=== PATIENT | female | born 2000 | race Caucasian/White ===

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

== ENCOUNTER 2022-09-05 20:04 | Emergency (ER) | payer OTHER, SELFPAY ==
[2022-09-05 20:04] VITALS: BP 143/97; PULSE 95; RESP 16; TEMP 36.1; O2SAT 100; BMI 20.1
--- NOTE | 2022-09-05 20:18 | EKG12_ITS ---
Test Reason : DYSRHYTHMIA Blood Pressure : / mmHG Vent. Rate : 081 BPM Atrial Rate : 081 BPM P-R Int : 146 ms QRS Dur : 094 ms QT Int : 374 ms P-R-T Axes : 000 106 -42 degrees QTc Int : 434 ms Normal sinus rhythm Dsxxm-Hnxzlbncj-Pyvyt -left lateral Abnormal ECG Confirmed by ROSCOE DE DIOS, BRADEN ([id number]), sports editor ELISABETH MANDUJANO ([id number]) on 09/12/2022 12:45:16 PM Referred By: MICHAEL Confirmed By:BRADEN MALHOTRA MD
--- NOTE | 2022-09-05 22:04 | EX.ED.DYSGE1 ---
HPI History of Present Illness Chief Complaint: Palpitations Informant: patient Onset/Context/Timing Onset: Weeks (1) Timing: Intermittent Quality: racing, beating hard Current Severity: Mild Maximum Severity: Moderate Worsened by: standing up Relieved by: sitting down Narrative Narrative: Patient states she has been having palpitations off and on for the past week. Mostly when she stands up, she feels her heart racing and beating hard, and her Apple Watch tells her that her heart is fast. It has been worse and more frequent today. When she sits down it seems to feel better. She has had no lightheadedness, near-syncope or syncope. No chest discomfort, no pleuritic discomfort, no dyspnea. No leg pain or swelling. She is healthy. She does not use drugs. She does not take any prescriptions. She has not taken any hiba-ovx-keiepvs medications but she did have a cold last week that is resolved, and prior to that she had strep throat that was treated with antibiotics. PFSH PFS Medical History no medical history no medical history Home Medications No Known/Unobtainable [No Known Home Medications] 08/17/16 [History Last Taken Unknown] Allergy/AdvReac Type Severity Reaction Status Date / Time No Known Allergies Allergy Verified 08/17/16 23:22 Social History Smoking Status: Never smoker ROS ROS ED Constitutional Constitutional ED: Denies chills or fever(s) Eyes Eyes: Denies change in vision or diplopia ENT ENT ED: Denies rhinorrhea or sore throat Cardiovascular Cardiovascular: Reports palpitations and racing heartbeat; Denies chest pain Respiratory/Chest Respiratory/Chest: Denies cough or dyspnea Gastrointestinal Gastrointestinal: Denies abdominal pain, diarrhea, nausea or vomiting Genitourinary Genitourinary ED: Denies dysuria or hematuria Musculoskeletal Musculoskeletal: Denies back pain or neck pain Integumentary Denies abscess or rash Neurologic Neurologic: Denies headache(s), paresthesias or weakness Psychiatric Psychiatric: Denies anxiety or suicidal thoughts EXAM Physical Exam Const Vital Signs: 09/05/22 20:04 09/05/22 22:32 09/05/22 22:32 Temperature 96.9 F L Temperature Source Temporal Pulse Rate 95 95 Pulse Rate [Lying] Pulse Rate [Sitting (for 1 minute prior to obtaining)] Pulse Rate [Standing (for 1 minute prior to obtaining)] Respiratory Rate 16 20 H Respiratory Effort Normal Non-Labored Blood Pressure 143/97 H 121/80 H Blood Pressure [Lying] Blood Pressure [Sitting (for 1 minute prior to obtaining)] Blood Pressure [Standing (for 1 minute prior to obtaining)] Blood Pressure Mean 112 93 Blood Pressure Mean [Lying] Blood Pressure Mean [Sitting (for 1 minute prior to obtaining)] Blood Pressure Mean [Standing (for 1 minute prior to obtaining)] Pulse Ox 100 100 Oxygen Delivery Method Room Air Room Air 09/05/22 22:40 Temperature Temperature Source Pulse Rate Pulse Rate [Lying] 88 Pulse Rate [Sitting (for 1 minute prior to obtaining)] 95 Pulse Rate [Standing (for 1 minute prior to obtaining)] 112 H Respiratory Rate Respiratory Effort Blood Pressure Blood Pressure [Lying] 121/73 H Blood Pressure [Sitting (for 1 minute prior to obtaining)] 115/80 Blood Pressure [Standing (for 1 minute prior to obtaining)] 136/74 H Blood Pressure Mean Blood Pressure Mean [Lying] 89 Blood Pressure Mean [Sitting (for 1 minute prior to obtaining)] 91 Blood Pressure Mean [Standing (for 1 minute prior to obtaining)] 94 Pulse Ox Oxygen Delivery Method Positive well nourished and well developed Constitutional Narrative: Well-appearing, conversive in full sentences, no distress General Appearance ED: well developed and NAD HEENT Reports moist mucous membranes normocephalic and atraumatic Throat: posterior oropharynx normal, tonsils normal and uvula midline Eyes PERRL and EOMs intact bilaterally Neck full ROM, no lymphadenopathy, supple and no JVD Chest Wall inspection of chest normal and palpation of chest normal Resp normal respiratory effort and clear to auscultation bilaterally Cardio regular rate, regular rhythm and no murmurs Rate: Negative for tachycardic GI non-tender and non-distended Auscultation: normoactive bowel sounds Palpation: soft Back/Spine no CVA tenderness General Back: other FROM Extremity normal to inspection General Extremety ED: Negative for edema, pulses abnormal or tenderness General Extremity: Negative for edema or pulses abnormal Neuro oriented x3, CN's II-XII intact bilaterally and no sensory deficits noted Sensorium / Orientation: awake and alert Motor Exam: strength 5/5 throughout Psych mental status grossly normal Skin no rashes or lesions noted and no wounds MDM MDM MDM Narrative Medical decision making narrative: Patient's EKG has repolarization abnormalities, and appears to have a delta wave. Her rhythm is normal and has been throughout her ED observation. Her labs including troponin are normal, I did a troponin to rule out myocarditis in context of her abnormal EKG and the fact that she had a cold last week and did not test for COVID. She said she had rhinorrhea and congestion but no sore throat, headache, fevers or chills, so she probably did not have COVID. 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 She said that at one point her Apple Watch told her that her heart rate was 200. It is possible that she was in transient ventricular tachycardia with that. I discussed all this with cardiology Dr. Macias, and sent him the EKG. He agrees with this assessment, and advises a 48-hour Holter monitor which we are placing here in the ED prior to her discharge, and close outpatient follow-up which she will do. Discussed with her and family they are comfortable with this overall plan. Lab Data Attestation: I reviewed the patient's lab results. Labs: Laboratory Results - last 24 hr 09/05/22 09/05/22 22:21 22:21 WBC 11.2 H RBC 4.25 Hgb 12.0 Hct 36.0 L MCV 84.7 MCH 28.2 MCHC 33.3 RDW Std Deviation 38.3 RDW Coeff of Nathalia 12.5 Plt Count 302 MPV 8.7 Immature Gran % (Auto) 0.400 Neut % (Auto) 79.2 H Lymph % (Auto) 15.3 L [place] % (Auto) 4.2 Eos % (Auto) 0.5 Baso % (Auto) 0.4 Absolute Neuts (auto) 8.9 H Absolute Lymphs (auto) 1.71 Nucleated RBC % 0 Sodium 139 Potassium 3.7 Chloride 106 Carbon Dioxide 25.0 Anion Gap 8 BUN 13 Creatinine 0.89 Estim Creat Clear Calc 78.10 Est GFR (MDRD) Af Amer 102 Est GFR (MDRD) Non-Af 84 BUN/Creatinine Ratio 14.6 Glucose 143 H Calcium 9.4 Troponin I High Sens 4 Rhythm Strip Rhythm Strip: Sinus Rhythm Rate: 95 Ectopy: None EKG Initial EKG: Attestation: I personally reviewed and interpreted this EKG as follows: Interpretation: Sinus Rhythm, No Acute Injury Pattern, Non-Specific ST Changes (Anteroseptal T wave inversions with some mild ST depressions, as well as nonspecific ST-T wave abnormalities inferiorly) and - (Delta wave with short [place] interval) Prior: No Prior Discharge Plan Triage Chief Complaint: Palpitations ED Provider: Cosem Mason Dx/Rx/DC Orders Clinical Impression: Palpitations, WPW (Yxyvm-Cvqmdylbm-Tucbr syndrome) Instructions: ED Palpitations Prescriptions: No Action No Known Home Medications Primary Care Provider: Caleb Carver Referrals: Clarice Macias MD [Med Staff - Active Staff] - As soon as possible (call for appt to be seen after 48 hrs so that your monitor is finished.) Caleb Carver MD [Primary Care Provider] - Activity Restrictions/Additional Instructions: Return to the ER if you have palpitations that will not resolve, especially if it is very fast like 180-200, or if you pass out or feel like you are going to. Avoid exerting yourself until you follow-up with cardiology. Disposition Disposition: Home, Self Care
[2022-09-05 22:32] VITALS: BP 121/80; PULSE 95; RESP 20; O2SAT 100
[2022-09-05 22:33] LABS: Absolute Lymphocyte Count 1.71 X10^3/uL (0.83-4.51); Absolute Neutrophil Count 8.9 X10^3/uL (2.0-7.7); Basophil# 0.04 X10^3/uL; Basophil% 0.4 % (0-1); Eosinophil# 0.06 X10^3/uL; Eosinophils% 0.5 % (0-5); Lymphocyte # 1.71 X10^3/ul (0.83-4.51); Lymphocyte % 15.3 % (19-41); Mean Corp Hgb Conc 33.3 g/dL (32-36); Mean Corpuscular Hgb 28.2 pg (27.0-32.0); Mean Corpuscular Volume 84.7 fL (81-99); Mean Platelet Vol. 8.7 fl (6.2-12.0); Monocyte# 0.47 X10^3/uL; Monocyte% 4.2 % (0-10); NRBC Flagged by Analyzer 0 % (0-5); Neutrophil # 8.88 X10^3/uL (2.7-7.7); Neutrophil % 79.2 % (47-70); Platelet Count 302 K/mm3 (150-450); RBC Distribution Width CV 12.5 % (11.6-14.6); RBC Distribution Width SD 38.3 fl (35.1-43.9); Red Blood Count 4.25 M/mm3 (4.2-5.4); White Blood Count 11.2 K/mm3 (4.4-11.0)
[2022-09-05 22:40] VITALS: BP 115/80; BP 121/73; BP 136/74; PULSE 112; PULSE 88; PULSE 95
[2022-09-05 22:52] LABS: Anion Gap 8 (5-15); BUN 13 mg/dL (7-18); BUN/Creat Ratio 14.6 RATIO (10-20); Calcium,Total 9.4 mg/dL (8.5-10.1); Chloride 106 mmol/L (98-107); Creatinine, Serum 0.89 mg/dL (0.55-1.02); EST Glomerular Filtration Rate 84 mL/min (>60); Est Glom Filt Rate - Afr Amer 102 mL/min (>60); Glucose 143 mg/dL (74-106); Potassium 3.7 mmol/L (3.5-5.1); Sodium Level 139 mmol/L (136-145); Troponin-I HS 4 pg/mL (3.0-54.0)
[2022-09-05 23:54] VITALS: BP 127/90; PULSE 87; RESP 16; O2SAT 100
== END 2022-09-06 00:10 | disposition home or self-care (01) ==
PROVIDERS: Emergency Provider Emergency Medicine; PCP Pediatrics; Visit Provider Emergency Medicine
DX: R00.2 Palpitations (principal); J34.89 Other specified disorders of nose and nasal sinuses; I45.6 Pre-excitation syndrome
CPT/HCPCS: 36415; 80048; 84484; 85025; 93005; 99284

== ENCOUNTER → 2022-09-05 | Outpatient (CLI) | payer OTHER, SELFPAY | END | disposition home or self-care (01) | PROVIDERS: PCP Pediatrics; Visit Provider Emergency Medicine | DX: R00.2 Palpitations (principal) | CPT/HCPCS: 93225; 93226 ==

== ENCOUNTER → 2022-09-20 | Outpatient (CLI) | payer OTHER, SELFPAY ==
--- NOTE | 2022-09-20 14:04 | ECHOD_ITS ---
Reason For Study: Palpitations Procedure This was a 2D Doppler, Color Flow transthoracic echocardiogram. Exam performed in department. Left Ventricle Normal LV size. Left ventricular systolic function is normal. The estimated ejection fraction is 60 %. No regional wall motion abnormalities noted. Right Ventricle Normal RV size. Normal systolic function. Atria Normal left atrium. Normal right atrium. Mitral Valve Normal mitral valve. Tricuspid Valve Normal tricuspid valve. Mild tricuspid valve insufficiency. Pulmonary artery systolic pressure is 20 mmHg. Aortic Valve Normal aortic valve. Trisinus/trileaflet aortic valve. Pulmonic Valve Normal pulmonic valve. Great Vessels Normal aortic root. The pulmonary artery is normal size. Normal inferior vena cava. Pericardium/Pleural No pericardial effusion. MMode/2D Measurements & Calculations LVIDd: 3.9 cm IVSd: 0.69 cm Ao root diam: 2.4 cm LVIDs: 2.9 cm LVPWd: 0.69 cm RVDd: 2.4 cm FS: 27.4 % LAV(MOD-bp): 11.4 ml LA A4 area: 5.3 cm2 LA dimension(2D): 2.8 cm LAV(MOD-bp) Indexed: 7.6 ml/m2 LAV(MOD-sp2): 14.9 ml LAV(MOD-sp4): 7.4 ml RA A4 area: 6.7 cm2 Time Measurements MV dec time: 0.27 sec Doppler Measurements & Calculations MV E max dash: 66.0 cm/sec Lat Peak E' Dash: 13.9 cm/sec Med Peak E' Dash: 10.2 cm/sec MV A max dash: 47.1 cm/sec E/E' lat: 4.8 E/E' med: 6.5 MV E/A: 1.4 MV dec slope: 245.1 cm/sec2 Ao V2 max: 96.6 cm/sec LV V1 max: 89.4 cm/sec Ao max P.7 mmHg LV V1 max P.2 mmHg Ao V2 mean: 71.4 cm/sec Ao mean P.2 mmHg Ao V2 VTI: 19.8 cm PA V2 max: 96.4 cm/sec TR max dash: 200.4 cm/sec TR max P.1 mmHg ECHO/Echo Complete Interpretation Summary Normal LV size. Left ventricular systolic function is normal. The estimated ejection fraction is 60 %. Pulmonary artery systolic pressure is 20 mmHg. Structurally normal valves. Ordering Physician: Gaston Liu Referring Physician: Caleb Carver Performed By: Tiffanie Rios, PETER, RVT
== END | disposition home or self-care (01) ==
LOC: CVS 14:03
PROVIDERS: PCP Pediatrics; Referring Provider Internal Medicine Cardiovascular Disease; Visit Provider Internal Medicine Cardiovascular Disease
DX: R00.2 Palpitations (principal); I45.6 Pre-excitation syndrome
CPT/HCPCS: 93306

== ENCOUNTER → 2024-06-22 | Outpatient (CLI) | payer OTHER, SELFPAY ==
[2024-07-05 10:49] LABS: HPV Reflexed? NOT INDICATED
== END | disposition home or self-care (01) ==
LOC: LABSPEC 15:19
PROVIDERS: Referring Provider Nurse Practitioner Family; Visit Provider Nurse Practitioner Family
DX: Z12.4 Encounter for screening for malignant neoplasm of cervix (principal)
CPT/HCPCS: 88175; G0145

== ENCOUNTER → 2024-07-02 | Outpatient (CLI) | payer SELFPAY ==
--- NOTE | 2024-07-02 15:34 | US_ITS ---
STUDY: ULTRASOUND BREAST - RIGHT REASON FOR EXAM: Female, 24 years old. Palpable lump in the upper outer quadrant of the right breast. TECHNIQUE: Axial and longitudinal images of the RIGHT breast were performed with a high resolution ultrasound transducer. # OF IMAGES: 12 COMPARISON: None. FINDINGS: RIGHT Breast: The palpable lump corresponds to a 1.5 cm x 1.2 cm x 0.8 cm solid hypoechoic slightly irregular nodule at the 10:00 position of the breast at 7 cm from the nipple. This may represent a fibroadenoma although tissue diagnosis recommended. US/Breast Limited Unilateral IMPRESSION: The palpable lump corresponds to 1.5 cm x 1.2 cm x 0.8 cm slightly irregular hypoechoic solid nodule at the 10:00 position of the breast at 7 cm from the nipple. Biopsy recommended. ASSESSMENT CATEGORY: BIRADS Category 4: Suspicious - Biopsy Should Be Considered. A letter regarding these results will be sent to the patient by the facility within 30 days. Electronically Signed: Raffi Carranza MD at 8:34 EST ,
== END | disposition home or self-care (01) ==
LOC: OPBI 15:34
PROVIDERS: PCP Family Medicine; Referring Provider Nurse Practitioner Family; Visit Provider Nurse Practitioner Family
DX: N63.11 Unspecified lump in the right breast, upper outer quadrant (principal)
CPT/HCPCS: 76642

== ENCOUNTER → 2024-07-07 | Outpatient (CLI) | payer OTHER, SELFPAY ==
--- NOTE | 2024-07-07 13:15 | BRBX_PTH ---
PATIENT: ARACELIS SABA LOC: [facility] U#:[id number] AGE/SX: 24/F ROOM: RE07/07/[address]: Dr. Zuly Hopper MD : 2000 BED: DIS: 07/07/2024 SPEC #: [id number] RECD: 07/07/24 14:59 STATUS: AMADOU REQ #: [id number] SUNNY: 07/07/24 13:[address]: Zuly Hopper DEPT: SURGICAL PATHOLOGY RECD BY: Marifer Bright ENTERED: 07/08/24 11:59 SP TYPE: BREAST BX OTHR DR: Dr. Neymar Peña MD Tissues: Right breast, NOS Procedures: Surgery Specimen Level IV HEADER OPERATION: Right breast biopsy nodule PRE-OP DIAGNOSIS: Right breast biopsy nodule, ?fibroadenoma TISSUE SUBMITTED: Right breast biopsy, 10o'clock, 7cm from nipple Ischemic Time: 1 minute Fixation Time: 31.5 hours MICROSCOPIC DIAGNOSIS Right breast, 10o'clock, 7cm from nipple, core biopsy: Fragments of benign breast tissue with focal dense fibrosis. Negative for atypia or malignancy. See comment. 07/09/2024 COMMENT Correlation with clinical, radiologic findings and appropriate follow up are necessary. MICROSCOPIC DESCRIPTION Slides are reviewed. GROSS DESCRIPTION Received in fixative is one container labeled with the patient's name and designated Right breast nodule. The specimen consists of multiple irregular fragments of ko soft tissue and ko-yellow fibroadipose tissue that in aggregate measure 1.0 x 0.5 x 0.1 cm. The specimen is totally submitted in one cassette. 07/08/2024 TC:5 CPT:74348
== END | disposition home or self-care (01) ==
LOC: LABSPEC 15:07
PROVIDERS: PCP Family Medicine; Referring Provider Surgery; Visit Provider Surgery
DX: N63.10 Unspecified lump in the right breast, unspecified quadrant (principal)
CPT/HCPCS: 88305

== ENCOUNTER 2024-07-23 07:30 | Day surgery (SDC) | payer OTHER, SELFPAY ==
--- NOTE | 2024-07-16 09:13 | PAT.ANESEVAL ---
Pre-Assessment Diagnosis/Proposed Procedure Planned Operative Procedure(s): RIGHT U/S GUIDED LOCALIZATION EXCISIONAL BREAST BIOPSY Anesthesia History Anesthesia History - senior talent management consultant: Anesthesia History - senior talent management consultant Hx Hospitalization No 07/16/24 08:15 Any Problems With Anesthesia No 07/16/24 08:15 Cholinesterase deficiency No 07/16/24 08:15 You/Your Family Experience No 07/16/24 08:15 fever (hyperthermia) with Relationship Recent Exposure to Contagious Disease Does patient have nerve No 07/16/24 08:15 stimulator Patient instructed to have device shut off --Does patient have Pacemaker or ICD? When Was Last Pacemaker Check QUESTION #4 FULL TEXT: You/Your Family Experience fever (hyperthermia) with Anesthesia Last Oral Intake Last Oral intake: Last Oral Intake NPO since Meds taken in AM with sips of water? Meds patient instructed to take am of surgery PONV PONV - senior talent management consultant: PONV - senior talent management consultant Female Yes 07/16/24 08:15 HX of Motion Sickness Yes 07/16/24 08:15 HX of N/V After Surgery No 07/16/24 08:15 Non-Smoker Yes 07/16/24 08:15 Duration of Surgery greater Yes 07/16/24 08:15 than 60 minutes Number of Risk Factors 4 07/16/24 08:15 PONV Score Severe Risk 07/16/24 08:15 Height & Weight Height & Weight: Anesthesia: Height & Weight Height 5 ft 2 in 07/07/24 13:09 Respiratory Assessment Respiratory Assessment - senior talent management consultant: Respiratory Tract Infection Hx - senior talent management consultant Hx Respiratory Tract Infection No 07/16/24 08:15 STOP Sleep Apnea STOP Sleep Apnea - senior talent management consultant: STOP Sleep Apnea - senior talent management consultant Hx Hypertension No 07/16/24 08:15 Hx Sleep Apnea No 07/16/24 08:15 CPAP BIPAP Do you snore loudly (louder No 07/16/24 08:15 than talking or can be heard Do you often feel tired/ No 07/16/24 08:15 fatigued/ sleepy during daytime? Has anyone observed you stop No 07/16/24 08:15 breathing during sleep? STOP Results Negative 07/16/24 08:15 QUESTION #5 FULL TEXT : Do you snore loudly (louder than talking or can be heard through closed doors)? Tobacco Use History Tobacco Use History - senior talent management consultant: Tobacco Use History - senior talent management consultant Tobacco Use Smoking Status Never smoker 07/16/24 08:15 Hx Tobacco Use No 07/16/24 08:15 Years Smoking Packs Smoked per Day Smoking Cessation Date was within the last 15 years Hx Smoking Cessation Date Hx Smoking Cessation Counseling Hematologic Medial History Hematologic Hx - senior talent management consultant: Hematologic Medical Hx - power operator Hx of Blood Transfusion No 07/16/24 08:15 Hx of Transfusion in last 3 No 07/16/24 08:15 Months Date of Last Transfusion (if within last 3 months) Ever experience any problems No 07/16/24 08:15 with transfusion(s)? Specify any problems Hx of Preganancy in last 3 No 07/16/24 08:15 Months Nurse Filling Out Transfusion DSCHRIBER 07/16/24 08:15 & Questions: Date: 07/16/24 07/16/24 08:15 Time: 08:16 07/16/24 08:15 Patient unable to answer at this time (ie. confused, unrespo /Reproduction History /Reproductive History - senior talent management consultant: /Reproductive Hx- senior talent management consultant Hx Now No 07/16/24 08:15 Gestational Age (in weeks): EDC: Hx Hx Para Hx Section SAB No 07/16/24 08:15 PFSH Medical History (Updated 07/16/24 @ 08:20 by Elsa Contreras) Wears glasses Wears contact lenses TMJ arthritis Non-smoker History of Holter monitoring History of echocardiogram Cardiology follow-up encounter Abnormal ultrasound Breast pain, right WPW (Axfuu-Nltfwnmkr-Xjsoy syndrome) Palpitations Spondylolisthesis at L4-L5 level Segmental and somatic dysfunction of pelvic region Segmental and somatic dysfunction of lumbar region Segmental and somatic dysfunction of thoracic region Segmental and somatic dysfunction of cervical region Home Medications ?Medication ?Instructions ?Recorded ?Last Taken ?Type No Known/Unobtainable [No Known 08/17/16 Unknown History Home Medications] Allergy/AdvReac Type Severity Reaction Status Date / Time No Known Allergies Allergy Verified 07/16/24 08:14 Family History Grandfather Myocardial infarction, Onset Age: 38 Grandmother CVA (cerebral vascular accident) Diabetes Surgical History (Updated 07/16/24 @ 08:20 by Elsa Contreras) Hx of wisdom tooth extraction History of cardiac radiofrequency ablation (RFA) (12/09/22) Social History (Updated 06/22/24 @ 11:41 by Estephanie Nur) adopted: No number of children: 0 sexually active: Yes Smoking Status: Never smoker alcohol intake: never substance use type: does not use caffeine: No christin/taoism: Roman Catholic seatbelt use: always do you feel safe at home: Yes Audit: Pertinent Findings Pertinent Findings EKG Perinent findings: 02/11/2023 sinus rhythm RSR V1 probably normal for age Echo (EF%) pertinent findings: 09/20/2022 normal systolic function EF 60% pulmonary artery pressure 20 normal valves Consult pertinent findings: Cardiology 02/12/2024 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
[2024-07-23] VITALS (9 sets, daily range): BP systolic 101–121; BP diastolic 62–72; PULSE 74–95; RESP 16–18; TEMP 36.6–37.2; O2SAT 99–100; BMI 20.9
--- NOTE | 2024-07-23 | BRBX_PTH ---
PATIENT: ARACELIS SABA LOC: [facility] [place] U#:[id number] AGE/SX: 24/ ROOM: RE07/23/[address]: Dr. Zuly Hopper MD : 2000 BED: DIS: 07/23/2024 SPEC #: [id number] RECD: 07/23/24 11:02 STATUS: AMADOU SANDRINE #: [id number] SUNNY: 07/23/24 00:[address]: Zuly Hopper DEPT: SURGICAL PATHOLOGY RECD BY: Moi Mar ENTERED: 07/23/24 11:03 SP TYPE: BREAST BX OTHR DR: Dr. Neymar Peña MD Tissues: Right breast, NOS Procedures: Surgery Specimen Level IV HEADER OPERATION: Right ultrasound guided wire location excision, breast biopsy PRE-OP DIAGNOSIS: Breast lump, right TISSUE SUBMITTED: Right breast biopsy ISCHEMIC TIME: 7 minutes FIXATION TIME: 59 hours MICROSCOPIC DIAGNOSIS Right breast, excisional biopsy: Fibroadenoma with focal fibrocystic changes. Changes consistent with previous biopsy site. Negative for atypia or malignancy. See comment. 07/27/2024 COMMENT Please make reference to previous specimen [id number] right breast, 10o'clock, 7cm from nipple, core biopsy with diagnosis of fragments of benign breast tissue with focal dense fibrosis. MICROSCOPIC DESCRIPTION Slides are reviewed. GROSS DESCRIPTION Received fresh and post fixed in formalin is one container labeled with the patient's name and designated Right breast biopsy. The specimen consists of a piece of fibroadipose tissue with needle localization measuring 4.0 x 3.5 x 2.0cm. Specimen is oriented as follows: short stitch-anterior, long stitch- lateral. The specimen appears to be disrupted. The specimen is inked as follows: anterior - yellow, posterior - black, superior - blue, inferior - green, medial - red and lateral - orange. The specimen is serially sectioned and reveal ko nodule measuring 1.0 x 1.0 x 0.5cm. Section of the rest of the specimen reveal fibrous cut surfaces mixed with scant yellow adipose tissue. The entire specimen is submitted in 11 cassettes from medial to lateral margins. The entire specimen is submitted in eleven cassettes. Cassette 1 contains mostly medial margin, cassette 11 contains most lateral margin. Sections are submitted after additional fixation. 07/26/2024 TC:1 CPT:24926
[2024-07-23 07:52] LABS: Internal QC Validated? YES +Cl - CLEAR BKGD; Pregnancy, Urine Negative Negative
--- NOTE | 2024-07-23 08:07 | PCM.HP.BLA ---
History and Physical Date of Admission: 07/23/24 Date of Service: 07/07/24 MR#: [id number] Acct: [id number] Name: ARACELIS LOVE Rep #: [id number] : 2000 Provider: Dr. Zuly Hopper MD Age/Sex: 24/F Location: [facility] Status: Signed Intake Vital Signs 06/22/2411:45 07/07/2413:09 Height 5 ft 2 in 5 ft 2 in Weight: 116 lb 5 oz BMI 21.2 BP 125/82 H Blood Pressure Location Rt brachial Position Sitting Respiration 18 Pulse 81 Pulse Source Monitor Temp 97.6 F L Temp Source Temporal Pulse Oximetry (%) 100 Oxygen Delivery Method room air Intake Visit Reasons: BIRADS 4 Chief Complaint: BIRADS 4 Is patient in pain?: Yes (right breast pain ) Allergies No Known Allergies Allergy (Verified 06/22/24 11:39) Medications ?Medication ?Instructions ?Recorded ?Confirmed ?Type No Known/Unobtainable [No Known 08/17/16 07/07/24 History Home Medications] [facility] Medical History (Updated 07/07/24 @ 14:[address] Zuly Hopper MD) Abnormal ultrasound Breast pain, right WPW (Efiaz-Vymdyqkou-Qwyai syndrome) Palpitations Spondylolisthesis at L4-L5 level Segmental and somatic dysfunction of pelvic region Segmental and somatic dysfunction of lumbar region Segmental and somatic dysfunction of thoracic region Segmental and somatic dysfunction of cervical region Surgical History History of cardiac radiofrequency ablation (RFA) (12/09/22) Family History Grandfather Myocardial infarction, Onset Age: 38Grandmother CVA (cerebral vascular accident) Diabetes Social History (Updated 06/22/24 @ 11:41 by Estephanie Nur) adopted: No number of children: 0 sexually active: Yes Smoking Status: Never smoker alcohol intake: never substance use type: does not use caffeine: No christin/baptism: Anabaptism seatbelt use: always do you feel safe at home: Yes HPI HPI HPI: 24-year-old female presents due to right breast mass. Patient states she noticed this about a month and a half ago maybe dime size states she does have a little bit of discomfort right before her period starts. Patient states sometimes she seems that could be a little bit bigger and other times a little bit smaller. Patient had an ultrasound which showed a 1.5 x 1.2 x 0.8 cm solid hypoechoic slightly irregular nodule at 10:00 7 cm from the nipple may represent fibroadenoma-given a BI-RADS 4. Age of menses 12, age at time of first child N/A, no family history of breast cancer, no previous breast biopsies. ROS General General: No weight change, appetite, fatigue, colon cancer, breast cancer or weakness HEENT HEENT: No difficulty swallowing, eye injury, eye surgery, swollen glands or hoarseness Endo Endocrine: No thyroid disease, diabetes mellitus, thyroid cancer, Hair loss, heat intolerance or cold intolerance Skin Skin: No rash or changing moles Breast Breast: Yes right breast lump, breast pain and abnormal US; No left breast lump, nipple discharge, abnormal mammogram or breast enlargement Musc Musculoskeletal: Yes back problems; No arthritis, rheumatoid arthritis, gout or joint pain Cardio Cardiovascular: No murmur, pacemaker, heart disease, atrial fibrillation, high blood pressure, heart attack, heart stent, palpitations, shortness of breat with exertion or chest pain Psych Psychiatric: No depression, anxiety or hearing voices Resp Respiratory: No shortness of breath, No sleep apnea, No cough, No COPD, No asthma, No emphysema and No wheezing Gastro Gastrointestinal: No abdominal pain, No nausea or vomiting, No diarrhea, No constipation, No blood in stool, No acid reflux, No hemorrhoids, No ulcers, No gallbladder problem and No black,tarry stools Pola Hematologic: No blood thinners, No blood disorders, No bleeding, No anemia and No blood clots Neuro Neurologic: No numbness, No tingling and No weakness Exam Const General: cooperative, healthy appearing and no acute distress HENWA Head: normal to inspection Chest Other: Breast inspection: Symmetric bilaterally Right breast: Fibroglandular tissue, mass about a centimeter at 10:00 7 cm from the nipple, no nipple discharge or pain, no change in overlying skin Left breast: Fibroglandular tissue, no masses on exam, no nipple discharge or pain, no change in overlying skin No axillary or supraclavicular adenopathy bilaterally Resp Effort & Inspection: normal respiratory effort Cardio Rate: regular rate GI Inspection: non-distended Palpation: soft Skin General: no rashes or lesions noted Neuro General: patient oriented x3 Extrem General: no clubbing, cyanosis or edema Psych Affect: normal affect Office Procedures Biopsy Provider Documentation Reviewed the ultrasound and mammography with patient and discussed the need for biopsy. Reviewed the procedure of biopsy with a core biopsy device. A marker clip will be placed to identify the location. Patient has been counseled to the risks/benefits of the procedure. I have explained the risks of the surgery, including but not limited to: infection, bleeding, injury to any blood vessels/nerves, scar tissue, missing the lesion, further surgery, etc. - the patient understands and agrees to proceed. I have answered all of the patient's questions to her satisfaction and she has no further questions. Signed consent is completed. Procedure: ultrasound-guided core biopsy Description of procedure: Patient was brought into the ultrasound room in the right breast was marked. A timeout was completed verifying correct patient, procedure, site, specially, prior to beginning procedure. The right breast was prepped and draped in usual sterile fashion and using local anesthesia was obtained with 1% lidocaine with epi. The lesion was located with the ultrasound at 10:00 7cm from nipple. Small incision was made with 11 blade to introduced the BARD MaxCore through the skin. Under ultrasound guidance multiple core samples were obtained using then 14-gauge BARD MaxCore and sent in formalin for pathology. The Bard dual ultra-clip was then deployed into the biopsy cavity under ultrasound guidance and a picture was taken. Upon completion procedure hemostasis was obtained and a Steri-Strip and OpSite were placed. The patient tolerated the procedure well and left the office in good condition. Alert Vel Yes Biopsy Breast Biopsy: 77605 US Guidance Procedure Time Out Time Out Informed consent given: Yes Consent signed: Yes Time out checklist: patient, procedure, site marked/identified, positioning of patient, supplies available, allergies confirmed and team agrees on procedure Time out staff in room: Yes Time out verified: Yes Time out date: 07/07/24 Time out time: 14:12 Assessment and Plan Assessment and Plan (1) Breast lump: Status: Acute Comment: right Plan Patient tolerated breast biopsy well in office. Will call patient with pathology results. Follow-up will be made at that time if needed. Patient is agreeable plan. Addendum: Patient's pathology showed fat necrosis due to the discordant pathology and imaging recommend excisional biopsy. Discussed procedure ultrasound-guided right breast excisional biopsy including risk not limited to bleeding, infection, need for further surgery. Patient no further question this time. Zuly Hopper M.D. Pager: [phone] [facility] [address] [place] [address], [address] [place] [address] Office: [phone] Plan Details Goals & Barriers: Goals Decrease spasm Decrease pain Improve ROM Barriers Healed lumbar fx Coding Level of Care Code Attention Foundation Relations Director Diagnoses Breast lump N63.0 CPT Codes Biopsy - Breast Biopsy: 67563 US Guidance (06140) 07/07/24 1419 <Electronically signed by Zuly Hopper MD> Date Zuly Hopper MD
[2024-07-23] MEDS: 0.9% Normal Saline (1000mL) 1,000 ML 15 ML IV (08:19)
--- NOTE | 2024-07-23 08:27 | PRE.ANES_ITS ---
ASA Classification* ASA Classification ASA Classification: 2 Assessment & Plan Anesthesia* Anesthesia Assessment Anesthesia Assessment: Discussed sedation and/or anesthesia options, risks, benefits, and alternatives with patient/parents/legal guardian/POA. Questions invited. The patient/parents/legal guardian/POA seems to understand and agrees to proceed with anesthesia plan. Reviewed the physical assessment, medical history, allergy history and patient home medications list prior to surgery/procedure/anesthetic and documented any changes. Performed airway and anesthesia risk assessments. Anesthesia Type Anesthesia Type: General Anesthesia Focused Assessment* Temperature: 98.8 F Pulse Rate: 87 Blood Pressure: 121/70 Respiratory Rate: 18 Pulse Ox: 100 Airway Assessment Mouth opens: >3 cm Mallampati Score: II Focused Labs Anesthesia Preop lab: CBC WBC 11.2 K/mm3 (4.4-11.0) H 09/05/22 22:21 RBC 4.25 M/mm3 (4.2-5.4) 09/05/22 22:21 Hgb 12.0 g/dL (12.0-15.0) 09/05/22 22:21 Hct 36.0 % (37-47) L 09/05/22 22:21 Plt Count 302 K/mm3 (150-450) 09/05/22 22:21 CHEMISTRY Potassium 3.7 mmol/L (3.5-5.1) 09/05/22 22:21 Sodium 139 mmol/L (136-145) 09/05/22 22:21 BUN 13 mg/dL (7-18) 09/05/22 22:21 Creatinine 0.89 mg/dL (0.55-1.02) 09/05/22 22:21 Glucose 143 mg/dL (74-106) H 09/05/22 22:21 COAG Urine Test Negative Negative 07/23/24 07:40 Pre-Assessment Diagnosis/Proposed Procedure Planned Operative Procedure(s): RIGHT U/S GUIDED LOCALIZATION EXCISIONAL BREAST BIOPSY Anesthesia History Anesthesia History - ignition mechanic: Anesthesia History - ignition mechanic Hx Hospitalization No 07/16/24 08:15 Any Problems With Anesthesia No 07/16/24 08:15 Cholinesterase deficiency No 07/16/24 08:15 You/Your Family Experience No 07/16/24 08:15 fever (hyperthermia) with Relationship Recent Exposure to Contagious No 07/23/24 07:57 Disease Does patient have nerve No 07/16/24 08:15 stimulator Patient instructed to have device shut off --Does patient have Pacemaker No 07/23/24 07:57 or ICD? When Was Last Pacemaker Check QUESTION #4 FULL TEXT: You/Your Family Experience fever (hyperthermia) with Anesthesia Last Oral Intake Last Oral intake: Last Oral Intake NPO since 00:00 07/23/24 07:57 Meds taken in AM with sips of No 07/23/24 07:57 water? Meds patient instructed to take am of surgery PONV PONV - ignition mechanic: PONV - ignition mechanic Female Yes 07/16/24 08:15 HX of Motion Sickness Yes 07/16/24 08:15 HX of N/V After Surgery No 07/16/24 08:15 Non-Smoker Yes 07/16/24 08:15 Duration of Surgery greater Yes 07/16/24 08:15 than 60 minutes Number of Risk Factors 4 07/16/24 08:15 PONV Score Severe Risk 07/16/24 08:15 Height & Weight Height & Weight: Anesthesia: Height & Weight Height 5 ft 2 in 07/23/24 07:57 Weight: 52 kg 07/23/24 07:57 Body Mass Index (BMI) 20.9 07/23/24 07:57 Respiratory Assessment Respiratory Assessment - ignition mechanic: Respiratory Tract Infection Hx - ignition mechanic Hx Respiratory Tract Infection No 07/16/24 08:15 STOP Sleep Apnea STOP Sleep Apnea - ignition mechanic: STOP Sleep Apnea - ignition mechanic Hx Hypertension No 07/16/24 08:15 Hx Sleep Apnea No 07/16/24 08:15 CPAP BIPAP Do you snore loudly (louder No 07/16/24 08:15 than talking or can be heard Do you often feel tired/ No 07/16/24 08:15 fatigued/ sleepy during daytime? Has anyone observed you stop No 07/16/24 08:15 breathing during sleep? STOP Results Negative 07/16/24 08:15 QUESTION #5 FULL TEXT : Do you snore loudly (louder than talking or can be heard through closed doors)? Tobacco Use History Tobacco Use History - ignition mechanic: Tobacco Use History - ignition mechanic Tobacco Use Smoking Status Never smoker 07/16/24 08:15 Hx Tobacco Use No 07/16/24 08:15 Years Smoking Packs Smoked per Day Smoking Cessation Date was within the last 15 years Hx Smoking Cessation Date Hx Smoking Cessation Counseling Hematologic Medial History Hematologic Hx - ignition mechanic: Hematologic Medical Hx - wood molder Hx of Blood Transfusion No 07/16/24 08:15 Hx of Transfusion in last 3 No 07/16/24 08:15 Months Date of Last Transfusion (if within last 3 months) Ever experience any problems No 07/16/24 08:15 with transfusion(s)? Specify any problems Hx of Preganancy in last 3 No 07/16/24 08:15 Months Nurse Filling Out Transfusion DSCHRIBER 07/16/24 08:15 & Questions: Date: 07/16/24 07/16/24 08:15 Time: 08:16 07/16/24 08:15 Patient unable to answer at this time (ie. confused, unrespo /Reproduction History /Reproductive History - ignition mechanic: /Reproductive Hx- ignition mechanic Hx Now No 07/16/24 08:15 Gestational Age (in weeks): EDC: Hx Hx Para Hx Section SAB No 07/16/24 08:15 Active Medications Active Medications: Current Medications Generic Name Dose Route Start Last Admin Trade Name Freq PRN Reason Stop Dose Admin Cefazolin Sodium 2 gm/ N/A 20 mls @ 400 mls/hr 07/23/24 09:00 IV 07/23/24 09:02 PREOP ONE Sodium Chloride 1,000 mls @ 15 mls/hr 07/23/24 08:15 07/23/24 08:19 IV 07/28/24 21:34 15 mls/hr .Q48H BE Administration Protocol [facility] Medical History Wears glasses Wears contact lenses TMJ arthritis Non-smoker History of Holter monitoring History of echocardiogram Cardiology follow-up encounter Abnormal ultrasound Breast pain, right WPW (Frcbh-Ubmopvrtf-Lnkvv syndrome) Palpitations Spondylolisthesis at L4-L5 level Segmental and somatic dysfunction of pelvic region Segmental and somatic dysfunction of lumbar region Segmental and somatic dysfunction of thoracic region Segmental and somatic dysfunction of cervical region Home Medications ?Medication ?Instructions ?Recorded ?Last Taken ?Type No Known/Unobtainable [No Known 08/17/16 Unknown History Home Medications] Allergy/AdvReac Type Severity Reaction Status Date / Time No Known Allergies Allergy Verified 07/23/24 07:56 Family History Grandfather Myocardial infarction, Onset Age: 38 Grandmother CVA (cerebral vascular accident) Diabetes Surgical History Hx of wisdom tooth extraction History of cardiac radiofrequency ablation (RFA) (12/09/22) Social History adopted: No number of children: 0 sexually active: Yes Smoking Status: Never smoker alcohol intake: never substance use type: does not use caffeine: No christin/voodoo: Pentecostalism seatbelt use: always do you feel safe at home: Yes Review of Systems (Anesthesia) ROS Narrative System reviewed and no additional complaints, except as documented.
[2024-07-23] MEDS: Cefazolin 2 GM in Syringe IV (08:46)
[2024-07-23] MEDS: Bupiv/Epi 0.25% 30 ML Vial (09:06)
--- NOTE | 2024-07-23 09:19 | BI_ITS ---
SURGICAL BREAST SPECIMEN RADIOGRAPH CLINICAL: Document presence of tissue clip marker in biopsy specimen. FINDINGS: Specimen shows presence of tissue clip marker. Pathology is pending and an addendum to the biopsy report will be performed after the final pathologic diagnosis is rendered. Electronically Signed: Elieser Perez MD at 14:51 EST , BI/Breast Biopsy Specimen IMPRESSION: undefined
--- NOTE | 2024-07-23 09:19 | PCM.OPRPT ---
Operative Report (Standard) Operative Information Date of Procedure: 07/23/24 Pre-Operative Diagnosis: Right breast mass Post-Operative Diagnosis: Same Surgery/Procedure Performed: Ultrasound-guided needle localization right breast mass contracting manager: Yes Extract Wringer: Noni Turk Tasks completed by district administrative assistant: Opening & closing Type of Anesthesia: General/Supplemental RN Documented Start/Stop Times: Operation Date: 07/23/24 09:00 Case Time Into Pre-Op 07/23/24 07:40 Out of Pre-Op 07/23/24 08:36 Anesthesia Start 07/23/24 08:42 Into Room 07/23/24 08:42 Procedure Start 07/23/24 08:59 Procedure End 07/23/24 09:36 Anesthesia End 07/23/24 09:38 Out of Room 07/23/24 09:38 Into Recovery 07/23/24 09:40 Out of Recovery 07/23/24 10:12 Into Phase II Recovery 07/23/24 10:13 Out of Phase II 07/23/24 11:20 Procedure Start Time: 08:59 Procedure Stop Time: 09:36 Select all DRAINS/GRAFTS/IMPLANTS that apply: None Special Medications: Ancef 2 g IV x 1 Estimated Blood Loss: < 10 cc Specimen collected: Yes Description of specimen(s) removed: Right breast mass 10:00 7 cm from the nipple Description of surgery: Patient was brought to operating placed spinal operating table. Timeout was completed verifying correct patient, procedure, site, positioning, special, prior began procedure. General anesthesia was induced. Patient's right breast was prepped draped in a sterile fashion. Ultrasound guided needle localization with Kopan needle was completed with the wire just lateral to the right breast mass. A curvilinear incision was planned in such a way as to minimize the amount of dissection to reach the mass. Flaps were raised in the location of the wire confirmed. The wire was delivered into the wound. 2 silk dpqowc-[id number]-[id number] stay suture was placed around the wire and used for traction. Dissection was then taken down circumferentially with electrocautery, taking care to include the entire localization needle and wide margin of grossly normal tissue. The specimen and entire localizing wire were removed. The specimen was oriented and sent to radiology. Confirmation was received that the entire target lesion had been resected with x-ray. The cavity was irrigated. Hemostasis was obtained with electrocautery. The breast incision was closed with interrupted sutures of 3-0 Vicryl and subcuticular sutures of 4-0 Monocryl. No attempt was made to close the space. A dressing of fluff gauze and supportive bra placed. The patient tolerated procedure well was taken to the postanesthesia care in stable condition. Surgical Findings: Lesion and clip removed Complications Complications: No
--- NOTE | 2024-07-23 09:23 | EX.PCM.DISCH ---
Discharge Instructions Diet Discharge Diet: No restrictions Activity Discharge Activity: May Not Drive (for 2-3 days or while taking narcotic pain meds.) May shower in (days): 1 Lifting Restrictions: 10 pounds for 1 week. Dressing / Incision Call your doctor if your incision/area has: Continuous Slow Oozing, Sudden Increased Bleeding, Increased Pain/ Swelling and Increased Redness Call your doctor if you observe: Fever of 101 or Higher Suture Line Care: Avoid Pulling/Pushing and Avoid Pinching/Bending Remove Dressing in: 1 day Additional Dressing/Incision Instructions:: Remove bulky dressing tomorrow. May leave op-site dressing for 3-4 days. Okay to remove Steri-Strips from the breast incision in 7 to 10 days. Follow Up Care Please Follow Up With: Zuly Hopper MD When: Please call [phone] for an appointment to be seen in 2 week. Test Results: Test results from this visit will be discussed in further detail at your follow-up appointment, if applicable. Discharge Plan Admission Attending Provider: Zuly Hopper Primary Care Provider: Neymar Peña Instructions Print Language: Sammarinese Discharge Orders/Prescriptions Prescriptions: New oxycodone 5 mg capsule 5 mg PO Q6H PRN (Reason: pain) 3 Days Qty: 5 0RF Referrals / Follow Up: Neymar Peña MD [Primary Care Provider] - Disposition Disposition (needs filled in before D/C Order can be placed): Home, Self Care
--- NOTE | 2024-07-23 09:43 | PCM.POST.ANE ---
Anesthesia: Postop Eval I Current Vital Signs Temperature: 97.8 F Pulse Rate: 80 Blood Pressure: 112/66 Respiratory Rate: 16 Pulse Ox: 100 Oxygen Delivery Method: Room Air Assessment Airway patent: Yes Spontaneous unlabored respirations: Yes Mental status: Awake and Calm nausea: No Vomiting: No Anesthesia Complication: No Fluid Hydration Crystalloid volume administer (ml): 500 Total IV fluid infused: 500 Progress Note Anesthesia document: Postop Eval 1 completed: Yes
--- NOTE | 2024-07-23 10:32 | POSTOPAN2_ITS ---
Anesthesia Postop Eval I Sum Postop Eval Completion status Anesthesia document: Postop Eval 1 completed: Yes Anesthesia Postop Eval I Summary Anesthesia Postop Eval I Summary: Anesthesia Postop Eval I: Assessment Summary Airway patent Yes 07/23/24 09:43 CATALYTIC CASE OPERATOR.[email or web address] Spontaneous unlabored Yes 07/23/24 09:43 CATALYTIC CASE OPERATOR.GDOTT respirations Mental status Awake,Calm 07/23/24 09:43 CATALYTIC CASE OPERATOR.GDOTT nausea No 07/23/24 09:43 CATALYTIC CASE OPERATOR.GDOTT Vomiting No 07/23/24 09:43 CATALYTIC CASE OPERATOR.GDOTT Anesthesia Postop Eval I: Fluid Summary Crystalloid volume administer 500 07/23/24 09:43 CATALYTIC CASE OPERATOR.GDOTT (ml) Colloids volume administered ( ml) Blood Product volume administered (ml) Total IV fluid infused 500 07/23/24 09:43 CATALYTIC CASE OPERATOR.GDOTT Anesthesia Postop Eval I: Summary Notes Anesthesia Complication No 07/23/24 09:43 CATALYTIC CASE OPERATOR.GDOTT Anesthesia Complication Comment: Post-operative progress note Anesthesia: Postop Eval II Evaluation Mental status: Awake Pain Level: 0 nausea: No Vomiting: No
--- NOTE | 2024-07-23 10:32 | PCM.POSTANE2 ---
Anesthesia Postop Eval I Sum Postop Eval Completion status Anesthesia document: Postop Eval 1 completed: Yes Anesthesia Postop Eval I Summary Anesthesia Postop Eval I Summary: Anesthesia Postop Eval I: Assessment Summary Airway patent Yes 07/23/24 09:43 SHALE PROCESSING TECHNICIAN.GDOTT Spontaneous unlabored Yes 07/23/24 09:43 SHALE PROCESSING TECHNICIAN.GDOTT respirations Mental status Awake,Calm 07/23/24 09:43 SHALE PROCESSING TECHNICIAN.GDOTT nausea No 07/23/24 09:43 SHALE PROCESSING TECHNICIAN.GDOTT Vomiting No 07/23/24 09:43 SHALE PROCESSING TECHNICIAN.GDOTT Anesthesia Postop Eval I: Fluid Summary Crystalloid volume administer 500 07/23/24 09:43 SHALE PROCESSING TECHNICIAN.GDOTT (ml) Colloids volume administered ( ml) Blood Product volume administered (ml) Total IV fluid infused 500 07/23/24 09:43 SHALE PROCESSING TECHNICIAN.GDOTT Anesthesia Postop Eval I: Summary Notes Anesthesia Complication No 07/23/24 09:43 SHALE PROCESSING TECHNICIAN.GDOTT Anesthesia Complication Comment: Post-operative progress note Anesthesia: Postop Eval II Evaluation Mental status: Awake Pain Level: 0 nausea: No Vomiting: No
== END 2024-07-23 11:20 | disposition home or self-care (01) ==
LOC: SDC 07:31 → AC 07:32
PROVIDERS: Anesthesiology; PCP Family Medicine; Referring Provider Surgery; Visit Provider Surgery
PROC: (CPT 19083; principal; 2024-07-23 08:45)
DX: D24.1 Benign neoplasm of right breast (principal)
CPT/HCPCS: 19083; 00400; 76098; 81025; 88305; A4216; J2405

== ENCOUNTER → 2024-07-27 | Outpatient (CLI) | payer OTHER, SELFPAY ==
[2024-07-27 14:17] LABS: hCG Titer Quant., Serum 298 mIU/mL (1-3)
== END | disposition home or self-care (01) ==
LOC: BWCLAB 12:58
PROVIDERS: PCP Family Medicine; Referring Provider Obstetrics & Gynecology; Visit Provider Obstetrics & Gynecology
DX: N91.2 Amenorrhea, unspecified (principal)
CPT/HCPCS: 36415; 84702

== ENCOUNTER → 2024-07-29 | Outpatient (CLI) | payer OTHER, SELFPAY ==
[2024-07-29 12:39] LABS: hCG Titer Quant., Serum 793 mIU/mL (1-3)
== END | disposition home or self-care (01) ==
LOC: BWCLAB 11:10
PROVIDERS: PCP Family Medicine; Referring Provider Obstetrics & Gynecology; Visit Provider Obstetrics & Gynecology
DX: Z34.90 Encounter for supervision of normal pregnancy, unspecified, unspecified trimester (principal)
CPT/HCPCS: 36415; 84702

== ENCOUNTER → 2024-08-18 | Outpatient (CLI) | payer OTHER, SELFPAY ==
[2024-08-18 14:48] LABS: hCG Titer Quant., Serum 100316 mIU/mL (1-3)
== END | disposition home or self-care (01) ==
LOC: BWCLAB 13:40
PROVIDERS: Obstetrics & Gynecology; PCP Family Medicine; Referring Provider Obstetrics & Gynecology; Visit Provider Obstetrics & Gynecology
DX: Z34.90 Encounter for supervision of normal pregnancy, unspecified, unspecified trimester (principal); Z78.9 Other specified health status
CPT/HCPCS: 36415; 84702

== ENCOUNTER → 2024-09-03 | Outpatient (CLI) | payer OTHER, SELFPAY ==
[2024-09-07 21:06] LABS: Chlamydia By Nucleic Acid AMP Negative (Negative); Gonococcus By Nucleic Acid AMP Negative (Negative)
== END | disposition home or self-care (01) ==
LOC: BWCLAB 16:00 → LABSPEC 09-08 10:40
PROVIDERS: PCP Family Medicine; Referring Provider Registered Nurse; Visit Provider Registered Nurse
DX: O09.90 Supervision of high risk pregnancy, unspecified, unspecified trimester (principal); Z3A.00 Weeks of gestation of pregnancy not specified
CPT/HCPCS: 87077; 87086; 87088; 87186; 87491; 87591

== ENCOUNTER → 2024-09-13 | Outpatient (CLI) | payer OTHER, SELFPAY ==
[2024-09-13 12:41] LABS: Absolute Lymphocyte Count 1.45 X10^3/uL (0.83-4.51); Basophil# 0.03 X10^3/uL; Basophil% 0.3 % (0-1); Eosinophil# 0.12 X10^3/uL; Eosinophils% 1.2 % (0-5); Hematocrit 37.4 % (37-47); Hemoglobin 12.5 g/dL (12.0-15.0); Lymphocyte # 1.45 X10^3/ul (0.83-4.51); Lymphocyte % 14.4 % (19-41); Mean Corp Hgb Conc 33.4 g/dL (32-36); Mean Corpuscular Hgb 29.3 pg (27.0-32.0); Mean Corpuscular Volume 87.8 fL (81-99); Monocyte# 0.41 X10^3/uL; Monocyte% 4.1 % (0-10); NRBC Flagged by Analyzer 0 % (0-5); Neutrophil # 8.02 X10^3/uL (2.7-7.7); Neutrophil % 79.6 % (47-70); Platelet Count 290 K/mm3 (150-450); RBC Distribution Width CV 13.6 % (11.6-14.6); RBC Distribution Width SD 43.5 fl (35.1-43.9); Red Blood Count 4.26 M/mm3 (4.2-5.4); White Blood Count 10.1 K/mm3 (4.4-11.0)
[2024-09-13 13:12] LABS: Hepatitis B Surface Antigen Non-Reactive (Nonreactive)
[2024-09-13 13:19] LABS: Syphilis Antibodies Non-reactive
[2024-09-13 13:32] LABS: Hepatitis C Antibody Non-Reactive (Nonreactive)
[2024-09-14 14:50] LABS: Rubella IgG Equiv (Nonreactive)
[2024-09-14 16:12] LABS: HIV - WCH Non-Reactive (Nonreactive)
== END | disposition home or self-care (01) ==
LOC: BWCLAB 10:11
PROVIDERS: Registered Nurse; PCP Family Medicine; Referring Provider Obstetrics & Gynecology; Visit Provider Obstetrics & Gynecology
DX: O09.90 Supervision of high risk pregnancy, unspecified, unspecified trimester (principal); Z3A.00 Weeks of gestation of pregnancy not specified
CPT/HCPCS: 36415; 85025; 86703; 86762; 86780; 86803; 86850; 86900; 86901; 87340

== ENCOUNTER → 2024-12-27 | Outpatient (CLI) | payer OTHER, SELFPAY ==
[2024-12-27 11:24] LABS: Absolute Lymphocyte Count 1.31 X10^3/uL (0.83-4.51); Absolute Neutrophil Count 9.3 X10^3/uL (2.0-7.7); Basophil# 0.03 X10^3/uL; Basophil% 0.3 % (0-1); Eosinophil# 0.07 X10^3/uL; Eosinophils% 0.6 % (0-5); Hematocrit 36.5 % (37-47); Hemoglobin 12.7 g/dL (12.0-15.0); Lymphocyte # 1.31 X10^3/ul (0.83-4.51); Lymphocyte % 11.5 % (19-41); Mean Corp Hgb Conc 34.8 g/dL (32-36); Mean Corpuscular Hgb 31.8 pg (27.0-32.0); Mean Corpuscular Volume 91.3 fL (81-99); Mean Platelet Vol. 9.4 fl (6.2-12.0); Monocyte% 5.3 % (0-10); NRBC Flagged by Analyzer 0 % (0-5); Neutrophil # 9.27 X10^3/uL (2.7-7.7); Neutrophil % 81.4 % (47-70); Platelet Count 261 K/mm3 (150-450); RBC Distribution Width CV 13.3 % (11.6-14.6); RBC Distribution Width SD 44.4 fl (35.1-43.9); White Blood Count 11.4 K/mm3 (4.4-11.0)
[2024-12-27 13:10] LABS: Glucose Challenge Gest 1H 50g 70 mg/dL (70-140); HIV Nonreactive (Nonreactive); Syphilis Antibodies Nonreactive (Nonreactive)
== END | disposition home or self-care (01) ==
LOC: LAB 10:52
PROVIDERS: PCP Family Medicine; Referring Provider Obstetrics & Gynecology; Visit Provider Obstetrics & Gynecology
DX: Z13.1 Encounter for screening for diabetes mellitus (principal); O09.90 Supervision of high risk pregnancy, unspecified, unspecified trimester; Z3A.00 Weeks of gestation of pregnancy not specified
CPT/HCPCS: 36415; 82950; 85025; 86703; 86780

== ENCOUNTER → 2025-02-03 | Outpatient (CLI) | payer OTHER, SELFPAY ==
--- NOTE | 2025-02-03 15:55 | US_ITS ---
PROCEDURE: OB LIMITED WITH BIOMETRICS 02/03/2025 REASON FOR EXAM: GROWTH- SMALL FOR DATES FETUS TECHNIQUE: OB LIMITED WITH BIOMETRICS COMPARISON: None FINDINGS There is a single intrauterine fetus. The fetus is in a cephalic presentation. There is demonstrated cardiac activity with a heart rate of 162 bpm. There is a normal amniotic fluid volume, LINDA 11.7 cm. The placenta is anterior . There are Grade 3 placental changes. Cervix 3.1 cm. BIOMETRY: BPD: 7.44 Cm: 29 weeks, 6 days HC: 9.9 Cm : 31 weeks, 4 days AC: 28.7 Cm : 31 weeks,3 days FL: 27.4 Cm : 31 weeks, 0 day Age by LMP: 31 weeks, 5 days. JAIR by LMP:04/02/2025 . age by current US: 30 weeks,6 days. JAIR by current US: 04/08/2025 . Estimated weight: 1714 grams, +/- 257 grams. 24 %. US/OB Limited With Biometrics IMPRESSION: Single intrauterine fetus. Age by LMP: 31 weeks, 5 days. JAIR by LMP:04/02/2025 . age by current US: 30 weeks,6 days. JAIR by current US: 04/08/2025 . Estimated weight: 1714 grams, +/- 257 grams. 24 %. [facility] [address]
== END | disposition home or self-care (01) ==
LOC: US 15:54
PROVIDERS: PCP Family Medicine; Referring Provider Nurse Practitioner Women's Health; Visit Provider Nurse Practitioner Women's Health
DX: O26.849 Uterine size-date discrepancy, unspecified trimester (principal); Z3A.00 Weeks of gestation of pregnancy not specified
CPT/HCPCS: 76816

== ENCOUNTER → 2025-03-10 | Outpatient (CLI) | payer OTHER, SELFPAY ==
--- NOTE | 2025-03-10 13:25 | US_ITS ---
PROCEDURE: OB LIMITED WITH BIOMETRICS 03/10/2025 REASON FOR EXAM: 36WK GESTATION GROWTH TECHNIQUE: OB LIMITED WITH BIOMETRICS COMPARISON: Prior study dated February 03, 2025. FINDINGS LMP: June 26, 2024. Number: 1 Position: Vertex Placental Position: Anterior and not low-lying Placental Abnormalities: No evidence of previa. DIMENSIONS: Biparietal Diameter: 8.5 cm: 34 weeks and 1 day: 6 percentile/ Head Circumference: 31.3 cm: 35 weeks and 1 day: 3rd percentile/ Abdominal Circumference: 32.8 cm: 36 weeks and 5 days: 64 percentile/ Femur Length: 7.1 cm: 36 weeks and 1 day: 34 percentile/ ESTIMATED WEIGHT: 2895 g plus/-434 g ESTIMATED WEIGHT PERCENTILE (24+ weeks): 43 ESTIMATED GESTATIONAL AGE: Baseline: 36 weeks and 5 days By Ultrasound: 35 weeks and 2 days ESTIMATED DATE OF DELIVERY: Baseline: April 02, 2025 By Ultrasound: April 12, 2025 BIOPHYSICAL ASSESSMENT: Amniotic Fluid Volume: 6.3 cm Amniotic Fluid Index: 9.3 cm (8-24 cm normal range) Cardiac Motion: 141 beats per minute (average) Trunk and Limb Motion: Present. MATERNAL ANATOMY: Adnexa: Neither maternal ovary is successfully identified. US/OB Limited With Biometrics IMPRESSION: Single live intrauterine gestation with a mean gestational age of 35 weeks and 2 days. Reading Location: [place] [address]
== END | disposition home or self-care (01) ==
LOC: US 13:23
PROVIDERS: PCP Family Medicine; Referring Provider Advanced Practice Midwife; Visit Provider Advanced Practice Midwife
DX: O36.5930 Maternal care for other known or suspected poor fetal growth, third trimester, not applicable or unspecified (principal); Z3A.36 36 weeks gestation of pregnancy
CPT/HCPCS: 76816

== ENCOUNTER 2025-03-27 20:50 | Outpatient (CLI) | payer OTHER, SELFPAY ==
[2025-03-27] VITALS (7 sets, daily range): BP systolic 120–133; BP diastolic 72–89; PULSE 64–84; RESP 16; TEMP 36.8; O2SAT 97; BMI 28.9
--- OUTSIDE RECORDS SUMMARY | 2025-03-27 21:01 | XMS RPT_ITS | CCD ---
Author Organization [facility]iniSyn[facility] Care Team Providers Care 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 Name Role Phone Caleb Carver MD Primary Care Provider Mehul, Dr. Caleb Pulliam Primary Care Provider [phone] Mehul, Dr. Caleb Pulliam Referring Provider Dr. Amaris Mai Attending Provider Caleb Carver MD Primary Care Provider Mehul, Dr. Caleb Pulliam Primary Care Provider [phone] Mehul, Dr. Caleb Pulliam Referring Provider Dr. Gaston Liu Attending Provider Roof COLD MOLDING PRESS OPERATOR, COLD MOLDING PRESS OPERATOR-C Carmine Boucher Attending Provider TATE JETT Attending Unavailable TATE JETT Admitting Unavailable Self, Self Primary Care Provider Unavailterry e Neymar Ronquillo MD Primary Care Provider Neymar Ronquillo MD Primary Care Provider Haagen LITERARY AGENT.TRAVELING PLANT OPERATOR, Katerina Unavailable Suppan LITERARY AGENT.TRAVELING PLANT OPERATOR, Giovanna A Unavailable Suppan LITERARY AGENT.TRAVELING PLANT OPERATOR, Giovanna A Unavailable CECILE LITTLE Referring Unavailab MARÍA Brown Attending Unavailable NEYMAR RONQUILLO Primary Care Unavailable NEYMAR RONQUILLO Primary Care Unavailable SEUN FRANKS Attending Unavailable SELF Referring Unavailable NEYMAR RONQUILLO Primary Care Unavailable NEYMAR RONQUILLO Attending Unavailable NEYMAR RONQUILLO Primary Care Unavailable Dr. Neymar Ronquillo MD Primary Care Provider [phone] Dr. Neymar Ronquillo MD Referring Provider Armando CNM, Katherine Attending Provider Armando CNM, Katherine Referring Provider Hernandez DE DIOS, Dr. Yanes Attending Provider Hernandez DE DIOS, Dr. Yanes Referring Provider Caleb NEWTON, Gay Attending Provider [phone] Mariana DE DIOS, Dr. Blackmon Primary Care Provider Mariana DE DIOS, Dr. Blackmon Referring Provider Hernandez DE DIOS, Dr. Yanes Attending Provider Hernandez DE DIOS, Dr. Yanes Referring Provider Blair COLD MOLDING PRESS OPERATOR-C, Ava Attending Provider [phone] Mariana DE DIOS, Dr. Blackmon Primary Care Provider Mariana DE DIOS, Dr. Blackmon Referring Provider Caleb NEWTON, Gay Attending Provider [phone] COLD MOLDING PRESS OPERATOR-C, Ava Referring Provider [phone] Cecile Mckeon DO Attending Provider Mariana DE DIOS, Dr. Blackmon Primary Care Provider Mariana DE DIOS, Dr. Blackmon Referring Provider Caleb NEWTON, Gay Attending Provider [phone] Caleb CNM, Gay Referring Provider [phone] Linganore, Neymar Primary Care Unavailable Ava Pinto NP Attending Unavailable Linganore, Neymar Referring Unavailable Linganore, Neymar Primary Care Unavailable Linganore, Neymar Referring Unavailable Farzana Ng Attending Unavailable Linganore, Neymar Primary Care Unavailable Gay Ellis Attending Unavailable Mariana, Neymar Referring Unavailable Linganore, Neymar Primary Care Unavailable Gay Ellis Attending Unavailable Gay Ellis Referring Unavailable Mariana, Neymar Primary Care Unavailable Blair COLD MOLDING PRESS OPERATORAva Attending Unavailable Linganore, Neymar Referring Unavailable Linganore, Neymar Primary Care Unavailable Farzana Ng Attending Unavailable Farzana Ng Referring Unavailable Cecile Mckeon Attending Unavailabl e Cecile Mckeon Referring Unavailabl e Mariana, Neymar Primary Care Unavailable Farzana Ng Attending Unavailable Linganore, Neymar Primary Care Unavailable Farzana Ng Referring Unavailable Halley Oakley Attending Unavailable Linganore, Neymar Primary Care Unavailable Robotham, Zuly Attending Unavailable Robotham, Zuly Referring Unavailable Robotham, Zuly Consulting Unavailable Linganore, Neymar Primary Care Unavailable Katherine Roberts Attending Unavailable Linganore, Neymar Referring Unavailable Linganore, Neymar Primary Care Unavailable Mariana, Neymar Referring Unavailable Mariana, Neymar Primary Care Unavailable Gay Ellis Attending Unavailable Linganore, Neymar Referring Unavailable Linganore, Neymar Primary Care Unavailable Gay Ellis Attending Unavailable Katherine Roberts Attending Unavailable Roberts, Katherine Referring Unavailable Mariana, Neymar Primary Care Unavailable Linganore, Neymar Primary Care Unavailable Farzana Ng Referring Unavailable Farzana Ng Attending Unavailable Tanya Alston Attending Unavailable Tanya Alston Referring Unavailable Linganore OLS, Neymar Primary Care Unavailable Mariana, Neymar Primary Care Unavailable Gay Ellis Attending Unavailable Linganore, Neymar Referring Unavailable Mariana, Neymar Primary Care Unavailable Cecile Mckeon Attending Unavailabl e Mariana, Neymar Referring Unavailable Linganore, Neymar Primary Care Unavailable Farzana Ng Attending Unavailable Mariana, Neymar Referring Unavailable Linganore, Neymar Referring Unavailable Gay Ellis Attending Unavailable Mariana, Neymar Primary Care Unavailable Tanya Alston Attending Unavailable Linganore OLS, Neymar Primary Care Unavailable Linganore OLS, Neymar Referring Unavailable Linganore, Neymar Primary Care Unavailable Blair COLD MOLDING PRESS OPERATOR, Ava Attending Unavailable Blair COLD MOLDING PRESS OPERATOR, Ava Referring Unavailable Cecile Mckeon Attending Unavailabl e Enricoe Velde, Cecile Referring Unavailabl e Linganore, Neymar Primary Care Unavailable Robotham, Zuly Attending Unavailable Robotham, Zuly Referring Unavailable Linganore, Neymar Primary Care Unavailable Robotham, Zuly Attending Unavailable Mariana, Neymar Primary Care Unavailable Linganore, Neymar Referring Unavailable Linganore, Neymar Primary Care Unavailable Cecile Mckeon Attending Unavailabl e Mariana, Neymar Referring Unavailable Tanya Alston Attending Unavailable Tanya Alston Referring Unavailable Linganore, Neymar Primary Care Unavailable Robotham, Zuly Attending Unavailable Robotham, Zuly Referring Unavailable Linganore, Neymar Primary Care Unavailable Medications Current Medications Medication Drug Class(es) Dates Sig (Normalized) Sig (Original) amoxicillin 500 mg oral capsule (3 sources) Penicillin-class Antibacterial Start: 10-22-2024 End: 11-01-2024 take 1 capsule by mouth twice daily amoxicillin (AMOXIL) 500 mg capsule Take 1 capsule by mouth two times a day for 10 days. 20 capsule 10/22/2024 11/01/2024 Active Start: 07-18-2022 End: 07-18-2022 take 1 capsule by mouth twice daily amoxicillin (POLYMOX, AMOXIL) 500 mg capsule Indications: Strep throat Take 1 capsule by mouth twice daily for 10 days. 20 capsule 0 07/18/2022 07/18/2022 Discontinued Start: 07-04-2022 End: 07-14-2022 take 1 capsule by mouth twice daily amoxicillin (POLYMOX, AMOXIL) 500 mg capsule Take 1 capsule by mouth twice daily for 10 days. 20 capsule 0 07/04/2022 07/14/2022 Active Comment on above: Take 1 capsule by [facility] twice daily for 10 days. amoxicillin 875 mg / clavulanate 125 mg oral tablet (1 source) Penicillin-class Antibacterial Start: 2 End: 3 take 1 tablet by mouth twice daily amoxicillin-clavu lanic acid (AUGMENTIN) 875-125 mg per tablet Indications: Strep throat Take 1 tablet by mouth twice daily for 10 days. 20 tablet 0 07/18/2022 07/28/2022 Active Comment on above: Take 1 tablet by [facility] twice daily for 10 days. aspirin 81 mg chewable tablet (1 source) Platelet Aggregation Inhibitor, Nonsteroidal Anti-inflammatory Drug Start: 3 End: 3 aspirin chewable tablet 81 mg Start: 12-10-2022 End: 12-10-2022 aspirin chewable tablet 81 m g docosahexaenoic acid 200 mg oral capsule (10 sources) Start: 08-20-2024 Docosahexaenoic Acid ( Dha) 200 mg capsule Active mg PO August 20, 2024 1:00am doxycycline hyclate 100 mg oral tablet (1 source) Tetracycline-class Drug Start: 05-05-2023 End: 05-12-2023 take 1 tablet by mouth twice daily doxycycline (VIBRA-TABS) 100 mg tablet Take 1 tablet by mouth two times a day for 7 days. 14 tablet 0 05/05/2023 05/12/2023 Active Comment on above: Take 1 tablet by isabel th two times a day for 7 days. famotidine 20 mg oral tablet (7 sources) Histamine-2 Receptor Antagonist Start: 02-08-2025 take 1 tablet by mouth twice daily Famotidine (Pepcid) 20 mg tablet Active 20 mg PO TWICE A DAY 60 5 February 08, 2025 12:00am fluticasone propionate 0.05 mg/actuat metered dose nasal spray (2 sources) Corticosteroid Start: 01-20-2022 End: 02-19-2022 take 1 spray(s) by mouth once daily fluticasone (FLONASE) 50 mcg/actuation nasal spray Use 1 [place] in each nostril once daily. Rinse mouth after use. 11.1 mL 0 01/20/2022 02/19/2022 Active Comment on above: Use 1 [place] in each nostril once daily. Rinse mouth after use. loratadine 10 mg oral tablet (2 sources) Start: 01-20-2022 End: 02-19-2022 take 1 tablet by mouth once daily loratadine (CLARITIN) 10 mg tablet Take 1 tablet by mouth once daily. 30 tablet 0 01/20/2022 02/19/2022 Active Comment on above: Take 1 tablet by isabel th once daily. no115/iron/folic acid ( 19 ORAL) (2 sources) take 1 tablet by mouth once daily no115/iron/folic acid ( 19 ORAL) Take 1 tablet by mouth once daily. Active Completed/Discontinued Medications Medication Drug Class(es) Dates Sig (Normalized) Sig (Original) acetaminophen 325 mg oral tablet (3 sources) Start: 12-09-2022 End: 12-10-2022 take 1 tablet by mouth every six hours as needed Acetaminophen (TYLENOL) tablet 325 mg acetaminophen (T YLENOL) 325 mg cap Take by mouth. 0 Active Comment on above: Take by mouth. oxyCODONE hydrochloride 5 mg oral capsule (10 sources) Opioid Agonist Start: 4 End: 5 take 1 capsule by mouth every six hours as needed for pain Oxycodone 5 mg capsule Discontinued 5 mg PO EVERY 6 HOURS as needed for pain 5 3 0 July 23, 2024 August 20, 2024 10:02am Postoperative pain Other acute postprocedural pain predniSONE 10 mg oral tablet (4 sources) Start: 3 End: 4 predniSONE (DELTASONE) 10 mg tablet Take 4 tabs daily for 3 days, then 2 tabs daily for 3 days, then 1 tab daily for 3 days with food. 21 tablet 05/05/2023 07/09/2024 Discontinued Comment on above: Take 4 tabs daily fo r 3 days, then 2 tabs daily for 3 days, then 1 tab daily for 3 days with food. Sodium Chloride (2 sources) Start: 3 End: 3 Sodium chloride 0.9% IV solution Start: 12-09-2022 End: 12-10-2022 Sodium chloride 0.9% IV solu tion 500 mL Problems Active Problems Problem Classification Problem Date Documented Date Episodic/Chronic Abdominal pain (14 sources) Right lower quadrant pain; Translations: [Right lower quadrant pain] 08-15-2015 Episodic Bacterial infection; unspecified site (1 source) Streptococcus, group B, as the cause of diseases classified elsewhere; Translations: [Streptococcus, group B, as the cause of diseases classified elsewhere] Onset: 5 Episodic Cardiac dysrhythmias (3 sources) Supraventricular tachycardia; Translations: [Supraventricular tachycardia] Onset: 3 Chronic Cardiac dysrhythmias (16 sources) Palpitations; Translations: [Palpitations] Onset: 3 09-05-2022 Episodic Conduction disorders (20 sources) Donhx-Aaqtdvoxy-Pbxib pattern; 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-2022 Chronic Comment on above: Corrected with Cardi ac Abaltion Immunizations and screening for infectious disease (3 sources) Patient encounter status; Translations: [Encounter for immunization] Onset: 4 07-09-2024 Episodic Lymphadenitis (1 source) Finding of lymph node; Translations: [Enlarged lymph nodes, unspecified] Episodic Menstrual disorders (1 source) Amenorrhea, unspecified; Translations: [Amenorrhea, unspecified] Onset: 5 Chronic Nonmalignant breast conditions (20 sources) Mastodynia; Translations: [Pain of right breast] Onset: 5 08-20-2024 Episodic Comment on above: right, fibroidadenom a Other acquired deformities (14 sources) Lumbar spondylolisthesis; Translations: [Spondylolisthesis, lumbar region] 12-13-2019 Episodic Comment on above: OCC LOWER BACK PAIN Other acquired deformities (1 source) Spondylolisthesis, lumbar region; Translations: [Spondylolisthesis] Episodic Other bone disease and musculoskeletal deformities (20 sources) Segmental and somatic dysfunction; Translations: [Segmental and somatic dysfunction of cervical region] 12-13-2019 Episodic Other bone disease and musculoskeletal deformities (1 source) Segmental and somatic dysfunction of cervical region; Translations: [Nonallopathic lesions, cervical region] Episodic Other bone disease and musculoskeletal deformities (1 source) Segmental and somatic dysfunction of lumbar region; Translations: [Nonallopathic lesions, lumbar region] Episodic Other bone disease and musculoskeletal deformities (1 source) Segmental and somatic dysfunction of pelvic region; Translations: [Nonallopathic lesions, pelvic region] Episodic Other bone disease and musculoskeletal deformities (1 source) Segmental and somatic dysfunction of thoracic region; Translations: [Nonallopathic lesions, thoracic region] Episodic Other complications of (20 sources) Rubella non-immune; Translations: [Supervision of other high risk pregnancies, unspecified trimester] 09-14-2024 Episodic Comment on above: offer MMR vaccine pp . Other complications of (20 sources) High risk ; Translations: [Supervision of high risk , unspecified, unspecified trimester] 12-03-2024 Episodic Comment on above: PRR, , JAIR 04/02, girl : Vinicio Other complications of (20 sources) Urinary tract infection in ; Translations: [Unspecified infection of urinary tract in , unspecified trimester] 09-09-2024 Episodic Comment on above: not high enough to t reat in pregnancytreat with PCN in labor. Other complications of (1 source) Supervision of high risk , unspecified, third trimester; Translations: [Supervision of high risk , unspecified, third trimester] Onset: 5 Episodic Other complications of (1 source) Unspecified infection of urinary tract in , third trimester; Translations: [Unspecified infection of urinary tract in , third trimester] Onset: 5 Episodic Other complications of (1 source) Supervision of other high risk pregnancies, unspecified trimester; Translations: [Supervision of other high risk pregnancies, unspecified trimester] Onset: 5 Episodic Other complications of (1 source) Uterine size-date discrepancy, unspecified trimester; Translations: [Uterine size-date discrepancy, unspecified trimester] Onset: 5 Episodic Other screening for suspected conditions (not mental disorders or infectious disease) (10 sources) Ultrasound scan abnormal; Translations: [Abnormal findings on diagnostic imaging of other specified body structures] 08-20-2024 Chronic Other screening for suspected conditions (not mental disorders or infectious disease) (2 sources) Encounter for screening for diabetes mellitus; Translations: [Encounter for screening for malignant neoplasm of cervix] Onset: 4 Episodic Other skin disorders (1 source) Eruption; Translations: [Rash and other nonspecific skin eruption] 12-19-2024 Episodic Other skin disorders (1 source) Rash and other nonspecific skin eruption; Translations: [Rash] Onset: 5 Episodic Other upper respiratory disease (1 source) Pain in throat; Translations: [Pain in throat] Episodic Other upper respiratory infections (1 source) Chronic sinusitis, unspecified; Translations: [Unspecified sinusitis (chronic)] 05-05-2023 Chronic Other upper respiratory infections (8 sources) Sore throat symptom; Translations: [Acute pharyngitis, unspecified] Episodic Otitis media and related conditions (3 sources) Dysfunction of bilateral eustachian tubes; Translations: [Other specified disorders of Eustachian tube, bilateral] Episodic Residual codes; unclassified (1 source) History of clinical finding in subject; Translations: [Personal history of other specified conditions] Episodic Residual codes; unclassified (1 source) 38 weeks gestation of ; Translations: [38 weeks gestation of ] Onset: 5 Episodic Residual codes; unclassified (1 source) 37 weeks gestation of ; Translations: [37 weeks gestation of ] Onset: 5 Episodic Residual codes; unclassified (1 source) 36 weeks gestation of ; Translations: [36 weeks gestation of ] Onset: 5 Episodic Residual codes; unclassified (1 source) 32 weeks gestation of ; Translations: [32 weeks gestation of ] Onset: 5 Episodic Residual codes; unclassified (1 source) 30 weeks gestation of ; Translations: [30 weeks gestation of ] Onset: 5 Episodic Short gestation; low weight; and growth retardation (20 sources) Small for gestational age fetus 01-25-2025 Episodic Comment on above: growth US growth US EFW 24%, A C 40% Spondylosis; intervertebral disc disorders; other back problems (20 sources) Backache; Translations: [Dorsalgia, unspecified] Episodic Unclassified (1 source) Other underimmunization status; Translations: [Other underimmunization status] Onset: 5 Past or Other Problems Problem Classification Problem Date Documented Date Episodic/Chronic Intracranial injury (14 sources) Concussion injury of body structure; Translations: [Concussion with loss of consciousness of unspecified duration, initial encounter] Onset: 01-05-2014 07-23-2021 Episodic Other acquired deformities (3 sources) Acquired deformity of ankle AND/OR foot; Translations: [Unspecified acquired deformity of unspecified lower leg] Onset: 08-15-2005 Resolved: 06-30-2012 06-30-2012 Episodic Other circulatory disease (9 sources) H/O: heart disorder; Translations: [Personal history of other diseases of the circulatory system] Onset: 04-14-2023 04-14-2023 Episodic Other circulatory disease (1 source) Personal history of other diseases of the circulatory system; Translations: [History of Slefy-Argbajosz-Hmnqp (WPW) syndrome] Onset: 04-14-2023 Episodic Other complications of (1 source) Supervision of high risk , unspecified, unspecified trimester; Translations: [Supervision of high risk , unspecified, unspecified trimester] Onset: 12-03-2024 Episodic Other and delivery including normal (20 sources) Early stage of ; Translations: [Encounter for supervision of normal , unspecified, unspecified trimester] Onset: 09-09-2024 08-20-2024 Episodic Comment on above: NIPT low risk. Horiz on neg. nl anatomy Residual codes; unclassified (14 sources) Influenza vaccination declined; Translations: [Immunization not carried out because of patient refusal] Onset: 08-15-2017 08-15-2017 Episodic Residual codes; unclassified (20 sources) History of radiofrequency ablation operation for arrhythmia; Translations: [Other specified postprocedural states] Onset: 12-09-2022 12-03-2024 Episodic Comment on above: will make appt with sales team manager for f/u Residual codes; unclassified (1 source) 9 weeks gestation of ; Translations: [9 weeks gestation of ] Onset: 09-03-2024 Episodic Residual codes; unclassified (1 source) Other specified postprocedural states; Translations: [Other specified postprocedural states] Onset: 09-03-2024 Episodic Unclassified (14 sources) No history of clinical finding in subject; Translations: [No significant past medical history] 08-14-2015 Results Test Name Value Interpretation Reference Range Facility Chemical Checker Office Visit Reporton 03-22-2025 Chemical Checker Office Visit Report [facility]'s [address], [address] [place] [address] OFFICE VISIT Date of Service: 03/22/25 MR#: [id number] Acct: [id number] Name: ARACELIS WHITTINGTON Rep #: [id number] : 2000 Provider: Dr. Farzana olsen MD Age/Sex: 24/F Location: [facility] Status: Signed Intake Vital Signs 01/25/25 10:20 03/15/25 10:33 03/22/25 15:35 03/22/25 15:39 Height 5 ft 2 in 5 ft 2 in 5 ft 2 in 5 ft 2 in Weight: 155 lb 1 oz BMI 28.3 BP 136/87 H Intake Visit Reasons: 38 wk ob Patient Intake Coordinator Required: No Is patient in pain?: No Allergies No Known Allergies Allergy (Verified 03/22/25 15:35) Medications ???Medication ???Instructions ???Recorded ???Confirmed ???Type docosahexaenoic acid 200 mg mg PO 08/20/24 03/22/25 History capsule ( DHA) famotidine 20 mg tablet (Pepcid) 20 mg PO BID #60 tabs 02/08/25 Rx Last Menstrual Period: 06/07/24 Zika: Zika virus screening: Negative : No PFSH PFSH Medical History Early stage of Wears contact lenses TMJ arthritis History of Holter monitoring History of echocardiogram Cardiology follow-up encounter Abnormal ultrasound Breast pain, right WPW (Czufh-Ydullbczl-Tat te syndrome) Palpitations Spondylolisthesis at L4-L5 level Segmental and somatic dysfunction of pelvic region Segmental and somatic dysfunction of lumbar region Segmental and somatic dysfunction of thoracic region Segmental and somatic dysfunction of cervical region Surgical History H/O breast biopsy Hx of wisdom tooth extraction History of cardiac radiofrequency ablation (RFA) (12/09/22) Family History Grandfather Myocardial infarction, Onset Age: 38 Grandmother CVA (cerebral vascular accident) Diabetes Mother Heart disease Social History adopted: No household members: spouse number of children: 0 current occupational status: employed current occupation: [employer] current occupational exposures/hazards: No pets and animals: No history of recent travel: Yes ([place] - June 2025) out of state: Yes out of country: No sexually active: Yes Smoking Status: Never smoker alcohol intake: never substance use type: does not use well-balanced diet: daily or most days caffeine: No eating out: 1-3 times/week during the past year weight has: remained stable what type of physical activity do you participate in: walking, running and weight training frequency: 3-4 times per week duration: 15-30 minutes/day christin/buddhism: Hoahaoism seatbelt use: always do you feel safe at home: Yes additional social history: : 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 OB Visit JAIR Calculator Estimated Delivery Date Method Current WG Current Estimate 04/02/25 Ultrasound #1 38w 3d Other Estimates 03/14/25 LMP (Certain) 41w 1d Expected Delivery Route/Plan Labor Preferences- CB/BF classes: encouraged labor support person: Vinicio labor intervention preferences: [] pain management options preferred: epidural cut cord/dad catch: maybe cord : yes PP control planned: discussed discussed possible routes of delivery and associated risks: [] special requests: [] Specific Issue/Plans Covid status: [] Flu vaccine: [] Tdap vaccine: given Rhogam: NA LARC form signed: yes Problem list reviewed and updated with the most current plan of care details and appropriate orders placed. Relevant counseling for the gestational age provided. Continue routine care and follow up unless otherwise noted in visit notes/problem list details Initial Weight: Not Recorded Date -???-???-???-???-??? -???-???-???-???-??? -???-???- EGA Weight BP Urine Prot -???-???-???-???-??? -???-???-???-???-??? -???-???- Glucose FHR FuHt Pres Dilation -???-???-???-???-??? -???-???-???-???-??? -???-???- Effaced St Visit Note 09/03/24 -???-???-???-???-??? -???-???-???-???-??? -???-???- 9w 6d 119 lb 127/81 -???-???-???-???-??? -???-???-???-???-??? -???-???- 181 -???-???-???-???-??? -???-???-???-???-??? -???-???- 1.71 CRL not con with LMP. con with early first us with care center. LC- 1.71 CRL not con with LMP. con with early first us with care center. 10/07/24 -???-? (more content not included)... Normal [facility] - Chemistry and C hemistry - challengeOrdered By: Cecile Damon on 03-15-2025 Glucose Ql (U) Negative [facility] - UrinalysisOrder ed By: Cecile Bowlignodette on 03-15-2025 Protein Ql (U) Negative [facility] Chemical Checker Office Visit Reporton 03-15-2025 Chemical Checker Office Visit Report [facility]'s [address], [address] [place] [address] OFFICE VISIT Date of Service: 03/15/25 MR#: [id number] Acct: [id number] Name: ARACELIS WHITTINGTON Rep #: [id number] : 2000 Provider: Dr. Cecile Sinclair DO Age/Sex: 24/F Location: [facility] [place] Status: Signed Intake Vital Signs 01/25/25 10:20 03/08/25 09:24 03/15/25 10:33 03/15/25 10:33 Height 5 ft 2 in 5 ft 2 in 5 ft 2 in 5 ft 2 in Weight: 148 lb 6 oz BMI 27.1 BP 131/82 H Intake Visit Reasons: 37 wk ob Patient Intake Coordinator Required: No Is patient in pain?: No Allergies No Known Allergies Allergy (Verified 03/15/25 10:33) Medications ???Medication ???Instructions ???Recorded ???Confirmed ???Type docosahexaenoic acid 200 mg mg PO 08/20/24 03/15/25 History capsule ( DHA) famotidine 20 mg tablet (Pepcid) 20 mg PO BID #60 tabs 02/08/25 Rx Last Menstrual Period: 06/07/24 Zika: Zika virus screening: Negative : No PFSH PFSH Medical History Early stage of Wears contact lenses TMJ arthritis History of Holter monitoring History of echocardiogram Cardiology follow-up encounter Abnormal ultrasound Breast pain, right WPW (Nvrwf-Vbsfpvjtt-Hag te syndrome) Palpitations Spondylolisthesis at L4-L5 level Segmental and somatic dysfunction of pelvic region Segmental and somatic dysfunction of lumbar region Segmental and somatic dysfunction of thoracic region Segmental and somatic dysfunction of cervical region Surgical History H/O breast biopsy Hx of wisdom tooth extraction History of cardiac radiofrequency ablation (RFA) (12/09/22) Family History Grandfather Myocardial infarction, Onset Age: 38 Grandmother CVA (cerebral vascular accident) Diabetes Mother Heart disease Social History adopted: No household members: spouse number of children: 0 current occupational status: employed 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[employer] current occupational exposures/hazards: No pets and animals: No history of recent travel: Yes ([place] - June 2025) out of state: Yes out of country: No sexually active: Yes Smoking Status: Never smoker alcohol intake: never substance use type: does not use well-balanced diet: daily or most days caffeine: No eating out: 1-3 times/week during the past year weight has: remained stable what type of physical activity do you participate in: walking, running and weight training frequency: 3-4 times per week duration: 15-30 minutes/day christin/buddhism: Hoahaoism seatbelt use: always do you feel safe at home: Yes additional social history: : 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 OB Visit JAIR Calculator Estimated Delivery Date Method Current WG Current Estimate 04/02/25 Ultrasound #1 37w 3d Other Estimates 03/14/25 LMP (Certain) 40w 1d Expected Delivery Route/Plan Labor Preferences- CB/BF classes: encouraged labor support person: Vinicio labor intervention preferences: [] pain management options preferred: epidural cut cord/dad catch: maybe cord : yes PP control planned: discussed discussed possible routes of delivery and associated risks: [] special requests: [] Specific Issue/Plans Covid status: [] Flu vaccine: [] Tdap vaccine: given Rhogam: NA LARC form signed: yes Problem list reviewed and updated with the most current plan of care details and appropriate orders placed. Relevant counseling for the gestational age provided. Continue routine care and follow up unless otherwise noted in visit notes/problem list details Initial Weight: Not Recorded Date -???-???-???-???-??? -???-???-???-???-??? -???-???- EGA Weight BP Urine Prot -???-???-???-???-??? -???-???-???-???-??? -???-???- Glucose FHR FuHt Pres Dilation -???-???-???-???-??? -???-???-???-???-??? -???-???- Effaced St Visit Note 09/03/24 -???-???-???-???-??? -???-???-???-???-??? -???-???- 9w 6d 119 lb 127/81 -???-???-???-???-??? -???-???-???-???-??? -???-???- 181 -???-???-???-???-??? -???-???-???-???-??? -???-???- 1.71 CRL not con with LMP. con with early first us with [facility]. LC- 1.71 CRL not con with LMP. con with early first us with [facility]. (more content not included)... Normal [facility] OB Limited With Biometricson 03-10-2025 OB Limited With Biometrics [facility] [address] [place] [address] OB Limited With Biometrics MR#: [id number] Acct: [id number] Name: ARACELIS WHITTINGTON Rep #: [id number] : 2000 F 24 From: Raffi mcknight MD PCP: Dr. Neymar Ronquillo MD Status: REG CLI Study: OB Limited With Biometrics Date of Exam: 03/10 Exam# [id number] Ordering Dr: Gay Ellis CNM PROCEDURE: OB LIMITED WITH BIOMETRICS 03/10/2025 REASON FOR EXAM: 36WK GESTATION GROWTH TECHNIQUE: OB LIMITED WITH BIOMETRICS COMPARISON: Prior study dated February 03, 2025. FINDINGS LMP: June 26, 2024. Number: 1 Position: Vertex Placental Position: Anterior and not low-lying Placental Abnormalities: No evidence of previa. DIMENSIONS: Biparietal Diameter: 8.5 cm: 34 weeks and 1 day: 6 percentile/ Head Circumference: 31.3 cm: 35 weeks and 1 day: 3rd percentile/ Abdominal Circumference: 32.8 cm: 36 weeks and 5 days: 64 percentile/ Femur Length: 7.1 cm: 36 weeks and 1 day: 34 percentile/ ESTIMATED WEIGHT: 2895 g plus/-434 g ESTIMATED WEIGHT PERCENTILE (24+ weeks): 43 ESTIMATED GESTATIONAL AGE: Baseline: 36 weeks and 5 days By Ultrasound: 35 weeks and 2 days ESTIMATED DATE OF DELIVERY: Baseline: April 02, 2025 By Ultrasound: April 12, 2025 BIOPHYSICAL ASSESSMENT: Amniotic Fluid Volume: 6.3 cm Amniotic Fluid Index: 9.3 cm (8-24 cm normal range) Cardiac Motion: 141 beats per minute (average) Trunk and Limb Motion: Present. MATERNAL ANATOMY: Adnexa: Neither maternal ovary is successfully identified. US/OB Limited With Biometrics IMPRESSION: Single live intrauterine gestation with a mean gestational age of 35 weeks and 2 days. Reading Location: [facility] CC: AMAN Ellis; Dr. Neymar Ronquillo MD Jewel Sorter: Signed Normal [facility] Laboratory - Chemistry and C hemistry - challengeOrdered By: Gay Ellis on 03-08-2025 Glucose Ql (U) Negative [facility] Laboratory - UrinalysisOrder ed By: Gay Ellis on 03-08-2025 Protein Ql (U) Negative [facility] Chemical Checker Office Visit Reporton 03-08-2025 Chemical Checker Office Visit Report [facility]'[address], [address] [place] [address] OFFICE VISIT Date of Service: 03/08/25 MR#: [id number] Acct: [id number] Name: ARACELIS WHITTINGTON Rep #: [id number] : 2000 Provider: AMAN Calderon ams Age/Sex: 24/F Location: [facility] Status: Signed Intake Vital Signs 01/25/25 10:20 02/28/25 08:31 03/08/25 09:24 Height 5 ft 2 in 5 ft 2 in 5 ft 2 in Weight: 144 lb 8 oz BMI 26.4 BP 135/79 H Intake Visit Reasons: 36 wk ob Chief Complaint: 36wk OB Patient Intake Coordinator Required: No Is patient in pain?: No Allergies No Known Allergies Allergy (Verified 03/08/25 09:22) Medications ???Medication ???Instructions ???Recorded ???Confirmed ???Type docosahexaenoic acid 200 mg mg PO 08/20/24 03/08/25 History capsule ( DHA) famotidine 20 mg tablet (Pepcid) 20 mg PO BID #60 tabs 02/08/2507/21 Rx Last Menstrual Period: 06/07/24 : No Have you fallen in the past year?: No PFSH PFSH Medical History Early stage of Wears contact lenses TMJ arthritis History of Holter monitoring History of echocardiogram Cardiology follow-up encounter Abnormal ultrasound Breast pain, right WPW (Xiuhj-Qwmdquglz-Jhu te syndrome) Palpitations Spondylolisthesis at L4-L5 level Segmental and somatic dysfunction of pelvic region Segmental and somatic dysfunction of lumbar region Segmental and somatic dysfunction of thoracic region Segmental and somatic dysfunction of cervical region Surgical History H/O breast biopsy Hx of wisdom tooth extraction History of cardiac radiofrequency ablation (RFA) (12/09/22) Family History Grandfather Myocardial infarction, Onset Age: 38 Grandmother CVA (cerebral vascular accident) Diabetes Mother Heart disease Social History adopted: No household members: spouse number of children: 0 current occupational status: employed current occupation: [employer] current occupational exposures/hazards: No pets and animals: No history of recent travel: Yes ([place] - June 2025) out of state: Yes out of country: No sexually active: Yes Smoking Status: Never smoker alcohol intake: never substance use type: does not use well-balanced diet: daily or most days caffeine: No eating out: 1-3 times/week during the past year weight has: remained stable what type of physical activity do you participate in: walking, running and weight training frequency: 3-4 times per week duration: 15-30 minutes/day christin/buddhism: Hoahaoism seatbelt use: always do you feel safe at home: Yes 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 OB Visit JAIR Calculator Estimated Delivery Date Method Current WG Current Estimate 04/02/25 Ultrasound #1 36w 3d Other Estimates 03/14/25 LMP (Certain) 39w 1d Expected Delivery Route/Plan Labor Preferences- CB/BF classes: encouraged labor support person: Vinicio labor intervention preferences: [] pain management options preferred: epidural cut cord/dad catch: maybe cord : yes PP control planned: discussed discussed possible routes of delivery and associated risks: [] special requests: [] Specific Issue/Plans Covid status: [] Flu vaccine: [] Tdap vaccine: given Rhogam: NA LARC form signed: yes Problem list reviewed and updated with the most current plan of care details and appropriate orders placed. Relevant counseling for the gestational age provided. Continue routine care and follow up unless otherwise noted in visit notes/problem list details Initial Weight: Not Recorded Date -???-???-???-???-??? -???-???-???-???-??? -???-???- EGA Weight BP Urine Prot -???-???-???-???-??? -???-???-???-???-??? -???-???- Glucose FHR FuHt Pres Dilation -???-???-???-???-??? -???-???-???-???-??? -???-???- Effaced St Visit Note 09/03/24 -???-???-???-???-??? -???-???-???-???-??? -???-???- 9w 6d 119 lb 127/81 -???-???-???-???-??? -???-???-???-???-??? -???-???- 181 -???-???-???-???-??? -???-???-???-???-??? -???-???- 1.71 CRL not con with LMP. con with early first us with care center. LC- 1.71 CRL not con with LMP. con with early first us with [facility]. 10/07/24 -???-???-???-???-??? -???- (more content not included)... Normal [facility] Laboratory - Chemistry and C hemistry - challengeOrdered By: Ava Pinto on 02-28-2025 Glucose Ql (U) Negative [facility] Laboratory - UrinalysisOrder ed By: Ava Pinto on 02-28-2025 Protein Ql (U) Negative [facility] Chemical Checker Office Visit Reporton 02-28-2025 Chemical Checker Office Visit Report [facility] [address], [address] [place] [address] OFFICE VISIT Date of Service: 02/28/25 MR#: [id number] Acct: [id number] Name: ARACELIS WHITTINGTON Rep #: [id number] : 2000 Provider: KIKE mallory Age/Sex: 24/F Location: [facility] [place] Status: Signed Intake Vital Signs 01/25/25 10:20 02/08/25 10:17 02/28/25 08:31 Height 5 ft 2 in 5 ft 2 in 5 ft 2 in Weight: 143 lb 9 oz BMI 26.2 BP 118/82 H Intake Visit Reasons: 35 wk ob Chief Complaint: 35 Week OB Patient Intake Coordinator Required: No Is patient in pain?: No Allergies No Known Allergies Allergy (Verified 02/28/25 08:32) Medications ???Medication ???Instructions ???Recorded ???Confirmed ???Type docosahexaenoic acid 200 mg mg PO 08/20/24 02/28/25 History capsule ( DHA) famotidine 20 mg tablet (Pepcid) 20 mg PO BID #60 tabs 02/08/2511/19 Rx Last Menstrual Period: 06/07/24 Zika: Zika virus screening: Negative : No PFSH PFSH Medical History Early stage of Wears contact lenses TMJ arthritis History of Holter monitoring History of echocardiogram Cardiology follow-up encounter Abnormal ultrasound Breast pain, right WPW (Ghzcu-Trvfiuvnn-Xxy te syndrome) Palpitations Spondylolisthesis at L4-L5 level Segmental and somatic dysfunction of pelvic region Segmental and somatic dysfunction of lumbar region Segmental and somatic dysfunction of thoracic region Segmental and somatic dysfunction of cervical region Surgical History H/O breast biopsy Hx of wisdom tooth extraction History of cardiac radiofrequency ablation (RFA) (12/09/22) Family History Grandfather Myocardial infarction, Onset Age: 38 Grandmother CVA (cerebral vascular accident) Diabetes Mother Heart disease Social History adopted: No household members: spouse number of children: 0 current occupational status: employed current occupation: [employer] current occupational exposures/hazards: No pets and animals: No history of recent travel: Yes ([place] - June 2025) out of state: Yes out of country: No sexually active: Yes Smoking Status: Never smoker alcohol intake: never substance use type: does not use well-balanced diet: daily or most days caffeine: No eating out: 1-3 times/week during the past year weight has: remained stable what type of physical activity do you participate in: walking, running and weight training frequency: 3-4 times per week duration: 15-30 minutes/day christin/buddhism: Hoahaoism seatbelt use: always do you feel safe at home: Yes 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 OB Visit JAIR Calculator Estimated Delivery Date Method Current WG Current Estimate 04/02/25 Ultrasound #1 35w 2d Other Estimates 03/14/25 LMP (Certain) 38w 0d Expected Delivery Route/Plan Labor Preferences- CB/BF classes: encouraged labor support person: Vinicio labor intervention preferences: [] pain management options preferred: epidural cut cord/dad catch: maybe cord : yes PP control planned: discussed discussed possible routes of delivery and associated risks: [] special requests: [] Specific Issue/Plans Covid status: [] Flu vaccine: [] Tdap vaccine: given Rhogam: NA LARC form signed: yes Problem list reviewed and updated with the most current plan of care details and appropriate orders placed. Relevant counseling for the gestational age provided. Continue routine care and follow up unless otherwise noted in visit notes/problem list details Initial Weight: Not Recorded Date -???-???-???-???-??? -???-???-???-???-??? -???-???- EGA Weight BP Urine Prot -???-???-???-???-??? -???-???-???-???-??? -???-???- Glucose FHR FuHt Pres Dilation -???-???-???-???-??? -???-???-???-???-??? -???-???- Effaced St Visit Note 09/03/24 -???-???-???-???-??? -???-???-???-???-??? -???-???- 9w 6d 119 lb 127/81 -???-???-???-???-??? -???-???-???-???-??? -???-???- 181 -???-???-???-???-??? -???-???-???-???-??? -???-???- 1.71 CRL not con with LMP. con with early first us with care center. LC- 1.71 CRL not con with LMP. con with early first us with care center. 10/07/24 (more content not included)... Normal [facility] Laboratory - Chemistry and C hemistry - challengeOrdered By: Cecile Damon on 02-08-2025 Glucose Ql (U) Negative [facility] Laboratory - UrinalysisOrder ed By: Cecile Damon on 02-08-2025 Protein Ql (U) Negative [facility] Chemical Checker Office Visit Reporton 02-08-2025 Chemical Checker Office Visit Report [facility] [address] [place] [address], [address] [place] [address] OFFICE VISIT Date of Service: 02/08/25 MR#: [id number] Acct: [id number] Name: ARACELIS WHITTINGTON Rep #: [id number] : 2000 Provider: Dr. Cecile Sinclair DO Age/Sex: 24/F Location: [facility] Status: Signed Intake Vital Signs 12/27/24 10:42 01/25/25 10:20 02/08/25 10:17 Height 5 ft 2 in 5 ft 2 in 5 ft 2 in Weight: 137 lb BMI 25.0 BP 118/73 Intake Visit Reasons: 32wk ob Chief Complaint: 32wk OB Patient Intake Coordinator Required: No Is patient in pain?: No Allergies No Known Allergies Allergy (Verified 02/08/25 10:15) Medications ???Medication ???Instructions ???Recorded ???Confirmed ???Type docosahexaenoic acid 200 mg mg PO 08/20/24 02/08/25 History capsule ( DHA) famotidine 20 mg tablet (Pepcid) 20 mg PO BID #60 tabs 02/08/25 Rx Last Menstrual Period: 06/07/24 : No Have you fallen in the past year?: No PFSH PFSH Medical History Early stage of Wears contact lenses TMJ arthritis History of Holter monitoring History of echocardiogram Cardiology follow-up encounter Abnormal ultrasound Breast pain, right WPW (Icxjx-Vxbcjknfx-Rei te syndrome) Palpitations Spondylolisthesis at L4-L5 level Segmental and somatic dysfunction of pelvic region Segmental and somatic dysfunction of lumbar region Segmental and somatic dysfunction of thoracic region Segmental and somatic dysfunction of cervical region Surgical History H/O breast biopsy Hx of wisdom tooth extraction History of cardiac radiofrequency ablation (RFA) (12/09/22) Family History Grandfather Myocardial infarction, Onset Age: 38 Grandmother CVA (cerebral vascular accident) Diabetes Mother Heart disease Social History adopted: No household members: spouse number of children: 0 current occupational status: employed current occupation: [employer] current occupational exposures/hazards: No pets and animals: No history of recent travel: Yes ([place] - June 2025) out of state: Yes out of country: No sexually active: Yes Smoking Status: Never smoker alcohol intake: never substance use type: does not use well-balanced diet: daily or most days caffeine: No eating out: 1-3 times/week during the past year weight has: remained stable what type of physical activity do you participate in: walking, running and weight training frequency: 3-4 times per week duration: 15-30 minutes/day christin/buddhism: Hoahaoism seatbelt use: always do you feel safe at home: Yes additional social history: : 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 OB Visit JAIR Calculator Estimated Delivery Date Method Current WG Current Estimate 04/02/25 Ultrasound #1 32w 3d Other Estimates 03/14/25 LMP (Certain) 35w 1d Expected Delivery Route/Plan Labor Preferences- CB/BF classes: encouraged labor support person: Vinicio labor intervention preferences: [] pain management options preferred: epidural cut cord/dad catch: maybe cord : yes PP control planned: discussed discussed possible routes of delivery and associated risks: [] special requests: [] Specific Issue/Plans Covid status: [] Flu vaccine: [] Tdap vaccine: given Rhogam: NA LARC form signed: yes Problem list reviewed and updated with the most current plan of care details and appropriate orders placed. Relevant counseling for the gestational age provided. Continue routine care and follow up unless otherwise noted in visit notes/problem list details Initial Weight: Not Recorded Date -???-???-???-???-??? -???-???-???-???-??? -???-???- EGA Weight BP Urine Prot -???-???-???-???-??? -???-???-???-???-??? -???-???- Glucose FHR FuHt Pres Dilation -???-???-???-???-??? -???-???-???-???-??? -???-???- Effaced St Visit Note 09/03/24 -???-???-???-???-??? -???-???-???-???-??? -???-???- 9w 6d 119 lb 127/81 -???-???-???-???-??? -???-???-???-???-??? -???-???- 181 -???-???-???-???-??? -???-???-???-???-??? -???-???- 1.71 CRL not con with LMP. con with early first us with care center. LC- 1.71 CRL not con with LMP. con with early first us with [facility]. 10/07/24 -???-???-???-???-??? -??? (more content not included)... Normal [facility] OB Limited With Biometricson 02-03-2025 OB Limited With Biometrics [facility] [address], [place] [id number] OB Limited With Biometrics MR#: [id number] Acct: [id number] Name: ARACELIS WHITTINGTON Rep #: [id number] : 2000 F 24 From: Alessio smith MD PCP: Dr. 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 The fetus is in a cephalic presentation. There is demonstrated cardiac activity with a heart rate of 162 bpm. There is a normal amniotic fluid volume, LAUREL 11.7 cm. The placenta is anterior . There are Grade 3 placental changes. Cervix 3.1 cm. BIOMETRY: BPD: 7.44 Cm: 29 weeks, 6 days HC: 9.9 Cm : 31 weeks, 4 days AC: 28.7 Cm : 31 weeks,3 days FL: 27.4 Cm : 31 weeks, 0 day Age by LMP: 31 weeks, 5 days. JAIR by LMP:04/02/2025 . age by current US: 30 weeks,6 days. JAIR by current US: 04/08/2025 . Estimated weight: 1714 grams, +/- 257 grams. 24 %. US/OB Limited With Biometrics IMPRESSION: Single intrauterine fetus. Age by LMP: 31 weeks, 5 days. JAIR by LMP:04/02/2025 . age by current US: 30 weeks,6 days. JAIR by current US: 04/08/2025 . Estimated weight: 1714 grams, +/- 257 grams. 24 %. Reading Location: [place] [address] CC: KIKE Pinto; Dr. Neymar Ronquillo MD Jewel Sorter: Signed Normal [facility] Laboratory - Chemistry and C hemistry - challengeOrdered By: Ava Pinto on 01-25-2025 Glucose Ql (U) Negative [facility] Laboratory - UrinalysisOrder ed By: Ava Pinto on 01-25-2025 Protein Ql (U) Negative [facility] Chemical Checker Office Visit Reporton 01-25-2025 Chemical Checker Office Visit Report [address], [address] [place] [address] OFFICE VISIT Date of Service: 01/25/25 MR#: [id number] Acct: [id number] Name: ARACELIS WHITTINGTON Rep #: [id number] : 2000 Provider: KIKE mallory Age/Sex: 24/F Location: [facility] [place] [facility] Status: Signed with Addenda ADDENDUM by Jen Fontana on 01/25/25 at 1046 Office Procedure Documentation entered by Jen Fontana 01/25/25 10:46: Immunizations Adacel(Tdap Adolesn/Adult)(PF) 2 Lf-(2.5-5-3-5)-5 Lf/0.5 mL IM syringe Performing Provider: Ava Pinto NP, KIKE Performing Location: [facility] Administered by: Jen Fontana on 01/25/25 10:45 Dose Route Admin Location Dispensed Lot Number Expiration Date NDC Man ufacturer 0.5 mL IM Left Deltoid 0.5 mL [id number] 01/24/27 89991-961-45 [employer] VIS Given Date VIS Provided VIS Publication Date 01/25/25 Single Vaccine 24 Eligibility Eligibility Date Funding Source Not Applicable Date cc: * Signed Intake Vital Signs 12/03/24 14:51 12/27/24 10:42 01/25/25 10:20 Height 5 ft 2 in 5 ft 2 in 5 ft 2 in Weight: 136 lb BMI 24.8 BP 116/72 Intake Visit Reasons: 30 wk ob Chief Complaint: 30 Week OB Patient Intake Coordinator Required: No Is patient in pain?: No Allergies No Known Allergies Allergy (Verified 01/25/25 10:22) Medications ???Medication ???Instructions ???Recorded ???Confirmed ???Type docosahexaenoic acid 200 mg mg PO 08/20/24 01/25/25 History capsule ( DHA) Last Menstrual Period: 06/07/24 Zika: Zika virus screening: Negative : Yes PFSH PFSH Medical History Early stage of Wears contact lenses TMJ arthritis History of Holter monitoring History of echocardiogram Cardiology follow-up encounter Abnormal ultrasound Breast pain, right WPW (Bbihg-Uqvlpzkck-Wtd te syndrome) Palpitations Spondylolisthesis at L4-L5 level Segmental and somatic dysfunction of pelvic region Segmental and somatic dysfunction of lumbar region Segmental and somatic dysfunction of thoracic region Segmental and somatic dysfunction of cervical region Surgical History H/O breast biopsy Hx of wisdom tooth extraction History of cardiac radiofrequency ablation (RFA) (12/09/22) Family History Grandfather Myocardial infarction, Onset Age: 38 Grandmother CVA (cerebral vascular accident) Diabetes Mother Heart disease Social History adopted: No household members: spouse number of children: 0 current occupational status: employed current occupation: [employer] current occupational exposures/hazards: No pets and animals: No history of recent travel: Yes ([place] - June 2025) out of state: Yes out of country: No sexually active: Yes Smoking Status: Never smoker alcohol intake: never substance use type: does not use well-balanced diet: daily or most days caffeine: No eating out: 1-3 times/week during the past year weight has: remained stable what type of physical activity do you participate in: walking, running and weight training frequency: 3-4 times per week duration: 15-30 minutes/day christin/buddhism: Hoahaoism seatbelt use: always do you feel safe at home: Yes additional social history: : 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 OB Visit JAIR Calculator Estimated Delivery Date Method Current WG Current Estimate 04/02/25 Ultrasound #1 30w 3d Other Estimates 03/14/25 LMP (Certain) 33w 1d Expected Delivery Route/Plan Labor Preferences- CB/BF classes: encouraged labor support person: Vinicio labor intervention preferences: [] pain management options preferred: epidural cut cord/dad catch: maybe cord : yes PP control planned: discussed discussed possible routes of delivery and associated risks: [] special requests: [] Specific Issue/Plans Covid status: [] Flu vaccine: [] Tdap vaccine: given Rhogam: NA LARC form signed: yes Problem list reviewed and updated with the most current plan of care details and appropriate orders placed. Relevant counseling for the gestational age provided. Continue routine care and follow up unless otherwi (more content not included)... Normal [facility] Absolute lymphocyte countOrd ered By: Farzana Ng on 12-27-2024 Lymphocytes Auto (Unsp spec) [#/Vol] 1.31 10*3/uL 0.83-4.51 [facility] Absolute neutrophil countOrd ered By: Farzana Ng on 12-27-2024 Neutrophils (Bld) [#/Vol] 9.3 10*3/uL High 2.0-7.7 [facility] Automated lymphocyte count a s percentage of total leukocytesOrdered By: Farzana Ng on 12-27-2024 Lymphocytes/100 WBC Auto (Unsp spec) 11.5 % Low 19-41 [facility] Basophil percentageOrdered B y: Farzana Ng on 12-27-2024 Basophils/100 WBC (Bld) 0.3 % 0-1 [facility] CBC W/Diff, Automatedon Absolute Lymph 1.31 X10 3/uL Normal 0.83-4.51 [facility] Comment on above: Performed By: #### L 509.8002, L501.0250, L3890.6006, L100.0100 #### [facility] [address] [place], [address] Absolute Neut 9.3 X10 3/uL High 2.0-7.7 [facility] Comment on above: Performed By: #### L 509.8002, L501.0250, L3890.6006, L100.0100 #### [facility] [address] [place], [address] Basophils/100 WBC (Bld) 0.3 % Normal 0-1 [facility] Comment on above: Performed By: #### L 509.8002, L501.0250, L3890.6006, L100.0100 #### [facility] [address] [place], [address] Eosinophils/100 WBC (Bld) 0.6 % Normal 0-5 [facility] Comment on above: Performed By: #### L 509.8002, L501.0250, L3890.6006, L100.0100 #### [facility] [address] [place], [address] Erythrocyte distribution width (RBC) [Ratio] 13.3 % Normal 11.6-14.6 [facility] Comment on above: Performed By: #### L 509.8002, L501.0250, L3890.6006, L100.0100 #### [facility] [address] [place], [address] Hematocrit (Bld) [Volume fraction] 36.5 % Low 37-47 [facility] Comment on above: Performed By: #### L 509.8002, L501.0250, L3890.6006, L100.0100 #### [facility] [address] [place], [address] Hemoglobin (Bld) [Mass/Vol] 12.7 g/dL Normal 12.0-15.0 [facility] Comment on above: Performed By: #### L 509.8002, L501.0250, L3890.6006, L100.0100 #### [facility] [address] [place], [address] IG% 0.900 Normal 0.0-0.9 [facility] Comment on above: Result Comment: IG% - Immature Granulocytes (promyelocytes, myelocytes and metamyelocytes) > 1% indicates that a LEFT SHIFT is Present. Performed By: #### L 509.8002, L501.0250, L3890.6006, L100.0100 #### [facility] [address] [place], [address] Lymphocytes/100 WBC (Bld) 11.5 % Low 19-41 [facility] Comment on above: Performed By: #### L 509.8002, L501.0250, L3890.6006, L100.0100 #### [facility] [address] [place], [address] MCH (RBC) [Entitic mass] 31.8 pg Normal 27.0-32.0 [facility] Comment on above: Performed By: #### L 509.8002, L501.0250, L3890.6006, L100.0100 #### [facility] [address] [place], [address] MCHC (RBC) [Mass/Vol] 34.8 g/dL Normal 32-36 [facility] Comment on above: Performed By: #### L 509.8002, L501.0250, L3890.6006, L100.0100 #### [facility] [address] [place], [address] MCV (RBC) [Entitic vol] 91.3 fL Normal 81-99 [facility] Comment on above: Performed By: #### L 509.8002, L501.0250, L3890.6006, L100.0100 #### [facility] [address] [place], [address] Monocytes/100 WBC (Bld) 5.3 % Normal 0-10 [facility] Comment on above: Performed By: #### L 509.8002, L501.0250, L3890.6006, L100.0100 #### [facility] [address] [place], [address] Neutrophils/100 WBC (Bld) 81.4 % High 47-70 [facility] Comment on above: Performed By: #### L 509.8002, L501.0250, L3890.6006, L100.0100 #### [facility] [address] [place], [address] Nucleated RBC (Bld) [#/Vol] 0 10*3/uL Normal 0-5 [facility] Comment on above: Performed By: #### L 509.8002, L501.0250, L3890.6006, L100.0100 #### [facility] [address] [place], [address] Platelet mean volume (Bld) [Entitic vol] 9.4 fL Normal 6.2-12.0 [facility] Comment on above: Performed By: #### L 509.8002, L501.0250, L3890.6006, L100.0100 #### [facility] [address] [place], [address] Platelets (Bld) [#/Vol] 261 10*3/uL Normal 150-450 [facility] Comment on above: Performed By: #### L 509.8002, L501.0250, L3890.6006, L100.0100 #### [facility] [address] [place], [address] RBC (Bld) [#/Vol] 4.00 10*6/uL Low 4.2-5.4 [facility] Comment on above: Performed By: #### L 509.8002, L501.0250, L3890.6006, L100.0100 #### [facility] [address] [place], [address] RDW SD 44.4 fl High 35.1-43.9 [facility] Comment on above: Performed By: #### L 509.8002, L501.0250, L3890.6006, L100.0100 #### [facility] [address] [place], [address] WBC (Bld) [#/Vol] 11.4 10*3/uL High 4.4-11.0 [facility] Comment on above: Performed By: #### L 509.8002, L501.0250, L3890.6006, L100.0100 #### [facility] [address] [place], [address] Eosinophil percentageOrdered By: Farzana Ng on 12-27-2024 Eosinophils/100 WBC (Bld) 0.6 % 0-5 [facility] Erythrocyte distribution wid th ratioOrdered By: Farzana Ng on 12-27-2024 Erythrocyte distribution width (RBC) [Ratio] 13.3 % 11.6-14.6 [facility] Erythrocyte distribution wid th standard deviationOrdered By: Farzana Ng on 12-27-2024 Erythrocyte distribution width (RBC) [Ratio] 44.4 fl High 35.1-43.9 [facility] Glucose Challenge Gest 1H 50 pippa 12-27-2024 GLU GEST 50g 1H 70 mg/dL Normal 70-140 [facility] Comment on above: Performed By: #### L 509.8002, L501.0250, L3890.6006, L100.0100 #### [facility] [address] [facility] [place], [place], [id number] Glucose measurement at 2 pasquale rs post-dose gestational glucose tolerance testOrdered By: Farzana Ng on 12-27-2024 Glucose [Mass/Vol] 70 mg/dL 70-140 [facility] HIVon 12-27-2024 HIV Non-Reactive Normal Nonreactive [facility] Comment on above: Result Comment: Non- Reactive Reactive Repeatedly reactive samples must be confirmed according to CDC recommended confirmatory algorithms. The subresults for either HIVAG or AHIV can be used as an aid in the selection of the confirmation algorithm for reactive samples. Send out specimens with Reactive results to [facility] for confirmation. Order the HIV antibody detection and differentiation: lc#[id number] Performed By: #### L 509.8002, L501.0250, L3890.6006, L100.0100 #### [facility] [address] [place], [place], [address] Hematocrit Auto (Bld) [Volum e fraction]Ordered By: Farzana Ng on 12-27-2024 Hematocrit (Bld) [Volume fraction] 36.5 % Low 37-47 [facility] Hemoglobin measurementOrdere d By: Farzana Ng on 12-27-2024 Hemoglobin (Bld) [Mass/Vol] 12.7 g/dL 12.0-15.0 [facility] Immature granulocytes/100 WB C Auto (Bld)Ordered By: Farzana Ng on 12-27-2024 Immature granulocytes/100 WBC (Bld) 0.900 % 0.0-0.9 [facility] Comment on above: IG% - Immature Granu locytes (promyelocytes, myelocytes and metamyelocytes) > 1% indicates that a LEFT SHIFT is Present. Laboratory - Chemistry and C hemistry - challengeOrdered By: Gay Ellis on 12-27-2024 Glucose Ql (U) Negative [facility] Laboratory - UrinalysisOrder ed By: Gya Ellis on 12-27-2024 Protein Ql (U) Negative [facility] MCV (mean corpuscular volume ) determinationOrdered By: Farzana Ng on 12-27-2024 MCV (RBC) [Entitic vol] 91.3 fL 81-99 [facility] Mean corpuscular hemoglobin (MCH) determinationOrdered By: Farzana Ng on 12-27-2024 MCH (RBC) [Entitic mass] 31.8 pg 27.0-32.0 [facility] Mean corpuscular hemoglobin concentration (MCHC) determinationOrdered By: Farzana Ng on 12-27-2024 MCHC (RBC) [Mass/Vol] 34.8 g/dL 32-36 [facility] Mean platelet volume determi nationOrdered By: Farzana Ng on 12-27-2024 Platelet mean volume (Bld) [Entitic vol] 9.4 fL 6.2-12.0 [facility] Monocyte percentageOrdered B y: Farzana Ng on 12-27-2024 Monocytes/100 WBC (Bld) 5.3 % 0-10 [facility] Neutrophil percentageOrdered By: Farzana Ng on 12-27-2024 Neutrophils/100 WBC (Bld) 81.4 % High 47-70 [facility] No Panel InformationOrdered By: Farzana Ng on 12-27-2024 HIV (1&2) Antibody Non-Reactive Nonreactive [facility] Comment on above: Non-ReactiveReactive Repeatedly reactive samples must be confirmed according to CDC recommended confirmatory algorithms. The subresults for either HIVAG or AHIV can be used as an aid in the selection of the confirmation algorithm for reactive samples.Send out specimens with Reactive results to [facility] for confirmation.Order the HIV antibody detection and differentiation: #[id number] Nucleated red blood cell per centageOrdered By: Farzana Ng on 12-27-2024 Nucleated RBC/100 WBC (Bld) [Ratio] 0 % 0-5 [facility] Chemical Checker Office Visit Reporton 12-27-2024 Chemical Checker Office Visit Report [facility]'s [address], [address] [place] [address] OFFICE VISIT Date of Service: 12/27/24 MR#: [id number] Acct: [id number] Name: ARACELIS WHITTINGTON Rep #: [id number] : 2000 Provider: AAMN Calderon ams Age/Sex: 24/F Location: [facility] Status: Signed Intake Vital Signs 11/05/24 14:16 12/03/24 14:51 12/27/24 10:42 Height 5 ft 2 in 5 ft 2 in 5 ft 2 in Weight: 130 lb 2 oz BMI 23.8 BP 119/79 Intake Visit Reasons: 25 wk ob Chief Complaint: 25wk OB Patient Intake Coordinator Required: No Is patient in pain?: No Allergies No Known Allergies Allergy (Verified 12/27/24 10:40) Medications ???Medication ???Instructions ???Recorded ???Confirmed ???Type docosahexaenoic acid 200 mg mg PO 08/20/24 12/27/24 History capsule ( DHA) Last Menstrual Period: 06/07/24 : No Have you fallen in the past year?: No PFSH PFSH Medical History Early stage of Wears contact lenses TMJ arthritis History of Holter monitoring History of echocardiogram Cardiology follow-up encounter Abnormal ultrasound Breast pain, right WPW (Ugrxt-Zavmnulul-Xhw te syndrome) Palpitations Spondylolisthesis at L4-L5 level Segmental and somatic dysfunction of pelvic region Segmental and somatic dysfunction of lumbar region Segmental and somatic dysfunction of thoracic region Segmental and somatic dysfunction of cervical region Surgical History H/O breast biopsy Hx of wisdom tooth extraction History of cardiac radiofrequency ablation (RFA) (12/09/22) Family History Grandfather Myocardial infarction, Onset Age: 38 Grandmother CVA (cerebral vascular accident) Diabetes Mother Heart disease Social History adopted: No household members: spouse number of children: 0 current occupational status: employed current occupation: [employer] current occupational exposures/hazards: No pets and animals: No history of recent travel: Yes ([place] - June 2025) out of state: Yes out of country: No sexually active: Yes Smoking Status: Never smoker alcohol intake: never substance use type: does not use well-balanced diet: daily or most days caffeine: No eating out: 1-3 times/week during the past year weight has: remained stable what type of physical activity do you participate in: walking, running and weight training frequency: 3-4 times per week duration: 15-30 minutes/day christni/buddhism: Hoahaoism seatbelt use: always do you feel safe at home: Yes additional social history: : 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 OB Visit JAIR Calculator Estimated Delivery Date Method Current WG Current Estimate 04/02/25 Ultrasound #1 26w 2d Other Estimates 03/14/25 LMP (Certain) 29w 0d Expected Delivery Route/Plan Labor Preferences- CB/BF classes: [] labor support person: [] labor intervention preferences: [] pain management options preferred: [] cut cord/dad catch: [] : [] PP control planned: [] discussed possible routes of delivery and associated risks: [] special requests: [] Specific Issue/Plans Covid status: [] Flu vaccine: [] Tdap vaccine: [] Rhogam: [] LARC form signed: [] Problem list reviewed and updated with the most current plan of care details and appropriate orders placed. Relevant counseling for the gestational age provided. Continue routine care and follow up unless otherwise noted in visit notes/problem list details Initial Weight: Not Recorded Date -???-???-???-???-??? -???-???-???-???-??? -???-???- EGA Weight BP Urine Prot -???-???-???-???-??? -???-???-???-???-??? -???-???- Glucose FHR FuHt Pres Dilation -???-???-???-???-??? -???-???-???-???-??? -???-???- Effaced St Visit Note 09/03/24 -???-???-???-???-??? -???-???-???-???-??? -???-???- 9w 6d 119 lb 127/81 -???-???-???-???-??? -???-???-???-???-??? -???-???- 181 -???-???-???-???-??? -???-???-???-???-??? -???-???- 1.71 CRL not con with LMP. con with early first us with [facility]. LC- 1.71 CRL not con with LMP. con with early first us with [facility]. 10/07/24 -???-???-???-???-??? -???-???-???-???-??? -???-???- 14w 5d 118 lb 133/83 -???-???-???-???-??? -???-???-???-???-??? -???-???- 161 -???-???-??? (more content not included)... Normal [facility] Platelet countOrdered By: Adriane Ng on 12-27-2024 Platelets (d) [#/Vol] 261 10*3/uL 150-450 [facility] RBC Auto (Bld) [#/Vol]Ordere d By: Farzana Ng on 12-27-2024 RBC (Bld) [#/Vol] 4.00 10*6/uL Low 4.2-5.4 [facility] Syphilis Antibodieson 2024 Syphilis Abs Non-Reactive Normal Nonreactive [facility] Comment on above: Performed By: #### L 509.8002, L501.0250, L3890.6006, L100.0100 #### [facility] [place], [address] White blood cell (WBC) count Ordered By: Farzana Ng on 12-27-2024 WBC (Bld) [#/Vol] 11.4 10*3/uL High 4.4-11.0 [facility] CNOVon 12-19-2024 [facility] ARACELIS WHITTINGTON ([id number]) 1 F Date Time Provider Department 12/19/24 1:45 PM SEUN FRANKS [facility] During your visit today, we recorded the following information about you: Temperature Pulse Respiration Blood pressure 98.8 degrees 90/minute 16/minute 114/60 Weight 58.8 kg Seun Franks APRN.[employer] 12/19/2024 2:00 PM Signed Subjective HPI Nontoxic-appearing 24-year-old female who is currently 25 weeks presents to urgent care chief complaint red spot on her left forearm. Presents today for evaluation. Concerned about possible tick bite due to being recently bit by a tick. States she was unaware if she was bit by a tick. Overall feels well. No fever or flulike symptoms. No pain or itching. Past medical history prescription medications allergies reviewed. .Patient presents with: Insect Bite: ? tick bite on left forearm, no tick found -25 weeks PAST MEDICAL HISTORY Diagnosis Date ACQ ANKLE-FOOT DEF NOS 08/15/2005 resolved. Concussion 01/05/2014, 09/13/14 NEGATIVE HISTORY OF 08/12/07 normal color vision PAST SURGICAL HISTORY Procedure Laterality Date EXTRACTION, ERUPTED TOOTH OR EXPOSED ROOT (ELEVATION AND/OR FORCEPS REMOVAL) 07/2014 ALLERGIES Patient has no known allergies. MEDICATIONS no115/iron/folic acid ( 19 ORAL) Take 1 tablet by mouth once daily. FAMILY HISTORY Problem Relation Age of Onset None Mother None Father Heart Maternal Grandfather [place] at age 38 years Diabetes Maternal Grandmother Stroke Maternal Grandmother Social History Tobacco Use Smoking status: Never Smokeless tobacco: Never Substance Use Topics Alcohol use: No Drug use: No BP 114/60 Pulse 90 Temp 37.1 ?C (98.8 ?F) Resp 16 Wt 58.8 kg (129 lb 10.1 oz) LMP 06/07/2024 (Exact Date) SpO2 98% BMI 23.26 kg/m? Review of Systems Constitutional: Negative for chills, fever and malaise/fatigue. HENT: Negative for congestion, ear discharge, ear pain, sinus pain and sore throat. Eyes: Negative for blurred vision, pain, discharge and redness. Respiratory: Negative for cough, hemoptysis, sputum production, shortness of breath, wheezing and stridor. Cardiovascular: Negative for chest pain. Gastrointestinal: Negative for abdominal pain, diarrhea, nausea and vomiting. Musculoskeletal: Negative for myalgias. Skin: Negative for itching and rash. Neurological: Negative for dizziness and headaches. Objective Physical Exam Constitutional: General: She is not in acute distress. Appearance: She is not toxic-appearing. HENT: Head: Normocephalic. Nose: Nose normal. Eyes: Pupils: Pupils are equal, round, and reactive to light. Cardiovascular: Rate and Rhythm: Normal rate. Pulmonary: Effort: Pulmonary effort is normal. No respiratory distress. Musculoskeletal: Cervical back: Normal range of motion. Skin: General: Skin is warm and dry. Comments: A approximately 4 mm x 4 mm area of redness noted. No remote redness. No foreign bodies. Neurological: General: No focal deficit present. Mental Status: She is alert. ASSESSMENT/PLAN: 1. Rash - ICD9: 782.1, ICD10: R21 Area of redness noted on exam. Possible insect bite versus dermatitis. Low suspicion for tick bite at this time treat supportively. Patient was educated on supportive therapies. Patient will follow up with primary care provider as needed. Patient was instructed to immediately proceed to emergency room for any new, worsening, or symptoms lasting longer than anticipated. The patient's clinical presentation is otherwise unremarkable at this time. Based on exam and clinical finding, the patient is stable for discharge. Plan of care was discussed with patient. Patient verbalizes understanding and agrees to plan of care. This note was generated using [employer] software. It may contain errors in wording, punctuation, or spelling. Seun Franks APRN.PROMISE Referring Provider: SELF [[id number]] Allergies As of Date: 12/19/2024 (No Known Allergies) Date Reviewed: 12/19/2024 Reviewed by: Seun Franks APRN.CNP - Fully Assessed Reason for Visit: Insect Bite [929] Cmt: ? tick bite on left forearm, no tick found -25 weeks Primary Visit Diagnosis:Rash [R21] Prescriptions as of 12/19/2024 - no115/iron/folic acid ( 19 ORAL) Take 1 tablet by mouth once daily. Problem List As Of Date 12/19/2024 Noted Resolved Unspecified deformity of ankle and foot, acquir*08/15/2005 06/30/2012 Concussion [S06.0XAA] 01/05/2014 Influenza vaccine refused [Z28.21] 08/15/2017 History of Rqokp-Gmzqcupcu-Cfou e (WPW) syndrome*04/14/2023 Level of Service: OFFICE/OUTPATIENT ESTABLISHED LOW MDM 20 MIN [97759] Encounter Status:Closed by SEUN FRANKS on 12/19/24 Normal [facility] Laboratory - Chemistry and C hemistry - challengeOrdered By: Farzana Ng on 12-03-2024 Glucose Ql (U) Negative [facility] Laboratory - UrinalysisOrder ed By: Farzana Ng on 12-03-2024 Protein Ql (U) Negative [facility] Chemical Checker Office Visit Reporton 12-03-2024 Chemical Checker Office Visit Report [facility]'s [address], [address] [place] [address] OFFICE VISIT Date of Service: 12/03/24 MR#: [id number] Acct: [id number] Name: ARACELIS WHITTINGTON Rep #: [id number] : 2000 Provider: Dr. Farzana olsen MD Age/Sex: 24/F Location: [facility] Status: Signed Intake Vital Signs 11/05/24 14:16 12/03/24 14:51 Height 5 ft 2 in 5 ft 2 in Weight: 124 lb 127 lb 4 oz BMI 22.6 23.3 BP 117/72 123/81 H Intake Visit Reasons: 21 wk ob Patient Intake Coordinator Required: No Is patient in pain?: No Feel stressed/tense/nervo us/anxious/difficult y sleeping: not at all Allergies No Known Allergies Allergy (Verified 12/03/24 14:52) Medications ???Medication ???Instructions ???Recorded ???Confirmed ???Type docosahexaenoic acid 200 mg mg PO 08/20/24 12/03/24 History capsule ( DHA) Last Menstrual Period: 06/07/24 Zika: Zika virus screening: Negative : No PFSH PFSH Medical History (Updated 12/03/24 @ 15:[address] Farzana Ng MD) Early stage of Wears contact lenses TMJ arthritis History of Holter monitoring History of echocardiogram Cardiology follow-up encounter Abnormal ultrasound Breast pain, right WPW (Vaoav-Bhfsrtixx-Edo te syndrome) Palpitations Spondylolisthesis at L4-L5 level Segmental and somatic dysfunction of pelvic region Segmental and somatic dysfunction of lumbar region Segmental and somatic dysfunction of thoracic region Segmental and somatic dysfunction of cervical region Surgical History (Updated 12/03/24 @ 15:[address] Farzana Ng MD) H/O breast biopsy Hx of wisdom tooth extraction History of cardiac radiofrequency ablation (RFA) (12/09/22) Family History Grandfather Myocardial infarction, Onset Age: 38 Grandmother CVA (cerebral vascular accident) Diabetes Mother Heart disease Social History adopted: No household members: spouse number of children: 0 current occupational status: employed current occupation: [employer] current occupational exposures/hazards: No pets and animals: No history of recent travel: Yes ([place] - June 2025) out of state: Yes out of country: No sexually active: Yes Smoking Status: Never smoker alcohol intake: never substance use type: does not use well-balanced diet: daily or most days caffeine: No eating out: 1-3 times/week during the past year weight has: remained stable what type of physical activity do you participate in: walking, running and weight training frequency: 3-4 times per week duration: 15-30 minutes/day christin/buddhism: Hoahaoism seatbelt use: always do you feel safe at home: Yes additional 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 OB Visit JAIR Calculator Estimated Delivery Date Method Current WG Current Estimate 04/02/25 Ultrasound #1 22w 6d Other Estimates 03/14/25 LMP (Certain) 25w 4d Expected Delivery Route/Plan Labor Preferences- CB/BF classes: [] labor support person: [] labor intervention preferences: [] pain management options preferred: [] cut cord/dad catch: [] : [] PP control planned: [] discussed possible routes of delivery and associated risks: [] special requests: [] Specific Issue/Plans Covid status: [] Flu vaccine: [] Tdap vaccine: [] Rhogam: [] LARC form signed: [] Problem list reviewed and updated with the most current plan of care details and appropriate orders placed. Relevant counseling for the gestational age provided. Continue routine care and follow up unless otherwise noted in visit notes/problem list details Initial Weight: Not Recorded Date -???-???-???-???-??? -???-???-???-???-??? -???-???- EGA Weight BP Urine Prot -???-???-???-???-??? -???-???-???-???-??? -???-???- Glucose FHR FuHt Pres Dilation -???-???-???-???-??? -???-???-???-???-??? -???-???- Effaced St Visit Note 09/03/24 -???-???-???-???-??? -???-???-???-???-??? -???-???- 9w 6d 119 lb 127/81 -???-???-???-???-??? -???-???-???-???-??? -???-???- 181 -???-???-???-???-??? -???-???-???-???-??? -???-???- 1.71 CRL not con with LMP. con with [facility]. LC- 1.71 CRL not con with LMP. con with [facility] with [facility]. 10/07/24 -???-???-???-???-??? -???-???-???-???-??? -???-???- 14w 5d 118 lb 1 (more content not included)... Normal [facility] - Chemistry and C hemistry - challengeOrdered By: Gay Ellis on 11-05-2024 Glucose Ql (U) Negative [facility] - UrinalysisOrder ed By: Gay Ellis on 11-05-2024 Protein Ql (U) Negative [facility] Chemical Checker Office Visit Reporton 11-05-2024 Chemical Checker Office Visit Report [facility] [address], [address] [place] [address] OFFICE VISIT Date of Service: 11/05/24 MR#: [id number] Acct: [id number] Name: ARACELIS WHITTINGTON Rep #: [id number] : 2000 Provider: AMAN Calderon ams Age/Sex: 24/F Location: [facility] [place] [facility] Status: Signed Intake Vital Signs 09/03/24 14:50 10/07/24 15:05 11/05/24 14:16 Height 5 ft 2 in 5 ft 2 in 5 ft 2 in Weight: 124 lb BMI 22.6 BP 117/72 Intake Visit Reasons: 17 wk ob Chief Complaint: 17wk OB Patient Intake Coordinator Required: No Is patient in pain?: No Allergies No Known Allergies Allergy (Verified 11/05/24 14:14) Medications ???Medication ???Instructions ???Recorded ???Confirmed ???Type docosahexaenoic acid 200 mg mg PO 08/20/24 11/05/24 History capsule ( DHA) Last Menstrual Period: 06/07/24 : No PFSH PFSH Medical History Early stage of Wears contact lenses TMJ arthritis History of Holter monitoring History of echocardiogram Cardiology follow-up encounter Abnormal ultrasound Breast pain, right WPW (Ocdlv-Xsbprhkyw-Sko te syndrome) Palpitations Spondylolisthesis at L4-L5 level Segmental and somatic dysfunction of pelvic region Segmental and somatic dysfunction of lumbar region Segmental and somatic dysfunction of thoracic region Segmental and somatic dysfunction of cervical region Surgical History H/O breast biopsy Hx of wisdom tooth extraction History of cardiac radiofrequency ablation (RFA) (12/09/22) Family History Grandfather Myocardial infarction, Onset Age: 38 Grandmother CVA (cerebral vascular accident) Diabetes Mother Heart disease Social History adopted: No household members: spouse number of children: 0 current occupational status: employed current occupation: [employer] current occupational exposures/hazards: No pets and animals: No history of recent travel: Yes ([place] - June 2025) out of state: Yes out of country: No sexually active: Yes Smoking Status: Never smoker alcohol intake: never substance use type: does not use well-balanced diet: daily or most days caffeine: No eating out: 1-3 times/week during the past year weight has: remained stable what type of physical activity do you participate in: walking, running and weight training frequency: 3-4 times per week duration: 15-30 minutes/day christin/buddhism: Hoahaoism seatbelt use: always do you feel safe at home: Yes additional social history: : 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 OB Visit JAIR Calculator Estimated Delivery Date Method Current WG Current Estimate 04/02/25 Ultrasound #1 18w 6d Other Estimates 03/14/25 LMP (Certain) 21w 4d Expected Delivery Route/Plan Labor Preferences- CB/BF classes: [] labor support person: [] labor intervention preferences: [] pain management options preferred: [] cut cord/dad catch: [] : [] PP control planned: [] discussed possible routes of delivery and associated risks: [] special requests: [] Specific Issue/Plans Covid status: [] Flu vaccine: [] Tdap vaccine: [] Rhogam: [] LARC form signed: [] Problem list reviewed and updated with the most current plan of care details and appropriate orders placed. Relevant counseling for the gestational age provided. Continue routine care and follow up unless otherwise noted in visit notes/problem list details Initial Weight: Not Recorded Date -???-???-???-???-??? -???-???-???-???-??? -???-???- EGA Weight BP Urine Prot -???-???-???-???-??? -???-???-???-???-??? -???-???- Glucose FHR FuHt Pres Dilation -???-???-???-???-??? -???-???-???-???-??? -???-???- Effaced St Visit Note 09/03/24 -???-???-???-???-??? -???-???-???-???-??? -???-???- 9w 6d 119 lb 127/81 -???-???-???-???-??? -???-???-???-???-??? -???-???- 181 -???-???-???-???-??? -???-???-???-???-??? -???-???- 1.71 CRL not con with LMP. con with [facility] with care center. LC- 1.71 CRL not con with LMP. con with [facility] with [facility]. 10/07/24 -???-???-???-???-??? -???-???-???-???-??? -???-???- 14w 5d 118 lb 133/83 -???-???-???-???-??? -???-???-???-???-??? -???-???- 161 -???-???-???-???-??? -???-???-???-???-??? -???-???- KW- n (more content not included)... [facility] ARACELIS WHITTINGTON ([id number]) 1 F Date Time Provider Department 10/22/24 5:00 PM SEUN FRANKS [facility] During your visit today, we recorded the following information about you: Temperature Pulse Respiration Blood pressure 99 degrees 89/minute 22/minute 118/81 Weight 54 kg Seun Franks, LITERARY AGENT.TRAVELING PLANT OPERATOR 10/22/2024 5:19 PM Signed Subjective HPI Nontoxic-appearing 16-week. Female presents urgent care chief complaint pharyngitis. Duration of symptoms 4 days. Associated symptoms sore throat fever. Presents today for evaluation. 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 No difficulty swallowing his secretions decreased range of motion neck or trismus. No high fevers. Past medical history prescription medications allergies reviewed .Patient presents with: Sore Throat: Nasal congestion, headache, L ear pain, swollen lymph nodes, fever x 4 days PAST MEDICAL HISTORY Diagnosis Date ACQ ANKLE-FOOT DEF NOS 08/15/2005 resolved. Concussion 01/05/2014, 09/13/14 NEGATIVE HISTORY OF 08/12/07 normal color vision PAST SURGICAL HISTORY Procedure Laterality Date EXTRACTION, ERUPTED TOOTH OR EXPOSED ROOT (ELEVATION AND/OR FORCEPS REMOVAL) 07/2014 ALLERGIES Patient has no known allergies. MEDICATIONS no115/iron/folic acid ( 19 ORAL) Take 1 tablet by mouth once daily. FAMILY HISTORY Problem Relation Age of Onset None Mother None Father Heart Maternal Grandfather [place] at age 38 years Diabetes Maternal Grandmother Stroke Maternal Grandmother Social History Tobacco Use Smoking status: Never Smokeless tobacco: Never Substance Use Topics Alcohol use: No Drug use: No BP 118/81 Pulse 89 Temp 37.2 ?C (99 ?F) Resp 22 Wt 54 kg (119 lb 0.8 oz) LMP 06/07/2024 (Exact Date) SpO2 99% BMI 21.36 kg/m? Review of Systems Constitutional: Positive for fever and malaise/fatigue. Negative for chills. HENT: Positive for congestion, ear pain and sore throat. Negative for ear discharge and sinus pain. Eyes: Negative for blurred vision, pain, discharge and redness. Respiratory: Negative for cough, hemoptysis, sputum production, shortness of breath, wheezing and stridor. Cardiovascular: Negative for chest pain. Gastrointestinal: Negative for abdominal pain, diarrhea, nausea and vomiting. Musculoskeletal: Positive for myalgias. Skin: Negative for itching and rash. Neurological: Negative for dizziness and headaches. Objective Physical Exam HENT: Head: Normocephalic. Jaw: No trismus, tenderness, swelling or pain on movement. Right Ear: Tympanic membrane, ear canal and external ear normal. Left Ear: Tympanic membrane, ear canal and external ear normal. Nose: Congestion present. Mouth/Throat: Mouth: Mucous membranes are moist. Pharynx: Oropharynx is clear. Uvula midline. Posterior oropharyngeal erythema present. No pharyngeal swelling, oropharyngeal exudate or uvula swelling. Tonsils: No tonsillar exudate or tonsillar abscesses. 1+ on the right. 1+ on the left. Eyes: Pupils: Pupils are equal, round, and reactive to light. Cardiovascular: Rate and Rhythm: Normal rate. Pulmonary: Effort: Pulmonary effort is normal. No accessory muscle usage, respiratory distress or retractions. Breath sounds: No stridor. No wheezing, rhonchi or rales. Abdominal: Palpations: Abdomen is soft. Tenderness: There is no abdominal tenderness. There is no guarding or rebound. Musculoskeletal: Cervical back: No erythema or tenderness. No pain with movement. Normal range of motion. Lymphadenopathy: Cervical: No cervical adenopathy. Neurological: General: No focal deficit present. Mental Status: She is alert and oriented to person, place, and time. Mental status is at baseline. ASSESSMENT/PLAN: 1. Sore throat - ICD9: 462, ICD10: J02.9 (primary diagnosis) - STREP A MOLECULAR (POC) 2. Strep pharyngitis - ICD9: 034.0, ICD10: J02.0 Strep test positive. Diagnosis strep pharyngitis. Placed on amoxicillin. Patient was educated on supportive therapies. Patient will follow up with primary care provider as needed. Patient was instructed to immediately proceed to emergency room for any new, worsening, or symptoms lasting longer than anticipated. The patient's clinical presentation is otherwise unremarkable at this time. Based on exam and clinical finding, the patient is stable for discharge. Plan of care was discussed with patient. Patient verbalizes understanding and agrees to plan of care. This note was generated using [employer] software. It may contain errors in wording, punctuation, or spelling. Seun Franks APRN.TRAVELING PLANT OPERATOR Allergies As of Date: 10/22/2024 (No Known Allergies) Date Reviewed: 10/22/2024 Reviewed by: Seun Franks APRN.TRAVELING PLANT OPERATOR - Fully Assessed Reason for Visit: Sore Throat [200] Cmt: Nasa (more content not included)... Normal [facility] STREP A MOLECULAR (POC)on Interpretation and review of laboratory results Abnormal [facility] Procedural Control Valid [facility] Strep A (POCT) Positive Abnormal Negative [facility] Chemical Checker Office Visit Reporton 10-07-2024 Chemical Checker Office Visit Report [facility] [address], [address] [place] [address] OFFICE VISIT Date of Service: 10/07/24 MR#: [id number] Acct: [id number] Name: ARACELIS WHITTINGTON Rep #: [id number] : 2000 Provider: AMAN Calderon ams Age/Sex: 24/F Location: [facility] [place] Status: Signed Intake Vital Signs 07/30/24 07:38 09/03/24 14:50 10/07/24 15:05 Height 5 ft 2 in 5 ft 2 in 5 ft 2 in Weight: 118 lb BMI 21.5 BP 133/83 H Intake Visit Reasons: 13wk OB Patient Intake Coordinator Required: No Is patient in pain?: No Allergies No Known Allergies Allergy (Verified 10/07/24 15:05) Medications ???Medication ???Instructions ???Recorded ???Confirmed ???Type docosahexaenoic acid 200 mg mg PO 08/20/24 10/07/24 History capsule ( DHA) Last Menstrual Period: 06/07/24 Zika: Zika virus screening: Negative : No PFSH PFSH Medical History Early stage of Wears contact lenses TMJ arthritis History of Holter monitoring History of echocardiogram Cardiology follow-up encounter Abnormal ultrasound Breast pain, right WPW (Bohzu-Whuhjwupy-Rpt te syndrome) Palpitations Spondylolisthesis at L4-L5 level Segmental and somatic dysfunction of pelvic region Segmental and somatic dysfunction of lumbar region Segmental and somatic dysfunction of thoracic region Segmental and somatic dysfunction of cervical region Surgical History H/O breast biopsy Hx of wisdom tooth extraction History of cardiac radiofrequency ablation (RFA) (12/09/22) Family History Grandfather Myocardial infarction, Onset Age: 38 Grandmother CVA (cerebral vascular accident) Diabetes Mother Heart disease Social History adopted: No household members: spouse number of children: 0 current occupational status: employed 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[employer] current occupational exposures/hazards: No pets and animals: No history of recent travel: Yes ([place] - June 2025) out of state: Yes out of country: No sexually active: Yes Smoking Status: Never smoker alcohol intake: never substance use type: does not use well-balanced diet: daily or most days caffeine: No eating out: 1-3 times/week during the past year weight has: remained stable what type of physical activity do you participate in: walking, running and weight training frequency: 3-4 times per week duration: 15-30 minutes/day christin/buddhism: Hoahaoism seatbelt use: always do you feel safe at home: Yes additional social history: : 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 OB Visit JAIR Calculator Estimated Delivery Date Method Current WG Current Estimate 04/02/25 Ultrasound #1 14w 5d Other Estimates 03/14/25 LMP (Certain) 17w 3d Expected Delivery Route/Plan Labor Preferences- CB/BF classes: [] labor support person: [] labor intervention preferences: [] pain management options preferred: [] cut cord/dad catch: [] : [] PP control planned: [] discussed possible routes of delivery and associated risks: [] special requests: [] Specific Issue/Plans Covid status: [] Flu vaccine: [] Tdap vaccine: [] Rhogam: [] LARC form signed: [] Problem list reviewed and updated with the most current plan of care details and appropriate orders placed. Relevant counseling for the gestational age provided. Continue routine care and follow up unless otherwise noted in visit notes/problem list details Initial Weight: Not Recorded Date -???-???-???-???-??? -???-???-???-???-??? -???-???- EGA Weight BP Urine Prot -???-???-???-???-??? -???-???-???-???-??? -???-???- Glucose FHR FuHt Pres Dilation -???-???-???-???-??? -???-???-???-???-??? -???-???- Effaced St Visit Note 09/03/24 -???-???-???-???-??? -???-???-???-???-??? -???-???- 9w 6d 119 lb 127/81 -???-???-???-???-??? -???-???-???-???-??? -???-???- 181 -???-???-???-???-??? -???-???-???-???-??? -???-???- 1.71 CRL not con with LMP. con with [facility] with [facility]. LC- 1.71 CRL not con with LMP. con with [facility] with [facility]. 10/07/24 -???-???-???-???-??? -???-???-???-???-??? -???-???- 14w 5d 118 lb 133/83 -???-???-???-???-??? -???-???-???-???-??? -???-???- 161 -???-???-???-???-??? -???- (more content not included)... Normal [facility] HIV - WCHon 09-14-2024 HIV Non-Reactive Normal Nonreactive [facility] Comment on above: Performed By: #### L 400.7600 #### [facility] [address] [place], [place], [id number] Rubella IgGon 09-14-2024 Rubella IgG Equiv Normal Nonreactive [facility] Comment on above: Result Comment: Anti body Results Interpretation of Immune Status Non Reactive Presumed Non-Immune Equivocal Equivocal Reactive Presumed Immune Performed By: #### L 400.7600 #### [facility] [address] [place], [address] Absolute lymphocyte countOrd ered By: Katherine Roberts on 09-13-2024 Lymphocytes Auto (Unsp spec) [#/Vol] 1.45 10*3/uL 0.83-4.51 [facility] Absolute neutrophil countOrd ered By: Katherine Roberts on 09-13-2024 Neutrophils (Bld) [#/Vol] 8.0 10*3/uL High 2.0-7.7 [facility] Automated lymphocyte count a s percentage of total leukocytesOrdered By: Katherine Roberts on 09-13-2024 Lymphocytes/100 WBC Auto (Unsp spec) 14.4 % Low 19-41 [facility] Basophil percentageOrdered B y: Katherine Roberts on 09-13-2024 Basophils/100 WBC (Bld) 0.3 % 0-1 [facility] CBC W/Diff, Automatedon 08-28 Absolute Lymph 1.45 X10 3/uL Normal 0.83-4.51 [facility] Comment on above: Performed By: #### L 900.0098, L509.4005, BTS, L100.0100, L3890.6005 #### [facility] [address] [place], [address] Absolute Neut 8.0 X10 3/uL High 2.0-7.7 [facility] Comment on above: Performed By: #### L 900.0098, L509.4005, BTS, L100.0100, L3890.6005 #### [facility] [address] [place], [address] Basophils/100 WBC (Bld) 0.3 % Normal 0-1 [facility] Comment on above: Performed By: #### L 900.0098, L509.4005, BTS, L100.0100, [id number] #### [facility] [address] [place], [address] Eosinophils/100 WBC (Bld) 1.2 % Normal 0-5 [facility] Comment on above: Performed By: #### L 900.0098, L509.4005, BTS, L100.0100, [id number] #### [facility] [address] [place], [address] Erythrocyte distribution width (RBC) [Ratio] 13.6 % Normal 11.6-14.6 [facility] Comment on above: Performed By: #### L 900.0098, L509.4005, BTS, L100.0100, [id number] #### [facility] [address] [place], [address] Hematocrit (Bld) [Volume fraction] 37.4 % Normal 37-47 [facility] Comment on above: Performed By: #### L 900.0098, L509.4005, BTS, L100.0100, [id number] #### [facility] [address] [place], [address] Hemoglobin (Bld) [Mass/Vol] 12.5 g/dL Normal 12.0-15.0 [facility] Comment on above: Performed By: #### L 900.0098, L509.4005, BTS, L100.0100, [id number] #### [facility] [address] [place], [address] IG% 0.400 Normal 0.0-0.9 [facility] Comment on above: Result Comment: IG% - Immature Granulocytes (promyelocytes, myelocytes and metamyelocytes) > 1% indicates that a LEFT SHIFT is Present. Performed By: #### L 900.0098, L509.4005, BTS, L100.0100, L3890.6005 #### [facility] [address] [place], [address] Lymphocytes/100 WBC (Bld) 14.4 % Low 19-41 [facility] Comment on above: Performed By: #### L 900.0098, L509.4005, BTS, L100.0100, [id number] #### [facility] [address] [place], [address] MCH (RBC) [Entitic mass] 29.3 pg Normal 27.0-32.0 [facility] Comment on above: Performed By: #### L 900.0098, L509.4005, BTS, L100.0100, L3890.6005 #### [facility] [address] [place], [address] MCHC (RBC) [Mass/Vol] 33.4 g/dL Normal 32-36 [facility] Comment on above: Performed By: #### L 900.0098, L509.4005, BTS, L100.0100, L3890.6005 #### [facility] [address] [place], [address] MCV (RBC) [Entitic vol] 87.8 fL Normal 81-99 [facility] Comment on above: Performed By: #### L 900.0098, L509.4005, BTS, L100.0100, L3890.6005 #### [facility] [address] [place], [address] Monocytes/100 WBC (Bld) 4.1 % Normal 0-10 [facility] Comment on above: Performed By: #### L 900.0098, L509.4005, BTS, L100.0100, [id number] #### [facility] [address] [place], [address] Neutrophils/100 WBC (Bld) 79.6 % High 47-70 [facility] Comment on above: Performed By: #### L 900.0098, L509.4005, BTS, L100.0100, [id number] #### [facility] [address] [place], [address] Nucleated RBC (Bld) [#/Vol] 0 10*3/uL Normal 0-5 [facility] Comment on above: Performed By: #### L 900.0098, L509.4005, BTS, L100.0100, L3890.6005 #### [facility] [address] [place], [address] Platelet mean volume (Bld) [Entitic vol] 10.0 fL Normal 6.2-12.0 [facility] Comment on above: Performed By: #### L 900.0098, L509.4005, BTS, L100.0100, [id number] #### [facility] [address] [place], [address] Platelets (Bld) [#/Vol] 290 10*3/uL Normal 150-450 [facility] Comment on above: Performed By: #### L 900.0098, L509.4005, BTS, L100.0100, [id number] #### [facility] [address] [place], [address] RBC (Bld) [#/Vol] 4.26 10*6/uL Normal 4.2-5.4 [facility] Comment on above: Performed By: #### L 900.0098, L509.4005, BTS, L100.0100, [id number] #### [facility] [address] [place], [address] RDW SD 43.5 fl Normal 35.1-43.9 [facility] Comment on above: Performed By: #### L 900.0098, L509.4005, BTS, L100.0100, [id number] #### [facility] [address] [place], [address] WBC (Bld) [#/Vol] 10.1 10*3/uL Normal 4.4-11.0 [facility] Comment on above: Performed By: #### L 900.0098, L509.4005, BTS, L100.0100, [id number] #### [facility] [address] [place], [address] Eosinophil percentageOrdered By: Katherine Roberts on 09-13-2024 Eosinophils/100 WBC (Bld) 1.2 % 0-5 [facility] Erythrocyte distribution wid th ratioOrdered By: Katherine Roberts on 09-13-2024 Erythrocyte distribution width (RBC) [Ratio] 13.6 % 11.6-14.6 [facility] Erythrocyte distribution wid th standard deviationOrdered By: Katherine Roberts on 09-13-2024 Erythrocyte distribution width (RBC) [Ratio] 43.5 fl 35.1-43.9 [facility] HIV 1 and HIV-2 antibody ass ay with HIV-1 p24 antigen detectionOrdered By: Katherine Roberts on 09-13-2024 HIV 1+2 Ab+HIV1 p24 Ag IA Ql Non-Reactive Nonreactive [facility] Hematocrit Auto (Bld) [Volum e fraction]Ordered By: Katherine Roberts on 09-13-2024 Hematocrit (Bld) [Volume fraction] 37.4 % 37-47 [facility] [facility] Hemoglobin measurementOrdere d By: Katherine Roberts on 09-13-2024 Hemoglobin (Bld) [Mass/Vol] 12.5 g/dL 12.0-15.0 [facility] Hepatitis B Surface Antigeno n 09-13-2024 HEP B Surf Ag Non-Reactive Normal Nonreactive [facility] Comment on above: Order Comment: Reaso n for Exam: Performed By: #### L 400.7600 #### [facility] [address] [facility] [place], [address] Hepatitis C Antibodyon 09-13 Hepatitis C AB Non-Reactive Normal Nonreactive [facility] Comment on above: Order Comment: Reaso n for Exam: Result Comment: Non Reactive: < 0.8 Equivocal: >/= 0.8 to < 1.0 Reactive: >/= 1.0 The [facility] requires that a reactive/equivocal HCV antibody result be sent out for confirmation. HCV Quant by PCR testing. Performed By: #### L 3890.6300 #### [facility] [address] [place], [place], [id number] (007 Immature granulocytes/100 WB C Auto (Bld)Ordered By: Katherine Roberts on 09-13-2024 Immature granulocytes/100 WBC (Bld) 0.400 % 0.0-0.9 [facility] Comment on above: IG% - Immature Granu locytes (promyelocytes, myelocytes and metamyelocytes) > 1% indicates that a LEFT SHIFT is Present. L509.8000on 09-13-2024 Syphilis Abs Non-Reactive Normal [facility] Comment on above: Performed By: #### L 509.8000 #### [facility] [address] [place], [place], [address] MCV (mean corpuscular volume ) determinationOrdered By: Katherine Roberts on 09-13-2024 MCV (RBC) [Entitic vol] 87.8 fL 81-99 [facility] Mean corpuscular hemoglobin (MCH) determinationOrdered By: Katherine Roberts on 09-13-2024 MCH (RBC) [Entitic mass] 29.3 pg 27.0-32.0 [facility] Mean corpuscular hemoglobin concentration (MCHC) determinationOrdered By: Katherine Roberts on 09-13-2024 MCHC (RBC) [Mass/Vol] 33.4 g/dL 32-36 [facility] Mean platelet volume determi nationOrdered By: Katherine Roberts on 09-13-2024 Platelet mean volume (Bld) [Entitic vol] 10.0 fL 6.2-12.0 [facility] Monocyte percentageOrdered B y: Katherine Roberts on 09-13-2024 Monocytes/100 WBC (Bld) 4.1 % 0-10 [facility] NATERAon 09-13-2024 NATURA SEE SCANNED REPORT Normal [facility] Comment on above: Performed By: #### L 900.0098, L509.4005, BTS, L100.0100, L3890.6005 #### [facility] [address] [place], [address] Neutrophil percentageOrdered By: Katherine Roberts on 09-13-2024 Neutrophils/100 WBC (Bld) 79.6 % High 47-70 [facility] Nucleated red blood cell per centageOrdered By: Katherine Roberts on 09-13-2024 Nucleated RBC/100 WBC (Bld) [Ratio] 0 % 0-5 [facility] Platelet countOrdered By: Ruma Roberts on 09-13-2024 Platelets (Bld) [#/Vol] 290 10*3/uL 150-450 [facility] RBC Auto (Bld) [#/Vol]Ordere d By: Katherine Roberts on 09-13-2024 RBC (Bld) [#/Vol] 4.26 10*6/uL 4.2-5.4 [facility] Serum Treponema species anti body detectionOrdered By: Katherine Roberts on 09-13-2024 Treponema sp Ab Ql (S) Non-Reactive [facility] Type AND Screenon 09-13-2024 ABO and Rh group Nom (Bld) Blood group O Rh(D) positive Normal [facility] Comment on above: Order Comment: PN Performed By: #### L 400.7600 #### [facility] [address] [place], [place], [address] White blood cell (WBC) count Ordered By: Katherine Roberts on 09-13-2024 WBC (Bld) [#/Vol] 10.1 10*3/uL 4.4-11.0 [facility] Chlamydia/GC ARIANA aptimaon CHLAMY,NUC ACID Negative Normal Negative [facility] Comment on above: Performed By: #### L 509.8002, L501.0250, L3890.6006, L100.0100 #### [facility] [address] [place], [address] GC BY NUC ACID Negative Normal Negative [facility] Comment on above: Result Comment: Perf ormed at: =G - [facility] [address] [id number] Cellophane Press Operator: Velia Lorenzo MD, Phone: [phone] Performed By: #### L 509.8002, L501.0250, L3890.6006, L100.0100 #### [facility] [address] [place], [address] Urine Cultureon 09-06-2024 [facility] Urine Culture Streptococcus agalactiae (B) Elkin Count 11,000-25,000 Mixed Gram Positive Organisms Mixed Gram Positive Organisms MIXC Mixed contaminants. Submit a new specimen if indicated. Streptococcus agalactiae (B): REACTION Ampicillin Islt NAINA <=0.25 cefTRIAXone Islt NAINA <=0.12 S Clindamycin Islt NAINA >=1 Clindamycin.induced Susc Islt NEG Linezolid Islt NAINA <=2 S Vancomycin Islt NAINA 0.5 S Normal [facility] Comment on above: Performed By: #### L 400.7600 #### [facility] [address] [place], [address] Chlamydia trachomatis rRNA d etection by probe and target amplification methodOrdered By: Katherine Roberts on 09-03-2024 C. trachomatis rRNA ARIANA+probe Ql (Unsp spec) Negative Negative [facility] Neisseria gonorrhoeae nuclei c acid detection by amplified probe techniqueOrdered By: Katherine Roberts on 09-03-2024 N. gonorrhoeae DNA ARIANA+probe Ql (Unsp spec) Negative Negative [facility] Comment on above: Performed at: =G - [facility] [address] [place] [id number] Director: Velia Lorenzo MD, Phone: [phone] Chemical Checker Office Visit Reporton 09-03-2024 Chemical Checker Office Visit Report [facility] [address] [place] [address], [address] [place] [address] OFFICE VISIT Date of Service: 09/03/24 MR#: [id number] Acct: [id number] Name: ARACELIS WHITTINGTON Rep #: [id number] : 2000 Provider: AMAN duran Age/Sex: 24/F Location: [facility] Status: Signed Intake Vital Signs 07/23/24 07:57 07/30/24 07:38 09/03/24 14:49 09/03/24 14:50 Height 5 ft 2 in 5 ft 2 in 5 ft 2 in 5 ft 2 in Weight: 119 lb BMI 21.7 BP 127/81 H Intake Visit Reasons: New OB, had quants Patient Intake Coordinator Required: No Is patient in pain?: No Allergies No Known Allergies Allergy (Verified 09/03/24 14:49) Medications ???Medication ???Instructions ???Recorded ???Confirmed ???Type docosahexaenoic acid 200 mg mg PO 08/20/24 09/03/24 History capsule ( DHA) Last Menstrual Period: 06/07/24 Zika: Zika virus screening: Negative : No Have you fallen in the past year?: No PFSH PFSH Medical History Early stage of Wears contact lenses TMJ arthritis History of Holter monitoring History of echocardiogram Cardiology follow-up encounter Abnormal ultrasound Breast pain, right WPW (Ijyjt-Migyrbncr-Nuq te syndrome) Palpitations Spondylolisthesis at L4-L5 level Segmental and somatic dysfunction of pelvic region Segmental and somatic dysfunction of lumbar region Segmental and somatic dysfunction of thoracic region Segmental and somatic dysfunction of cervical region Surgical History H/O breast biopsy Hx of wisdom tooth extraction History of cardiac radiofrequency ablation (RFA) (12/09/22) Family History Grandfather Myocardial infarction, Onset Age: 38 Grandmother CVA (cerebral vascular accident) Diabetes Mother Heart disease Social History adopted: No household members: spouse number of children: 0 current occupational status: employed current occupation: [employer] current occupational exposures/hazards: No pets and animals: No history of recent travel: Yes ([place] - June [place]25) out of state: Yes out of country: No sexually active: Yes Smoking Status: Never smoker alcohol intake: never substance use type: does not use well-balanced diet: daily or most days caffeine: No eating out: 1-3 times/week during the past year weight has: remained stable what type of physical activity do you participate in: walking, running and weight training frequency: 3-4 times per week duration: 15-30 minutes/day christin/buddhism: Hoahaoism seatbelt use: always do you feel safe at home: Yes additional social history: : 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 OB Visit JAIR Calculator Estimated Delivery Date Method Current WG Current Estimate 04/02/25 Ultrasound #1 9w 6d Other Estimates 03/14/25 LMP (Certain) 12w 4d Estimated Due Date: 04/02/25 Expected Delivery Route/Plan Labor Preferences- CB/BF classes: [] labor support person: [] labor intervention preferences: [] pain management options preferred: [] cut cord/dad catch: [] : [] PP control planned: [] discussed possible routes of delivery and associated risks: [] special requests: [] Specific Issue/Plans Covid status: [] Flu vaccine: [] Tdap vaccine: [] Rhogam: [] LARC form signed: [] Problem list reviewed and updated with the most current plan of care details and appropriate orders placed. Relevant counseling for the gestational age provided. Continue routine care and follow up unless otherwise noted in visit notes/problem list details Initial Weight: Not Recorded Date -???-???-???-???-??? -???-???-???-???-??? -???-???- EGA Weight BP Urine Prot -???-???-???-???-??? -???-???-???-???-??? -???-???- Glucose FHR FuHt Pres Dilation -???-???-???-???-??? -???-???-???-???-??? -???-???- Effaced St Visit Note 09/03/24 -???-???-???-???-??? -???-???-???-???-??? -???-???- 9w 6d 119 lb 127/81 -???-???-???-???-??? -???-???-???-???-??? -???-???- 181 -???-???-???-???-??? -???-???-???-???-??? -???-???- 1.71 CRL not con with LMP. con with early first us with [facility]. LC- 1.71 CRL not con with LMP. con with early first us with [facility]. Menstrual History Last Menstrual Period: 06/07/24 Medical Histo (more content not included)... Normal [facility] Urine cultureOrdered By: Leesa Roberts on 09-03-2024 Bacteria identified Cx Nom (U) Streptococcus agalactiae (B) Abnormal [facility] Bacteria identified Cx Nom (U) Positive Abnormal [facility] hCG Titer Quant., Serumon HCG QUANT. 211151 mIU/mL High 1-3 [facility] Comment on above: Result Comment: hCG levels with Gestational Age Gestational Age hCG mIU/mL (IU/L) 0.2 - 1 week 5 - 50 1-2 weeks 50 - 500 2-3 weeks 100 - 5000 3-4 weeks 500 - 93211 4-5 weeks 1000 - 66077 5-6 weeks 88080 - 100,000 6-8 weeks 92721 - 200,000 2-3 months 03267 - 100,000 Performed By: #### L 509.8002, L501.0250, L3890.6006, L100.0100 #### [facility] [address] [place], [place], [address] hCG Titer Quant., Serumon HCG QUANT. 793 mIU/mL [address] Comment on above: Result Comment: hCG levels with Gestational Age Gestational Age hCG mIU/mL (IU/L) 0.2 - 1 week 5 - 50 1-2 weeks 50 - 500 2-3 weeks 100 - 5000 3-4 weeks 500 - 36551 4-5 weeks 1000 - 94776 5-6 weeks 39286 - 100,000 6-8 weeks 23860 - 200,000 2-3 months 86814 - 100,000 Performed By: #### L 622.7607 #### [facility] [address] [place], [address] hCG Titer Quant., Serumon HCG QUANT. 298 mIU/mL [address] Comment on above: Order Comment: + kimberly e preg tests Result Comment: hCG levels with Gestational Age Gestational Age hCG mIU/mL (IU/L) 0.2 - 1 week 5 - 50 1-2 weeks 50 - 500 2-3 weeks 100 - 5000 3-4 weeks 500 - 86434 4-5 weeks 1000 - 34091 5-6 weeks 41901 - 100,000 6-8 weeks 46480 - 200,000 2-3 months 80188 - 100,000 Performed By: #### L 700.8000 #### [facility] [address] [place], [place], [address] Breast Biopsy Specimenon Breast Biopsy Specimen [facility] [address] [place], [place] [address] Breast Biopsy Specimen MR#: [id number] Acct: [id number] Name: ARACELIS WHITTINGTON Rep #: [id number] : 2000 F 24 From: Elieser Perez MD PCP: Dr. Neymar Ronquillo MD Status: [facility] Study: Breast Biopsy Specimen Date of Exam: 07/23/24 Exam# [id number] Ordering Dr: Zuly Hopper MD [id number] SURGICAL BREAST SPECIMEN RADIOGRAPH CLINICAL: Document presence of tissue clip marker in biopsy specimen. FINDINGS: Specimen shows presence of tissue clip marker. Pathology is pending and an addendum to the biopsy report will be performed after the final pathologic diagnosis is rendered. Electronically Signed: Elieser Perez MD at 14:51 EST , BI/Breast Biopsy Specimen IMPRESSION: undefined CC: Dr. Zuly Hopper MD; Dr. Neymar Ronquillo MD Jewel Sorter: Signed Normal [facility] Discharge Instructionon 06-28 Discharge Instruction [facility] Medical Records Department [address] [place] [address] Instructions for Home/Discharge Instructions 07/23/2423 MR#: [id number] Acct: [id number] Name: ARACELIS WHITTINGTON Rep #: [id number] : 2000 24 From: Zuly Hopper MD PCP: Dr. Neymar Ronquillo MD Status:[facility] Discharge Instructions Diet Discharge Diet: No restrictions Activity Discharge Activity: May Not Drive (for 2-3 days or while taking narcotic pain meds.) May shower in (days): 1 Lifting Restrictions: 10 pounds for 1 week. Dressing / Incision Call your doctor if your incision/area has: Continuous Slow Oozing, Sudden Increased Bleeding, Increased Pain/ Swelling and Increased Redness Call your doctor if you observe: Fever of 101 or Higher Suture Line Care: Avoid Pulling/Pushing and Avoid Pinching/Bending Remove Dressing in: 1 day Additional Dressing/Incision Instructions:: Remove bulky dressing tomorrow. May leave op-site dressing for 3-4 days. Okay to remove Steri-Strips from the breast incision in 7 to 10 days. Follow Up Care Please Follow Up With: Zuly Hopper MD When: Please call [phone] for an appointment to be seen in 2 week. Test Results: Test results from this visit will be discussed in further detail at your follow-up appointment, if applicable. Discharge Plan Admission Attending Provider: Zuly Hopper Primary Care Provider: Neymar Ronquillo Instructions Print Language: Bulgarian Discharge Orders/Prescriptions Prescriptions: New oxycodone 5 mg capsule 5 mg PO Q6H PRN (Reason: pain) 3 Days Qty: 5 0RF Referrals / Follow Up: Neymar Ronquillo MD [Primary Care Provider] - Disposition Disposition (needs filled in before D/C Order can be placed): Home, Self Care 07/23/24923 Zuly Hopper MD CC: Dr. Neymar Ronquillo MD Signed [facility] MR/POSTOP.[facility] 07-23-2024 MR/POSTOP.[facility] Medical Records Department [address] [place] [address] Anesthesia Postop Eval I 07/23/24942 MR#: [id number] Acct: [id number] Name: ARACELIS WHITTINGTON Rep #: [id number] : 2000 24 From: Kala Mccann PCP: Dr. Neymar Ronquillo MD Status:REG [facility] Y Race: C Location: [place] [address] Anesthesia: Postop Eval I Current Vital Signs Temperature: 97.8 F Pulse Rate: 80 Blood Pressure: 112/66 Respiratory Rate: 16 Pulse Ox: 100 Oxygen Delivery Method: Room Air Assessment Airway patent: Yes Spontaneous unlabored respirations: Yes Mental status: Awake and Calm nausea: No Vomiting: No Anesthesia Complication: No Fluid Hydration Crystalloid volume administer (ml): 500 Total IV fluid infused: 500 Progress Note Anesthesia document: Postop Eval 1 completed: Yes 07/23/24942 Date Kala Cam Signature: Date CC: Signed Normal [facility] MR/[id number] 07-23-2024 MR/POSTOPAN2 [facility] Medical Records Department [address] [address] Anesthesia Postop Eval II 07/23/24 1032 MR#: [id number] Acct: [id number] Name: ARACELIS WHITTINGTON Rep #: [id number] : 2000 24 From: Christopher Daniel MD PCP: Dr. Neymar Ronquillo MD Status:REG [facility] Y Race: C Location: [place] [address] Anesthesia Postop Eval I Sum Postop Eval Completion status Anesthesia document: Postop Eval 1 completed: Yes Anesthesia Postop Eval I Summary Anesthesia Postop Eval I Summary: Anesthesia Postop Eval I: Assessment Summary Airway patent Yes 07/23/24 09:43 STATE EDITOR.GDOTT Spontaneous unlabored Yes 07/23/24 09:43 STATE EDITOR.GDOTT respirations Mental status Awake,Calm 07/23/24 09:43 STATE EDITOR.GDOTT nausea No 07/23/24 09:43 STATE EDITOR.GDOTT Vomiting No 07/23/24 09:43 STATE EDITOR.GDOTT Anesthesia Postop Eval I: Fluid Summary Crystalloid volume administer 500 07/23/24 09:43 STATE EDITOR.GDOTT (ml) Colloids volume administered ( ml) Blood Product volume administered (ml) Total IV fluid infused 500 07/23/24 09:43 STATE EDITOR.GDOTT Anesthesia Postop Eval I: Summary Notes Anesthesia Complication No 07/23/24 09:43 STATE EDITOR.GDOTT Anesthesia Complication Comment: Post-operative progress note Anesthesia: Postop Eval II Evaluation Mental status: Awake Pain Level: 0 nausea: No Vomiting: No 07/23/24 1032 Date Christopher Cam Signature: Date CC: Signed Normal [facility] Operative Reporton 4 Operative Report [facility] Medical Records Department [address] [place] [address] Operative Report 07/23/24 0919 MR#: [id number] Acct: [id number] Name: ARACELIS WHITTINGTON Rep #: [id number] : 2000 From: Zuly Hopper MD PCP: Dr. Neymar Ronquillo MD Status:[facility] Location: [facility] Operative Report (Standard) Operative Information Date of Procedure: 07/23/24 Pre-Operative Diagnosis: Right breast mass Post-Operative Diagnosis: Same Surgery/Procedure Performed: Ultrasound-guided needle localization right breast mass global product manager: Yes Tax Intern: Noni Turk Tasks completed by tmd teacher assistant: Opening closing Type of Anesthesia: General/Supplemental RN Documented Start/Stop Times: Operation Date: 07/23/24 09:00 Case Time Into Pre-Op 07/23/24 07:40 Out of Pre-Op 07/23/24 08:36 Anesthesia Start 07/23/24 08:42 Into Room 07/23/24 08:42 Procedure Start 07/23/24 08:59 Procedure End 07/23/24 09:36 Anesthesia End 07/23/24 09:38 Out of Room 07/23/24 09:38 Into Recovery 07/23/24 09:40 Out of Recovery 07/23/24 10:12 Into Phase II Recovery 07/23/24 10:13 Out of Phase II 07/23/24 11:20 Procedure Start Time: 08:59 Procedure Stop Time: 09:36 Select all DRAINS/GRAFTS/IMPLAN TS that apply: None Special Medications: Ancef 2 g IV x 1 Estimated Blood Loss: < 10 cc Specimen collected: Yes Description of specimen(s) removed: Right breast mass 10:00 7 cm from the nipple Description of surgery: Patient was brought to operating placed spinal operating table. Timeout was completed verifying correct patient, procedure, site, positioning, special, prior began procedure. General anesthesia was induced. Patient's right breast was prepped draped in a sterile fashion. Ultrasound guided needle localization with Kopan needle was completed with the wire just lateral to the right breast mass. A curvilinear incision was planned in such a way as to minimize the amount of dissection to reach the mass. Flaps were raised in the location of the wire confirmed. The wire was delivered into the wound. 2 silk lmkghi-of-sflqc stay suture was placed around the wire and used for traction. Dissection was then taken down circumferentially with electrocautery, taking care to include the entire localization needle and wide margin of grossly normal tissue. The specimen and entire localizing wire were removed. The specimen was oriented and sent to radiology. Confirmation was received that the entire target lesion had been resected with x-ray. The cavity was irrigated. Hemostasis was obtained with electrocautery. The breast incision was closed with interrupted sutures of 3-0 Vicryl and subcuticular sutures of 4-0 Monocryl. No attempt was made to close the space. A dressing of fluff gauze and supportive bra placed. The patient tolerated procedure well was taken to the postanesthesia care in stable condition. Surgical Findings: Lesion and clip removed Complications Complications: No 07/23/24 1257 Cosigner Signature (if applicable): CC: Dr. Zuly Hopper MD; Dr. Neymar Ronquillo MD Signed Normal [facility] ,Urineon 07-23-2024 Beta HCG ( test) Ql (U) Negative Normal [facility] Comment on above: Result Comment: Very dilute urine specimens, as indicated by a low specific gravity, may not contain b2b outside sales representative levels of hCG. If is still suspected, a first morning urine specimen should be collected 48 hours later and tested. Performed By: #### L 400.7600 #### [facility] [place], [address] Surgery Specimen Level Tessy 07-23-2024 Surgery Specimen Level IV Patient Age/Sex Location Account Attending Physician KATEARACELISSARA DELONG [facility] [id number] Dr. Zuly Hopper MD Specimen: [id number] Received: 07/23/24 Status: AMADOU Case Num: [id number] Spec Type: BREAST BX Subm Dr: Dr. Zuly Hopper MD HEADER OPERATION: Right ultrasound guided wire location excision, breast biopsy PRE-OP DIAGNOSIS: Breast lump, right TISSUE SUBMITTED: Right breast biopsy ISCHEMIC TIME: 7 minutes FIXATION TIME: 59 hours MICROSCOPIC DIAGNOSIS Right breast, excisional biopsy: Fibroadenoma with focal fibrocystic changes. Changes consistent with previous biopsy site. Negative for atypia or malignancy. See comment. 07/27/2024 COMMENT Please make reference to previous specimen [id number] right breast, 10o'clock, 7cm from nipple, core biopsy with diagnosis of fragments of benign breast tissue with focal dense fibrosis. MICROSCOPIC DESCRIPTION Slides are reviewed. GROSS DESCRIPTION Received fresh and post fixed in formalin is one container labeled with the patient's name and designated Right breast biopsy. The specimen consists of a piece of fibroadipose tissue with needle localization measuring 4.0 x 3.5 x 2.0cm. Specimen is oriented as follows: short stitch-anterior, long stitch- lateral. The specimen appears to be disrupted. The specimen is inked as follows: anterior - yellow, posterior - black, superior - blue, inferior - green, medial - red and lateral - orange. The specimen is serially sectioned and reveal ko nodule measuring 1.0 x 1.0 x 0.5cm. Section of the rest of the specimen reveal fibrous cut surfaces mixed with scant yellow adipose tissue. The entire specimen is submitted in 11 cassettes from medial to lateral margins. The entire specimen is submitted in eleven cassettes. Cassette 1 contains mostly medial margin, cassette 11 contains most lateral margin. Sections are submitted after additional fixation. 07/26/2024 TC:1 CPT:56740 Patient Age/Sex Location Account Attending Physician ARACELIS WHITTINGTON [facility] [id number] Dr. Zuly Hopper MD Signed (signature on file) Dr. Syed Horne MD 07/27/24 1202 Normal [facility] Comment on above: Performed By: #### L 509.8002, L501.0250, L3890.6006, L100.0100 #### [facility] [address] [place], [address] /PATKrystian 07-16-2024 /[facility] Medical Records Department [address] [place] [address] PAT - Anesthesia 07/16/24912 MR#: [id number] Acct: [id number] Name: ARACELIS WHITTINGTON Rep #: [id number] : 2000 24 From: Christopher Daniel MD PCP: Dr. 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 When Was Last Pacemaker Check QUESTION #4 FULL TEXT: You/Your Family Experience fever (hyperthermia) with Anesthesia Last Oral Intake Last Oral intake: Last Oral Intake NPO since Meds taken in AM with sips of water? Meds patient instructed to take am of surgery PONV PONV - traveling plant operator: PONV - traveling plant operator Female Yes 07/16/24 08:15 HX of Motion Sickness Yes 07/16/24 08:15 HX of N/V After Surgery No 07/16/24 08:15 Non-Smoker Yes 07/16/24 08:15 Duration of Surgery greater Yes 07/16/24 08:15 than 60 minutes Number of Risk Factors 4 07/16/24 08:15 PONV Score Severe Risk 07/16/24 08:15 Height Weight Height Weight: Anesthesia: Height Weight Height 5 ft 2 in 07/07/24 13:09 Respiratory Assessment Respiratory Assessment - traveling plant operator: Respiratory Tract Infection Hx - traveling plant operator Hx Respiratory Tract Infection No 07/16/24 08:15 STOP Sleep Apnea STOP Sleep Apnea - traveling plant operator: STOP Sleep Apnea - traveling plant operator Hx Hypertension No 07/16/24 08:15 Hx Sleep Apnea No 07/16/24 08:15 CPAP BIPAP Do you snore loudly (louder No 07/16/24 08:15 than talking or can be heard Do you often feel tired/ No 07/16/24 08:15 fatigued/ sleepy during daytime? Has anyone observed you stop No 07/16/24 08:15 breathing during sleep? STOP Results Negative 07/16/24 08:15 QUESTION #5 FULL TEXT : Do you snore loudly (louder than talking or can be heard through closed doors)? Tobacco Use History Tobacco Use History - traveling plant operator: Tobacco Use History - traveling plant operator Tobacco Use Smoking Status Never smoker 07/16/24 08:15 Hx Tobacco Use No 07/16/24 08:15 Years Smoking Packs Smoked per Day Smoking Cessation Date was within the last 15 years Hx Smoking Cessation Date Hx Smoking Cessation Counseling Hematologic Medial History Hematologic Hx - traveling plant operator: Hematologic Medical Hx - rib knitter Hx of Blood Transfusion No 07/16/24 08:15 Hx of Transfusion in last 3 No 07/16/24 08:15 Months Date of Last Transfusion (if within last 3 months) Ever experience any problems No 07/16/24 08:15 with transfusion(s)? Specify any problems Hx of Preganancy in last 3 No 07/16/24 08:15 Months Nurse Filling Out Transfusion DSCHRIBER 07/16/24 08:15 Questions: Date: 07/16/24 07/16/24 08:15 Time: 08:16 07/16/24 08:15 Patient unable to answer at this time (ie. confused, unrespo /Reproducti on History /Reproducti ve History - traveling plant operator: /Reproducti ve Hx- traveling plant operator Hx Now No 07/16/24 08:15 Gestational Age (in weeks): EDC: Hx Hx Para Hx Section SAB No 07/16/24 08:15 [facility] Medical History (Updated 07/16/24 @ 08:20 by Elsa Contreras) Wears glasses Wears contact lenses TMJ arthritis Non-smoker History of Holter monitoring History of echocardiogram Cardiology follow-up encounter Abnormal ultrasound Breast pain, right WPW ([place]oba-Hjsocllnr-Ulg te syndrome) Palpitations Spondylolisthesis at L4-L5 level Segmental and somatic dysfunction of pelvic region Segmental and somatic dysfunction of lumbar region Segmental and somatic dysfunction of thoracic region Segmental and somatic dysfunction of cervical region Home Medications ???Medication ???Instructions ???Recorded ???Last Taken ???Type No Known/Unobtainable [No Known 08/17/16 Unknown History Home Medications] Allergy/AdvReac Type Severity Reaction Status Date / Time No Known Allergies Allergy Verified 07/16/24 08:14 Family History Grandfather Myocardial infarction, (more content not included)... [facility] ARACELIS WHITTINGTON ([id number]) 1 F Date Time Provider Department 07/09/24 1:00 PM NEYMAR RONQUILLO During your visit today, we recorded the following information about you: Pulse Blood pressure Weight Height 87/minute 106/66 52.4 kg 1.59 m Last Period 06/07/24 Neymar Ronquillo MD 07/09/2024 5:24 PM Signed Patient presents with: Yearly Exam HPI: Patient presents today for office visit for yearly follow up. Noticed right breast lump about a month and a half ago. Had breast US and mammogram with [facility] surg - showed solid hypoechoic slightly irregular nodule. Discussed need for biopsy. Biopsy done on 07/07/24. Await path. Possible fibroadenoma. Denies chest pain and shortness of breath. Had hx of ablation of WPW Does not have to go back to see them again. No palpitations. MEDICATIONS: No current outpatient medications on file. No current facility-administere d medications for this visit. ALLERGIES: ALLERGIES No Known Allergies PAST MEDICAL HISTORY Diagnosis Date ACQ ANKLE-FOOT DEF NOS 08/15/2005 resolved. Concussion 01/05/2014, 09/13/14 NEGATIVE HISTORY OF 08/12/07 normal color vision PAST SURGICAL HISTORY Procedure Laterality Date EXTRACTION, ERUPTED TOOTH OR EXPOSED ROOT (ELEVATION AND/OR FORCEPS REMOVAL) 07/2014 FAMILY HISTORY Problem Relation Age of Onset None Mother None Father Heart Maternal Grandfather NV at age 38 years Diabetes Maternal Grandmother Stroke Maternal Grandmother Social History Tobacco Use Smoking status: Never Smokeless tobacco: Never Substance Use Topics Alcohol use: No Drug use: No Reviewed current medications, allergies, past medical history, surgical history, family history and social history today. REVIEW OF SYSTEMS GENERAL: No weight loss, malaise or fevers HEENT: Negative for frequent or significant headaches, No changes in hearing or vision, no nose bleeds or other nasal problems, recent congstion. NECK: Negative for lumps, goiter, pain and significant neck swelling RESPIRATORY: Negative for cough, hemoptysis, wheezing, COPD, dyspnea or shortness of breath CARDIOVASCULAR: Negative for chest pain, leg swelling, hypertension, CHF or palpitations GI: No nausea, vomiting, or diarrhea : No history of dysuria, frequency or incontinence MUSCULOSKELETAL: Negative for joint pain or swelling, back pain or muscle pain SKIN: Negative for lesions, rash, and itching PSYCH: Negative for sleep disturbance, mood disorder and recent psychosocial stressors HEMATOLOGY/LYMPHOLOG Y: Negative for prolonged bleeding, bruising easily or swollen nodes All other reviewed and negative other than HPI. HEALTH MAINTENANCE: Reviewed health maintenance issues today and recommended the following in detail. Meningococcal B Vaccine: Consider Based On Risk(1 of 2 - Patient Seeks Protection) Never done Depression Screening Never done Anxiety Screening Never done Hepatitis C Screening Never done HIV Screening Never done Cervical Cancer Screening -done. Influenza Vaccine(1) due on 03/28/2024 Covid-19 Vaccine( season) Never done VITALS: BP 106/66 Pulse 87 Ht 159 cm (5' 2.6) Wt 52.4 kg (115 lb 9.6 oz) LMP 06/07/2024 (Exact Date) SpO2 98% BMI 20.74 kg/m? Last 4 Encounter Wt Readings: Date: Wt: 07/09/2024 52.4 kg (115 lb 9.6 oz) 10/08/2023 52.4 kg (115 lb 8.3 oz) 06/09/2023 51.9 kg (114 lb 6.4 oz) 05/05/2023 51.5 kg (113 lb 9.6 oz) PHYSICAL EXAMINATION: General appearance: Well appearing, alert, in no acute distress, well-hydrated, well nourished. Skin: Skin color, texture, turgor normal, no suspicious rashes or lesions Head: Normocephalic, no masses, lesions, tenderness or abnormalities Eyes: Anicteric sclera. Pupils are equally round and reactive to light. Extraocular movements are intact. Ears: External ears normal, canals clear Nose/Sinuses: Nares normal, septum midline, mucosa normal, no drainage or sinus tenderness Oropharynx: Lips, mucosa, and tongue normal, teeth and gums normal, oropharynx normal Neck: Supple, no adenopathy; thyroid symmetric, normal size, no bruits Lungs: Lungs clear to auscultation. No wheezing, rhonchi, rales Heart: RRR without murmur, gallop, or rubs. No ectopy Abdomen: Normal abdominal exam, Abdomen soft, non-tender. Bowel sounds normal. No masses, organomegaly Extremities: No deformities, edema, skin discoloration, clubbing or cyanosis. Good capillary refill. Musculoskeletal: No joint swelling, deformity, or tenderness Peripheral pulses: Normal Neuro: Gait normal. Reflexes normal and symmetric. Sensation grossly intact. ASSESSMENT/PLAN: 1. Well adult exam - ICD9: V70.0, ICD10: Z00.00 (primary diagnosis) - Counseled on healthy diet and regular exercise 2. Encounter for immunization - ICD9: V03.89, ICD (more content not included)... Normal [facility] Surgery Specimen Level Tessy 07-07-2024 Surgery Specimen Level IV Patient Age/Sex Location Account Attending Physician ARACELIS WHITTINGTON [facility] [id number] Dr. Zuly Hopper MD Specimen: [id number] Received: 07/07/24 Status: AMADOU Case Num: [id number] Spec Type: BREAST BX Subm Dr: Dr. Zuly Hopper MD HEADER OPERATION: Right breast biopsy nodule PRE-OP DIAGNOSIS: Right breast biopsy nodule, ?fibroadenoma TISSUE SUBMITTED: Right breast biopsy, 10o'clock, 7cm from nipple Ischemic Time: 1 minute Fixation Time: 31.5 hours MICROSCOPIC DIAGNOSIS Right breast, 10o'clock, 7cm from nipple, core biopsy: Fragments of benign breast tissue with focal dense fibrosis. Negative for atypia or malignancy. See comment. 07/09/2024 COMMENT Correlation with clinical, radiologic findings and appropriate follow up are necessary. MICROSCOPIC DESCRIPTION Slides are reviewed. GROSS DESCRIPTION Received in fixative is one container labeled with the patient's name and designated Right breast nodule. The specimen consists of multiple irregular fragments of ko soft tissue and ko-yellow fibroadipose tissue that in aggregate measure 1.0 x 0.5 x 0.1 cm. The specimen is totally submitted in one cassette. 07/08/2024 TC:5 CPT:97747 Patient Age/Sex Location Account Attending Physician ARACELIS WHITTINGTON [facility] [id number] Dr. Zuly Hopper MD Signed (signature on file) Dr. Syed Horne MD 07/09/24 1326 Normal [facility] Comment on above: Performed By: #### L 400.7600 #### [facility] [address] [place], [place], [address] Surgery Visit Reporton 07-07 Surgery Visit Report [facility] [address] [place] [address] OFFICE VISIT Date of Service: 07/07/24 MR#: [id number] Acct: [id number] Name: ARACELIS WHITTINGTON Rep #: [id number] : 2000 Provider: Dr. Zuly curry MD Age/Sex: 24/F Location: [facility] Status: Signed Intake Vital Signs 06/22/24 11:45 07/07/24 13:09 Height 5 ft 2 in 5 ft 2 in Weight: 116 lb 5 oz BMI 21.2 BP 125/82 H Blood Pressure Location Rt brachial Position Sitting Respiration 18 Pulse 81 Pulse Source Monitor Temp 97.6 F L Temp Source Temporal Pulse Oximetry (%) 100 Oxygen Delivery Method room air Intake Visit Reasons: BIRADS 4 Chief Complaint: BIRADS 4 Is patient in pain?: Yes (right breast pain ) Allergies No Known Allergies Allergy (Verified 06/22/24 11:39) Medications ???Medication ???Instructions ???Recorded ???Confirmed ???Type No Known/Unobtainable [No Known 01/21/17 12/11/24 History Home Medications] [facility] Medical History (Updated 07/07/24 @ 14:[address] Zuly Hopper MD) Abnormal ultrasound Breast pain, right WPW (Bslfa-Jywpobscy-Oyi te syndrome) Palpitations Spondylolisthesis at L4-L5 level Segmental and somatic dysfunction of pelvic region Segmental and somatic dysfunction of lumbar region Segmental and somatic dysfunction of thoracic region Segmental and somatic dysfunction of cervical region Surgical History History of cardiac radiofrequency ablation (RFA) (12/09/22) Family History Grandfather Myocardial infarction, Onset Age: 38 Grandmother CVA (cerebral vascular accident) Diabetes Social History (Updated 06/22/24 @ 11:41 by Estephanie Nur) adopted: No number of children: 0 sexually active: Yes Smoking Status: Never smoker alcohol intake: never substance use type: does not use caffeine: No christin/buddhism: Hoahaoism seatbelt use: always do you feel safe at home: Yes HPI HPI HPI: 24-year-old female presents due to right breast mass. Patient states she noticed this about a month and a half ago maybe dime size states she does have a little bit of discomfort right before her period starts. Patient states sometimes she seems that could be a little bit bigger and other times a little bit smaller. Patient had an ultrasound which showed a 1.5 x 1.2 x 0.8 cm solid hypoechoic slightly irregular nodule at 10:00 7 cm from the nipple may represent fibroadenoma-given a BI-RADS 4. Age of menses 12, age at time of first child N/A, no family history of breast cancer, no previous breast biopsies. ROS General General: No weight change, appetite, fatigue, colon cancer, breast cancer or weakness HEENT HEENT: No difficulty swallowing, eye injury, eye surgery, swollen glands or hoarseness Endo Endocrine: No thyroid disease, diabetes mellitus, thyroid cancer, Hair loss, heat intolerance or cold intolerance Skin Skin: No rash or changing moles Breast Breast: Yes right breast lump, breast pain and abnormal US; No left breast lump, nipple discharge, abnormal mammogram or breast enlargement Musc Musculoskeletal: Yes back problems; No arthritis, rheumatoid arthritis, gout or joint pain Cardio Cardiovascular: No murmur, pacemaker, heart disease, atrial fibrillation, high blood pressure, heart attack, heart stent, palpitations, shortness of breat with exertion or chest pain Psych Psychiatric: No depression, anxiety or hearing voices Resp Respiratory: No shortness of breath, No sleep apnea, No cough, No COPD, No asthma, No emphysema and No wheezing Gastro Gastrointestinal: No abdominal pain, No nausea or vomiting, No diarrhea, No constipation, No blood in stool, No acid reflux, No hemorrhoids, No ulcers, No gallbladder problem and No black,tarry stools Pola Hematologic: No blood thinners, No blood disorders, No bleeding, No anemia and No blood clots Neuro Neurologic: No numbness, No tingling and No weakness Exam Const General: cooperative, healthy appearing and no acute distress [facility] Head: normal to inspection Chest Other: Breast inspection: Symmetric bilaterally Right breast: Fibroglandular tissue, mass about a centimeter at 10:00 7 cm from the nipple, no nipple discharge or pain, no change in overlying skin Left breast: Fibroglandular tissue, no masses on exam, no nipple discharge or pain, no change in overlying skin No axillary or supraclavicular adenopathy bilaterally Resp Effort Inspection: normal respiratory effort Cardio Rate: regular rate GI Inspection: non-distended Palpation: soft Skin General: no rashes or lesions noted Neuro General: patient oriented x3 Extrem General: no clubbing, cyanosis or edema (more content not included)... Normal [facility] PAP I-G w/rfx hrHPV-Aptimaon 07-04-2024 ADEQ Comment Normal . [facility] Comment on above: Order Comment: Speci men Comment: [id number] Comment: Source.............Cervix;EndocervixSpecimen Comment: No. of containers..01 ThinPrep Vial Result Comment: Sati sfactory for evaluation. Endocervical and/or squamous metaplastic cells (endocervical component) are present. Performed By: #### L 340.3305 #### [facility] [place], [address] COMM . Normal . [facility] Comment on above: Order Comment: Speci men Comment: [id number] Comment: Source.............Cervix;EndocervixSpecimen Comment: No. of containers..01 ThinPrep Vial Performed By: #### L [id number] #### [facility] [address] [place], [place], [id number] COMMENT Comment Normal . [facility] Comment on above: Order Comment: Speci men Comment: [id number] Comment: Source.............Cervix;EndocervixSpecimen Comment: No. of containers..01 ThinPrep Vial Result Comment: This liquid based ThinPrep(R) pap test was screened with the use of an image guided system. Performed By: #### L 400.7600 #### [facility] [address] [place], [place], [id number] DIAG Comment Normal . [facility] Comment on above: Order Comment: Speci men Comment: [id number] Comment: Source.............Cervix;EndocervixSpecimen Comment: No. of containers..01 ThinPrep Vial Result Comment: NEGA TIVE FOR INTRAEPITHELIAL LESION OR MALIGNANCY. Performed By: #### L [id number] #### [facility] [address] [place], [place], [id number] HPV RFLX Comment Normal . [facility] Comment on above: Order Comment: Speci men Comment: [id number] Comment: Source.............Cervix;EndocervixSpecimen Comment: No. of containers..01 ThinPrep Vial Result Comment: The HPV DNA reflex criteria were not met with this specimen result therefore, no HPV testing was performed. Performed at: [address] [id number] Cellophane Press Operator: Leyda Kemp PhD, Phone: [phone] Performed at: [address] [id number] Cellophane Press Operator: Velia Lorenzo MD, Phone: [phone] Performed By: #### L [id number] #### [facility] [address] [place], [place], [id number] PAPSMR Comment Normal . [facility] Comment on above: Order Comment: Speci men Comment: [id number] Comment: Source.............Cervix;EndocervixSpecimen Comment: No. of containers..01 ThinPrep Vial Result Comment: The Pap smear is a screening test designed to aid in the detection of premalignant and malignant conditions of the uterine cervix. It is not a diagnostic procedure and should not be used as the sole means of detecting cervical cancer. Both false-positive and false-negative reports do occur. Performed By: #### L 400.7600 #### [facility] [address] [place], [place], [id number] PERFORM Comment Normal . [facility] Comment on above: Order Comment: Speci men Comment: [id number] Comment: Source.............Cervix;EndocervixSpecimen Comment: No. of containers..01 ThinPrep Vial Result Comment: Stacie Key Mobile Marketing Specialist (ASCP) Performed By: #### L 400.7600 #### [facility] [address] [place], [place], [id number] Breast Limited Unilateralon 07-02-2024 Breast Limited Unilateral [facility] [address] [place], [place] [id number] Breast Limited Unilateral MR#: [id number] Acct: [id number] Name: GEORGI WHITTINGTONYSSARA DELONG Rep #: [id number] : 2000 F 24 From: Raffi mcknight MD PCP: Dr. Neymar Ronquillo MD Status: REG CLI Study: Breast Limited Unilateral Date of Exam: Exam# [id number] Ordering Dr: Tanya Alston [id number] STUDY: ULTRASOUND BREAST - RIGHT REASON FOR EXAM: Female, 24 years old. Palpable lump in the upper outer quadrant of the right breast. TECHNIQUE: Axial and longitudinal images of the RIGHT breast were performed with a high resolution ultrasound transducer. # OF IMAGES: 12 COMPARISON: None. FINDINGS: RIGHT Breast: The palpable lump corresponds to a 1.5 cm x 1.2 cm x 0.8 cm solid hypoechoic slightly irregular nodule at the 10:00 position of the breast at 7 cm from the nipple. This may represent a fibroadenoma although tissue diagnosis recommended. US/Breast Limited Unilateral IMPRESSION: The palpable lump corresponds to 1.5 cm x 1.2 cm x 0.8 cm slightly irregular hypoechoic solid nodule at the 10:00 position of the breast at 7 cm from the nipple. Biopsy recommended. ASSESSMENT CATEGORY: BIRADS Category 4: Suspicious - Biopsy Should Be Considered. A letter regarding these results will be sent to the patient by the facility within 30 days. Electronically Signed: Raffi Carranza MD at 8:34 EST , CC: KIKE Alston; Dr. Neymar Ronquillo MD Jewel Sorter: Signed Normal [facility] Chemical Checker Office Visit Reporton 06-22-2024 Chemical Checker Office Visit Report [facility] [address] [place] [address], [address] [place] [address] OFFICE VISIT Date of Service: 06/22/24 MR#: [id number] Acct: [id number] Name: ARACELIS WHITTINGTON Rep #: [id number] : 2000 Provider: KIKE Cosme Age/Sex: 24/F Location: [facility] Status: Signed Intake Vital Signs 02/12/24 10:15 06/22/24 11:43 06/22/24 11:45 Height 5 ft 2 in 5 ft 2 in 5 ft 2 in Weight: 115 lb BMI 21.0 BP 119/81 H 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 noticed pain in her rt breast a few days ago and felt a ball. PFSH Medical History WPW (Nztth-Dloyhmkny-Tgi te syndrome) Palpitations Spondylolisthesis at L4-L5 level Segmental and somatic dysfunction of pelvic region Segmental and somatic dysfunction of lumbar region Segmental and somatic dysfunction of thoracic region Segmental and somatic dysfunction of cervical region Surgical History History of cardiac radiofrequency ablation (RFA) (12/09/22) Family History Grandfather Myocardial infarction, Onset Age: 38 Grandmother CVA (cerebral vascular accident) Diabetes Social History (Updated 06/22/24 @ 11:41 by Estephanie Nur) adopted: No number of children: 0 sexually active: Yes Smoking Status: Never smoker alcohol intake: never substance use type: does not use caffeine: No christin/buddhism: Hoahaoism seatbelt use: always do you feel safe at home: Yes History 0 Elective abortions Hx Para 0 Spontaneous abortions Hx # Term Pregnancies Ectopic pregnancies Hx # Pregnancies Multiple births # of living children 0 HPI Encounter for routine gynecological examination Details: ARACELIS WHITTINGTON is a 24 year old who presents for annual exam. She reports she has had right breast pain; noticed a lump on the right side as well. Feels this may be getting smaller overall. She reports no family history of breast cancer. She does not drink caffeine. Does not correlate this showing up with her period. Last PAP: never History of abnormal PAP: n/a Last mammogram: age 40 History of abnormal mammogram: n/a Colon cancer screening: age 45 Other preventative health care screenings: neymar ronquillo-rito Female Reproductive History Last Menstrual Period: 06/07/24 Cycle Length: 21-35 Bleeding Duration: 5 Questions: metorrhagia: No, sexually active: Yes (condoms), dyspareunia: No and PCB: No ROS Const Constitutional: Denies chills, fatigue, fever(s), headache(s) or weight loss Eyes Eyes: Denies change in vision ENT ENT: Denies dizziness Resp Resp: Denies cough GI GI: Denies abdominal pain, constipation or nausea : Denies difficulty voiding, dysuria, hematuria, nipple discharge, pelvic pain, prolapse symptoms, urinary incontinence, vaginal discharge, vaginal dryness, vaginal odor or vaginal pruritus Skin Skin/Breast: Reports breast mass and breast pain; Denies alopecia, rash, breast skin changes or nipple discharge Details: right breast Neuro Neuro: Denies dizziness Psych Psych: Denies anxiety or depression Endo Endo: Denies cold intolerance, excessive sweating or heat intolerance Exam Const General: cooperative, healthy appearing, comfortable, no acute distress, well groomed and well hydrated Nutritional Appearance: well nourished Orientation: alert, awake and oriented x3 HENMT Head: normal to inspection and normocephalic Ears: hearing grossly normal bilaterally and external ears normal Nose: external nose normal Face and sinus: normal facial exam Eyes General: appearance normal, both eyes and all related structures Neck Neck: normal visual inspection, full ROM and no lymphadenopathy Thyroid: thyroid normal Chest Chest palpation inspection: normal inspection of the chest Breast inspection: normal inspection of the breasts and normal inspection of the axillae Breast palpation: normal palpation of the axillae, no axillary lymphadenopathy and abnormal palpation of the breast (outer/lateral at 9'oclock pea sized lump) right Resp Effort Inspection: normal respiratory effort, able to speak in complete sentences and symmetric (more content not included)... Normal [facility] STREP A MOLECULAR (POC)on Procedural Control Valid [facility] Strep A (POCT) Negative Negative [facility] CBC AND ELECTRONIC DIFFon Basophils (Bld) [#/Vol] K/uL 0.00 - 0.15 K/uL [facility] Basophils/100 WBC (Bld) 0.5 % [facility] Differential cell count method Nom (Bld) Electronic Differential [facility] Eosinophils (Bld) [#/Vol] 0.11 10*3/uL 0.00 - 0.42 K/uL [facility] Eosinophils/100 WBC (Bld) 2.5 % [facility] Erythrocyte distribution width (RBC) [Ratio] 13.1 % 10.8 - 14.9 % [facility] Hematocrit (Bld) [Volume fraction] 38.8 % 34.9 - 44.3 % [facility] Hemoglobin (Bld) [Mass/Vol] 12.8 g/dL 11.4 - 15.2 g/dL [facility] Immature granulocytes (Bld) [#/Vol] K/uL NINF - 0.08 K/uL [facility] Immature granulocytes/100 WBC (Bld) 0.2 % [facility] Lymphocytes (Bld) [#/Vol] 1.76 10*3/uL 1.16 - 3.51 K/uL [facility] Lymphocytes/100 WBC (Bld) 39.7 % [facility] MCH (RBC) [Entitic mass] 27.4 pg 25.9 - 33.9 pg [facility] MCHC (RBC) [Mass/Vol] 33.0 g/dL 31.4 - 35.9 g/dL [facility] MCV (RBC) [Entitic vol] 83.1 fL 79.6 - 97.7 fL [facility] Monocytes (Bld) [#/Vol] 0.30 10*3/uL 0.22 - 0.87 K/uL [facility] Monocytes/100 WBC (Bld) 6.8 % [facility] Neutrophils (Bld) [#/Vol] 2.23 10*3/uL 1.64 - 7.28 K/uL [facility] Nucleated RBC/100 WBC (Bld) [Ratio] 0.0 % NINF [facility] Platelet mean volume (Bld) [Entitic vol] 9.1 fL 8.5 - 12.2 fL [facility] Platelets (Bld) [#/Vol] 333 10*3/uL 150 - 393 K /uL [facility] RBC (Bld) [#/Vol] 4.67 10*6/uL [facility] Segmented neutrophils/100 WBC (Bld) 50.3 % [facility] WBC (Bld) [#/Vol] 4.43 10*3/uL 3.99 - 11. 19 K/uL [facility] CHEM 7 (LYTES,BUN,CREA,GLUC) on 12-09-2022 Anion gap [Moles/Vol] 12 mmol/L 7 - 17 mmol/L [facility] Chloride [Moles/Vol] 103 mmol/L 98 - 10 8 mmol/L [facility] CO2 [Moles/Vol] 25 mmol/L 21 - 31 mmol/L [facility] Creatinine [Mass/Vol] 0.95 mg/dL 0.50 - 1.20 mg/dL [facility] GFR/1.73 sq M.predicted CKD-EPI (S/P/Bld) [Vol rate/Area] 87 - PINF [facility] Comment on above: Reported eGFR is bas ed on the CKD-EPI 2020 equation using creatinine, age, and sex. Glucose [Mass/Vol] 83 mg/dL 70 - 99 mg/dL [facility] Osmolality Calc [Osmolality] 283 [facility] Potassium [Moles/Vol] 3.7 mmol/L 3.5 - 5.0 mmol/[facility] Sodium [Moles/Vol] 136 mmol/L 135 - 145 [facility] Urea nitrogen [Mass/Vol] 12 mg/dL 7 - 25 mg/d L [facility] Urea nitrogen/Creatinine [Mass ratio] 13 [facility] PT,INR,PTTon 12-09-2022 aPTT Coag (PPP) [Time] 27.[address] [facility] INR Coag (Bld) [Relative time] 1.1 {INR} 0.9 - 1.1 [facility] Interpretation and review of laboratory results Normal [facility] PT Coag (PPP) [Time] 13.9 [facility] Absolute lymphocyte countOrd ered By: Dr. Mason on 09-05-2022 Lymphocytes Auto (Unsp spec) [#/Vol] 1.71 10*3/uL 0.83-4.51 [facility] Basophil percentageOrdered B y: Dr. Mason on 09-05-2022 Basophils/100 WBC (Bld) 0.4 % 0-1 [facility] Chloride [Moles/Vol] 106 mmol/L 98-107 [facility] Eosinophils/100 WBC (Bld) 0.5 % 0-5 [facility] Glucose [Mass/Vol] 143 mg/dL 74-106 [facility] Comment on above: Fasting Glucose resu lt greater than or equal to 126 mg/dL suggests DIABETES MELLITUS per A.D.A. criteria. Neutrophils (Bld) [#/Vol] 8.9 10*3/uL 2.0-7.7 [facility] Neutrophils/100 WBC (Bld) 79.2 % 47-70 [facility] Potassium [Moles/Vol] 3.7 mmol/L 3.5-5.1 [facility] Sodium [Moles/Vol] 139 mmol/L 136-145 [facility] WBC (Bld) [#/Vol] 11.2 10*3/uL 4.4-11.0 [facility] Blood erythrocytes count (nu mber/volume)Ordered By: Dr. Mason on 09-05-2022 RBC (Bld) [#/Vol] 4.25 10*6/uL 4.2-5.4 [facility] Blood hemoglobin measurement (mass/volume)Ordered By: Dr. Mason on 09-05-2022 Hemoglobin (Bld) [Mass/Vol] 12.0 g/dL 12.0-15.0 [facility] Blood lymphocytes/100 leukoc ytesOrdered By: Dr. Mason on 09-05-2022 Lymphocytes/100 WBC (Bld) 15.3 % 19-41 [facility] Blood monocytes/100 leukocyt esOrdered By: Dr. Mason on 09-05-2022 Monocytes/100 WBC (Bld) 4.2 % 0-10 [facility] Blood platelet mean volumeOr dered By: Dr. Mason on 09-05-2022 Platelet mean volume (Bld) [Entitic vol] 8.7 fL 6.2-12.0 [facility] Determination of erythrocyte mean corpuscular volume (MCV)Ordered By: Dr. Mason on 09-05-2022 MCV (RBC) [Entitic vol] 84.7 fL 81-99 [facility] Hematocrit Auto (Bld) [Volum e fraction]Ordered By: Dr. Mason on 09-05-2022 Hematocrit (Bld) [Volume fraction] 36.0 % 37-47 [facility] Laboratory - Chemistry and C hemistry - challengeOrdered By: Dr. Mason on 09-05-2022 CO2 [Moles/Vol] 25.0 mmol/L 21.0-32.0 [facility] Urea nitrogen/Creatinine [Mass ratio] 14.6 mg/mg 10-20 [facility] Laboratory - Hematology and Cell countsOrdered By: Dr. Mason on 09-05-2022 Erythrocyte distribution width (RBC) [Entitic vol] 38.3 fL 35.1-43.9 [facility] Erythrocyte distribution width (RBC) [Ratio] 12.5 % 11.6-14.6 [facility] Immature granulocytes/100 WBC (Bld) 0.400 % 0.0-0.9 [facility] Comment on above: IG% - Immature Granu locytes (promyelocytes, myelocytes and metamyelocytes) > 1% indicates that a LEFT SHIFT is Present. MCH (RBC) [Entitic mass] 28.2 pg 27.0-32.0 [facility] Nucleated RBC/100 WBC (Bld) [Ratio] 0 % 0-5 [facility] MCHC Auto (RBC) [Mass/Vol]Or dered By: Dr. Mason on 09-05-2022 MCHC (RBC) [Mass/Vol] 33.3 g/dL 32-36 [facility] No Panel InformationOrdered By: Dr. Mason on 09-05-2022 Estimated Creatinine Clearance Calc 78.10 ml/min [facility] Estimated GFR (MDRD) Amer 102 mL/min >60 [facility] Comment on above: GFR Calc Estimated GFR (MDRD) Non-Af Amer 84 mL/min >60 [facility] Comment on above: Non- GFR Calc Troponin I High Sensitivity 4 pg/mL 3.0-54.0 [facility] Comment on above: Please Note: New Shwetha t Units and Gender Specific Reference Ranges. For more information see Policy Stat Procedure Peel High Sensitivity Troponin (TNIH) and attachments. Platelets bldOrdered By: Dr. Mason on 09-05-2022 Platelets (Bld) [#/Vol] 302 10*3/uL 150-450 [facility] Serum or plasma calcium kobi urement (mass/volume)Ordered By: Dr. Mason on 09-05-2022 Calcium [Mass/Vol] 9.4 mg/dL 8.5-10.1 [facility] Serum or plasma creatinine m easurement (mass/volume)Ordered By: Dr. Mason on 09-05-2022 Creatinine [Mass/Vol] 0.89 mg/dL 0.55-1.02 [facility] Comment on above: The validity of the calculated GFR & GFRAA in patients over 70 years has not been determined. Clinical correlation is essential. Serum or plasma urea nitroge n measurement (mass/volume)Ordered By: Dr. Mason on 09-05-2022 Urea nitrogen [Mass/Vol] 13 mg/dL 7-18 [facility] Thin prep Papanicolaou smear with manual screeningOrdered By: Dr. Mason on 09-05-2022 Thin prep Papanicolaou smear with manual screening 8 5-15 [facility] STREP A MOLECULAR (POC)on Procedural Control Valid [facility] Strep A (POCT) Positive Abnormal Negative [facility] STREP A MOLECULAR (POC)on Procedural Control Valid [facility] Strep A (POCT) Positive Abnormal Negative [facility] Vital Signs Date Time Vital Sign Value Performing Clinician Blake ferrari 03-22-2025 15:39-0400 Body height 157.[address] Neymar Ronquillo MD Work Phone: 8(470)106-519470 [place] [address] 03-22-2025 15:35-0400 Body mass index (BMI) [Ratio] 28.3 kg/m2 Dr. Neymar Ronquillo MD Work Phone: 8(427)699-288570 [place] [address] 03-22-2025 15:35-0400 Body weight 70.[address] Neymar Ronquillo MD Work Phone: 3(945)[phone] [place] [address] 03-22-2025 15:35-0400 Diastolic blood pressure 87 mm[Hg] Dr. Neymar Ronquillo MD Work Phone: 6(634)[phone] [place] [address] 03-22-2025 15:35-0400 Systolic blood pressure 136 mm[Hg] Dr. Neymar Ronquillo MD Work Phone: 6(467)[phone] [place] [address] 03-15-2025 10:33-0400 Body height 157.[address] Neymar Ronquillo MD Work Phone: 3(682)364-943070 [place] [address] 03-15-2025 10:33-0400 Body mass index (BMI) [Ratio] 27.1 kg/m2 Dr. Neymar Ronquillo MD Work Phone: 7(760)822-437670 [place] [address] 03-15-2025 10:33-0400 Body weight 67.[address] Neymar Ronquillo MD Work Phone: 5(137)[phone] [place] [address] 03-15-2025 10:33-0400 Diastolic blood pressure 82 mm[Hg] Dr. Neymar Ronquillo MD Work Phone: 1(091)[phone] [place] [address] 03-15-2025 10:33-0400 Systolic blood pressure 131 mm[Hg] Dr. Neymar Ronquillo MD Work Phone: 7(069)372-368870 [place] [address] 03-08-2025 09:24-0400 Body height 157.[address] Neymar Ronquillo MD Work Phone: 6(151)769-196070 [place] [address] 03-08-2025 09:24-0400 Body mass index (BMI) [Ratio] 26.4 kg/m2 Dr. Neymar Ronquillo MD Work Phone: 8(224)[phone] [place] [address] 03-08-2025 09:24-0400 Body weight 65.[address] Neymar Ronquillo MD Work Phone: 1(972)034-613070 [place] [address] 03-08-2025 09:24-0400 Diastolic blood pressure 79 mm[Hg] Dr. Neymar Ronquillo MD Work Phone: 3(969)283-417470 [place] [address] 03-08-2025 09:24-0400 Systolic blood pressure 135 mm[Hg] Dr. Neymar Ronquillo MD Work Phone: 4(016)306-735070 [place] [address] 02-28-2025 08:31-0400 Body height 157.[address] Neymar Ronquillo MD Work Phone: 7(077)605-835270 [place] [address] 02-28-2025 08:31-0400 Body mass index (BMI) [Ratio] 26.2 kg/m2 Dr. Neymar Ronquillo MD Work Phone: 8(809)506-935770 [place] [address] 02-28-2025 08:31-0400 Body weight 65.[address] Neymar Ronquillo MD Work Phone: 9(646)444-582070 [place] [address] 02-28-2025 08:31-0400 Diastolic blood pressure 82 mm[Hg] Dr. Neymar Ronquillo MD Work Phone: 2(830)086-919270 [place] [address] 02-28-2025 08:31-0400 Systolic blood pressure 118 mm[Hg] Dr. Neymar Ronquillo MD Work Phone: 1(106)435-499870 [place] [address] 02-08-2025 10:17-0400 Body height 157.[address] Neymar Ronquillo MD Work Phone: 3(925)094-231770 [place] [address] 02-08-2025 10:17-0400 Body mass index (BMI) [Ratio] 25 kg/m2 Dr. Neymar Ronquillo MD Work Phone: 2(388)342-482870 [place] [address] 02-08-2025 10:17-0400 Body weight 62.[address] Neymar Ronquillo MD Work Phone: 6(508)967-834770 [place] [address] 02-08-2025 10:17-0400 Diastolic blood pressure 73 mm[Hg] Dr. Neymar Ronquillo MD Work Phone: 9(199)562-698570 [place] [address] 02-08-2025 10:17-0400 Systolic blood pressure 118 mm[Hg] Dr. Neymar Ronquillo MD Work Phone: 4(761)648-370070 [place] [address] 01-25-2025 10:20-0400 Body height 157.[address] Neymar Ronquillo MD Work Phone: 1(791)664-882570 [place] [address] 01-25-2025 10:20-0400 Body mass index (BMI) [Ratio] 24.8 kg/m2 Dr. Neymar Ronquillo MD Work Phone: 0(235)013-141970 [place] [address] 01-25-2025 10:20-0400 Body weight 61.[address] Neymar Ronquillo MD Work Phone: 6(595)559-351070 [place] [address] 01-25-2025 10:20-0400 Diastolic blood pressure 72 mm[Hg] Dr. Neymar Ronquillo MD Work Phone: 1(773)419-578170 [place] [address] 01-25-2025 10:20-0400 Systolic blood pressure 116 mm[Hg] Dr. Neymar Ronquillo MD Work Phone: 3(436)974-968970 [place] [address] 12-27-2024 10:42-0400 Body height 157.[address] Neymar Ronquillo MD Work Phone: 3(656)[phone] [place] [address] 12-27-2024 10:42-0400 Body mass index (BMI) [Ratio] 23.8 kg/m2 Dr. Neymar Ronquillo MD Work Phone: 5(174)475-086570 [place] [address] 12-27-2024 10:42-0400 Body weight 59.[address] Neymar Ronquillo MD Work Phone: 9(336)710-454470 [place] [address] 12-27-2024 10:42-0400 Diastolic blood pressure 79 mm[Hg] Dr. Neymar Ronquillo MD Work Phone: [facility] 12-27-2024 10:42-0400 Systolic blood pressure 119 mm[Hg] Dr. Neymar Ronquillo MD Work Phone: [facility] 12-19-2024 13:44-0400 Body mass index (BMI) [Ratio] 23.26 kg/m2 [facility] LITERARY AGENT.[employer] Work Phone: [facility] 12-19-2024 13:44-0400 Body temperature 98.8 [degF] [facility] LITERARY AGENT.[employer] Work Phone: [facility] 12-19-2024 13:44-0400 Body weight 58.8 kg [facility] LITERARY AGENT.[employer] O[employer] Work Phone: [facility] 12-19-2024 13:44-0400 Diastolic blood pressure 60 mm[Hg] [facility] LITERARY AGENT.[employer] Work Phone: [facility] 12-19-2024 13:44-0400 Heart rate 90 /min [facility] LITERARY AGENT.[employer] Work Phone: [facility] 12-19-2024 13:44-0400 Respiratory rate 16 /min [facility] LITERARY AGENT.[employer] O[employer]ATOR Work Phone: [facility] 12-19-2024 13:44-0400 SaO2% (BldA) [Mass fraction] 98 % [facility] LITERARY AGENT.[employer] Work Phone: [facility] 12-19-2024 13:44-0400 Systolic blood pressure 114 mm[Hg] [facility] LITERARY AGENT.[employer] Work Phone: [facility] 12-03-2024 14:51-0400 Body mass index (BMI) [Ratio] 23.3 kg/m2 Dr. Neymar Ronquillo MD Work Phone: [facility] 12-03-2024 14:51-0400 Body weight 57.[address] Neymar Ronquillo MD Work Phone: [facility] 12-03-2024 14:51-0400 Diastolic blood pressure 81 mm[Hg] Dr. Neymar Ronquillo MD Work Phone: [facility] 12-03-2024 14:51-0400 Systolic blood pressure 123 mm[Hg] Dr. Neymar Ronquillo MD Work Phone: [facility] 11-05-2024 14:16-0400 Body mass index (BMI) [Ratio] 22.6 kg/m2 Dr. Neymar Ronquillo MD Work Phone: [facility] 11-05-2024 14:16-0400 Body weight 56.[address] Neymar Ronquillo MD Work Phone: [facility] 11-05-2024 14:16-0400 Diastolic blood pressure 72 mm[Hg] Dr. Neymar Ronquillo MD Work Phone: [facility] 11-05-2024 14:16-0400 Systolic blood pressure 117 mm[Hg] Dr. Neymar Ronquillo MD Work Phone: [facility] 10-22-2024 17:02-0400 Body mass index (BMI) [Ratio] 21.36 kg/m2 Seun Franks LITERARY AGENT.[employer] Work Phone: [facility] 10-22-2024 17:02-0400 Body temperature 99 [degF] Seun Tiny LITERARY AGENT.[employer] OPERATOR Work Phone: [facility] 10-22-2024 17:02-0400 Body weight 54 kg Seun Franks LITERARY AGENT.[employer] OPER[employer] Work Phone: [facility] 10-22-2024 17:02-0400 Diastolic blood pressure 81 mm[Hg] Seun Pendlelorelei LITERARY AGENT.[employer] OPERATOR Work Phone: [facility] 10-22-2024 17:02-0400 Heart rate 89 /min Seun Franks LITERARY AGENT.[employer] OPER[employer] Work Phone: [facility] 10-22-2024 17:02-0400 Respiratory rate 22 /min Seun Franks LITERARY AGENT.[employer] OPERATOR Work Phone: [facility] 10-22-2024 17:02-0400 SaO2% (BldA) [Mass fraction] 99 % Seunvicente Franks LITERARY AGENT.[employer] OPERATOR Work Phone: [facility] 10-22-2024 17:02-0400 Systolic blood pressure 118 mm[Hg] Seun Franks LITERARY AGENT.[employer] OPER[employer] Work Phone: [facility] 10-07-2024 15:05-0400 Body mass index (BMI) [Ratio] 21.5 kg/m2 Dr. Neymar Ronquillo MD Work Phone: [facility] 10-07-2024 15:05-0400 Body weight 53.[address] Neymar Ronquillo MD Work Phone: [facility] 10-07-2024 15:05-0400 Diastolic blood pressure 83 mm[Hg] Dr. Neymar Ronquillo MD Work Phone: [facility] 10-07-2024 15:05-0400 Systolic blood pressure 133 mm[Hg] Dr. Neymar Ronquillo MD Work Phone: [facility] 09-03-2024 14:49-0500 Body mass index (BMI) [Ratio] 21.7 kg/m2 Dr. Neymar Ronquillo MD Work Phone: [facility] 09-03-2024 14:49-0500 Body weight 53.[address] Neymar Ronquillo MD Work Phone: [facility] 09-03-2024 14:49-0500 Diastolic blood pressure 81 mm[Hg] Dr. Neymar Ronquillo MD Work Phone: [facility] 09-03-2024 14:49-0500 Systolic blood pressure 127 mm[Hg] Dr. Neymar Ronquillo MD Work Phone: [facility] 07-09-2024 13:01-0500 Body height 159 cm Neymar Ronquillo MD Work Phone: [facility] 07-09-2024 13:01-0500 Body mass index (BMI) [Ratio] 20.74 kg/m2 Neymar Ronquillo MD Work Phone: [facility] 07-09-2024 13:01-0500 Body weight 52.44 kg Neymar Ronquillo MD Work Phone: [facility] 07-09-2024 13:01-0500 Diastolic blood pressure 66 mm[Hg] Neymar Ronquillo MD Work Phone: [facility] 07-09-2024 13:01-0500 Heart rate 87 /min Neymar Ronquillo MD Work Phone: [facility] 07-09-2024 13:01-0500 SaO2% (BldA) [Mass fraction] 98 % Neymar Ronquillo MD Work Phone: [facility] 07-09-2024 13:01-0500 Systolic blood pressure 106 mm[Hg] Neymar Ronquillo MD Work Phone: [facility] 10-08-2023 17:06-0400 Body temperature 99.7 [degF] Krislyn Aberegg PA Work Phone: [facility] 10-08-2023 17:06-0400 Body weight 52.4 kg Krislyn Aberegg PA Work Phone: [facility] 10-08-2023 17:06-0400 Diastolic blood pressure 72 mm[Hg] Krislyn Aberegg PA Work Phone: [facility] 10-08-2023 17:06-0400 Heart rate 94 /min Krislyn Aberegg PA Work Phone: [facility] 10-08-2023 17:06-0400 Respiratory rate 18 /min Krislyn Aberegg PA Work Phone: [facility] 10-08-2023 17:06-0400 SaO2% (BldA) [Mass fraction] 100 % Krislyn Aberegg PA Work Phone: [facility] 10-08-2023 17:06-0400 Systolic blood pressure 110 mm[Hg] Krislyn Aberegg PA Work Phone: [facility] 06-09-2023 16:24-0500 Body temperature 99.1 [degF] Aidan Huggins MD Work Phone: [facility] 06-09-2023 16:24-0500 Body weight 51.89 kg Aidan Huggins MD Work Phone: [facility] 06-09-2023 16:24-0500 Diastolic blood pressure 70 mm[Hg] Aidan Huggins MD Work Phone: [facility] 06-09-2023 16:24-0500 Heart rate 88 /min Aidan Huggins MD Work Phone: [facility] 06-09-2023 16:24-0500 Respiratory rate 16 /min Aidan Huggins MD Work Phone: [facility] 06-09-2023 16:24-0500 SaO2% (BldA) [Mass fraction] 99 % Aidan Huggins MD Work Phone: [facility] 06-09-2023 16:24-0500 Systolic blood pressure 114 mm[Hg] Aidan Huggins MD Work Phone: [facility] 05-05-2023 17:06-0400 Body temperature 99.7 [degF] Cristy Deras LITERARY AGENT.[employer] OPERATOR Work Phone: [facility] 05-05-2023 17:06-0400 Body weight 51.53 kg Cristy Deras LITERARY AGENT.[employer] OPERATOR Work Phone: [facility] 05-05-2023 17:06-0400 Diastolic blood pressure 88 mm[Hg] Cristy Deras LITERARY AGENT.[employer] OPERATOR Work Phone: [facility] 05-05-2023 17:06-0400 Heart rate 98 /min Cristy Deras LITERARY AGENT.[employer] OPERATOR Work Phone: [facility] 05-05-2023 17:06-0400 Respiratory rate 21 /min Cristy Deras LITERARY AGENT.[employer] OPERATOR Work Phone: [facility] 05-05-2023 17:06-0400 SaO2% (BldA) [Mass fraction] 99 % Cristy Deras LITERARY AGENT.[employer]ING [employer] OPERATOR Work Phone: [facility] 05-05-2023 17:06-0400 Systolic blood pressure 120 mm[Hg] Cristy Braeden LITERARY AGENT.[employer]ING [employer] OPERATOR Work Phone: [facility] 04-14-2023 17:25-0400 Body weight 51.71 kg Neymar Ronquillo MD Work Phone: [facility] 04-14-2023 17:25-0400 Diastolic blood pressure 62 mm[Hg] Neymar Ronquillo MD Work Phone: [facility] 04-14-2023 17:25-0400 Heart rate 86 /min Neymar Ronquillo MD Work Phone: [facility] 04-14-2023 17:25-0400 SaO2% (BldA) [Mass fraction] 100 % Neymar Ronquillo MD Work Phone: [facility] 04-14-2023 17:25-0400 Systolic blood pressure 102 mm[Hg] Neymar Ronquillo MD Work Phone: [facility] 12-09-2022 23:15-0400 Diastolic blood pressure 81 mm[Hg] Tate Jett MD Work Phone: [facility] 12-09-2022 23:15-0400 Heart rate 82 /min Tate Jett MD Work Phone: [facility] 12-09-2022 23:15-0400 Respiratory rate 18 /min Tate Jett MD Work Phone: [facility] 12-09-2022 23:15-0400 SaO2% (BldA) [Mass fraction] 100 % aTte Jett MD Work Phone: [facility] 12-09-2022 23:15-0400 Systolic blood pressure 128 mm[Hg] Tate Jett MD Work Phone: [facility] 12-09-2022 12:24-0400 Body height 157.5 cm Tate Jett MD Work Phone: [facility] 09-13-2022 10:57-0500 Body height 157.[address] Caleb Carver Work Phone: [facility] 09-13-2022 10:57-0500 Body mass index (BMI) [Ratio] 21 kg/m2 Dr. Caleb Carver Work Phone: [facility] 09-13-2022 10:57-0500 Body weight 52.[address] Caleb Carver Work Phone: [facility] 09-13-2022 10:57-0500 Diastolic blood pressure 86 mm[Hg] Dr. Caleb Carver Work Phone: [facility] 09-13-2022 10:57-0500 Heart rate 100 /min Dr. Caleb Carver Work Phone: [facility] 09-13-2022 10:57-0500 Respiratory rate 16 /min Dr. Caleb Carver Work Phone: [facility] 09-13-2022 10:57-0500 Systolic blood pressure 123 mm[Hg] Dr. Caleb Carver Work Phone: [facility] 09-05-2022 23:54-0500 Diastolic blood pressure 90 mm[Hg] [facility] 09-05-2022 23:54-0500 Heart rate 87 /min [facility] 09-05-2022 23:54-0500 Respiratory rate 16 /min [facility] 09-05-2022 23:54-0500 SaO2% (BldA) [Mass fraction] 100 % [facility] 09-05-2022 23:54-0500 Systolic blood pressure 127 mm[Hg] [facility] 09-05-2022 20:04-0500 Body height 157.48 cm [facility] 09-05-2022 20:04-0500 Body mass index (BMI) [Ratio] 20.1 kg/m2 [facility] 09-05-2022 20:04-0500 Body temperature 96.9 [degF] [facility] 09-05-2022 20:04-0500 Body weight 49.89 kg [facility] 07-18-2022 10:15-0500 Body temperature 98.91 [degF] Sofia Praisler-Wood LITERARY AGENT.[employer]ING [employer] OPERATOR Work Phone: [facility] 07-18-2022 10:15-0500 Body weight 51.71 kg Sofia Praisler-Wood LITERARY AGENT.[employer]ING PL[employer] OPERATOR Work Phone: [facility] 07-18-2022 10:15-0500 Diastolic blood pressure 76 mm[Hg] Osfia Praisler-Wood LITERARY AGENT.[employer]ING [employer] OPERATOR Work Phone: [facility] 07-18-2022 10:15-0500 Heart rate 96 /min Sofia Praisler-Wood LITERARY AGENT.[employer]ING PL[employer] OPERATOR Work Phone: [facility] 07-18-2022 10:15-0500 Respiratory rate 18 /min Sofia Praisler-Wood LITERARY AGENT.[employer]ING [employer] OPERATOR Work Phone: [facility] 07-18-2022 10:15-0500 SaO2% (BldA) [Mass fraction] 99 % Sofia Praisler-Wood LITERARY AGENT.[employer]ING PL[employer] OPERATOR Work Phone: [facility] 07-18-2022 10:15-0500 Systolic blood pressure 124 mm[Hg] Sofia Praisler-Wood LITERARY AGENT.[employer]ING [employer] OPERATOR Work Phone: [facility] 07-04-2022 15:14-0500 Body temperature 102.09 [degF] Seun Pendlebury LITERARY AGENT.TR[employer]ING PLANT OPERATOR Work Phone: [facility] 07-04-2022 15:14-0500 Body weight 50.35 kg Seun Pendlelorelei LITERARY AGENT.[employer]ING PL[employer] OPERATOR Work Phone: [facility] 07-04-2022 15:14-0500 Diastolic blood pressure 80 mm[Hg] Seun Pendlebury LITERARY AGENT.[employer]ING PL[employer] OPERATOR Work Phone: [facility] 07-04-2022 15:14-0500 Heart rate 106 /min Seun Tiny LITERARY AGENT.TRAVELING PLANT OPERATOR Work Phone: [facility] 07-04-2022 15:14-0500 SaO2% (BldA) [Mass fraction] 97 % Seun Franks LITERARY AGENT.TRAVELING PLANT OPERATOR Work Phone: [facility] 07-04-2022 15:14-0500 Systolic blood pressure 114 mm[Hg] Seun Whitneylelorelei LITERARY AGENT.TRAVELING PLANT OPERATOR Work Phone: [facility] 02-12-2022 11:45-0400 Body temperature 97.81 [degF] Adri Doll PA-C Work Phone: [facility] 02-12-2022 11:45-0400 Body weight 49.49 kg Adri Doll PA-C Work Phone: [facility] 02-12-2022 11:45-0400 Heart rate 76 /min Adri Doll PA-C Work Phone: [facility] 02-12-2022 11:45-0400 Respiratory rate 16 /min Adri Doll PA-C Work Phone: [facility] 01-20-2022 11:52-0400 Body temperature 98.01 [degF] Seun Olsonlelorelei LITERARY AGENT.TRAVELING PLANT OPERATOR Work Phone: [facility] 01-20-2022 11:52-0400 Body weight 50.71 kg Seun Franks LITERARY AGENT.TRAVELING PLANT OPERATOR Work Phone: [facility] 01-20-2022 11:52-0400 Diastolic blood pressure 64 mm[Hg] Seun Olsonlelorelei LITERARY AGENT.TRAVELING PLANT OPERATOR Work Phone: [facility] 01-20-2022 11:52-0400 Heart rate 75 /min Seun Pendlebury LITERARY AGENT.TRAVELING PLANT OPERATOR Work Phone: [facility] 01-20-2022 11:52-0400 Respiratory rate 18 /min Seun Whitneylelorelei LITERARY AGENT.TRAVELING PLANT OPERATOR Work Phone: [facility] 01-20-2022 11:52-0400 SaO2% (BldA) [Mass fraction] 100 % Seun Yanezbury LITERARY AGENT.TRAVELING PLANT OPERATOR Work Phone: [facility] 01-20-2022 11:52-0400 Systolic blood pressure 102 mm[Hg] Seun Tiny LITERARY AGENT.TRAVELING PLANT OPERATOR Work Phone: [facility] 10-16-2021 07:49-0400 Body temperature 97.9 [degF] Britney Hallman MD Work Phone: [facility] 10-16-2021 07:49-0400 Body weight 53.07 kg Britney Hallman MD Work Phone: [facility] 10-16-2021 07:49-0400 Diastolic blood pressure 54 mm[Hg] Britney Hallman MD Work Phone: [facility] 10-16-2021 07:49-0400 Heart rate 70 /min Britney Hallman MD Work Phone: [facility] 10-16-2021 07:49-0400 Respiratory rate 12 /min Britney Hallman MD Work Phone: [facility] 10-16-2021 07:49-0400 Systolic blood pressure 104 mm[Hg] Britney Hallman MD Work Phone: [facility] Encounters Encounter Date Encounter Type Care Provider Facility Start: 03-30-2025 ambulatory Neymar Ronquillo Facility:[facility] Start: 03-22-2025 End: 03-22-[address] Farzana Ng MD -[facility] Work Phone: Start: 03-22-2025 End: 03-22-[address] Neymar Ronquillo MD Work Phone: -[facility] Start: 03-15-2025 End: 03-15-[address] Cecile Mckeon DO -[facility] Work Phone: Start: 03-15-2025 End: 03-15-[address] Neymar Ronquillo MD Work Phone: [facility] Start: 03-10-2025 End: 03-10-[address] Neymar Ronquillo MD Work Phone: -Ultrasound [facility] Start: 03-10-2025 End: 03-10-2025 Patient encounter procedure Gay Ellis CNM -Ultrasound [facility] Work Phone: Start: 03-10-2025 End: 03-10-2025 ambulatory [facility] Facility:[facility] Start: 03-08-2025 End: 03-08-2025 Patient encounter procedure Gay Ellis CNM -[facility] Work Phone: Start: 03-08-2025 End: 03-08-[address] Neymar Ronquillo MD Work Phone: -[facility] Start: 02-28-2025 End: 02-28-2025 Patient encounter procedure Ava Pinto COLD MOLDING PRESS OPERATOR-C -[facility] Work Phone: Start: 02-28-2025 End: 02-28-[address] Neymar Ronquillo MD Work Phone: [facility] Start: 02-08-2025 End: 02-08-[address] Cecile Mckeon DO -[facility] Work Phone: Start: 02-08-2025 End: 02-08-[address] Neymar Ronquillo MD Work Phone: [facility] Start: 02-03-2025 End: 02-03-[address] Neymar Ronquillo MD Work Phone: -Ultrasound [facility] Start: 02-03-2025 End: 02-03-2025 Patient encounter procedure Ava Pinto COLD MOLDING PRESS OPERATOR-C -Ultrasound [facility] Work Phone: Start: 02-03-2025 End: 02-03-2025 ambulatory [facility] Facility:[facility] Start: 01-25-2025 End: 01-25-2025 Patient encounter procedure Ava Pinto COLD MOLDING PRESS OPERATOR-C -[facility] Work Phone: Start: 01-25-2025 End: 01-25-[address] Neymar Ronquillo MD Work Phone: -[facility] Start: 12-27-2024 End: 12-27-2024 Patient encounter procedure Gay Ellis CNM -[facility] Work Phone: Start: 12-27-2024 End: 12-27-[address] Neymar Ronquillo MD Work Phone: [facility] Work Phone: Start: 12-27-2024 End: 12-27-2024 ambulatory [facility] Facility:[facility] Start: 12-19-2024 End: 12-19-2024 Office outpatient visit 15 minutes Seun Franks LITERARY AGENT.TRAVELING PLANT OPERATOR Work Phone: [facility] Comment on above: Rash (Primary Dx) Start: 12-19-2024 End: 12-19-2024 ambulatory [facility] Facility:[facility] Start: 12-03-2024 End: 12-03-[address] Farzana Ng MD -[facility] Work Phone: Start: 12-03-2024 End: 12-03-2024 ambulatory [facility] Facility:[facility] Start: 11-05-2024 End: 11-05-2024 Patient encounter procedure Gay CHAVARRIA -[facility] Work Phone: Start: 11-05-2024 End: 11-05-2024 ambulatory [facility] Facility:[facility] Start: 11-04-2024 End: 11-04-2024 ambulatory CECILE LITTLE [facility] Start: 10-22-2024 End: 10-22-2024 ambulatory [facility] Facility:[facility] Start: 10-22-2024 End: 10-22-2024 Office outpatient visit 25 minutes Seun Franks LITERARY AGENT.TRAVELING PLANT OPERATOR Work Phone: [facility] Comment on above: Sore throat (Primary Dx); Strep pharyngitis Start: 10-07-2024 End: 10-07-2024 Patient encounter procedure Gay Ellis CN -[facility] Work Phone: Start: 10-07-2024 End: 10-07-2024 ambulatory Neymar Ronquillo Facility:[facility] Start: 09-13-2024 End: 09-13-[address] Farzana Ng MD -Lab [facility] Start: 09-13-2024 End: 09-13-2024 ambulatory Neymar Ronquillo Facility:[facility] Start: 09-03-2024 End: 09-03-2024 Patient encounter procedure Katherine Armando CNM -[facility] Work Phone: Start: 09-03-2024 End: 09-03-2024 Patient encounter procedure Katherine Roberts CN -[facility] Work Phone: Start: 09-03-2024 End: 09-03-2024 ambulatory Katherine Roberts Facility:[facility] Start: 09-03-2024 End: 09-03-2024 ambulatory Katherine Roberts Facility:[facility] Start: 08-20-2024 ambulatory Halley Oakley Facility :[facility] Start: 08-18-2024 End: 08-18-2024 ambulatory Farzana Ng Facility:[facility] Start: 08-16-2024 Encounter for other preprocedural examination [facility] Start: 07-29-2024 End: 07-29-2024 ambulatory Cecile Mckeon Facility:[facility] Start: 07-27-2024 End: 07-27-2024 ambulatory Cecile Mckeon Facility:[facility] Start: 07-23-2024 End: 07-23-2024 [facility] Start: 07-09-2024 End: 07-09-2024 Patient encounter procedure Neymar Ronquillo MD Work Phone: [facility] Comment on above: Well adult exam (Odilia jackson Dx); Encounter for immunization; History of Gqtqz-Jrgimydsn-Osgtr (WPW) syndrome Start: 07-09-2024 End: 07-09-2024 Patient encounter status Neymar Ronquillo MD Work Phone: [facility] Work Phone: Start: 07-09-2024 End: 07-09-2024 ambulatory NEYMAR RONQUILLO Facility:[facility] Start: 07-09-2024 Encounter for tatiana l adult medical examination without abnormal findings NEYMAR RONQUILLO [facility] Start: 07-07-2024 End: 07-07-2024 [facility] Start: 07-07-2024 End: 07-07-2024 [facility] Start: 07-02-2024 End: 07-02-2024 ambulatory [facility] Facility:[facility] Start: 06-22-2024 End: 06-22-2024 ambulatory [facility] Facility:[facility] Start: 06-22-2024 End: 06-22-2024 ambulatory [facility] Facility:[facility] Start: 10-08-2023 End: 10-08-2023 Patient encounter procedure Leona SAHA Work Phone: [facility] Comment on above: Sore throat (Primary Dx) Start: 06-09-2023 End: 06-09-2023 Patient encounter procedure Aidan Huggins MD Work Phone: [facility] Comment on above: Sore throat (Primary Dx); Post-nasal drip Start: 05-05-2023 End: 05-05-2023 Patient encounter procedure Cristy Deras APRN.CNP Work Phone: [facility] Comment on above: Rhinosinusitis (Prim tres Dx) Start: 04-14-2023 End: 04-14-2023 Patient encounter procedure Neymar Ronquillo MD Work Phone: [facility] Comment on above: Well adult exam (Odilia jackson Dx); History of Fkzol-Qymzfjcaz-Amhvg (WPW) syndrome Start: 04-14-2023 End: 04-14-2023 Patient encounter status Neymar Ronquillo MD Work Phone: [facility] Work Phone: Start: 12-09-2022 ambulatory TATE JETT Facility: [facility] Start: 12-09-2022 End: 12-09-2022 Subsequent hospital visit by physician Tate Jett MD Work Phone: [facility] Comment on above: SVT (supraventricula r tachycardia) Start: 09-20-2022 Non-patient / Non-visit Dr. Jose Carver Work Phone: [facility] Start: 09-20-2022 Non-patient / Non-visit Dr. Jose Carver Work Phone: [facility] Start: 09-20-2022 End: 09-20-[address] Caleb Carver Work Phone: [facility] Work Phone: Start: 09-20-2022 End: 09-20-[address] [facility] Start: 09-16-2022 ambulatory TATE JETT Facility:[facility] Start: 09-13-2022 End: 09-13-[address] Caleb Carver Work Phone: [facility] Start: 09-10-2022 Telephone encounter Caleb Carver MD Work Phone: [facility] Comment on above: Appointment Start: 09-05-2022 End: 09-05-[address] 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: [facility] Comment on above: Sore throat (Primary Dx); Strep pharyngitis Start: 02-12-2022 End: 02-12-2022 Patient encounter procedure Adri Doll PA-C Work Phone: [facility] Comment on above: Dysfunction of left eustachian tube (Primary Dx); Fluid level behind tympanic membrane of left ear Start: 01-20-2022 End: 01-20-2022 Patient encounter procedure Seun Franks APRN.TRAVELING PLANT OPERATOR Work Phone: [facility] Comment on above: Eustachian tube dysf unction, bilateral (Primary Dx) Start: 10-21-2021 ambulatory Britney Hallman MD Work Phone: [facility] Comment on above: Update on Neck Lump Start: 10-16-2021 End: 10-16-2021 Patient encounter procedure Britney Hallman MD Work Phone: [facility] Comment on above: Palpable lymph node (Primary Dx) Start: 09-18-2021 End: 09-18-[address] Caleb Carver Work Phone: [facility] Chiropractic Procedures Date Procedure Procedure Detail Performing Clinician Start: 03-10-2025 Ultrasound scan for growth Dr. Neymar Ronquillo MD Work Phone: Start: 02-03-2025 Ultrasound scan for growth Dr. Neymar Ronquillo MD Work Phone: Start: 12-27-2024 Serologic test for syphilis Dr. Neymar Ronquillo MD Work Phone: Start: 10-22-2024 STREP A MOLECULAR (POC) Alessandro Morrow MD Work Phone: Start: 09-13-2024 Hepatitis B surface antigen measurement Dr. Neymar Ronquillo MD Work Phone: Start: 09-13-2024 Hepatitis C antibody measurement Dr. Neymar Ronquillo MD Work Phone: Comment on above: Non Reactive: < 0.8 Equivocal: >/= 0.8 to < 1.0 Reactive: >/= 1.0The CDC requires that a reactive/equivocal HCV antibody result be sent out for confirmation. HCV Quant by PCR testing. Start: 09-13-[address] Ronquillo MD Work Phone: Start: 09-13-[address] Neymar Ronquillo MD Work Phone: Comment on above: Antibody Results Int erpretation of Immune Status Non Reactive Presumed Non-Immune Equivocal Equivocal Reactive Presumed Immune Start: 09-03-[address] Kvng Ronquillo MD Work Phone: Start: 10-08-2023 STREP A MOLECULAR (POC) [facility] Provider Start: 12-09-2022 Ephys eval w/ablatio n supravent arrhythmia Tate Jett MD Work Phone: Start: 12-09-2022 CBC AND ELECTRONIC DIFF Jose Bassett LITERARY AGENT-[facility] Work Phone: Start: 12-09-2022 Complete blood count with white cell differential, automated Jose Bassett LITERARY AGENT-[facility] Work Phone: Start: 12-09-2022 Creatinine blood Jose Bassett LITERARY AGENT-[facility] Work Phone: Start: 12-09-2022 Ecg routine ecg w/le ast 12 lds w/i&r Jose Bassett LITERARY AGENT-TRAVELING PLANT OPERATOR Work Phone: Start: 07-18-2022 STREP A MOLECULAR (POC) Aquilino Griffin LITERARY AGENT.TRAVELING PLANT OPERATOR Work Phone: Start: 07-04-2022 STREP A MOLECULAR (POC) Giovanna Boyd LPN Start: 08-15-2017 Adult depression scr eening assessment Britney Hallman MD Work Phone: Plan of Treatment Date Care Activity Detail Author Start: 07-09-2031 Tetanus vaccination TETANUS [facility] Start: 07-09-2031 [facility] Start: 06-22-2027 Screening for malignant neoplasm of cervix Cervical Cancer Screening [facility] Start: 07-09-2025 Anxiety Screening Anxiety Screening [facility] Comment on above: Postponed from 2018 (Declined at t his time) Start: 07-09-2025 Covid-19 Vaccine () Covid-19 Vaccine () [facility] Comment on above: Postponed from 03/28/2024 (Declined at t his time) Start: 07-09-2025 HIV screening HIV Screening [facility] Comment on above: Postponed from 2018 (Declined at t his time) Start: 12-27-2024 Measurement of glucose 2 hours after glucose challenge for glucose tolerance test [facility] Start: 12-27-2024 Serologic test for syphilis [facility] Start: 12-27-2024 [facility] Start: 04-14-2024 Covid-19 Vaccine (#1) Covid-19 Vaccine (#1) [facility] Comment on above: Postponed from 2000 (Declined at t his time) Start: 04-14-2024 Covid-19 Vaccine () Covid-19 Vaccine () [facility] Comment on above: Postponed from 03/28/2023 (Declined at t his time) Start: 04-14-2024 Meningococcal B Vaccine: Consider Based On Risk (1 of 2 - Patient Seeks Protection) Meningococcal B Vaccine: Consider Based On Risk (1 of 2 - Patient Seeks Protection) [facility] Comment on above: Postponed from 2016 (Declined at t his time) Start: 07-28-2023 Depression Assessment Depression Assessment [facility] Start: 05-12-2023 Influenza vaccination Influenza Vaccine (#1) [facility] Comment on above: Postponed from 03/28/2023 (Declined at t his time) Start: 03-28-2023 Influenza vaccination [facility] Start: 09-13-2022 Patient referral [facility] Work Phone: Start: 07-28-2022 DEPRESSION ASSESSMENT DEPRESSION ASSESSMENT [facility] Start: 03-28-2022 Influenza vaccination [facility] Start: 07-28-2021 DEPRESSION ASSESSMENT DEPRESSION ASSESSMENT [facility] Start: 03-28-2021 Influenza vaccination INFLUENZA (#1) [facility] Start: 2021 PAP TESTING PAP TESTING [facility] Start: 2021 Screening for malignant neoplasm of cervix [facility] Start: 08-15-2018 Adult depression screening assessment DEPRESSION SCREENING [facility] Start: 2018 CHLAMYDIA SCREENING (18-24) CHLAMYDIA SCREENING (18-24) [facility] Start: 2018 GC (GONORRHEA) SCREENING (18-24) GC (GONORRHEA) SCREENING (18-24) [facility] Start: 2018 HEPATITIS C SCREENING HEPATITIS C SCREENING [facility] Start: 2018 Hepatitis C screening Hepatitis C Screening [facility] Start: 2018 HIV SCREENING HIV SCREENING [facility] Start: 2018 HIV screening HIV Screening [facility] Start: 2018 Screening for Chlamydia trachomatis Chlamydia Screening (18-24) [facility] Start: 2016 Screening for Chlamydia trachomatis CHLAMYDIA SCREEN [facility] Start: 2015 HIV screening HIV SCREENING DISCUSSION [facility] Start: 2014 PEDS TO ADULT TRANSITION ANNUAL ASSESSMENT PEDS TO ADULT TRANSITION ANNUAL ASSESSMENT [facility] Start: 2012 PEDS TO ADULT TRANSITION INITIAL DISCUSSION PEDS TO ADULT TRANSITION INITIAL DISCUSSION [facility] Start: 2010 MENINGOCOCCAL B: Consider based on risk (1 of 2 - Risk Bexsero 2-dose series) MENINGOCOCCAL B: Consider based on risk (1 of 2 - Risk Bexsero 2-dose series) [facility] Start: 2005 COVID-19 VACCINE (#1) COVID-19 VACCINE (#1) [facility] Start: 2005 COVID-19 VACCINE (1) COVID-19 VACCINE (1) [facility] Start: 2000 COVID-19 VACCINE (#1) COVID-19 VACCINE (#1) [facility] Start: 2000 Hepatitis C screening HEPATITIS C VIRUS SCREENING [facility] Start: 2000 Screening for Chlamydia trachomatis GONORRHEA SCREEN [facility] Ambulatory ECG [facility] Electrophysiology study EP PROCE DURE - EPS/ABLATION/DEVICE Electrophysiology Routine SVT (supraventricular tachycardia) 12/09/2022 7:09 PM EDT [facility] Work Phone: Patient Education ED Palpitations [facility] Work Phone: Patient referral [facility] Work Phone: Ultrasound scan for growth [facility] Immunizations Immunization Date Immunization Notes Care Provider Fa cility 01-25-2025 tetanus toxoid, redu davis diphtheria toxoid, and acellular pertussis vaccine, adsorbed Dr. Neymar Ronquillo MD Work Phone: [facility] 07-09-2024 influenza, seasonal, injectable Neymar Ronquillo MD Work Phone: [facility] 07-09-2021 tetanus toxoid, redu davis diphtheria toxoid, and acellular pertussis vaccine, adsorbed Britney Hallman MD Work Phone: [facility] Work Phone: 08-15-2017 influenza virus vacc ine, unspecified formulation Neymar Ronquillo MD Work Phone: [facility] 07-31-2016 meningococcal polysaccharide (groups A, C, Y and W-135) diphtheria toxoid conjugate vaccine (MCV4P) Britney Hallman MD Work Phone: [facility] Work Phone: 07-31-2015 influenza, live, intranasal, quadrivalent Britney Hallman MD Work Phone: [facility] 07-31-2015 influenza virus vacc ine, unspecified formulation Tate Jett MD Work Phone: [facility] 06-18-2013 influenza virus vacc ine, live, attenuated, for intranasal use Britney Hallman MD Work Phone: [facility] 01-01-2013 hepatitis A vaccine, unspecified formulation Britney Hallman MD Work Phone: [facility] 01-01-2013 human papilloma viru s vaccine, quadrivalent Britney Hallman MD Work Phone: [facility] 09-22-2012 human papilloma viru s vaccine, quadrivalent Britney Hallman MD Work Phone: [facility] Work Phone: 06-30-2012 hepatitis A vaccine, unspecified formulation Britney Hallman MD Work Phone: [facility] 06-30-2012 human papilloma viru s vaccine, quadrivalent Britney Hallman MD Work Phone: [facility] 06-30-2012 influenza virus vacc ine, live, attenuated, for intranasal use Britney Hallman MD Work Phone: [facility] 06-04-2011 influenza virus vacc ine, unspecified formulation Britney Hallman MD Work Phone: [facility] 06-04-2011 Meningococcal, MCV4, unspecified conjugate formulation(groups A, C, Y and W-135) Britney Hallman MD Work Phone: [facility] 06-04-2011 tetanus toxoid, redu davis diphtheria toxoid, and acellular pertussis vaccine, adsorbed Britney Hallman MD Work Phone: [facility] 06-01-2010 influenza virus vacc ine, live, attenuated, for intranasal use Britney Hallman MD Work Phone: [facility] Work Phone: 05-12-2009 influenza virus vacc ine, live, attenuated, for intranasal use Britney Hallman MD Work Phone: [facility] Work Phone: 05-12-2009 varicella virus vaccine Britney Hallman MD Work Phone: [facility] Work Phone: 04-10-2005 diphtheria, tetanus toxoids and acellular pertussis vaccine Britney Hallman MD Work Phone: [facility] Work Phone: 04-10-2005 measles, mumps and rubella virus vaccine Britney Hallman MD Work Phone: [facility] Work Phone: 04-10-2005 poliovirus vaccine, inactivated Britney Hallman MD Work Phone: [facility] Work Phone: 06-26-2001 diphtheria, tetanus toxoids and acellular pertussis vaccine Britney Hallman MD Work Phone: [facility] Work Phone: 06-26-2001 haemophilus influenz ae type b vaccine, HbOC conjugate Britney Hallman MD Work Phone: [facility] Work Phone: 06-26-2001 hepatitis B vaccine, pediatric or pediatric/adolescent dosage Britney Hallman MD Work Phone: [facility] Work Phone: 04-08-2001 measles, mumps and rubella virus vaccine Britney Hallman MD Work Phone: [facility] Work Phone: 04-08-2001 varicella virus vaccine Britney Hallman MD Work Phone: [facility] Work Phone: 2000 hepatitis B vaccine, pediatric or pediatric/adolescent dosage Britney Hallman MD Work Phone: [facility] Work Phone: 2000 diphtheria, tetanus toxoids and acellular pertussis vaccine Britney Hallman MD Work Phone: [facility] Work Phone: 2000 haemophilus influenz ae type b vaccine, HbOC conjugate Britney Hallman MD Work Phone: [facility] Work Phone: 2000 pneumococcal conjuga te vaccine, 7 valent Britney Hallman MD Work Phone: [facility] Work Phone: 2000 poliovirus vaccine, inactivated Britney Hallman MD Work Phone: [facility] Work Phone: 2000 diphtheria, tetanus toxoids and acellular pertussis vaccine Britney aHllman MD Work Phone: [facility] Work Phone: 2000 haemophilus influenz ae type b vaccine, HbOC conjugate Britney Hallman MD Work Phone: [facility] Work Phone: 2000 pneumococcal conjuga te vaccine, 7 valent Britney Hallman MD Work Phone: [facility] Work Phone: 2000 poliovirus vaccine, inactivated Britney Hallman MD Work Phone: [facility] Work Phone: 2000 diphtheria, tetanus toxoids and acellular pertussis vaccine Britney Hallman MD Work Phone: [facility] Work Phone: 2000 haemophilus influenz ae type b vaccine, HbOC conjugate Britney Hallman MD Work Phone: [facility] Work Phone: 2000 pneumococcal conjuga te vaccine, 7 valent Britney Hallman MD Work Phone: [facility] Work Phone: 2000 poliovirus vaccine, inactivated Britney Hallman MD Work Phone: [facility] Work Phone: 2000 hepatitis B vaccine, pediatric or pediatric/adolescent dosage Britney Hallman MD Work Phone: [facility] Work Phone: Payers Date Payer Category Payer Unknown [id number] 2024 Self-pay [id number] 2024 Private Health Insurance [id number] 2023 Private Health Insurance [id number] 2022 Private Health Insurance [id number] 2019 Private Health Insurance AETNA A ETNA CHOICE POS II [id number] 2019-Present [phone] [address] [id number] [place] [address] POS [id number] .[id number] 2019 Private Health Insurance [id number] .[id number] .[id number] 2000 Unknown [id number] 2.16.840.1.174661.3.579.2.5 94 2000 Unknown [id number] 2.16.840.1.933282.3.579.2.5 94 2000 Unknown [id number] 2.16.840.1.617327.3.579.2.4 79 Unknown [id number] Unknown [id number] 2.16.840.1.297608.3.579.2.4 62 Unknown [id number] 2.16.840.1.528147.3.579.2.4 62 Unknown [id number] 2.16.840.1.284923.3.579.2.4 62 Unknown [id number] 2.16.840.1.363645.3.579.2.4 62 Unknown [id number] 2.16.840.1.992720.3.579.2.4 62 Unknown [id number] 2.16.840.1.257451.3.579.2.4 62 Unknown [id number] 2.16.840.1.669448.3.579.2.4 62 Unknown [id number] 2.16.840.1.342528.3.579.2.4 62 Unknown [id number] 2.16.840.1.668949.3.579.2.4 62 Unknown [id number] 2.16.840.1.374427.3.579.2.4 62 Unknown [id number] 2.16.840.1.817734.3.579.2.4 62 Unknown [id number] 2.16.840.1.882691.3.579.2.4 62 Unknown [id number] 2.16.840.1.621425.3.579.2.4 62 Unknown [id number] 2.16.840.1.980297.3.579.2.4 62 Unknown [id number] 2.16.840.1.098227.3.579.2.4 62 Unknown [id number] 2.16.840.1.123568.3.579.2.4 62 Unknown [id number] 2.16.840.1.558613.3.579.2.4 62 Unknown [id number] 2.16.840.1.973496.3.579.2.4 62 Unknown [id number] 2.16.840.1.960677.3.579.2.4 62 Unknown [id number] 2.16.840.1.445706.3.579.2.4 62 Unknown [id number] 2.16.840.1.921343.3.579.2.4 62 Unknown [id number] 2.16.840.1.652465.3.579.2.4 62 Unknown [id number] 2.16.840.1.391706.3.579.2.4 62 Unknown [id number] 2.16.840.1.654803.3.579.2.4 62 Unknown [id number] 2.16.840.1.720553.3.579.2.4 62 Unknown [id number] 2.16.840.1.748338.3.579.2.4 62 Unknown [id number] 2.16.840.1.521824.3.579.2.4 62 Unknown [id number] 2.16.840.1.752949.3.579.2.4 62 Social History Date Type Detail Facility Start: 07-04-2022 End: 08-20-2024 Tobacco smoking status NHIS Never smoked tobacco [facility] Start: 10-16-2021 End: 12-19-2024 Alcohol intake Current non-drinker of alcohol (finding) [facility] Start: 2000 Sex Assigned At Not on file [facility] Start: 10-05-2021 End: 02-11-2022 Exposure to SARS-CoV-2 (event) Not sure [facility] Start: 09-18-2021 End: 09-13-2022 Tobacco smoking status NHIS Unknown if ever smoked [facility] Start: 08-14-2015 None [facility] Start: 08-14-2015 With Family [facility] Start: 2000 Sex Assigned At Female [facility] Start: 07-04-2022 End: 12-09-2022 Tobacco use and exposure Smokeless tobacco non-user [facility] Start: 12-09-2022 Alcohol intake Ex-drinker (finding) [facility] Start: 04-13-2023 End: 07-08-2024 History of Social function [facility] Start: 04-13-2023 End: 07-08-2024 [facility] [email or web address] [facility] Has the Smart Cube, Mettl, or water [employer] threatened to shut off services in your home in past 12Mo No [facility] How often do you att end meetings of the clubs or organizations you belong to? Patient refused [facility] Are you now , , , , never or living with a partner? Never [facility] How often to you hav e a drink containing alcohol? Never [facility] How hard is it for y ou to pay for the very basics like food, housing, medical care, and heating Not very hard [facility] Do you feel stress - tense, restless, nervous, or anxious, or unable to sleep at night because your mind is troubled all the time - these days [OSQ] To some extent [facility] (I/We) worried samreen er (my/our) food would run out before (I/we) got money to buy more. Never true [facility] Start: 06-08-2023 Gender identity Identifies as female gender (finding) [facility] Do you belong to any clubs or organizations such as uatsdin groups, unions, fraternal or athletic groups, or school groups? Yes [facility] Are you now , , , , never or living with a partner? [facility] Do you feel stress - tense, restless, nervous, or anxious, or unable to sleep at night because your mind is troubled all the time - these days [OSQ] Not at all [facility] Start: 07-10-2024 [facility] NEGATED: Highlighted row [facility] Goals Date Patient Goal Desired Activity /State Functional Status Date Assessment Result Facility 10-10-2014 Are you deaf, or do you have serious difficulty hearing No 10/10/2014 8:35 AM EDT [facility] No [facility] 10-10-2014 Are you blind, or do you have serious difficulty seeing, even when wearing glasses No 10/10/2014 8:35 AM EDT [facility] No [facility] 10-10-2014 Do you have serious difficulty walking or climbing stairs No 10/10/2014 8:35 AM EDT [facility] No [facility] 10-10-2014 Do you have difficul ty dressing or bathing No 10/10/2014 8:35 AM EDT [facility] No [facility] Mental Status Date Assessment Result Facility 09-05-2022 Cognitive function Voice/Name [facility] Work Phone: 10-10-2014 Because of a physica l, mental, or emotional condition, do you have serious difficulty concentrating, remembering, or making decisions No 10/10/2014 8:35 AM EDT [facility] No [facility] Clinical Notes 08-15-2005 to 03-22-2025 Note Date & Type Note Facility 03-22-2025 Progress note [facility] 03-22-2025 Progress note Note Date/Time March 22, 2025 3:53pm [facility] [address], [address] [place] [address] OFFICE VISIT Date of Service: 03/22/25 MR#: [id number] Acct: [id number] Name: ARACELIS WHITTINGTON Rep #: [id number] : 2000 Provider: Dr. Horacio Ng MD Age/Sex: 24/F Location: [facility] Status: Signed Intake Vital Signs 01/25/25 10:20 03/15/25 10:33 03/22/25 15:35 03/22/25 15:39 Height 5 ft 2 in 5 ft 2 in 5 ft 2 in 5 ft 2 in Weight: 155 lb 1 oz BMI 28.3 BP 136/87 H Intake Visit Reasons: 38 wk ob Patient Intake Coordinator Required: No Is patient in pain?: No Allergies No Known Allergies Allergy (Verified 03/22/25 15:35) Medications ?Medication ?Instructions ?Recorded ?Confirmed ?Type docosahexaenoic acid 200 mg mg PO 08/20/24 03/22/25 Hi story capsule ( DHA) famotidine 20 mg tablet (Pepcid) 20 mg PO BID #60 tabs 02/08/25 03/22/25 Rx Last Menstrual Period: 06/07/24 Zika: Zika virus screening: Negative : No PFSH PFSH Medical History Early stage of Wears contact lenses TMJ arthritis History of Holter monitoring History of echocardiogram Cardiology follow-up encounter Abnormal ultrasound Breast pain, right WPW (Khwaz-Ugotgvhbp-Ptknk syndrome) Palpitations Spondylolisthesis at L4-L5 level Segmental and somatic dysfunction of pelvic region Segmental and somatic dysfunction of lumbar region Segmental and somatic dysfunction of thoracic region Segmental and somatic dysfunction of cervical region Surgical History H/O breast biopsy Hx of wisdom tooth extraction History of cardiac radiofrequency ablation (RFA) (12/09/22) Family History Grandfather Myocardial infarction, Onset Age: 38 Grandmother CVA (cerebral vascular accident) Diabetes Mother Heart disease Social History adopted: No household members: spouse number of children: 0 current occupational status: employed current occupation: [employer] current occupational exposures/hazards: No pets and animals: No history of recent travel: Yes ([place] - June 2025) out of state: Yes out of country: No sexually active: Yes Smoking Status: Never smoker alcohol intake: never substance use type: does not use well-balanced diet: daily or most days caffeine: No eating out: 1-3 times/week during the past year weight has: remained stable what type of physical activity do you participate in: walking, running and weight training frequency: 3-4 times per week duration: 15-30 minutes/day christin/buddhism: Hoahaoism seatbelt use: always do you feel safe at home: Yes additional social history: : 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 OB Visit JAIR Calculator Estimated Delivery Date Method Current WG Current Estimate 04/02/25 Ultrasound #1 38w 3d Other Estimates 03/14/25 LMP (Certain) 41w 1d Expected Delivery Route/Plan Labor Preferences- CB/BF classes: encouraged labor support person: Vinicio labor intervention preferences: [] pain management options preferred: epidural cut cord/dad catch: maybe cord : yes PP control planned: discussed discussed possible routes of delivery and associated risks: [] special requests: [] Specific Issue/Plans Covid status: [] Flu vaccine: [] Tdap vaccine: given Rhogam: NA LARC form signed: yes Problem list reviewed and updated with the most current plan of care details and appropriate orders placed. Relevant counseling for the gestational age provided. Continue routine care and follow up unless otherwise noted in visit notes/problem list details Initial Weight: Not Recorded Date -?-?-?-?-?-?-?-?-?-?-?-?- EGA Weight BP Urine Prot -?-?-?-?-?-?-?-?-?-?-?-?- Glucose FHR FuHt Pres Dilation -?-?-?-?-?-?-?-?-?-?-?-?- Effaced St Visit Note 09/03/24 -?-?-?-?-?-?-?-?-?-?-?-?- 9w 6d 119 lb 127/81 -?-?-?-?-?-?-?-?-?-?-?-?- 181 -?-?-?-?-?-?-?-?-?-?-?-?- 1.71 CRL not con with LMP. con with early first us with care center. LC- 1.71 CRL not con with LM P. con with early first us with [facility]. 10/07/24 -?-?-?-?-?-?-?-?-?-?-?-?- 14w 5d 118 lb 133/83 -?-?-?-?-?-?-?-?-?-?-?-?- 161 -?-?-?-?-?-?-?-?-?-?-?-?- KW- no vb/crampi ng. US ordered today. 11/05/24 -?-?-?-?-?-?-?-?-?-?-?-?- 18w 6d 124 lb 117/72 Negative -?-?-?-?-?-?-?-?-?-?-?-?- Negative 160 -?-?-?-?-?-?-?-?-?-?-?-?- KW- no vb/crampi ng. + flutters. KW- no vb/cramping. + flutte rs. US reviewed. 12/03/24 -?-?-?-?-?-?-?-?-?-?-?-?- 22w 6d 127 lb 4 oz 123/81 Nega tive -?-?-?-?-?-?-?-?-?-?-?-?- Negative 150 23 -?-?-?-?-?-?-?-?-?-?-?-?- Sm- no vb lof go od fm no regular ctx 12/27/24 -?-?-?-?-?-?-?-?-?-?-?-?- 26w 2d 130 lb 2 oz 119/79 Nega tive -?-?-?-?-?-?-?-?-?-?-?-?- Negative 131 26 -?-?-?-?-?-?-?-?-?-?-?-?- KW- no vb/lof/ct x. good fm. glucose today. CBE classes discussed. traveling to [place] friday. travel precautions discussed. 01/25/25 -?-?-?-?-?-?-?-?-?-?-?-?- 30w 3d 136 lb 116/72 Negative -?-?-?-?-?-?-?-?-?-?-?-?- Negative 157 27 -?-?-?-?-?-?-?-?-?-?-?-?- -No VB, LOF. G ood FM. Growth US 02/08/25 -?-?-?-?-?-?-?-?-?-?-?-?- 32w 3d 137 lb 118/73 Negative -?-?-?-?-?-?-?-?-?-?-?-?- Negative 166 30 -?-?-?-?-?-?-?-?-?-?-?-?- JV- no lof, vagi nal bleeding, or dec fm. growth is 24th% with normal fluid. starting pepcid . 02/28/25 -?-?-?-?-?-?-?-?-?-?-?-?- 35w 2d 143 lb 9 oz 118/82 Nega tive -?-?-?-?-?-?-?-?-?-?-?-?- Negative 156 33 -?-?-?-?-?-?-?-?-?-?-?-?- -No VB, LOF. G ood FM. Denies concerns 03/08/25 -?-?-?-?-?-?-?-?-?-?-?-?- 36w 3d 144 lb 8 oz 135/79 Nega tive -?-?-?-?-?-?-?-?-?-?-?-?- Negative 150 32 Cephalic 0 -?-?--?-?-?-?-?-?-?-?-?-?- KW- no vb/lof/ct x. good fm. GBS positive in urine. Growth US ordered for S<D. bedside us shows laurel of 9 03/15/25 -?-?-?-?-?-?-?-?-?-?-?-?- 37w 3d 148 lb 6 oz 131/82 Nega tive -?-?-?-?-?-?-?-?-?-?-?-?- Negative 156 33 Cephalic 0 -?-?-?-?-?-?-?-?-?-?-?-?- -1 JV- norm al growth scan. head is low an reason for low FH. 03/22/25 -?-?-?-?-?-?-?-?-?-?-?-?- 38w 3d 155 lb 1 oz 136/87 Trac e -?-?-?-?-?-?-?-?-?-?-?-?- Negative 145 34 Cephalic 1 -?-?-?-?-?-?-?-?-?-?-?-?- 40 Sm- no v b good fm n oregular tx increased swelling reviewed preeclampsia precautions ACOG First Trimester First Trimester: Discussed Second Trimester Second Trimester: Signs and Symptoms of Labor, Selecting a care provider, Reproductive Life Planning & Contreception, Care Planning, Depression/Anxiety and Intimate Partner Violence Third Trimester Third Trimester: Pain Management Plans, Labor support person(s), Immediate Larc, Signs and Symptoms of Preeclampsia, Infant Feeding No and Family Medical Leave or Disability Forms Results POC Urinalysis 2 Dip (Clinic) Office Urine Glucose Negative Last Edit by Ava Merritt on 03/22/25 15:42 Office Urine Protein Trace Last Edit by Ava Merritt on 03/22/25 15:42 Coding Level of Care Code OB Routine Diagnoses Small for dates fetus Rubella non-immune status, antepartum O09.899; Z28.39 Group B Streptococcus urinary tract infection affecting in third trimester O23.43; B95.1 Trimester: third trimester Supervision of high risk in third trimester O09.93 Trimester: third trimester 38 weeks gestation of Z3A.38 Weeks of gestation: 38 weeks Breast lump N63.0 Breast mass location: unspecified quadrant Assessment and Plan Assessment and Plan (1) Small for dates fetus: Status: Acute Comment: growth US EFW 24%, AC 40% (2) Rubella non-immune status, antepartum: Status: Acute Comment: offer MMR vaccine pp. (3) GBS (group B streptococcus) UTI complicating : Status: Acute Qualifiers: Trimester: third trimester Qualified Code(s): O23.43 - Unspecified infection of urinary tract in , third trimester; B95.1 - Streptococcus, group B, as the cause of diseases classified elsewhere Comment: not high enough to treat in treat with PCN in labor. (4) Supervision of high-risk : Status: Acute Qualifiers: Trimester: third trimester Qualified Code(s): O09.93 - Supervision of high risk , unspecified, third trimester Comment: PRR, , JAIR 04/02/25, girl : Vinicio (5) : Status: Acute Qualifiers: Weeks of gestation: 38 weeks Qualified Code(s): Z3A.38 - 38 weeks gestation of Comment: NIPT low risk. Horizon neg. nl anatomy (6) Breast lump: Status: Acute Qualifiers: Breast mass location: unspecified quadrant Comment: right, fibroidadenoma Orders: Orders POC Urinalysis 2 Dip (Clinic) Today Plan Details Goals & Barriers: Goals Decrease spasm Decrease pain Improve ROM Barriers Healed lumbar fx 03/22/25 9341 <Electronically signed by Farzana pascual MD> Date _ [facility] Signature: Date (if applicable) CC: ~ [facility] Work Phone: 1(843) 469-281208-19-2025 Progress [facility] [address] [place] [address], [address] [place] [address] OFFICE VISIT Date of Service: 03/15/25 MR#: [id number] Acct: [id number] Name: ARACELIS WHITTINGTON Rep #: [id number] : 2000 Provider: Dr. Blossom Mckeon DO Age/Sex: 24/F Location: [facility] Status: Signed Intake Vital Signs 01/25/25 10:20 03/08/25 09:24 03/15/25 10:33 03/15/25 10:33 Height 5 ft 2 in 5 ft 2 in 5 ft 2 in 5 ft 2 in Weight: 148 lb 6 oz BMI 27.1 BP 131/82 H Intake Visit Reasons: 37 wk ob Patient Intake Coordinator Required: No Is patient in pain?: No Allergies No Known Allergies Allergy (Verified 03/15/25 10:33) Medications ?Medication ?Instructions ?Recorded ?Confirmed ?Type docosahexaenoic acid 200 mg mg PO 08/20/24 03/15/25 Hi story capsule ( DHA) famotidine 20 mg tablet (Pepcid) 20 mg PO BID #60 tabs 02/08/25 03/15/25 Rx Last Menstrual Period: 06/07/24 Zika: Zika virus screening: Negative : No PFSH PFSH Medical History Early stage of Wears contact lenses TMJ arthritis History of Holter monitoring History of echocardiogram Cardiology follow-up encounter Abnormal ultrasound Breast pain, right WPW (Jhxns-Gitcdqstx-Bvyhk syndrome) Palpitations Spondylolisthesis at L4-L5 level Segmental and somatic dysfunction of pelvic region Segmental and somatic dysfunction of lumbar region Segmental and somatic dysfunction of thoracic region Segmental and somatic dysfunction of cervical region Surgical History H/O breast biopsy Hx of wisdom tooth extraction History of cardiac radiofrequency ablation (RFA) (12/09/22) Family History Grandfather Myocardial infarction, Onset Age: 38 Grandmother CVA (cerebral vascular accident) Diabetes Mother Heart disease Social History adopted: No household members: spouse number of children: 0 current occupational status: employed current occupation: [employer] current occupational exposures/hazards: No pets and animals: No history of recent travel: Yes ([place] - June 2025) out of state: Yes out of country: No sexually active: Yes Smoking Status: Never smoker alcohol intake: never substance use type: does not use well-balanced diet: daily or most days caffeine: No eating out: 1-3 times/week during the past year weight has: remained stable what type of physical activity do you participate in: walking, running and weight training frequency: 3-4 times per week duration: 15-30 minutes/day christin/buddhism: Hoahaoism seatbelt use: always do you feel safe at home: Yes additional 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 OB Visit JAIR Calculator Estimated Delivery Date Method Current WG Current Estimate 04/02/25 Ultrasound #1 37w 3d Other Estimates 03/14/25 LMP (Certain) 40w 1d Expected Delivery Route/Plan Labor Preferences- CB/BF classes: encouraged labor support person: Vinicio labor intervention preferences: [] pain management options preferred: epidural cut cord/dad catch: maybe cord : yes PP control planned: discussed discussed possible routes of delivery and associated risks: [] special requests: [] Specific Issue/Plans Covid status: [] Flu vaccine: [] Tdap vaccine: given Rhogam: NA LARC form signed: yes Problem list reviewed and updated with the most current plan of care details and appropriate ordersplaced. Relevant counseling for the gestational age provided. Continue routine care and follow up unless otherwise noted in visit notes/problem list details Initial Weight: Not Recorded Date -?-?-?-?-?-?-?-?-?-?-?-?- EGA Weight BP Urine Prot -?-?-?-?-?-?-?-?-?-?-?-?- Glucose FHR FuHt Pres Dilation -?-?-?-?-?-?-?-?-?-?-?-?- Effaced St Visit Note 09/03/24 -?-?--?-?-?-?-?-?-?-?-?-?- 9w 6d 119 lb 127/81 -?-?-?-?-?-?-?-?-?-?-?-?- 181 -?-?-?-?-?-?-?-?-?-?-?-?- 1.71 CRL not con with LMP. con with early first us with care center. LC- 1.71 CRL not con with LM P. con with early first us with [facility]. 10/07/24 -?-?-?-?-?-?-?-?-?-?-?-?- 14w 5d 118 lb 133/83 -?-?-?-?-?-?-?-?-?-?-?-?- 161 -?-?-?-?-?-?-?-?-?-?-?-?- KW- no vb/crampi ng. US ordered today. 11/05/24 -?-?-?-?-?-?-?-?-?-?-?-?- 18w 6d 124 lb 117/72 Negative -?-?-?-?-?-?-?-?-?-?-?-?- Negative 160 -?-?-?-?-?-?-?-?-?-?-?-?- KW- no vb/crampi ng. + flutters. KW- no vb/cramping. + flutte rs. US reviewed. 12/03/24 -?-?-?-?-?-?-?-?-?-?-?-?- 22w 6d 127 lb 4 oz 123/81 Nega tive -?-?-?-?-?-?-?-?-?-?-?-?- Negative 150 23 -?-?-?-?-?-?-?-?-?-?-?-?- Sm- no vb lof go od fm no regular ctx 12/27/24 -?-?-?-?-?-?-?-?-?-?-?-?- 26w 2d 130 lb 2 oz 119/79 Nega tive -?-?-?-?-?-?--?-?-?-?-?-?- Negative 131 26 -?-?-?-?-?-?-?-?-?-?-?-?- KW- no vb/lof/ct x. good fm. glucose today. CBE classes discussed. traveling to [place] friday. travel precautions discussed. 01/25/25 -?-?-?-?-?-?-?-?-?-?-?-?- 30w 3d 136 lb 116/72 Negative -?-?-?-?-?-?-?-?-?-?-?-?- Negative 157 27 -?-?-?-?-?-?--?-?-?-?-?-?- MH-No VB, LOF. G ood FM. Growth US 02/08/25 -?-?-?-?-?-?-?-?-?-?-?-?- 32w 3d 137 lb 118/73 Negative -?-?-?-?-?-?-?-?-?-?-?-?- Negative 166 30 -?-?-?-?-?-?-?-?-?-?-?-?- JV- no lof, vagi nal bleeding, or dec fm. growth is 24th% with normal fluid. starting pepcid . 02/28/25 -?-?-?-?-?-?-?-?--?-?-?-?- 35w 2d 143 lb 9 oz 118/82 Nega tive -?-?-?-?-?-?-?-?-?-?-?-?- Negative 156 33 -?-?-?-?-?-?-?-?-?-?-?-?- MH-No VB, LOF. G ood FM. Denies concerns 03/08/25 -?-?-?-?-?-?-?-?-?-?-?-?- 36w 3d 144 lb 8 oz 135/79 Nega tive -?-?-?-?-?-?-?-?-?-?-?-?- Negative 150 32 Cephalic 0 -?-?-?-?-?-?-?-?-?-?-?-?- KW- no vb/lof/ct x. good fm. GBS positive in urine. Growth US ordered for Sbedside us shows laurel of 9 03/15/25 -?-?-?-?-?-?-?-?-?-?-?-?- 37w 3d 148 lb 6 oz 131/82 Nega tive -?-?-?-?-?-?-?-?-?-?-?-?- Negative 156 33 Cephalic 0 -?-?-?-?-?-?-?-?-?-?-?-?- -1 JV- norm al growth scan. head is low an reason for low FH. ACOG First Trimester First Trimester: Discussed Second Trimester Second Trimester: Signs and Symptoms of Labor, Selecting a care provider, Reproductive Life Planning & Contreception, Care Planning, Depression/Anxiety and Intimate Partner Violence Third Trimester Third Trimester: Pain Management Plans, Labor support person(s), Immediate Larc, Signs and Symptoms of Preeclampsia, Feeding No and Family Medical Leave or Disability Forms Results POC Urinalysis 2 Dip (Clinic) Office Urine Glucose Negative Last Edit by Radha Cox on 03/15/25 11: 04 Office Urine Protein Negative Last Edit by Radha Cox on 03/15/25 11: 04 Coding Level of Care Code OB Routine Diagnoses Small for dates fetus Rubella non-immune status, antepartum O09.899; Z28.39 Group B Streptococcus urinary tract infection affecting in third trimester O23.43; B95.1 Trimester: third trimester Supervision of high risk in third trimester O09.93 Trimester: third trimester 37 weeks gestation of Z3A.37 Weeks of gestation: 37 weeks Breast lump N63.0 Breast mass location: unspecified quadrant Assessment and Plan Assessment and Plan (1) Small for dates fetus: Status: Acute Comment: growth US EFW 24%, AC 40% (2) Rubella non-immune status, antepartum: Status: Acute Comment: offer MMR vaccine pp. (3) GBS (group B streptococcus) UTI complicating : Status: Acute Qualifiers: Trimester: third trimester Qualified Code(s): O23.43 - Unspecified infection of urinary tract in , third trimester; B95.1 - Streptococcus, group B, as the cause of diseases classified elsewhere Comment: not high enough to treat in treat with PCN in labor. (4) Supervision of high-risk : Status: Acute Qualifiers: Trimester: third trimester Qualified Code(s): O09.93 - Supervision of high risk , unspecified, third trimester Comment: PRR, , JAIR 04/02/25, girl : Vinicio (5) : Status: Acute Qualifiers: Weeks of gestation: 37 weeks Qualified Code(s): Z3A.37 - 37 weeks gestation of Comment: NIPT low risk. Horizon neg. nl anatomy (6) Breast lump: Status: Acute Qualifiers: Breast mass location: unspecified quadrant Comment: right, fibroidadenoma Orders: Orders POC Urinalysis 2 Dip (Clinic) Today Plan Details Goals & Barriers: Goals Decrease spasm Decrease pain Improve ROM Barriers Healed lumbar fx 03/15/25 1109 e Velde DO> Date _ Cecile Majorignjamel Signature: Date (if applicable) CC: ~ [facility]08-14-2025 Radiology Diagnostic study note [facility] [address], [place] [id number] OB Limited With Biometrics MR#: [id number] Acct: [id number] Name: ARACELIS WHITTINGTON Rep #: [id number] : 2000 F 24 From: Toney Carranza MD PCP: Dr. 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 FINDINGS LMP: June 26, 2024. Number: 1 Position: Vertex Placental Position: Anterior and not low-lying Placental Abnormalities: No evidence of previa. DIMENSIONS: Biparietal Diameter: 8.5 cm: 34 weeks and 1 day: 6 percentile/ Head Circumference: 31.3 cm: 35 weeks and 1 day: 3rd percentile/ Abdominal Circumference: 32.8 cm: 36 weeks and 5 days: 64 percentile/ Femur Length: 7.1 cm: 36 weeks and 1 day: 34 percentile/ ESTIMATED WEIGHT: 2895 g plus/-434 g ESTIMATED WEIGHT PERCENTILE (24+ weeks): 43 ESTIMATED GESTATIONAL AGE: Baseline: 36 weeks and 5 days By Ultrasound: 35 weeks and 2 days ESTIMATED DATE OF DELIVERY: Baseline: April 02, 2025 By Ultrasound: April 12, 2025 BIOPHYSICAL ASSESSMENT: Amniotic Fluid Volume: 6.3 cm Amniotic Fluid Index: 9.3 cm (8-24 cm normal range) Cardiac Motion: 141 beats per minute (average) Trunk and Limb Motion: Present. MATERNAL ANATOMY: Adnexa: Neither maternal ovary is successfully identified. US/OB Limited With Biometrics IMPRESSION: Single live intrauterine gestation with a mean gestational age of 35 weeks and 2days. Reading Location: [place] [address] CC: AMAN Ellis; Dr. Neymar Ronquillo MD ~ Jewel Sorter: Signed [facility]08-12-2025 [facility] [address], [address] [place] [address] OFFICE VISIT Date of Service: 03/08/25 MR#: [id number] Acct: [id number] Name: ARACELIS WHITTINGTON SINDI Rep #: [id number] : 2000 Provider: AMAN Ellis Age/Sex: 24/F Location: [facility] [place] [facility] Status: Signed Intake Vital Signs 01/25/25 10:20 02/28/25 08:31 03/08/25 09:24 Height 5 ft 2 in 5 ft 2 in 5 ft 2 in Weight: 144 lb 8 oz BMI 26.4 BP 135/79 H Intake Visit Reasons: 36 wk ob Chief Complaint: 36wk OB Patient Intake Coordinator Required: No Is patient in pain?: No Allergies No Known Allergies Allergy (Verified 03/08/25 09:22) Medications ?Medication ?Instructions ?Recorded ?Confirmed ?Type docosahexaenoic acid 200 mg mg PO 08/20/24 03/08/25 Hi story capsule ( DHA) famotidine 20 mg tablet (Pepcid) 20 mg PO BID #60 tabs 02/08/25 03/08/25 Rx Last Menstrual Period: 06/07/24 : No Have you fallen in the past year?: No PFSH PFSH Medical History Early stage of Wears contact lenses TMJ arthritis History of Holter monitoring History of echocardiogram Cardiology follow-up encounter Abnormal ultrasound Breast pain, right WPW (Clhch-Ytcidhutp-Yerhf syndrome) Palpitations Spondylolisthesis at L4-L5 level Segmental and somatic dysfunction of pelvic region Segmental and somatic dysfunction of lumbar region Segmental and somatic dysfunction of thoracic region Segmental and somatic dysfunction of cervical region Surgical History H/O breast biopsy Hx of wisdom tooth extraction History of cardiac radiofrequency ablation (RFA) (12/09/22) Family History Grandfather Myocardial infarction, Onset Age: 38 Grandmother CVA (cerebral vascular accident) Diabetes Mother Heart disease Social History adopted: No household members: spouse number of children: 0 current occupational status: employed 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[employer] current occupational exposures/hazards: No pets and animals: No history of recent travel: Yes ([place] - June 2025) out of state: Yes out of country: No sexually active: Yes Smoking Status: Never smoker alcohol intake: never substance use type: does not use well-balanced diet: daily or most days caffeine: No eating out: 1-3 times/week during the past year weight has: remained stable what type of physical activity do you participate in: walking, running and weight training frequency: 3-4 times per week duration: 15-30 minutes/day christin/buddhism: Hoahaoism seatbelt use: always do you feel safe at home: Yes additional social history: : 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 OB Visit JAIR Calculator Estimated Delivery Date Method Current WG Current Estimate 04/02/25 Ultrasound #1 36w 3d Other Estimates 03/14/25 LMP (Certain) 39w 1d Expected Delivery Route/Plan Labor Preferences- CB/BF classes: encouraged labor support person: Vinicio labor intervention preferences: [] pain management options preferred: epidural cut cord/dad catch: maybe cord : yes PP control planned: discussed discussed possible routes of delivery and associated risks: [] special requests: [] Specific Issue/Plans Covid status: [] Flu vaccine: [] Tdap vaccine: given Rhogam: NA LARC form signed: yes Problem list reviewed and updated with the most current plan of care details and appropriate ordersplaced. Relevant counseling for the gestational age provided. Continue routine care and follow up unless otherwise noted in visit notes/problem list details Initial Weight: Not Recorded Date -?-?-?-?-?-?-?-?-?-?-?-?- EGA Weight BP Urine Prot -?-?-?-?-?-?-?-?-?-?-?-?- Glucose FHR FuHt Pres Dilation -?-?-?-?-?-?-?-?-?-?-?-?- Effaced St Visit Note 09/03/24 -?-?-?-?-?-?-?-?-?-?-?-?- 9w 6d 119 lb 127/81 -?-?-?-?-?-?-?-?-?-?-?-?- 181 -?-?-?-?-?-?-?-?-?-?-?-?- .71 CRL not con with LMP. con with early first us with care center. LC- 1.71 CRL not con with LM P. con with early first us with care center. 10/07/24 -?-?-?-?-?-?-?-?-?-?-?-?- 14w 5d 118 lb 133/83 -?-?-?-?-?-?--?-?-?-?-?-?- 161 -?-?-?-?-?-?-?-?-?-?-?-?- KW- no vb/crampi ng. US ordered today. 11/05/24 -?-?-?-?-?-?-?-?-?-?-?-?- 18w 6d 124 lb 117/72 Negative -?-?-?-?-?-?-?-?-?-?-?-?- Negative 160 -?-?-?-?-?-?-?-?-?-?-?-?- KW- no vb/crampi ng. + flutters. KW- no vb/cramping. + flutte rs. US reviewed. 12/03/24 -?-?-?-?-?-?-?-?-?-?-?-?- 22w 6d 127 lb 4 oz 123/81 Nega tive -?-?-?-?-?-?-?-?-?-?-?-?- Negative 150 23 -?-?-?-?-?-?-?-?-?-?-?--?- Sm- no vb lof go od fm no regular ctx 12/27/24 -?-?-?-?-?-?-?-?-?-?-?-?- 26w 2d 130 lb 2 oz 119/79 Nega tive -?-?-?-?-?-?-?-?-?-?-?-?- Negative 131 26 -?-?-?-?-?-?-?-?-?-?-?-?- KW- no vb/lof/ct x. good fm. glucose today. CBE classes discussed. traveling to [place] friday. travel precautions discussed. 01/25/25 -?-?-?-?-?-?-?-?-?-?-?-?- 30w 3d 136 lb 116/72 Negative -?-?-?-?-?-?-?-?-?-?-?-?- Negative 157 27 -?-?-?-?-?-?-?-?-?-?-?-?- MH-No VB, LOF. G ood FM. Growth US 02/08/25 -?-?-?-?-?-?-?-?-?-?-?-?- 32w 3d 137 lb 118/73 Negative -?-?-?-?-?-?-?-?-?-?-?-?- Negative 166 30 -?-?-?-?-?-?-?-?-?-?-?-?- JV- no lof, vagi nal bleeding, or dec fm. growth is 24th% with normal fluid. starting pepcid . 02/28/25 -?-?-?-?-?-?-?-?-?-?-?-?- 35w 2d 143 lb 9 oz 118/82 Nega tive -?-?-?-?-?-?-?-?-?-?-?-?- Negative 156 33 -?-?-?-?-?-?-?-?-?-?-?-?- MH-No VB, LOF. G ood FM. Denies concerns 03/08/25 -?-?-?-?-?-?-?-?-?-?-?-?- 36w 3d 144 lb 8 oz 135/79 Nega tive -?-?-?-?-?-?-?-?-?-?-?-?- Negative 150 32 Cephalic 0 -?-?-?-?-?-?-?-?-?-?-?-?- KW- no vb/lof/ct x. good fm. GBS positive in urine. Growth US ordered for Sbedside us shows laurel of 9 ACOG First Trimester First Trimester: Discussed Second Trimester Second Trimester: Signs and Symptoms of Labor, Selecting a care provider, Reproductive Life Planning & Contreception, Care Planning, Depression/Anxiety and Intimate Partner Violence Third Trimester Third Trimester: Pain Management Plans, Labor support person(s), Immediate Larc, Signs and Symptoms of Preeclampsia, Infant Feeding No and Family Medical Leave or Disability Forms ROS Const Reports system reviewed and no additional complaints, except as documented Eyes Reports system reviewed and no additional complaints, except as documented ENT Reports system reviewed and no additional complaints, except as documented Card Reports system reviewed and no additional complaints, except as documented Resp Reports system reviewed and no additional complaints, except as documented GI Reports system reviewed and no additional complaints, except as documented, Denies nausea and Denies vomiting Reports system reviewed and no additional complaints, except as documented Musc Reports system reviewed and no additional complaints, except as documented Skin/Breast Reports system reviewed and no additional complaints, except as documented Neuro Yes system reviewed and no additional complaints, except as documented Psych Reports system reviewed and no additional complaints, except as documented Endo Reports system reviewed and no additional complaints, except as documented Pola/Lymph Reports system reviewed and no additional complaints, except as documented Aller/Immun Reports system reviewed and no additional complaints, except as documented Exam Const General: cooperative, healthy appearing and no acute distress Orientation: alert, awake and oriented x3 Neck Neck: normal visual inspection and full ROM Resp Effort & Inspection: normal respiratory effort, able to speak in complete sentences and symmetric chest movement GI Inspection: normal to inspection Palpation: soft and other Other: gravid Skin General: no rashes or lesions noted Neuro General: patient alert, patient awake and patient oriented x3 Cognition: normal cognition Speech: speech normal Gait: normal gait Motor: muscle tone normal throughout Extrem General: normal to inspection and full ROM Psych Appearance: grossly normal Mental Status: mental status grossly normal Mood: congruent mood Affect: normal affect Speech and Movement: speech and movement normal Attitude: cooperative Thought Process: normal Thought Content: normal Judgment: judgment good Results POC Urinalysis 2 Dip (Clinic) Office Urine Glucose Negative Last Edit by Sia Felix on 03/08/25 09:29 Office Urine Protein Negative Last Edit by Sia Felix on 03/08/25 09:29 Coding Level of Care Code OB Routine Diagnoses Small for dates fetus Group B Streptococcus urinary tract infection affecting in third trimester O23.43; B95.1 Trimester: third trimester Rubella non-immune status, antepartum O09.899; Z28.39 Supervision of high risk in third trimester O09.93 Trimester: third trimester 36 weeks gestation of Z3A.36 Weeks of gestation: 36 weeks Breast lump N63.0 Breast mass location: unspecified quadrant Assessment and Plan Assessment and Plan (1) Small for dates fetus: Status: Acute Comment: growth US EFW 24%, AC 40% (2) GBS (group B streptococcus) UTI complicating : Status: Acute Qualifiers: Trimester: third trimester Qualified Code(s): O23.43 - Unspecified infection of urinary tract in , third trimester; B95.1 - Streptococcus, group B, as the cause of diseases classified elsewhere Comment: not high enough to treat in treat with PCN in labor. (3) Rubella non-immune status, antepartum: Status: Acute Comment: offer MMR vaccine pp. (4) Supervision of high-risk : Status: Acute Qualifiers: Trimester: third trimester Qualified Code(s): O09.93 - Supervision of high risk , unspecified, third trimester Comment: PRR, , JAIR 04/02/25, girl : Vinicio (5) : Status: Acute Qualifiers: Weeks of gestation: 36 weeks Qualified Code(s): Z3A.36 - 36 weeks gestation of Comment: NIPT low risk. Horizon neg. nl anatomy (6) Breast lump: Status: Acute Qualifiers: Breast mass location: unspecified quadrant Comment: right, fibroidadenoma Orders: Orders POC Urinalysis 2 Dip (Clinic) Today Plan Details Additional Comments: ACOG trimester education reviewed and updated. see problem list details for updated plan management information and see below for orders placed atthis visit. GA appropriate handout given. Goals & Barriers: Goals Decrease spasm Decrease pain Improve ROM Barriers Healed lumbar fx Clinical Quality Measures Falls Risk Screening/Assistive Devices Have you fallen in the past year?: No 03/08/25 0956 s AMAN> Date _ Gay Cam Signature: Date (if applicable) CC: ~ [facility]07-15-2025 [facility] [address] [place] [address], [address] [place] [address] OFFICE VISIT Date of Service: 02/08/25 MR#: [id number] Acct: [id number] Name: ARACELIS WHITTINGTON Rep #: [id number] : 2000 Provider: Dr. Blossom Mckeon DO Age/Sex: 24/F Location: [facility] [place] Status: Signed Intake Vital Signs 12/27/24 10:42 01/25/25 10:20 02/08/25 10:17 Height 5 ft 2 in 5 ft 2 in 5 ft 2 in Weight: 137 lb BMI 25.0 BP 118/73 Intake Visit Reasons: 32wk ob Chief Complaint: 32wk OB Patient Intake Coordinator Required: No Is patient in pain?: No Allergies No Known Allergies Allergy (Verified 02/08/25 10:15) Medications ?Medication ?Instructions ?Recorded ?Confirmed ?Type docosahexaenoic acid 200 mg mg PO 08/20/24 02/08/25 Hi story capsule ( DHA) famotidine 20 mg tablet (Pepcid) 20 mg PO BID #60 tabs 02/08/25 02/08/25 Rx Last Menstrual Period: 06/07/24 : No Have you fallen in the past year?: No PFSH PFSH Medical History Early stage of Wears contact lenses TMJ arthritis History of Holter monitoring History of echocardiogram Cardiology follow-up encounter Abnormal ultrasound Breast pain, right WPW (Klnoj-Rioawwseh-Bjpjv syndrome) Palpitations Spondylolisthesis at L4-L5 level Segmental and somatic dysfunction of pelvic region Segmental and somatic dysfunction of lumbar region Segmental and somatic dysfunction of thoracic region Segmental and somatic dysfunction of cervical region Surgical History H/O breast biopsy Hx of wisdom tooth extraction History of cardiac radiofrequency ablation (RFA) (12/09/22) Family History Grandfather Myocardial infarction, Onset Age: 38 Grandmother CVA (cerebral vascular accident) Diabetes Mother Heart disease Social History adopted: No household members: spouse number of children: 0 current occupational status: employed 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[employer] 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 occupational exposures/hazards: No pets and animals: No history of recent travel: Yes ([place] - June 2025) out of state: Yes out of country: No sexually active: Yes Smoking Status: Never smoker alcohol intake: never substance use type: does not use well-balanced diet: daily or most days caffeine: No eating out: 1-3 times/week during the past year weight has: remained stable what type of physical activity do you participate in: walking, running and weight training frequency: 3-4 times per week duration: 15-30 minutes/day christin/buddhism: Hoahaoism seatbelt use: always do you feel safe at home: Yes additional social history: : 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 OB Visit JAIR Calculator Estimated Delivery Date Method Current WG Current Estimate 04/02/25 Ultrasound #1 32w 3d Other Estimates 03/14/25 LMP (Certain) 35w 1d Expected Delivery Route/Plan Labor Preferences- CB/BF classes: encouraged labor support person: Vinicio labor intervention preferences: [] pain management options preferred: epidural cut cord/dad catch: maybe cord : yes PP control planned: discussed discussed possible routes of delivery and associated risks: [] special requests: [] Specific Issue/Plans Covid status: [] Flu vaccine: [] Tdap vaccine: given Rhogam: NA LARC form signed: yes Problem list reviewed and updated with the most current plan of care details and appropriate ordersplaced. Relevant counseling for the gestational age provided. Continue routine care and follow up unless otherwise noted in visit notes/problem list details Initial Weight: Not Recorded Date -?-?-?-?-?-?-?-?-?-?-?-?- EGA Weight BP Urine Prot -?-?-?-?-?-?-?-?-?-?-?-?- Glucose FHR FuHt Pres Dilation -?-?-?-?-?-?-?-?-?-?-?-?- Effaced St Visit Note 02/07/25 -?-?-?-?-?-?-?-?-?-?-?-?- 9w 6d 119 lb 127/81 -?-?-?-?-?-?-?-?-?-?-?-?- 181 -?-?-?-?-?-?-?-?-?-?-?-?- 1.71 CRL not con with LMP. con with early first us with care center. LC- 1.71 CRL not con with LM P. con with early first us with [facility]. 10/07/24 -?-?-?-?-?-?-?-?-?-?-?-?- 14w 5d 118 lb 133/83 -?-?-?-?-?-?--?-?-?-?-?-?- 161 -?-?-?-?-?-?-?-?-?-?-?-?- KW- no vb/crampi ng. US ordered today. 11/05/24 -?-?-?-?-?-?-?-?-?-?-?-?- 18w 6d 124 lb 117/72 Negative -?-?-?-?-?-?-?-?-?-?-?-?- Negative 160 -?-?-?-?-?-?-?-?-?-?-?-?- KW- no vb/crampi ng. + flutters. KW- no vb/cramping. + flutte rs. US reviewed. 12/03/24 -?-?-?-?-?-?-?-?-?-?-?-?- 22w 6d 127 lb 4 oz 123/81 Nega tive -?-?-?-?-?-?-?-?-?-?-?-?- Negative 150 23 -?-?-?-?-?-?-?-?-?-?-?--?- Sm- no vb lof go od fm no regular ctx 12/27/24 -?-?-?-?-?-?-?-?-?-?-?-?- 26w 2d 130 lb 2 oz 119/79 Nega tive -?-?-?-?-?-?-?-?-?-?-?-?- Negative 131 26 -?-?-?-?-?-?-?-?-?-?-?-?- KW- no vb/lof/ct x. good fm. glucose today. CBE classes discussed. traveling to [place] friday. travel precautions discussed. 01/25/25 -?-?-?-?-?-?-?-?-?-?-?-?- 30w 3d 136 lb 116/72 Negative -?-?-?-?-?-?-?-?-?-?-?-?- Negative 157 27 -?-?-?-?-?-?-?-?-?-?-?-?- MH-No VB, LOF. G ood FM. Growth US 02/08/25 -?-?-?-?-?-?-?-?-?-?-?-?- 32w 3d 137 lb 118/73 Negative -?-?-?-?-?-?-?-?-?-?-?-?- Negative 166 30 -?-?-?-?-?-?-?-?-?-?-?-?- JV- no lof, vagi nal bleeding, or dec fm. growth is 24th% with normal fluid. starting pepcid . ACOG First Trimester First Trimester: Discussed Second Trimester Second Trimester: Signs and Symptoms of Labor, Selecting a care provider, Reproductive Life Planning & Contreception, Care Planning, Depression/Anxiety and Intimate Partner Violence Third Trimester Third Trimester: Pain Management Plans, Labor support person(s), Immediate Larc, Signs and Symptoms of Preeclampsia, Infant Feeding No and Family Medical Leave or Disability Forms Results POC Urinalysis 2 Dip (Clinic) Office Urine Glucose Negative Last Edit by Sia Felix on 02/08/25 10:22 Office Urine Protein Negative Last Edit by Sia Felix on 02/08/25 10:22 Coding Level of Care Code OB Routine Diagnoses Small for dates fetus Rubella non-immune status, antepartum O09.899; Z28.39 Group B Streptococcus urinary tract infection affecting in third trimester O23.43; B95.1 Trimester: third trimester Supervision of high risk in third trimester O09.93 Trimester: third trimester 32 weeks gestation of Z3A.32 Weeks of gestation: 32 weeks Breast lump N63.0 Breast mass location: unspecified quadrant Assessment and Plan Assessment and Plan (1) Small for dates fetus: Status: Acute Comment: growth US (2) Rubella non-immune status, antepartum: Status: Acute Comment: offer MMR vaccine pp. (3) GBS (group B streptococcus) UTI complicating : Status: Acute Qualifiers: Trimester: third trimester Qualified Code(s): O23.43 - Unspecified infection of urinary tract in , third trimester; B95.1 - Streptococcus, group B, as the cause of diseases classified elsewhere Comment: not high enough to treat in treat with PCN in labor. (4) Supervision of high-risk : Status: Acute Qualifiers: Trimester: third trimester Qualified Code(s): O09.93 - Supervision of high risk , unspecified, third trimester Comment: PRR, , JAIR 04/02/25, girl : Vinicio (5) : Status: Acute Qualifiers: Weeks of gestation: 32 weeks Qualified Code(s): Z3A.32 - 32 weeks gestation of Comment: NIPT low risk. Horizon neg. nl anatomy (6) Breast lump: Status: Acute Qualifiers: Breast mass location: unspecified quadrant Comment: right, fibroidadenoma Orders: Orders POC Urinalysis 2 Dip (Clinic) Today Medications: New famotidine (Pepcid) 20 mg PO BID 60 tabs 5RF Plan Details Goals & Barriers: Goals Decrease spasm Decrease pain Improve ROM Barriers Healed lumbar fx Clinical Quality Measures Falls Risk Screening/Assistive Devices Have you fallen in the past year?: No 02/08/25 1102 e Marisol DO> Date _ Cecile Mckeon DO [facility] Signature: Date (if applicable) CC: ~ [facility]07-11-2025 Radiology Diagnostic study note [facility] Imaging Services [address] [place] [address] OB Limited With Biometrics MR#: [id number] Acct: [id number] Name: ARACELIS WHITTINGTON Rep #: [id number] : 2000 F 24 From: Aleena Abrams MD PCP: Dr. Neymar Ronquillo MD Status: REG C RUMA Study:OB Limited With Biometrics Date of Exam : 02/03/25 Exam# [id number] Ordering Dr: Ava Pinto COLD MOLDING PRESS OPERATOR COLD MOLDING PRESS OPERATOR-C PROCEDURE: OB LIMITED WITH BIOMETRICS 02/03/2025 REASON FOR EXAM: GROWTH- SMALL FOR DATES FETUS TECHNIQUE: OB LIMITED WITH BIOMETRICS COMPARISON: None FINDINGS There is a single intrauterine fetus. The fetus is in a cephalic presentation. There is demonstrated cardiac activity with a heart rate of 162 bpm. There is a normal amniotic fluid volume, [place] 11.7 cm. The placenta is anterior . There are Grade 3 placental changes. Cervix 3.1 cm. BIOMETRY: BPD: 7.44 Cm: 29 weeks, 6 days HC: 9.9 Cm : 31 weeks, 4 days AC: 28.7 Cm : 31 weeks,3 days FL: 27.4 Cm : 31 weeks, 0 day Age by LMP: 31 weeks, 5 days. JAIR by LMP:04/02/2025 . age by current US: 30 weeks,6 days. JAIR by current US: 04/08/2025 . Estimated weight: 1714 grams, +/- 257 grams. 24 %. US/OB Limited With Biometrics IMPRESSION: Single intrauterine fetus. Age by LMP: 31 weeks, 5 days. JAIR by LMP:04/02/2025 . age by current US: 30 weeks,6 days. JAIR by current US: 04/08/2025 . Estimated weight: 1714 grams, +/- 257 grams. 24 %. Reading Location: [place] [address] CC: KIKE Pinto; Dr. Neymar Ronquillo MD ~ Jewel Sorter: Signed [facility]07-01-2025 [facility] [address], [address] [place] [address] OFFICE VISIT Date of Service: 01/25/25 MR#: [id number] Acct: [id number] Name: ARACELIS WHITTINGTON Rep #: [id number] : 2000 Provider: KIKE Pinto Age/Sex: 24/F Location: [facility] [place] [facility] Status: Signed with Addenda ADDENDUM by Jen Fontana on 01/25/25 at 1046 Office Procedure Documentation entered by Jen Fontana 01/25/25 10:46: Immunizations Adacel(Tdap Adolesn/Adult)(PF) 2 Lf-(2.5-5-3-5)-5 Lf/0.5 mL IM syringe Performing Provider: KIKE Youssef NP Performing Location: [facility] Administered by: Jen Fontana on 01/25/25 10:45 Dose Route Admin Location Dispensed Lot Number Expiration Date [employer] 0.5 mL IM Left Deltoid 0.5 mL [id number] 01/24/27 63222-751-38 [employer] VIS Given Date VIS Provided VIS Publication Date 01/25/25 Single Vaccine 24 Eligibility Eligibility Date Funding Source Not Applicable Date _ cc: ~* Signed Intake Vital Signs 12/03/24 14:51 12/27/24 10:42 01/25/25 10:20 Height 5 ft 2 in 5 ft 2 in 5 ft 2 in Weight: 136 lb BMI 24.8 BP 116/72 Intake Visit Reasons: 30 wk ob Chief Complaint: 30 Week OB Patient Intake Coordinator Required: No Is patient in pain?: No Allergies No Known Allergies Allergy (Verified 01/25/25 10:22) Medications ?Medication ?Instructions ?Recorded ?Confirmed ?Type docosahexaenoic acid 200 mg mg PO 08/20/24 01/25/25 Hi story capsule ( DHA) Last Menstrual Period: 06/07/24 Zika: Zika virus screening: Negative : Yes PFSH PFSH Medical History Early stage of Wears contact lenses TMJ arthritis History of Holter monitoring History of echocardiogram Cardiology follow-up encounter Abnormal ultrasound Breast pain, right WPW (Hkyop-Fmxddlpoa-Amita syndrome) Palpitations Spondylolisthesis at L4-L5 level Segmental and somatic dysfunction of pelvic region Segmental and somatic dysfunction of lumbar region Segmental and somatic dysfunction of thoracic region Segmental and somatic dysfunction of cervical region Surgical History H/O breast biopsy Hx of wisdom tooth extraction History of cardiac radiofrequency ablation (RFA) (12/09/22) Family History Grandfather Myocardial infarction, Onset Age: 38 Grandmother CVA (cerebral vascular accident) Diabetes Mother Heart disease Social History adopted: No household members: spouse number of children: 0 current occupational status: employed current occupation: [employer] current occupational exposures/hazards: No pets and animals: No history of recent travel: Yes ([place] - June 2025) out of state: Yes out of country: No sexually active: Yes Smoking Status: Never smoker alcohol intake: never substance use type: does not use well-balanced diet: daily or most days caffeine: No eating out: 1-3 times/week during the past year weight has: remained stable what type of physical activity do you participate in: walking, running and weight training frequency: 3-4 times per week duration: 15-30 minutes/day christin/buddhism: Hoahaoism seatbelt use: always do you feel safe at home: Yes additional social history: : 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 OB Visit JAIR Calculator Estimated Delivery Date Method Current WG Current Estimate 04/02/25 Ultrasound #1 30w 3d Other Estimates 03/14/25 LMP (Certain) 33w 1d Expected Delivery Route/Plan Labor Preferences- CB/BF classes: encouraged labor support person: Vinicio labor intervention preferences: [] pain management options preferred: epidural cut cord/dad catch: maybe cord : yes PP control planned: discussed discussed possible routes of delivery and associated risks: [] special requests: [] Specific Issue/Plans Covid status: [] Flu vaccine: [] Tdap vaccine: given Rhogam: NA LARC form signed: yes Problem list reviewed and updated with the most current plan of care details and appropriate ordersplaced. Relevant counseling for the gestational age provided. Continue routine care and follow up unless otherwise noted in visit notes/problem list details Initial Weight: Not Recorded Date -?-?-?-?-?-?-?-?-?-?-?-?- EGA Weight BP Urine Prot -?-?-?-?-?-?-?-?-?-?-?-?- Glucose FHR FuHt Pres Dilation -?-?-?-?-?-?-?-?-?-?-?-?- Effaced St Visit Note 09/03/24 -?-?-?-?-?-?-?-?-?-?-?-?- 9w 6d 119 lb 127/81 -?-?-?-?-?-?-?-?-?-?-?-?- 181 -?-?-?-?-?-?-?-?-?-?-?-?- 1.71 CRL not con with LMP. con with early first us with care center. LC- 1.71 CRL not con with LM P. con with early first us with care center. 10/07/24 -?-?-?-?-?-?-?-?-?-?-?-?- 14w 5d 118 lb 133/83 -?-?-?-?-?-?-?-?-?-?-?-?- 161 -?-?-?-?-?-?-?-?-?-?-?-?- KW- no vb/crampi ng. US ordered today. 11/05/24 -?-?-?-?-?-?-?-?--?-?-?-?- 18w 6d 124 lb 117/72 Negative -?-?-?-?-?-?-?-?-?-?-?-?- Negative 160 -?-?-?-?-?-?-?-?-?-?-?-?- KW- no vb/crampi ng. + flutters. KW- no vb/cramping. + flutte rs. US reviewed. 12/03/24 -?-?-?-?-?-?-?-?-?-?-?-?- 22w 6d 127 lb 4 oz 123/81 Nega tive -?-?-?-?-?-?-?-?-?-?-?-?- Negative 150 23 -?-?-?-?-?-?-?-?-?-?-?-?- Sm- no vb lof go od fm no regular ctx 12/27/24 -?-?-?-?-?-?-?-?-?-?-?-?- 26w 2d 130 lb 2 oz 119/79 Nega tive -?-?-?-?-?-?-?-?-?-?-?-?- Negative 131 26 -?-?-?-?-?-?-?-?-?-?-?-?- KW- no vb/lof/ct x. good fm. glucose today. CBE classes discussed. traveling to [place] friday. travel precautions discussed. 01/25/25 -?-?-?-?-?-?-?-?-?-?-?-?- 30w 3d 136 lb 116/72 Negative -?-?-?-?-?-?-?-?-?-?-?-?- Negative 157 27 -?-?-?-?-?-?-?-?-?-?-?-?- MH-No VB, LOF. G ood FM. Growth US ACOG First Trimester First Trimester: Second Trimester Second Trimester: Signs and Symptoms of Labor, Selecting a care provider, Reproductive Life Planning & Contreception, Care Planning, Depression/Anxiety and Intimate Partner Violence Third Trimester Third Trimester: Pain Management Plans, Labor support person(s), Immediate Larc, Signs and Symptoms of Preeclampsia, Feeding Yes and Family Medical Leave or DisabilityForms ROS Const Reports system reviewed and no additional complaints, except as documented GI Denies abdominal pain, Denies nausea and Denies vomiting Exam Const General: cooperative Nutritional Appearance: well nourished GI Palpation: soft, nontender and other (gravid) Results POC Urinalysis 2 Dip (Clinic) Office Urine Glucose Negative Last Edit by Jen Fontana on 01/25/25 10 :30 Office Urine Protein Negative Last Edit by Jen Fontana on 01/25/25 10 :30 Coding Level of Care Code OB Routine Diagnoses Supervision of high risk in third trimester O09.93 Trimester: third trimester 30 weeks gestation of Z3A.30 Weeks of gestation: 30 weeks Group B Streptococcus urinary tract infection affecting in third trimester O23.43; B95.1 Trimester: third trimester Rubella non-immune status, antepartum O09.899; Z28.39 Small for dates fetus Assessment and Plan Assessment and Plan (1) Supervision of high-risk : Status: Acute Qualifiers: Trimester: third trimester Qualified Code(s): O09.93 - Supervision of high risk , unspecified, third trimester Comment: INGRID, , JAIR 04/02/25, girl : Vinicio (2) : Status: Acute Qualifiers: Weeks of gestation: 30 weeks Qualified Code(s): Z3A.30 - 30 weeks gestation of Comment: NIPT low risk. Horizon neg. nl anatomy (3) GBS (group B streptococcus) UTI complicating : Status: Acute Qualifiers: Trimester: third trimester Qualified Code(s): O23.43 - Unspecified infection of urinary tract in , third trimester; B95.1 - Streptococcus, group B, as the cause of diseases classified elsewhere Comment: not high enough to treat in treat with PCN in labor. (4) Rubella non-immune status, antepartum: Status: Acute Comment: offer MMR vaccine pp. (5) Small for dates fetus: Status: Acute Comment: growth US Orders: Orders POC Urinalysis 2 Dip (Clinic) Today Plan problem list reviewed and updated for most current plan of care and appropriate orders placed. Relevant counseling for the gestational age appropriate provided and ACOG education checklist updated. Continue routine care and follow up. Plan Details Goals & Barriers: Goals Decrease spasm Decrease pain Improve ROM Barriers Healed lumbar fx 01/25/25 1042 s COLD MOLDING PRESS OPERATOR COLD MOLDING PRESS OPERATOR-C> Date _ [facility] [place] COLD MOLDING PRESS OPERATOR COLD MOLDING PRESS OPERATOR-C Cosigner Signature: Date (if applicable) CC: ~ [facility]06-02-2025 Progress [facility] [address] [place] [address], [address] [place] [address] OFFICE VISIT Date of Service: 12/27/24 MR#: [id number] Acct: [id number] Name: ARACELIS WHITTINGTON Rep #: [id number] : 2000 Provider: AMAN Ellis Age/Sex: 24/F Location: [facility] Status: Signed Intake Vital Signs 11/05/24 14:16 12/03/24 14:51 12/27/24 10:42 Height 5 ft 2 in 5 ft 2 in 5 ft 2 in Weight: 130 lb 2 oz BMI 23.8 BP 119/79 Intake Visit Reasons: 25 wk ob Chief Complaint: 25wk OB Patient Intake Coordinator Required: No Is patient in pain?: No Allergies No Known Allergies Allergy (Verified 12/27/24 10:40) Medications ?Medication ?Instructions ?Recorded ?Confirmed ?Type docosahexaenoic acid 200 mg mg PO 08/20/24 12/27/24 Hi story capsule ( DHA) Last Menstrual Period: 06/07/24 : No Have you fallen in the past year?: No PFSH PFSH Medical History Early stage of Wears contact lenses TMJ arthritis History of Holter monitoring History of echocardiogram Cardiology follow-up encounter Abnormal ultrasound Breast pain, right WPW (Moatf-Ncqlhvtec-Okaic syndrome) Palpitations Spondylolisthesis at L4-L5 level Segmental and somatic dysfunction of pelvic region Segmental and somatic dysfunction of lumbar region Segmental and somatic dysfunction of thoracic region Segmental and somatic dysfunction of cervical region Surgical History H/O breast biopsy Hx of wisdom tooth extraction History of cardiac radiofrequency ablation (RFA) (12/09/22) Family History Grandfather Myocardial infarction, Onset Age: 38 Grandmother CVA (cerebral vascular accident) Diabetes Mother Heart disease Social History adopted: No household members: spouse number of children: 0 current occupational status: employed current occupation: [employer] current occupational exposures/hazards: No pets and animals: No history of recent travel: Yes ([place] - June 2025) out of state: Yes out of country: No sexually active: Yes Smoking Status: Never smoker alcohol intake: never substance use type: does not use well-balanced diet: daily or most days caffeine: No eating out: 1-3 times/week during the past year weight has: remained stable what type of physical activity do you participate in: walking, running and weight training frequency: 3-4 times per week duration: 15-30 minutes/day christin/buddhism: Hoahaoism seatbelt use: always do you feel safe at home: Yes additional 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 OB Visit JAIR Calculator Estimated Delivery Date Method Current WG Current Estimate 04/02/25 Ultrasound #1 26w 2d Other Estimates 03/14/25 LMP (Certain) 29w 0d Expected Delivery Route/Plan Labor Preferences- CB/BF classes: [] labor support person: [] labor intervention preferences: [] pain management options preferred: [] cut cord/dad catch: [] : [] PP control planned: [] discussed possible routes of delivery and associated risks: [] special requests: [] Specific Issue/Plans Covid status: [] Flu vaccine: [] Tdap vaccine: [] Rhogam: [] LARC form signed: [] Problem list reviewed and updated with the most current plan of care details and appropriate ordersplaced. Relevant counseling for the gestational age provided. Continue routine care and follow up unless otherwise noted in visit notes/problem list details Initial Weight: Not Recorded Date -?-?-?-?-?-?-?-?-?-?-?-?- EGA Weight BP Urine Prot -?-?-?-?-?-?-?-?-?-?-?-?- Glucose FHR FuHt Pres Dilation -?-?-?-?-?-?-?-?-?-?-?-?- Effaced St Visit Note 09/03/24 -?-?-?-?-?-?-?-?-?-?-?-?- 9w 6d 119 lb 127/81 -?-?-?-?-?-?-?-?-?-?-?-?- 181 -?-?-?-?-?-?-?-?-?-?-?-?- 1.71 CRL not con with LMP. con with early first us with [facility]. LC- 1.71 CRL not con with LM P. con with early first us with [facility]. 10/07/24 -?-?-?-?-?-?-?-?-?-?-?-?- 14w 5d 118 lb 133/83 -?-?-?-?-?-?-?-?-?-?-?-?- 161 -?-?-?-?-?-?-?-?-?-?-?-?- KW- no vb/crampi ng. US ordered today. 11/05/24 -?-?-?-?-?-?-?-?-?-?-?-?- 18w 6d 124 lb 117/72 Negative -?-?-?-?-?-?-?-?-?-?-?-?- Negative 160 -?-?-?-?-?-?-?-?-?-?-?-?- KW- no vb/crampi ng. + flutters. KW- no vb/cramping. + flutte rs. US reviewed. 12/03/24 -?-?-?-?-?-?-?-?-?-?-?-?- 22w 6d 127 lb 4 oz 123/81 Nega tive -?-?-?-?-?-?-?-?-?-?-?-?- Negative 150 23 -?-?-?-?-?-?-?-?-?-?-?-?- Sm- no vb lof go od fm no regular ctx 12/27/24 -?-?-?-?-?-?-?-?-?-?-?-?- 26w 2d 130 lb 2 oz 119/79 Nega tive -?-?-?-?-?-?-?-?-?-?-?-?- Negative 131 26 -?-?-?-?-?-?-?-?-?-?-?-?- KW- no vb/lof/ct x. good fm. glucose today. CBE classes discussed. traveling to [place] friday. travel precautions discussed. ACOG First Trimester First Trimester: Discussed ROS Const Reports system reviewed and no additional complaints, except as documented Eyes Reports system reviewed and no additional complaints, except as documented ENT Reports system reviewed and no additional complaints, except as documented Card Reports system reviewed and no additional complaints, except as documented Resp Reports system reviewed and no additional complaints, except as documented GI Reports system reviewed and no additional complaints, except as documented, Denies nausea and Denies vomiting Reports system reviewed and no additional complaints, except as documented Musc Reports system reviewed and no additional complaints, except as documented Skin/Breast Reports system reviewed and no additional complaints, except as documented Neuro Yes system reviewed and no additional complaints, except as documented Psych Reports system reviewed and no additional complaints, except as documented Endo Reports system reviewed and no additional complaints, except as documented Pola/Lymph Reports system reviewed and no additional complaints, except as documented Aller/Immun Reports system reviewed and no additional complaints, except as documented Exam Const General: cooperative, healthy appearing and no acute distress Orientation: alert, awake and oriented x3 Neck Neck: normal visual inspection and full ROM Resp Effort & Inspection: normal respiratory effort, able to speak in complete sentences and symmetric chest movement GI Inspection: normal to inspection Palpation: soft and other Other: gravid Skin General: no rashes or lesions noted Neuro General: patient alert, patient awake and patient oriented x3 Cognition: normal cognition Speech: speech normal Gait: normal gait Motor: muscle tone normal throughout Extrem General: normal to inspection and full ROM Psych Appearance: grossly normal Mental Status: mental status grossly normal Mood: congruent mood Affect: normal affect Speech and Movement: speech and movement normal Attitude: cooperative Thought Process: normal Thought Content: normal Judgment: judgment good Results POC Urinalysis 2 Dip (Clinic) Office Urine Glucose Negative Last Edit by Sia Felix on 12/27/24 10:50 Office Urine Protein Negative Last Edit by Sia Felix on 12/27/24 10:50 Coding Level of Care Code OB Routine Diagnoses Rubella non-immune status, antepartum O09.899; Z28.39 GBS (group B streptococcus) UTI complicating O23.40; B95.1 Supervision of high-risk O09.90 26 weeks gestation of Z3A.26 Weeks of gestation: 26 weeks Breast lump N63.0 Assessment and Plan Assessment and Plan (1) Rubella non-immune status, antepartum: Status: Acute Comment: offer MMR vaccine pp. (2) GBS (group B streptococcus) UTI complicating : Status: Acute Comment: not high enough to treat in treat with PCN in labor. (3) Supervision of high-risk : Status: Acute Comment: PRR, , JAIR 04/02/25, girl : Vinicio (4) : Status: Acute Qualifiers: Weeks of gestation: 26 weeks Qualified Code(s): Z3A.26 - 26 weeks gestation of Comment: NIPT low risk. Horizon neg. nl anatomy (5) Breast lump: Status: Acute Comment: right, fibroidadenoma Orders: Orders POC Urinalysis 2 Dip (Clinic) Today Plan Details Additional Comments: ACOG trimester education reviewed and updated. see problem list details for updated plan management information and see below for orders placed atthis visit. GA appropriate handout given. Goals & Barriers: Goals Decrease spasm Decrease pain Improve ROM Barriers Healed lumbar fx Clinical Quality Measures Falls Risk Screening/Assistive Devices Have you fallen in the past year?: No 12/27/24 1124 s CNM> Date _ Gay Ellis CNM Cosigner Signature: Date (if applicable) CC: ~ [facility]05-25-2025 NoteHNO ID: [id number] Author: SEUN FRANKS APRN.TRAVELING PLANT OPERATOR Service: ? Author Type: Nurse Practitioner Type: Progress Notes Filed: 12/19/2024 14:00 Note Text: Subjective HPI Nontoxic-appearing 24-year-old female who is currently 25 weeks presents to urgent care chief complaint red spot on her left forearm. Presents today for evaluation. Concerned about possible tick bite due to being recently bit by a tick. States she was unaware if she was bit by a tick. Overall feels well. No fever or flulike symptoms. No pain or itching. Past medical history prescription medications allergies reviewed. .Patient presents with: Insect Bite: ? tick bite on left forearm, no tick found -25 weeks PAST MEDICAL HISTORY Diagnosis Date ACQ ANKLE-FOOT DEF NOS 08/15/2005 resolved. Concussion 01/05/2014, 09/13/14 NEGATIVE HISTORY OF 08/12/07 normal color vision PAST SURGICAL HISTORY Procedure Laterality Date EXTRACTION, ERUPTED TOOTH OR EXPOSED ROOT (ELEVATION AND/OR FORCEPS REMOVAL) 07/2014 ALLERGIES Patient has no known allergies. MEDICATIONS no115/iron/folic acid ( 19 ORAL) Take 1 tablet by mouth once daily. FAMILY HISTORY Problem Relation Age of Onset None Mother None Father Heart Maternal Grandfather NV at age 38 years Diabetes Maternal Grandmother Stroke Maternal Grandmother Social History Tobacco Use Smoking status: Never Smokeless tobacco: Never Substance Use Topics Alcohol use: No Drug use: No BP 114/60 Pulse 90 Temp 37.1 ?C (98.8 ?F) Resp 16 Wt 58.8 kg (129 lb 10.1 oz) LMP 06/07/2024 (Exact Date) SpO2 98% BMI 23.26 kg/m? Review of Systems Constitutional: Negative for chills, fever and malaise/fatigue. HENT: Negative for congestion, ear discharge, ear pain, sinus pain and sore throat. Eyes: Negative for blurred vision, pain, discharge and redness. Respiratory: Negative for cough, hemoptysis, sputum production, shortness of breath, wheezing and stridor. Cardiovascular: Negative for chest pain. Gastrointestinal: Negative for abdominal pain, diarrhea, nausea and vomiting. Musculoskeletal: Negative for myalgias. Skin: Negative for itching and rash. Neurological: Negative for dizziness and headaches. Objective Physical Exam Constitutional: General: She is not in acute distress. Appearance: She is not toxic-appearing. HENT: Head: Normocephalic. Nose: Nose normal. Eyes: Pupils: Pupils are equal, round, and reactive to light. Cardiovascular: Rate and Rhythm: Normal rate. Pulmonary: Effort: Pulmonary effort is normal. No respiratory distress. Musculoskeletal: Cervical back: Normal range of motion. Skin: General: Skin is warm and dry. Comments: A approximately 4 mm x 4 mm area of redness noted. No remote redness. No foreign bodies. Neurological: General: No focal deficit present. Mental Status: She is alert. ASSESSMENT/PLAN: 1. Rash - ICD9: 782.1, ICD10: R21 Area of redness noted on exam. Possible insect bite versus dermatitis. Low suspicion for tick bite at this time treat supportively. Patient was educated on supportive therapies. Patient will follow up with primary care provider as needed. Patient was instructed to immediately proceed to emergency room for any new, worsening, or symptoms lasting longer than anticipated. The patient's clinical presentation is otherwise unremarkable at this time. Based on exam and clinical finding, the patient is stable for discharge. Plan of care was discussed with patient. Patient verbalizes understanding and agrees to plan of care. This note was generated using Re.Mu software. It may contain errors in wording, punctuation, or spelling. Seun Franks APRN.[facility]05-25-2025 History of Present illness Narrative* Seun Franks APRN.[facility] - 12/19/2024 1:51 PM EDT Images from the original note were not included. Subjective HPI Nontoxic-appearing 24-year-old female who is currently 25 weeks presents to urgent care chief complaint red spot on her left forearm. Presents today for evaluation. Concerned about possible tick bite due to being recently bit by a tick. States she was unaware if she was bit by a tick. Overall feels well. No fever or flulike symptoms. No pain or itching. Past medical history prescription medications allergies reviewed. .Patient presents with: Insect Bite: ? tick bite on left forearm, no tick found -25 weeks PAST MEDICAL HISTORY Diagnosis Date ACQ ANKLE-FOOT DEF NOS 08/15/2005 resolved. Concussion 01/05/2014, 09/13/14 NEGATIVE HISTORY OF 08/12/07 normal color vision PAST SURGICAL HISTORY Procedure Laterality Date EXTRACTION, ERUPTED TOOTH OR EXPOSED ROOT (ELEVATION AND/OR FORCEPS REMOVAL) 07/2014 ALLERGIES Patient has no known allergies. MEDICATIONS no115/iron/folic acid ( 19 ORAL) Take 1 tablet by mouth once daily. FAMILY HISTORY Problem Relation Age of Onset None Mother None Father Heart Maternal Grandfather NV at age 38 years Diabetes Maternal Grandmother Stroke Maternal Grandmother Social History Tobacco Use Smoking status: Never Smokeless tobacco: Never Substance Use Topics Alcohol use: No Drug use: No BP 114/60 Pulse 90 Temp 37.1 C (98.8 F) Resp 16 Wt 58.8 kg (129 lb 10.1 oz) LMP 06/07/2024 (Exact Date) SpO2 98% BMI 23.26 kg/m Review of Systems Constitutional: Negative for chills, fever and malaise/fatigue. HENT: Negative for congestion, ear discharge, ear pain, sinus pain and sore throat. Eyes: Negative for blurred vision, pain, discharge and redness. Respiratory: Negative for cough, hemoptysis, sputum production, shortness of breath, wheezing and stridor. Cardiovascular: Negative for chest pain. Gastrointestinal: Negative for abdominal pain, diarrhea, nausea and vomiting. Musculoskeletal: Negative for myalgias. Skin: Negative for itching and rash. Neurological: Negative for dizziness and headaches. Objective Physical Exam Constitutional: General: She is not in acute distress. Appearance: She is not toxic-appearing. HENT: Head: Normocephalic. Nose: Nose normal. Eyes: Pupils: Pupils are equal, round, and reactive to light. Cardiovascular: Rate and Rhythm: Normal rate. Pulmonary: Effort: Pulmonary effort is normal. No respiratory distress. Musculoskeletal: Cervical back: Normal range of motion. Skin: General: Skin is warm and dry. Comments: A approximately 4 mm x 4 mm area of redness noted. No remote redness. No foreign bodies. Neurological: General: No focal deficit present. Mental Status: She is alert. ASSESSMENT/PLAN: 1. Rash - ICD9: 782.1, ICD10: R21 Area of redness noted on exam. Possible insect bite versus dermatitis. Low suspicion for tick bite at this time treat supportively. Patient was educated on supportive therapies. Patient will follow up with primary care provider as needed. Patient was instructed to immediately proceed to emergency room for any new, worsening, or symptoms lasting longer than anticipated. The patient's clinical presentation is otherwise unremarkable at this time. Based on exam and clinical finding, the patient is stable for discharge. Plan of care was discussed with patient. Patient verbalizes understanding and agrees to plan of care. This note was generated using Re.Mu software. It may contain errors in wording, punctuation, or spelling. Seun Franks APRN.TRAVELING PLANT OPERATOR [facility]* Diagnosis Onset Date Resolution Status Admit Date Breast lump acute December 03, 2024 2:49pm GBS (group B streptococcus) UTI complicating acute December 03, 2024 2:49pm acute December 03, 2024 2:49pm Rubella non-immune status, antepartum acute December 03, 2024 2: 49pm Supervision of high-risk acute December 03, 2024 2: 49pm Breast lump acute December 27 10:37am GBS (group B streptococcus) UTI complicating acute December 27, 2024 10:37am acute December 27, 2024 10:37am Rubella non-immune status, antepartum acute December 27, 2024 1 0:37am Supervision of high-risk acute December 27, 2024 1 0:37am GBS (group B streptococcus) UTI complicating acute January 25, 2025 10:17am acute January 25, 2025 10:17am Rubella non-immune status, antepartum acute January 25, 2025 1 0:17am Small for dates fetus acute Jan 10:17am Supervision of high-risk acute January 25, 2025 1 0:17am Breast lump acute February 08 10:14am GBS (group B streptococcus) UTI complicating acute January 10:14am acute February 08 10:14am Rubella non-immune status, antepartum acute February 08, 2025 10:14am Small for dates fetus acute Jan 10:14am Supervision of high-risk acute February 08, 2025 10:14am GBS (group B streptococcus) UTI complicating acute February 8:29am acute February 28 8:29am Rubella non-immune status, antepartum acute February 28, 2025 8:29am Small for dates fetus acute Feb 8:29am Supervision of high-risk acute February 28, 2025 8:29am Breast lump acute March 08, 2025 9:20am GBS (group B streptococcus) UTI complicating acute March 082024 9:20am acute March 08, 025 9:20am Rubella non-immune status, antepartum acute March 08 9:20am Small for dates fetus acute Feb 9:20am Supervision of high-risk acute March 08 9:20am [facility] Work Phone: [phone] 332-528605-09-2025 Evaluation note* Diagnosis Onset Date Resolution Status Admit Date Breast lump acute December 03, 2024 2:49pm GBS (group B streptococcus) UTI complicating acute December 03, 2024 2:49pm acute December 03, 2024 2:49pm Rubella non-immune status, antepartum acute December 03, 2024 2: 49pm Supervision of high-risk acute December 03, 2024 2: 49pm Breast lump acute December 27 10:37am GBS (group B streptococcus) UTI complicating acute December 27, 2024 10:37am acute December 27, 2024 10:37am Rubella non-immune status, antepartum acute December 27, 2024 1 0:37am Supervision of high-risk acute December 27, 2024 1 0:37am GBS (group B streptococcus) UTI complicating acute January 25, 2025 10:17am acute January 25, 2025 10:17am Rubella non-immune status, antepartum acute January 25, 2025 1 0:17am Small for dates fetus acute Jan 10:17am Supervision of high-risk acute January 25, 2025 1 0:17am Breast lump acute February 08 10:14am GBS (group B streptococcus) UTI complicating acute January 10:14am acute February 08 10:14am Rubella non-immune status, antepartum acute February 08, 2025 10:14am Small for dates fetus acute Jan 10:14am Supervision of high-risk acute February 08, 2025 10:14am GBS (group B streptococcus) UTI complicating acute February 8:29am acute February 28 8:29am Rubella non-immune status, antepartum acute February 28, 2025 8:29am Small for dates fetus acute Feb 8:29am Supervision of high-risk acute February 28, 2025 8:29am Breast lump acute March 08, 2025 9:20am GBS (group B streptococcus) UTI complicating acute March 082024 9:20am acute March 08 025 9:20am Rubella non-immune status, antepartum acute March 08 9:20am Small for dates fetus acute Feb 9:20am Supervision of high-risk acute March 08 9:20am Breast lump acute March 15, 2025 10:18am GBS (group B streptococcus) UTI complicating acute March 152024 10:18am acute March 15 025 10:18am Rubella non-immune status, antepartum acute March 15 10:18am Small for dates fetus acute Feb us2024 10:18am Supervision of high-risk acute March 15 10:18am [facility] Work Phone: 1(800) 158-221305-09-2025 Evaluation note* Diagnosis Onset Date Resolution Status Admit Date Breast lump acute December 03, 2024 2:49pm GBS (group B streptococcus) UTI complicating acute December 03, 2024 2:49pm acute December 03, 2024 2:49pm Rubella non-immune status, antepartum acute December 03, 2024 2: 49pm Supervision of high-risk acute December 03, 2024 2: 49pm Breast lump acute December 27 10:37am GBS (group B streptococcus) UTI complicating acute December 27, 2024 10:37am acute December 27, 2024 10:37am Rubella non-immune status, antepartum acute December 27, 2024 1 0:37am Supervision of high-risk acute December 27, 2024 1 0:37am GBS (group B streptococcus) UTI complicating acute January 25, 2025 10:17am acute January 25, 2025 10:17am Rubella non-immune status, antepartum acute January 25, 2025 1 0:17am Small for dates fetus acute Jan 10:17am Supervision of high-risk acute January 25, 2025 1 0:17am Breast lump acute February 08 10:14am GBS (group B streptococcus) UTI complicating acute January 10:14am acute February 08 10:14am Rubella non-immune status, antepartum acute February 08, 2025 10:14am Small for dates fetus acute Jan 10:14am Supervision of high-risk acute February 08, 2025 10:14am GBS (group B streptococcus) UTI complicating acute February 8:29am acute February 28 8:29am Rubella non-immune status, antepartum acute February 28, 2025 8:29am Small for dates fetus acute Feb 8:29am Supervision of high-risk acute February 28, 2025 8:29am Breast lump acute March 08, 2025 9:20am GBS (group B streptococcus) UTI complicating acute March 082024 9:20am acute March 08, 025 9:20am Rubella non-immune status, antepartum acute March 08 9:20am Small for dates fetus acute Feb 9:20am Supervision of high-risk acute March 08 9:20am Breast lump acute March 15, 2025 10:18am GBS (group B streptococcus) UTI complicating acute March 152024 10:18am acute March 15 025 10:18am Rubella non-immune status, antepartum acute March 15 10:18am Small for dates fetus acute Feb 10:18am Supervision of high-risk acute March 15 10:18am Breast lump acute March 22, 2025 3:32pm GBS (group B streptococcus) UTI complicating acute March 222024 3:32pm acute March 22 3:32pm Rubella non-immune status, antepartum acute March 22 3:32pm Small for dates fetus acute Feb 3:32pm Supervision of high-risk acute March 22 3:32pm [facility] Work Phone: 1(524) 213-847504-11-2025 Evaluation note* Diagnosis Onset Date Resolution Status Admit Date Breast lump acute November 05 2:13pm GBS (group B streptococcus) UTI complicating acute November 05, 2024 2:13pm acute November 05 2:13pm Rubella non-immune status, antepartum acute November 05, 2024 2:13pm Supervision of high-risk acute November 05, 2024 2:13pm History of cardiac radiofrequency ablation (RFA) December 09, 2022 resolved Ap 2024 2:13pm WPW (Tnlku-Yfmjpszks-Obnhr syndrome) resolved November 05, 2024 2:13pm Breast lump acute December 03, 2024 2:49pm GBS (group B streptococcus) UTI complicating acute December 032024 2:49pm acute December 03, 2024 2:49pm Rubella non-immune status, antepartum acute December 03, 2024 2: 49pm Supervision of high-risk acute December 03, 2024 2: 49pm Breast lump acute December 27 10:37am GBS (group B streptococcus) UTI complicating acute December 27, 2024 10:37am acute December 27, 2024 10:37am Rubella non-immune status, antepartum acute December 27, 2024 10:37am Supervision of high-risk acute December 27, 2024 10:37am GBS (group B streptococcus) UTI complicating acute January 25, 2025 10:17am acute January 25, 2025 10:17am Rubella non-immune status, antepartum acute January 25, 2025 10:17am Small for dates fetus acute Jan 10:17am Supervision of high-risk acute January 25, 2025 10:17am Breast lump acute February 08 10:14am GBS (group B streptococcus) UTI complicating acute February 08, 2025 10:14am acute February 08 10:14am Rubella non-immune status, antepartum acute February 08, 2025 10:14am Small for dates fetus acute Jan 10:14am Supervision of high-risk acute February 08, 2025 10:14am [facility] Work Phone: 1(986) 852-959104-11-2025 Evaluation note* Diagnosis Onset Date Resolution Status Admit Date Breast lump acute November 05, 2:13pm GBS (group B streptococcus) UTI complicating acute November 05, 2024 2:13pm acute November 05 2:13pm Rubella non-immune status, antepartum acute November 05, 2024 2:13pm Supervision of high-risk acute November 05, 2024 2:13pm History of cardiac radiofrequency ablation (RFA) December 09, 2022 resolved Ap 2024 2:13pm WPW (Iiabq-Boyrixxgr-Bkayy syndrome) resolved November 05, 2024 2:13pm Breast lump acute December 03, 2024 2:49pm GBS (group B streptococcus) UTI complicating acute December 032024 2:49pm acute December 03, 2024 2:49pm Rubella non-immune status, antepartum acute December 03, 2024 2: 49pm Supervision of high-risk acute December 03, 2024 2: 49pm Breast lump acute December 27 10:37am GBS (group B streptococcus) UTI complicating acute December 27, 2024 10:37am acute December 27, 2024 10:37am Rubella non-immune status, antepartum acute December 27, 2024 10:37am Supervision of high-risk acute December 27, 2024 10:37am GBS (group B streptococcus) UTI complicating acute January 25, 2025 10:17am acute January 25, 2025 10:17am Rubella non-immune status, antepartum acute January 25, 2025 10:17am Small for dates fetus acute Jan 10:17am Supervision of high-risk acute January 25, 2025 10:17am Breast lump acute February 08 10:14am GBS (group B streptococcus) UTI complicating acute February 08, 2025 10:14am acute February 08 10:14am Rubella non-immune status, antepartum acute February 08, 2025 10:14am Small for dates fetus acute Jan 10:14am Supervision of high-risk acute February 08, 2025 10:14am Breast lump acute February 28, 025 8:29am GBS (group B streptococcus) UTI complicating acute Aug2024 8:29am acute February 28 8:29am Rubella non-immune status, antepartum acute February 28, 2025 8:29am Small for dates fetus acute Feb 8:29am Supervision of high-risk acute February 28, 2025 8:29am [facility] Work Phone: 1(120) 310-324003-28-2025 NoteHNO ID: [id number] Author: SEUN FRANKS APRN.[employer] Service: ? Author Type: Nurse Practitioner Type: Progress Notes Filed: 10/22/2024 17:19 Note Text: Subjective HPI Nontoxic-appearing 16-week. Female presents urgent care chief complaint pharyngitis. Duration of symptoms 4 days. Associated symptoms sore throat fever. Presents today for evaluation. 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 No difficulty swallowing his secretions decreased range of motion neck or trismus. No high fevers. Past medical history prescription medications allergies reviewed .Patient presents with: Sore Throat: Nasal congestion, headache, L ear pain, swollen lymph nodes, fever x 4 days PAST MEDICAL HISTORY Diagnosis Date ACQ ANKLE-FOOT DEF NOS 08/15/2005 resolved. Concussion 01/05/2014, 09/13/14 NEGATIVE HISTORY OF 08/12/07 normal color vision PAST SURGICAL HISTORY Procedure Laterality Date EXTRACTION, ERUPTED TOOTH OR EXPOSED ROOT (ELEVATION AND/OR FORCEPS REMOVAL) 07/2014 ALLERGIES Patient has no known allergies. MEDICATIONS no115/iron/folic acid ( 19 ORAL) Take 1 tablet by mouth once daily. FAMILY HISTORY Problem Relation Age of Onset None Mother None Father Heart Maternal Grandfather NV at age 38 years Diabetes Maternal Grandmother Stroke Maternal Grandmother Social History Tobacco Use Smoking status: Never Smokeless tobacco: Never Substance Use Topics Alcohol use: No Drug use: No BP 118/81 Pulse 89 Temp 37.2 ?C (99 ?F) Resp 22 Wt 54 kg (119 lb 0.8 oz) LMP 06/07/2024 (Exact Date) SpO2 99% BMI 21.36 kg/m? Review of Systems Constitutional: Positive for fever and malaise/fatigue. Negative for chills. HENT: Positive for congestion, ear pain and sore throat. Negative for ear discharge and sinus pain. Eyes: Negative for blurred vision, pain, discharge and redness. Respiratory: Negative for cough, hemoptysis, sputum production, shortness of breath, wheezing and stridor. Cardiovascular: Negative for chest pain. Gastrointestinal: Negative for abdominal pain, diarrhea, nausea and vomiting. Musculoskeletal: Positive for myalgias. Skin: Negative for itching and rash. Neurological: Negative for dizziness and headaches. Objective Physical Exam HENT: Head: Normocephalic. Jaw: No trismus, tenderness, swelling or pain on movement. Right Ear: Tympanic membrane, ear canal and external ear normal. Left Ear: Tympanic membrane, ear canal and external ear normal. Nose: Congestion present. Mouth/Throat: Mouth: Mucous membranes are moist. Pharynx: Oropharynx is clear. Uvula midline. Posterior oropharyngeal erythema present. No pharyngeal swelling, oropharyngeal exudate or uvula swelling. Tonsils: No tonsillar exudate or tonsillar abscesses. 1+ on the right. 1+ on the left. Eyes: Pupils: Pupils are equal, round, and reactive to light. Cardiovascular: Rate and Rhythm: Normal rate. Pulmonary: Effort: Pulmonary effort is normal. No accessory muscle usage, respiratory distress or retractions. Breath sounds: No stridor. No wheezing, rhonchi or rales. Abdominal: Palpations: Abdomen is soft. Tenderness: There is no abdominal tenderness. There is no guarding or rebound. Musculoskeletal: Cervical back: No erythema or tenderness. No pain with movement. Normal range of motion. Lymphadenopathy: Cervical: No cervical adenopathy. Neurological: General: No focal deficit present. Mental Status: She is alert and oriented to person, place, and time. Mental status is at baseline. ASSESSMENT/PLAN: 1. Sore throat - ICD9: 462, ICD10: J02.9 (primary diagnosis) - STREP A MOLECULAR (POC) 2. Strep pharyngitis - ICD9: 034.0, ICD10: J02.0 Strep test positive. Diagnosis strep pharyngitis. Placed on amoxicillin. Patient was educated on supportive therapies. Patient will follow up with primary care provider as needed. Patient was instructed to immediately proceed to emergency room for any new, worsening, or symptoms lasting longer than anticipated. The patient's clinical presentation is otherwise unremarkable at this time. Based on exam and clinical finding, the patient is stable for discharge. Plan of care was discussed with patient. Patient verbalizes understanding and agrees to plan of care. This note was generated using Re.Mu software. It may contain errors in wording, punctuation, or spelling. Seun Franks APRN.[facility]03-28-2025 History of Present illness Narrative* Seun Franks APRN.[facility] - 10/22/2024 5:12 PM EDT Subjective HPI Nontoxic-appearing 16-week. Female presents urgent care chief complaint pharyngitis. Duration of symptoms 4 days. Associated symptoms sore throat fever. Presents today for evaluation. 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 No difficulty swallowing his secretions decreased range ofmotion neck or trismus. No high fevers. Past medical history prescription medications allergies reviewed .Patient presents with: Sore Throat: Nasal congestion, headache, L ear pain, swollen lymph nodes, fever x 4 days PAST MEDICAL HISTORY Diagnosis Date ACQ ANKLE-FOOT DEF NOS 08/15/2005 resolved. Concussion 01/05/2014, 09/13/14 NEGATIVE HISTORY OF 08/12/07 normal color vision PAST SURGICAL HISTORY Procedure Laterality Date EXTRACTION, ERUPTED TOOTH OR EXPOSED ROOT (ELEVATION AND/OR FORCEPS REMOVAL) 07/2014 ALLERGIES Patient has no known allergies. MEDICATIONS no115/iron/folic acid ( 19 ORAL) Take 1 tablet by mouth once daily. FAMILY HISTORY Problem Relation Age of Onset None Mother None Father Heart Maternal Grandfather NV at age 38 years Diabetes Maternal Grandmother Stroke Maternal Grandmother Social History Tobacco Use Smoking status: Never Smokeless tobacco: Never Substance Use Topics Alcohol use: No Drug use: No BP 118/81 Pulse 89 Temp 37.2 C (99 F) Resp 22 Wt 54 kg (119 lb 0.8 oz) LMP 06/07/2024 (Exact Date) SpO2 99% BMI 21.36 kg/m Review of Systems Constitutional: Positive for fever and malaise/fatigue. Negative for chills. HENT: Positive for congestion, ear pain and sore throat. Negative for ear discharge and sinus pain. Eyes: Negative for blurred vision, pain, discharge and redness. Respiratory: Negative for cough, hemoptysis, sputum production, shortness of breath, wheezing and stridor. Cardiovascular: Negative for chest pain. Gastrointestinal: Negative for abdominal pain, diarrhea, nausea and vomiting. Musculoskeletal: Positive for myalgias. Skin: Negative for itching and rash. Neurological: Negative for dizziness and headaches. Objective Physical Exam HENT: Head: Normocephalic. Jaw: No trismus, tenderness, swelling or pain on movement. Right Ear: Tympanic membrane, ear canal and external ear normal. Left Ear: Tympanic membrane, ear canal and external ear normal. Nose: Congestion present. Mouth/Throat: Mouth: Mucous membranes are moist. Pharynx: Oropharynx is clear. Uvula midline. Posterior oropharyngeal erythema present. No pharyngeal swelling, oropharyngeal exudate or uvula swelling. Tonsils: No tonsillar exudate or tonsillar abscesses. 1+ on the right. 1+ on the left. Eyes: Pupils: Pupils are equal, round, and reactive to light. Cardiovascular: Rate and Rhythm: Normal rate. Pulmonary: Effort: Pulmonary effort is normal. No accessory muscle usage, respiratory distress or retractions. Breath sounds: No stridor. No wheezing, rhonchi or rales. Abdominal: Palpations: Abdomen is soft. Tenderness: There is no abdominal tenderness. There is no guarding or rebound. Musculoskeletal: Cervical back: No erythema or tenderness. No pain with movement. Normal range of motion. Lymphadenopathy: Cervical: No cervical adenopathy. Neurological: General: No focal deficit present. Mental Status: She is alert and oriented to person, place, and time. Mental status is at baseline. ASSESSMENT/PLAN: 1. Sore throat - ICD9: 462, ICD10: J02.9 (primary diagnosis) - STREP A MOLECULAR (POC) 2. Strep pharyngitis - ICD9: 034.0, ICD10: J02.0 Strep test positive. Diagnosis strep pharyngitis. Placed on amoxicillin. Patient was educated on supportive therapies. Patient will follow up with primary care provider as needed. Patient was instructed to immediately proceed to emergency room for any new, worsening, or symptoms lasting longer thananticipated. The patient's clinical presentation is otherwise unremarkable at this time. Based on exam and clinical finding, the patient is stable for discharge. Plan of care was discussed with patient. Patient verbalizes understanding and agrees to plan of care. This note was generated using Re.Mu software. It may contain errors in wording, punctuation, or spelling. Seun Franks APRN.[employer] [facility] Evaluation note* Diagnosis Onset Date Resolution Status Admit Date Breast lump acute October 07, 2 025 3:41pm GBS (group B streptococcus) UTI complicating acute October 07, 2024 3:41pm acute October 07 3:41pm Rubella non-immune status, antepartum acute October 07, 2024 3:41pm Supervision of high-risk acute October 07, 2024 3:41pm History of cardiac radiofrequency ablation (RFA) December 09, 2022 resolved [facility] 2024 3:41pm WPW (Nynmz-Nuwupaewp-Ejnaa syndrome) resolved October 07, 2024 3:41pm Breast lump acute November 05, 2 025 2:13pm GBS (group B streptococcus) UTI complicating acute November 05, 2024 2:13pm acute November 05 2:13pm Rubella non-immune status, antepartum acute November 05, 2024 2:13pm Supervision of high-risk acute November 05, 2024 2:13pm History of cardiac radiofrequency ablation (RFA) December 09, 2022 resolved Ap 2024 2:13pm WPW (Ncxxs-Qvellirnf-Jgfud syndrome) resolved November 05, 2024 2:13pm Breast lump acute December 03, 2024 2:49pm GBS (group B streptococcus) UTI complicating acute December 032024 2:49pm acute December 03, 2024 2:49pm Rubella non-immune status, antepartum acute December 03, 2024 2: 49pm Supervision of high-risk acute December 03, 2024 2: 49pm Breast lump acute December 27 10:37am GBS (group B streptococcus) UTI complicating acute December 27, 2024 10:37am acute December 27, 2024 10:37am Rubella non-immune status, antepartum acute December 27, 2024 10:37am Supervision of high-risk acute December 27, 2024 10:37am GBS (group B streptococcus) UTI complicating acute January 25, 2025 10:17am acute January 25, 2025 10:17am Rubella non-immune status, antepartum acute January 25, 2025 10:17am Small for dates fetus acute Jan 10:17am Supervision of high-risk acute January 25, 2025 10:17am [facility] Work Phone: 1(155) 362-905702-07-2025 Evaluation note* Diagnosis Onset Date Resolution Status Admit Date Breast lump acute September 03, 2024 2:27pm acute September 03, 2024 2:27pm Supervision of high-risk acute September 03 2:27pm History of cardiac radiofrequency ablation (RFA) December 09, 2022 resolved September 03 2:27pm WPW (Qokud-Aofufjnbl-Qjtji syndrome) resolved September 03 2:27pm Breast lump acute October 07, 2 025 3:41pm GBS (group B streptococcus) UTI complicating acute October 07, 2024 3:41pm acute October 07 3:41pm Rubella non-immune status, antepartum acute October 07, 2024 3:41pm Supervision of high-risk acute October 07, 2024 3:41pm History of cardiac radiofrequency ablation (RFA) December 09, 2022 resolved October 07, 2024 3:41pm WPW (Znkbm-Pepemxjhx-Hexqp syndrome) resolved October 07, 2024 3:41pm Breast lump acute November 05, 2 025 2:13pm GBS (group B streptococcus) UTI complicating acute November 05, 2024 2:13pm acute November 05 2:13pm Rubella non-immune status, antepartum acute November 05, 2024 2:13pm Supervision of high-risk acute November 05, 2024 2:13pm History of cardiac radiofrequency ablation (RFA) December 09, 2022 resolved November 05, 2024 2:13pm WPW (Tjzdf-Lmvrdcblz-Iftpe syndrome) resolved November 05, 2024 2:13pm Breast lump acute December 03, 2024 2:49pm GBS (group B streptococcus) UTI complicating acute December 032024 2:49pm acute December 03, 2024 2:49pm Rubella non-immune status, antepartum acute December 03, 2024 2: 49pm Supervision of high-risk acute December 03, 2024 2: 49pm Breast lump acute December 27 10:37am GBS (group B streptococcus) UTI complicating acute December 27, 2024 10:37am acute December 27, 2024 10:37am Rubella non-immune status, antepartum acute December 27, 2024 1 0:37am Supervision of high-risk acute December 27, 2024 1 0:37am [facility] Work Phone: 1(344) 643-272012-27-2024 [facility] Medical Records Department [address] [place] [id number] History Physical Exam 07/23/24 0807 MR#: [id number] Acct: [id number] Name: ARACELIS WHITTINGTON Rep #: [id number] : 2000 24 From: Zuly Hopper MD PCP: Dr. Neymar Ronquillo MD Status:[facility] Location: [place] [address] History and Physical Date of Admission: 07/23/24 Date of Service: 07/07/24 MR#: [id number] Acct: [id number] Name: ARACELIS WHITTINGTON Rep #: [id number] : 2000 Provider: Dr. Zuyl Hopper MD Age/Sex: 24/F Location: [facility] Status: Signed Intake Vital Signs 06/22/2411:45 07/07/2413:09 Height 5 ft 2 in 5 ft 2 in Weight: 116 lb 5 oz BMI 21.2 BP 125/82 H Blood Pressure Location Rt brachial Position Sitting Respiration 18 Pulse 81 Pulse Source Monitor Temp 97.6 F L Temp Source Temporal Pulse Oximetry (%) 100 Oxygen Delivery Method room air Intake Visit Reasons: BIRADS 4 Chief Complaint: BIRADS 4 Is patient in pain?: Yes (right breast pain ) Allergies No Known Allergies Allergy (Verified 06/22/24 11:39) Medications ???Medication ???Instructions ???Recorded ???Confirmed ???Type No Known/Unobtainable [No Known 08/17/16 07/07/24 History Home Medications] [facility] Medical History (Updated 07/07/24 @ 14:[address] Zuly Hopper MD) Abnormal ultrasound Breast pain, right WPW (Tginj-Dnjtkhtzd-Tauzr syndrome) Palpitations Spondylolisthesis at L4-L5 level Segmental and somatic dysfunction of pelvic region Segmental and somatic dysfunction of lumbar region Segmental and somatic dysfunction of thoracic region Segmental and somatic dysfunction of cervical region Surgical History History of cardiac radiofrequency ablation (RFA) (12/09/22) Family History Grandfather Myocardial infarction, Onset Age: 38Grandmother CVA (cerebral vascular accident) Diabetes Social History (Updated 06/22/24 @ 11:41 by Estephanie Nur) adopted: No number of children: 0 sexually active: Yes Smoking Status: Never smoker alcohol intake: never substance use type: does not use caffeine: No christin/buddhism: Hoahaoism seatbelt use: always do you feel safe at home: Yes HPI HPI HPI: 24-year-old female presents due to right breast mass. Patient states she noticed this about a month and a half ago maybe dime size states she does have a little bit of discomfort right before her period starts. Patient states sometimes she seems that could be a little bit bigger and other times a little bit smaller. Patient had an ultrasound which showed a 1.5 x 1.2 x 0.8 cm solid hypoechoic slightly irregular nodule at 10:00 7 cm from the nipple may represent fibroadenoma-given a BI-RADS 4. Age of menses 12, age at time of first child N/A, no family history of breast cancer, no previous breast biopsies. ROS General General: No weight change, appetite, fatigue, colon cancer, breast cancer or weakness HEENT HEENT: No difficulty swallowing, eye injury, eye surgery, swollen glands or hoarseness Endo Endocrine: No thyroid disease, diabetes mellitus, thyroid cancer, Hair loss, heat intolerance or cold intolerance Skin Skin: No rash or changing moles Breast Breast: Yes right breast lump, breast pain and abnormal US; No left breast lump, nipple discharge, abnormal mammogram or breast enlargement Musc Musculoskeletal: Yes back problems; No arthritis, rheumatoid arthritis, gout or joint pain Cardio Cardiovascular: No murmur, pacemaker, heart disease, atrial fibrillation, high blood pressure, heart attack, heart stent, palpitations, shortness of breat with exertion or chest pain Psych Psychiatric: No depression, anxiety or hearing voices Resp Respiratory: No shortness of breath, No sleep apnea, No cough, No COPD, No asthma, No emphysema and No wheezing Gastro Gastrointestinal: No abdominal pain, No nausea or vomiting, No diarrhea, No constipation, No blood in stool, No acid reflux, No hemorrhoids, No ulcers, No gallbladder problem and No black,tarry stools Pola Hematologic: No blood thinners, No blood disorders, No bleeding, No anemia and No blood clots Neuro Neurologic: No numbness, No tingling and No weakness Exam Const General: cooperative, healthy appearing and no acute distress HENMT Head: normal to inspection Chest Other: Breast inspection: Symmetric bilaterally Right breast: Fibroglandular tissue, mass about a centimeter at 10:00 7 cm from the nipple, no nipple discharge or pain, no change in overlying skin Left breast: Fibroglandular tiss (more content not included)...[facility]12-13-2024 NoteHNO ID: [id number] Author: NEYMAR RONQUILLO MD Service: ? Author Type: Physician Type: Progress Notes Filed: 07/09/2024 17:24 Note Text: Patient presents with: Yearly Exam HPI: Patient presents today for office visit for yearly follow up. Noticed right breast lump about a month and a half ago. Had breast US and mammogram with [facility] - showed solid hypoechoic slightly irregular nodule. Discussed need for biopsy. Biopsy done on 07/07/24. Await path. Possible fibroadenoma. Denies chest pain and shortness of breath. Had hx of ablation of WPW Does not have to go back to see them again. No palpitations. MEDICATIONS: No current outpatient medications on file. No current facility-administered medications for this visit. ALLERGIES: ALLERGIES No Known Allergies PAST MEDICAL HISTORY Diagnosis Date ACQ ANKLE-FOOT DEF NOS 08/15/2005 resolved. Concussion 01/05/2014, 09/13/14 NEGATIVE HISTORY OF 08/12/07 normal color vision PAST SURGICAL HISTORY Procedure Laterality Date EXTRACTION, ERUPTED TOOTH OR EXPOSED ROOT (ELEVATION AND/OR FORCEPS REMOVAL) 07/2014 FAMILY HISTORY Problem Relation Age of Onset None Mother None Father Heart Maternal Grandfather NV at age 38 years Diabetes Maternal Grandmother Stroke Maternal Grandmother Social History Tobacco Use Smoking status: Never Smokeless tobacco: Never Substance Use Topics Alcohol use: No Drug use: No Reviewed current medications, allergies, past medical history, surgical history, family history and social history today. REVIEW OF SYSTEMS GENERAL: No weight loss, malaise or fevers HEENT: Negative for frequent or significant headaches, No changes in hearing or vision, no nose bleeds or other nasal problems, recent congstion. NECK: Negative for lumps, goiter, pain and significant neck swelling RESPIRATORY: Negative for cough, hemoptysis, wheezing, COPD, dyspnea or shortness of breath CARDIOVASCULAR: Negative for chest pain, leg swelling, hypertension, CHF or palpitations GI: No nausea, vomiting, or diarrhea : No history of dysuria, frequency or incontinence MUSCULOSKELETAL: Negative for joint pain or swelling, back pain or muscle pain SKIN: Negative for lesions, rash, and itching PSYCH: Negative for sleep disturbance, mood disorder and recent psychosocial stressors HEMATOLOGY/LYMPHOLOGY: Negative for prolonged bleeding, bruising easily or swollen nodes All other reviewed and negative other than HPI. HEALTH MAINTENANCE: Reviewed health maintenance issues today and recommended the following in detail. Meningococcal B Vaccine: Consider Based On Risk(1 of 2 - Patient Seeks Protection) Never done Depression Screening Never done Anxiety Screening Never done Hepatitis C Screening Never done HIV Screening Never done Cervical Cancer Screening -done. Influenza Vaccine(1) due on 03/28/2024 Covid-19 Vaccine( season) Never done VITALS: BP 106/66 Pulse 87 Ht 159 cm (5' 2.6) Wt 52.4 kg (115 lb 9.6 oz) LMP 06/07/2024 (Exact Date) SpO2 98% BMI 20.74 kg/m? Last 4 Encounter Wt Readings: Date: Wt: 07/09/2024 52.4 kg (115 lb 9.6 oz) 10/08/2023 52.4 kg (115 lb 8.3 oz) 06/09/2023 51.9 kg (114 lb 6.4 oz) 05/05/2023 51.5 kg (113 lb 9.6 oz) PHYSICAL EXAMINATION: General appearance: Well appearing, alert, in no acute distress, well-hydrated, well nourished. Skin: Skin color, texture, turgor normal, no suspicious rashes or lesions Head: Normocephalic, no masses, lesions, tenderness or abnormalities Eyes: Anicteric sclera. Pupils are equally round and reactive to light. Extraocular movements are intact. Ears: External ears normal, canals clear Nose/Sinuses: Nares normal, septum midline, mucosa normal, no drainage or sinus tenderness Oropharynx: Lips, mucosa, and tongue normal, teeth and gums normal, oropharynx normal Neck: Supple, no adenopathy; thyroid symmetric, normal size, no bruits Lungs: Lungs clear to auscultation. No wheezing, rhonchi, rales Heart: RRR without murmur, gallop, or rubs. No ectopy Abdomen: Normal abdominal exam, Abdomen soft, non-tender. Bowel sounds normal. No masses, organomegaly Extremities: No deformities, edema, skin discoloration, clubbing or cyanosis. Good capillary refill. Musculoskeletal: No joint swelling, deformity, or tenderness Peripheral pulses: Normal Neuro: Gait normal. Reflexes normal and symmetric. Sensation grossly intact. ASSESSMENT/PLAN: 1. Well adult exam - ICD9: V70.0, ICD10: Z00.00 (primary diagnosis) - Counseled on healthy diet and regular exercise 2. Encounter for immunization - ICD9: V03.89, ICD10: Z23 - INFLUENZA VACCINE, AGE 6MO-64YR, TRIVALENT (AFLURIA, FLULAVAL, FLUVIRIN, FLUZONE) 3. History of Qqhqs-Sejyvypsw-Jzbgd (WPW) syndrome - ICD9: V12.59, ICD10: Z86.79 - stable. Red flags for re-assessment reviewed with patient in detail. Neymar Ronquillo [facility]12-13-2024 History of Present illness Narrative* Neymar Ronquillo MD - 07/09/2024 1:02 PM EST Patient presents with: Yearly Exam HPI: Patient presents today for office visit for yearly follow up. Noticed right breast lump about a month and a half ago. Had breast US and mammogram with [facility] - showed solid hypoechoic slightly irregular nodule. Discussed need for biopsy. Biopsy done on 07/07/24. Await path. Possible fibroadenoma. Denies chest pain and shortness of breath. Had hx of ablation of WPW Does not have to go back to see them again. No palpitations. MEDICATIONS: No current outpatient medications on file. No current facility-administered medications for this visit. ALLERGIES: ALLERGIES No Known Allergies PAST MEDICAL HISTORY Diagnosis Date ACQ ANKLE-FOOT DEF NOS 08/15/2005 resolved. Concussion 01/05/2014, 09/13/14 NEGATIVE HISTORY OF 08/12/07 normal color vision PAST SURGICAL HISTORY Procedure Laterality Date EXTRACTION, ERUPTED TOOTH OR EXPOSED ROOT (ELEVATION AND/OR FORCEPS REMOVAL) 07/2014 FAMILY HISTORY Problem Relation Age of Onset None Mother None Father Heart Maternal Grandfather NV at age 38 years Diabetes Maternal Grandmother Stroke Maternal Grandmother Social History Tobacco Use Smoking status: Never Smokeless tobacco: Never Substance Use Topics Alcohol use: No Drug use: No Reviewed current medications, allergies, past medical history, surgical history, family history andsocial history today. REVIEW OF SYSTEMS GENERAL: No weight loss, malaise or fevers HEENT: Negative for frequent or significant headaches, No changes in hearing or vision, no nose bleeds or other nasal problems, recent congstion. NECK: Negative for lumps, goiter, pain and significant neck swelling RESPIRATORY: Negative for cough, hemoptysis, wheezing, COPD, dyspnea or shortness of breath CARDIOVASCULAR: Negative for chest pain, leg swelling, hypertension, CHF or palpitations GI: No nausea, vomiting, or diarrhea : No history of dysuria, frequency or incontinence MUSCULOSKELETAL: Negative for joint pain or swelling, back pain or muscle pain SKIN: Negative for lesions, rash, and itching PSYCH: Negative for sleep disturbance, mood disorder and recent psychosocial stressors HEMATOLOGY/LYMPHOLOGY: Negative for prolonged bleeding, bruising easily or swollen nodes All other reviewed and negative other than HPI. HEALTH MAINTENANCE: Reviewed health maintenance issues today and recommended the following in detail. Meningococcal B Vaccine: Consider Based On Risk(1 of 2 - Patient Seeks Protection) Never done Depression Screening Never done Anxiety Screening Never done Hepatitis C Screening Never done HIV Screening Never done Cervical Cancer Screening -done. Influenza Vaccine(1) due on 03/28/2024 Covid-19 Vaccine( season) Never done VITALS: BP 106/66 Pulse 87 Ht 159 cm (5' 2.6) Wt 52.4 kg (115 lb 9.6 oz) LMP 06/07/2024 (Exact Date) SpO2 98% BMI 20.74 kg/m Last 4 Encounter Wt Readings: Date: Wt: 07/09/2024 52.4 kg (115 lb 9.6 oz) 10/08/2023 52.4 kg (115 lb 8.3 oz) 06/09/2023 51.9 kg (114 lb 6.4 oz) 05/05/2023 51.5 kg (113 lb 9.6 oz) PHYSICAL EXAMINATION: General appearance: Well appearing, alert, in no acute distress, well-hydrated, well nourished. Skin: Skin color, texture, turgor normal, no suspicious rashes or lesions Head: Normocephalic, no masses, lesions, tenderness or abnormalities Eyes: Anicteric sclera. Pupils are equally round and reactive to light. Extraocular movements are intact. Ears: External ears normal, canals clear Nose/Sinuses: Nares normal, septum midline, mucosa normal, no drainage or sinus tenderness Oropharynx: Lips, mucosa, and tongue normal, teeth and gums normal, oropharynx normal Neck: Supple, no adenopathy; thyroid symmetric, normal size, no bruits Lungs: Lungs clear to auscultation. No wheezing, rhonchi, rales Heart: RRR without murmur, gallop, or rubs. No ectopy Abdomen: Normal abdominal exam, Abdomen soft, non-tender. Bowel sounds normal. No masses, organomegaly Extremities: No deformities, edema, skin discoloration, clubbing or cyanosis. Good capillary refill. Musculoskeletal: No joint swelling, deformity, or tenderness Peripheral pulses: Normal Neuro: Gait normal. Reflexes normal and symmetric. Sensation grossly intact. ASSESSMENT/PLAN: 1. Well adult exam - ICD9: V70.0, ICD10: Z00.00 (primary diagnosis) - Counseled on healthy diet and regular exercise 2. Encounter for immunization - ICD9: V03.89, ICD10: Z23 - INFLUENZA VACCINE, AGE 6MO-64YR, TRIVALENT (AFLURIA, FLULAVAL, FLUVIRIN, FLUZONE) 3. 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 Red flags for re-assessment reviewed with patient in detail. Neymar Ronquillo MD documented [facility] encounterA[facility]03[facility] Instructions* Patient Instructions* Leona Echeverria PA - 10/08/2023 5:18 PM EDT PHARYNGITIS PATIENT INSTRUCTIONS DESCRIPTION: Inflammation and infection of the pharynx that can be caused by a variety of germs. SIGNS AND SYMPTOMS: -Sore throat. -Swallowing difficulty. -Tickle or lump in the throat. -Fever. -Swollen glands in the neck (sometimes). -Throat may be red or covered with a grayish membrane (sometimes). -Generalized aching. CAUSES: Infection from bacteria, viruses or fungi. PREVENTIVE MEASURES: -Avoid close contact with anyone with a sore throat. -Keep immunizations, including diphtheria, up to date. TREATMENT: -Laboratory throat culture and blood count may be done to determine type of infection. -Home care is usually sufficient. -Use gargles to relieve throat pain. Prepare double strength tea, hot or cold, or a salt-water solution (1 teaspoon salt in 8 oz. warm water). Use to gargle as often as you wish. -Use a cool-mist ultrasonic humidifier to increase air moisture. This will relieve the dry, tight feeling in the throat. Clean humidifier daily. -If the glands are large and tender, apply moist, warm soaks at least 4 times a day for 30 to 60 minutes. The compresses will be more effective if they are kept warm. Be careful not to burn the skin. -Replace your toothbrush. It may be harboring germs. -Until infection is gone, don't share washcloths; or food. MEDICATIONS: -For minor discomfort you may use non-prescription drugs such as acetaminophen. Don't give aspirin to a child for any viral illness. -Non-prescription throat lozenges may help ease discomfort. -Antibiotics or antifungal agents to fight bacterial or fungal infections. Be sure to finish entirecourse of prescribed antibiotics to avoid complications. ACTIVITY: Limited activity is necessary until symptoms disappear. DIET: Extra fluids are necessary. Drink at least 8 glasses of fluid daily, more for high fevers. If swallowing solid food is painful, try a liquid or soft diet for a few days. NOTIFY OFFICE: -The following occur during treatment: Breathing or swallowing difficulty. Fever; severe headache. Thick mucus drainage from the nose. Productive cough that is discolored. Skin rash. Dark urine. Chest pain. documented in this encounterA[facility]03-13-2024 History of Present illness Narrative* Leona Echeverria PA - 10/08/2023 5:13 PM EDT This note was created using VIOliferiter. Subjective Aracelis Whittington is a 23 year old female. HPI 23-year-old female presents for sore throat and swollen lymph nodes for 3 days. Patient states on Friday she started feeling sick, on Friday she started getting sore throat and feels like her lymph nodes are swollen on the left side. States she was exposed to a friend on Friday that had strep. Patient has had some low-grade fevers. No cough or congestion. States she had some sinus symptoms a few weeks ago, but those have resolved. No vomiting or diarrhea. Still able to eat and drink. PAST MEDICAL HISTORY Diagnosis Date ACQ ANKLE-FOOT DEF NOS 08/15/2005 resolved. Concussion 01/05/2014, 09/13/14 NEGATIVE HISTORY OF 08/12/07 normal color vision PAST SURGICAL HISTORY Procedure Laterality Date EXTRACTION, ERUPTED TOOTH OR EXPOSED ROOT (ELEVATION AND/OR FORCEPS REMOVAL) 07/2014 ALLERGIES Patient has no known allergies. MEDICATIONS predniSONE (DELTASONE) 10 mg tablet Take 4 tabs daily for 3 days, then 2 tabs daily for 3 days, then 1 tab daily for 3 days with food. (Patient not taking: Reported on 06/09/2023) FAMILY HISTORY Problem Relation Age of Onset None Mother None Father Heart Maternal Grandfather NV at age 38 years Diabetes Maternal Grandmother Stroke Maternal Grandmother Social History Tobacco Use Smoking status: Never Smokeless tobacco: Never Substance Use Topics Alcohol use: No Drug use: No Review of Systems Constitutional: Positive for fever. Negative for chills. HENT: Positive for sore throat. Negative for congestion and ear pain. Respiratory: Negative for cough and shortness of breath. Cardiovascular: Negative for chest pain. Gastrointestinal: Negative for diarrhea and vomiting. Neurological: Positive for headaches. Hematological: Positive for adenopathy. Objective BP 110/72 Pulse 94 Temp 37.6 C (99.7 F) (Tympanic) Resp 18 Wt 52.4 kg (115 lb 8.3 oz) [facility]11/04/2022 SpO2 100% Physical Exam Vitals and nursing note reviewed. Constitutional: General: She is not in acute distress. Appearance: Normal appearance. She is not toxic-appearing. HENT: Right Ear: Tympanic membrane and ear canal normal. Left Ear: Tympanic membrane and ear canal normal. Nose: Nose normal. Mouth/Throat: Mouth: Mucous membranes are moist. Pharynx: Uvula midline. Posterior oropharyngeal erythema present. No oropharyngeal exudate. Tonsils: Tonsillar exudate present. No tonsillar abscesses. 2+ on the right. 2+ on the left. Comments: Exudate noted on left tonsil. No exudates on the right. Tonsils are swollen bilaterally. No abscess seen. Uvula midline. Handling secretions. Eyes: Conjunctiva/sclera: Conjunctivae normal. Cardiovascular: Rate and Rhythm: Normal rate and regular rhythm. Pulmonary: Effort: Pulmonary effort is normal. Breath sounds: Normal breath sounds. Lymphadenopathy: Cervical: Cervical adenopathy present. Left cervical: Superficial cervical adenopathy present. Neurological: Mental Status: She is alert. Assessment and Plan ASSESSMENT/PLAN: 1. Sore throat - ICD9: 462, ICD10: J02.9 - suspect viral - Group A strep molecular testing negative - Discussed supportive care treatment with fluids, rest and analgesia. -Discussed supportive treatment OTC, warm salt gargles, throat lozenges, Tylenol/Motrin Diagnosis and treatment plan were discussed and questions were answered to the patient's satisfaction. Pt acknowledged understanding of concepts and follow up plan. Specific signs and symptoms that would indicate the need for higher level of care were discussed in detail warranting prompt ER evaluation. MRAIA A Talavera documented in this encounterA[facility]11-13-[facility]23 History of Present illness Narrative* Aidan Huggins MD - 06/09/2023 4:31 PM EST Chief Complaint Patient presents with: Follow Up: Throat pain has continued since the 05/05/23 visit but reports more sore than initially was. KAVITA Whittington is a 23 year old female who presents here today for Above Complaints.. Patient evaluated in on 05/05 for rhinosinusitis and was treated with doxycycline x 7 days and prednisone taper. After completing this course, her sore throat improved, but then started to worsen again a few days later. Described as mild sore throat which alternates sides of her throat every 2-3 d ays. Not taking anything OTC for sore throat now. Admits to postnasal drip in the mornings. Denies fever/chills, lymphadenopathy, purulent exudate, sinus pain/pressure, nasal congestion, rhinorrhea, ear pain/fullness, cough, heartburn. Past medical history, appointments, medications, allergies reviewed. Previous Medical History PAST MEDICAL HISTORY Diagnosis Date ACQ ANKLE-FOOT DEF NOS 08/15/2005 resolved. Concussion 01/05/2014, 09/13/14 NEGATIVE HISTORY OF 08/12/07 normal color vision Previous Surgical History PAST SURGICAL HISTORY Procedure Laterality Date EXTRACTION, ERUPTED TOOTH OR EXPOSED ROOT (ELEVATION AND/OR FORCEPS REMOVAL) 07/2014 Family History FAMILY HISTORY Problem Relation Age of Onset None Mother None Father Heart Maternal Grandfather NV at age 38 years Diabetes Maternal Grandmother Stroke Maternal Grandmother Patient Allergies ALLERGIES No Known Allergies Current Medications Current Outpatient Medications on File Prior to Visit Medication Sig predniSONE (DELTASONE) 10 mg tablet Take 4 tabs daily for 3 days, then 2 tabs daily for 3 days, then 1 tab daily for 3 days with food. (Patient not taking: Reported on 06/09/2023) No current facility-administered medications on file prior to visit. Social History Social History Tobacco Use Smoking status: Never Smokeless tobacco: Never Substance Use Topics Alcohol use: No Drug use: No Review of Symptoms REVIEW OF SYSTEMS See HPI EXAM: BP 114/70 Pulse 88 Temp 37.3 C (99.1 F) Resp 16 Wt 51.9 kg (114 lb 6.4 oz) LMP 11/04/2022 SpO2 99% General Appearance: Well appearing, alert, in no acute distress, well-hydrated, well nourished.. Skin: Skin color, texture, turgor normal, no suspicious rashes or lesions. Head: Normocephalic, no masses, lesions, tenderness or abnormalities. Eyes: Anicteric sclera. Pupils are equally round and reactive to light. Extraocular movements are intact. . Ears: External ears normal, canals clear. Nose/Sinuses: Nares normal, septum midline, mucosa normal, no drainage or sinus tenderness. Oropharynx: Lips, mucosa, and tongue normal, teeth and gums normal, oropharynx normal. Neck: Supple, no adenopathy; thyroid symmetric, normal size, no bruits. Lungs: Lungs clear to auscultation. No wheezing, rhonchi, rales.. Heart: RRR without murmur, gallop, or rubs. No ectopy. Health Maintenance List GC (Gonorrhea) Screening (18-24) Never done Hepatitis C Screening Never done HIV Screening Never done Chlamydia Screening (18-24) Never done Pap Testing Never done Influenza Vaccine(1) due on 03/28/2023 Meningococcal B Vaccine: Consider Based On Risk(1 of 2 - Patient Seeks Protection) due on 04/14/2024 Covid-19 Vaccine(1) due on 04/14/2024 DTaP,Tdap,Td Vaccine(8 - Td or Tdap) due on 07/09/2031 Hepatitis B Vaccine Completed Depression Assessment Completed HPV Vaccine Discontinued ASSESSMENT/PLAN: 1. Sore throat - ICD9: 462, ICD10: J02.9 (primary diagnosis) Normal exam. Possibly allergic with post nasal drip. Discussed OTC antihistamines. If not improving, consider adding on pepcid for GERD. May use OTC sprays/lozenges, tea with honey, warm salt water gargles. Call if not improving in 1-2 weeks. 2. Post-nasal drip - ICD9: 784.91, ICD10: R09.82 See above. Aidan Huggins MD documented in this encounterA[facility]10-09-[facility]23 History of Present illness Narrative* Cristy Deras, GIRMA.[employer] - 05/05/2023 5:12 PM EDT This note was created using VIOliferiter. Subjective Aracelis Whittington is a 23 year old female. 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 Acute onset 2 weeks ago +nasal congestion + sore throat +post nasal drainage +ear fullness. +cough that is non productive Denies tobacco usage. Has used Dayquil and or Nyquil She states at one point, her symptoms seemed to improve They then worsened. The history is provided by the patient. No language tutor was used. Sinus Problem This is a new problem. The current episode started 1 to 4 weeks ago. The problem occurs constantly.The problem has been unchanged. Associated symptoms include congestion, coughing, headaches and a sore throat. Pertinent negatives include no abdominal pain, anorexia, arthralgias, change in bowel habit, chest pain, chills, diaphoresis, fatigue, fever, joint swelling, myalgias, nausea, neck pain, numbness, rash, swollen glands, urinary symptoms, vertigo, visual change, vomiting or weakness. Nothing aggravates the symptoms. Treatments tried: dayquil and nyquil. The treatment provided no relief. PAST MEDICAL HISTORY Diagnosis Date ACQ ANKLE-FOOT DEF NOS 08/15/2005 resolved. Concussion 01/05/2014, 09/13/14 NEGATIVE HISTORY OF 08/12/07 normal color vision PAST SURGICAL HISTORY Procedure Laterality Date EXTRACTION, ERUPTED TOOTH OR EXPOSED ROOT (ELEVATION AND/OR FORCEPS REMOVAL) 07/2014 ALLERGIES Patient has no known allergies. MEDICATIONS doxycycline (VIBRA-TABS) 100 mg tablet Take 1 tablet by mouth two times a day for 7 days. predniSONE (DELTASONE) 10 mg tablet Take 4 tabs daily for 3 days, then 2 tabs daily for 3 days, then 1 tab daily for 3 days with food. FAMILY HISTORY Problem Relation Age of Onset None Mother None Father Heart Maternal Grandfather NV at age 38 years Diabetes Maternal Grandmother Stroke Maternal Grandmother Social History Tobacco Use Smoking status: Never Smokeless tobacco: Never Substance Use Topics Alcohol use: No Drug use: No Review of Systems Constitutional: Negative for chills, diaphoresis, fatigue and fever. HENT: Positive for congestion, ear pain, postnasal drip, sinus pressure, sinus pain and sore throat. Eyes: Negative for photophobia, pain, discharge, redness and itching. Respiratory: Positive for cough. Negative for apnea, choking and chest tightness. Cardiovascular: Negative for chest pain. Gastrointestinal: Negative for abdominal pain, anorexia, change in bowel habit, nausea and vomiting. Musculoskeletal: Negative for arthralgias, joint swelling, myalgias and neck pain. Skin: Negative for color change, pallor and rash. Allergic/Immunologic: Negative for environmental allergies, food allergies and immunocompromised state. Neurological: Positive for headaches. Negative for dizziness, vertigo, facial asymmetry, weakness and numbness. Hematological: Negative for adenopathy. Does not bruise/bleed easily. Psychiatric/Behavioral: Negative for agitation and behavioral problems. Objective BP 120/88 Pulse 98 Temp 37.6 C (99.7 F) Resp 21 Wt 51.5 kg (113 lb 9.6 oz) LMP 11/04/2022 SpO2 99% Physical Exam Vitals and nursing note reviewed. Constitutional: General: She is not in acute distress. Appearance: Normal appearance. She is normal weight. She is not ill-appearing, toxic-appearing or diaphoretic. HENT: Head: Normocephalic and atraumatic. Comments: +maxillary sinus pressure Right Ear: Ear canal and external ear normal. Left Ear: Ear canal and external ear normal. Ears: Comments: TM's bilateral erythema noted Nose: Congestion present. No rhinorrhea. Mouth/Throat: Mouth: Mucous membranes are moist. Pharynx: Posterior oropharyngeal erythema present. No oropharyngeal exudate. Eyes: General: Right eye: No discharge. Left eye: No discharge. Extraocular Movements: Extraocular movements intact. Conjunctiva/sclera: Conjunctivae normal. Pupils: Pupils are equal, round, and reactive to light. Cardiovascular: Rate and Rhythm: Normal rate and regular rhythm. Pulses: Normal pulses. Heart sounds: Normal heart sounds. No murmur heard. No friction rub. Pulmonary: Effort: Pulmonary effort is normal. No respiratory distress. Breath sounds: Normal breath sounds. No stridor. No wheezing, rhonchi or rales. Chest: Chest wall: No tenderness. Abdominal: General: Abdomen is flat. There is no distension. Palpations: Abdomen is soft. There is no mass. Tenderness: There is no abdominal tenderness. There is no right CVA tenderness, left CVA tenderness, guarding or rebound. Hernia: No hernia is present. Musculoskeletal: General: No swelling, tenderness, deformity or signs of injury. Normal range of motion. Cervical back: Normal range of motion and neck supple. No rigidity. Right lower leg: No edema. Left lower leg: No edema. Lymphadenopathy: Cervical: Cervical adenopathy present. Skin: General: Skin is warm and dry. Capillary Refill: Capillary refill takes less than 2 seconds. Coloration: Skin is not jaundiced or pale. Findings: No bruising, erythema, lesion or rash. Neurological: General: No focal deficit present. Mental Status: She is alert and oriented to person, place, and time. Cranial Nerves: No cranial nerve deficit. Sensory: No sensory deficit. Motor: No weakness. Coordination: Coordination normal. Gait: Gait normal. Psychiatric: Mood and Affect: Mood normal. Behavior: Behavior normal. Thought Content: Thought content normal. Judgment: Judgment normal. Assessment and Plan ASSESSMENT/PLAN: 1. Rhinosinusitis - ICD9: 473.9, ICD10: J32.9 X 2 weeks At one point felt better, but sx improved and worsening. - Will begin treatment with Doxycycline - The patient should also be given OTC cough and cold meds as needed, warm salt water gargles, throat lozenges and/or OTC throat spray as needed, and nasal saline gtts and suction prn for the first 5-7 days of treatment. - Supportive care with plenty of fluids, rest, and analgesia prn. - Follow up in 3-5 days if symptoms persist or worsen. Cristy Deras APRN.[employer]ING [employer]ANT OPERATOR documented in this encounterAultman Hospital09-18-[facility]23 History of Present illness Narrative* Neymar Ronquillo MD - 04/14/2023 5:33 PM EDT Patient presents with: Establish Care HPI: Patient presents today for office visit for getting established. Had been diagnosed with WPW and had an ablation. Has done well since. No chest pain or shortness of breath. Rare palpitations but cardiology felt was ok. They see her again next year. MEDICATIONS: No current outpatient medications on file. No current facility-administered medications for this visit. ALLERGIES: ALLERGIES No Known Allergies PAST MEDICAL HISTORY Diagnosis Date ACQ ANKLE-FOOT DEF NOS 08/15/2005 resolved. Concussion 01/05/2014, 09/13/14 NEGATIVE HISTORY OF 08/12/07 normal color vision PAST SURGICAL HISTORY Procedure Laterality Date EXTRACTION, ERUPTED TOOTH OR EXPOSED ROOT (ELEVATION AND/OR FORCEPS REMOVAL) 07/2014 FAMILY HISTORY Problem Relation Age of Onset None Mother None Father Heart Maternal Grandfather NV at age 38 years Diabetes Maternal Grandmother Stroke Maternal Grandmother Social History Tobacco Use Smoking status: Never Smokeless tobacco: Never Substance Use Topics Alcohol use: No Drug use: No Reviewed current medications, allergies, past medical history, surgical history, family history andsocial history today. REVIEW OF SYSTEMS Psych: no depression or anxiety. No issues with periods. Not currently seeing it analyst. GENERAL: No weight loss, malaise or fevers HEENT: had mild sinus issues a few weeks ago but doing well now. RESPIRATORY: Negative for cough, hemoptysis, wheezing, COPD, dyspnea or shortness of breath GI: No nausea, vomiting, or diarrhea : No history of dysuria, frequency or incontinence SKIN: Negative for lesions, rash, and itching All other reviewed and negative other than HPI. HEALTH MAINTENANCE: Reviewed health maintenance issues today and recommended the following in detail. Covid-19 Vaccine(1) Never done Meningococcal B Vaccine: Consider Based On Risk(1 of 2 - Patient Seeks Protection) Never done GC (Gonorrhea) Screening (18-24) Never done Hepatitis C Screening Never done HIV Screening Never done Chlamydia Screening (18-24) Never done Pap Testing Never done Depression Assessment Never done VITALS: BP 102/62 Pulse 86 Wt 51.7 kg (114 lb) LMP 11/04/2022 SpO2 100% Last 4 Encounter Wt Readings: Date: Wt: 04/14/2023 51.7 kg (114 lb) 11/08/2022 53.3 kg (117 lb 8 oz) 10/18/2022 52.7 kg (116 lb 3.2 oz) 07/18/2022 51.7 kg (114 lb) PHYSICAL EXAMINATION: General appearance: Well appearing, alert, in no acute distress, well-hydrated, well nourished. Skin: Skin color, texture, turgor normal, no suspicious rashes or lesions Head: Normocephalic, no masses, lesions, tenderness or abnormalities Eyes: Anicteric sclera. Pupils are equally round and reactive to light. Extraocular movements are intact. Ears: External ears normal, canals clear Nose/Sinuses: Nares normal, septum midline, mucosa normal, no drainage or sinus tenderness Oropharynx: Lips, mucosa, and tongue normal, teeth and gums normal, oropharynx normal Neck: Supple, no adenopathy; thyroid symmetric, normal size, no bruits Lungs: Lungs clear to auscultation. No wheezing, rhonchi, rales Heart: RRR without murmur, gallop, or rubs. No ectopy Abdomen: Normal abdominal exam, Abdomen soft, non-tender. Bowel sounds normal. No masses, organomegaly Extremities: No deformities, edema, skin discoloration, clubbing or cyanosis. Good capillary refill. Musculoskeletal: No joint swelling, deformity, or tenderness Peripheral pulses: Normal ASSESSMENT/PLAN: 1. Well adult exam - ICD9: V70.0, ICD10: Z00.00 (primary diagnosis) - Follow up for annual exam in one year 2. History of Riudh-Ntfvrhiki-Clqhl (WPW) syndrome - ICD9: V12.59, ICD10: Z86.79 - keep follow up with cardiology.Red flags for re-assessment reviewed with patient in detail. Neymar Ronquillo MD documented in this encounterAultman Hospital05-15-2023 Miscellaneous Notes* Nursing Notes - Brianne Winter RN - 12/09/2022 11:40 PM EDT AVS reviewed with pt copy provided. Pt ambulated in hallway without difficulty groin site remains cdi * Nursing Notes - Tana Sandhu RN - 12/09/2022 8:00 PM EDT .1944PM RN called and spoke with Dr Jett, informed patient and mother requesting for discharge tonight. Per Dr Jett, patient ok for discharge as long as ambulating, voiding, eating, and recovery WNL. Also, patient to stop every 40 minutes on ride home and ambulate for 15 minutes to prevent DVT. * Nursing Notes - Tana Sandhu RN - 12/09/2022 12:57 PM EDT 1230am Report of PIV WITH ULTRASOUND GUIDANCE Consultation and Evaluation: Patient seen and evaluated for PIV insertion using ultrasound guidance. ID band present, allergies and limb precautions verified with patient/nurse. Skin integrity within normal limits at time of insertion. No evidence of ecchymosis, infiltration, hematoma, edema, or any condition that would prevent safe insertion of a PIV [X ] ultrasound used [ ] ultrasound not used Procedure explained to patient. Anatomical distortion to interfere with placement: none PROCEDURE DETAILS: PIV Insertion Procedure Using standard aseptic technique access was obtained. Good blood return noted, catheter flushed easily with 10mls 0.9 NS per lumen. Securement device used to secure PIV. Dressing applied. Pt denies pain at insertion site. Peripheral IV Line - Single Lumen 12/09/22 1230 forearm, anterior, right 20 gauge;1 1/4 in length (Active) 12/09/22 1230 Present On Admission : no Guiding Device: ultrasound Lumen 1: Location: forearm, anterior, right Device/Lot Number: [id number] catheter system Gauge/Length: 20 gauge;1 1/4 in length Unsuccessful Insertion Attempts: Unsuccessful Attempt Location/Site: Pain Prevention/Patient Tolerance: Removal: Additional Comments: Lumen 2: Lumen 3: Peripheral IV Present on Admission: (Retired/Read Only) Location: (Retired/Read Only) Device: (Retired/Read Only) Gauge/Length: Sport Internship/Lot Number: Unsuccessful Insertion Attempts: (Retired/Read Only) Unsuccessful Attempt Locations: Pain Prevention: Patient Tolerance: Insertion: Removal Indication: Peripheral IV Location - Orientation: Peripheral IV Location: Insertion Site WDL WDL 12/09/22 1255 Site Preparation/Maintenance site cleansed: chlorhexidine solution 12/09/22 1255 Lumen 1 Patency/Maintenance flushed without difficulty;blood return, able to obtain 12/09/22 1255 Phlebitis 0-->no symptoms 12/09/22 1255 Infiltration 0-->no symptoms 12/09/22 1255 Patient tolerated procedure well without any complications [] Lidocaine 1% used prior insertion [] No Lidocaine used Extra insertion note if applicable: RN notified of procedure completion [x ] Obtained labs. [X] Call light in reach. [X] Bed low and locked. [X] Tray table within reach. Education: Patient/Family informed to notify nurse of any complications including pain, redness, swelling, or leakage post insertion. documented in this encounter[facility]* Nursing Notes - Brianne Winter RN - 12/09/2022 11:40 PM EDT AVS reviewed with pt copy provided. Pt ambulated in hallway without difficulty groin site remains cdi [facility] Note* Nursing Notes - Tana Sandhu RN - 12/09/2022 8:00 PM EDT .1944PM RN called and spoke with Dr Jett, informed patient and mother requesting for discharge tonight. Per Dr Jett, patient ok for discharge as long as ambulating, voiding, eating, and recovery WNL. Also, patient to stop every 40 minutes on ride home and ambulate for 15 minutes to prevent DVT. [facility] Discharge instructions* Discharge Instr - Activity* MELE Sweeney - 12/09/2022 3:15 PM EDT Post Ablation Activity Your activity is restricted only as indicated by your physician. Please refer to education for ablation and other care recommendations. - No driving for 24 hours - Keep incision dry - Limit bending at the waist for 48 hours - May resume regular activity in 1-2 weeks unless otherwise notified - Return to work in 1 week - No tub baths or hot tub for 2 weeks or until groin site is healed - No lifting greater than 10-15 pounds for 1 week. Rest for 24 hours after you are home. You should have someone with you to help you the first night you are home. DO NOT drive for 24 hours. DO NOT make any important decisions for 24 hours. DO NOT work around the stove, machinery or power equipment for 24 hours. * Discharge Instr - Diet* MELE Sweeney - 12/09/2022 3:15 PM EDT Diet: Cardiac 4gm NA Low sodium, low fat, low cholesterol, caffeine controlled. Sodium restricted to 4 grams. * Discharge Instr - Notify* MELE Sweeney - 12/09/2022 3:15 PM EDT Images from the original note were not included. NOTIFY PHYSICIAN BLEEDING/BRUISING -If severe bleeding, apply pressure -Increased bleeding from site -Increased bruising or hematoma Chest pain or shortness of breath Respiratory Changes Call your doctor or nurse if you have shortness of breath that gets worse -Cough that gets worse -Coughing up blood Stroke Symptoms Call 911 if you suddenly have any of these signs of a stroke: -Numbness or muscle weakness -Trouble swallowing -Problems talking -Dizziness or feeling unsteady -Severe headache -Confusion SYMPTOMS OF DVT DVT = Deep Vein Thrombus, or Blood Clot -any tender, swollen, or reddened areas from your groin to your heels. -numbness or tingling in groin or calf -the skin on your leg looks pale or blue or it feels cold to touch -any shortness of breath -chest pain -fever or chills NAUSEA: When you are nauseated, you may feel weak and sweaty and notice a lot of saliva in your mouth. Nausea often leads to vomiting. Most of the time you do not need to worry about nausea and vomiting, butthey can be signs of other illnesses. The doctor has checked you carefully, but problems can develop later. If you notice any problems ornew symptoms, get medical treatment right away. Follow-up care is a le part of your treatment and safety. Be sure to make and go to all appointments, and call your doctor if you are having problems. It's also a good idea to know your test resultsand keep a list of the medicines you take. How can you care for yourself at home? To prevent dehydration, drink plenty of fluids, enough so that your urine is light yellow or clear like water. Choose water and other caffeine-free clear liquids until you feel better. If you have kidney, heart, or liver disease and have to limit fluids, talk with your doctor before you increase the amount of fluids you drink. Rest in bed until you feel better. When you are able to eat, try clear soups, mild foods, and liquids until all symptoms are gone for 12 to 48 hours. Other good choices include dry toast, crackers, cooked cereal, and gelatin dessert, such as Jell-O. When should you call for help? Call 911 anytime you think you may need emergency care. For example, call if: You passed out (lost consciousness) Call your doctor now or seek immediate medical care if: You have symptoms of dehydration, such as: Dry eyes and a dry mouth Passing only a little dark urine Feeling thirstier than usual You have new or worsening belly pain You have a new or higher fever You vomit blood or what looks like coffee grounds Watch closely for changes in your health, and be sure to contact your doctor if: You have on going nausea and vomiting Your vomiting gets worse Your vomiting last longer than 2 days You are not getting better as expected Where can you learn more? Go to [email or web address]/osumychart. * Discharge Instr - Wound Care* MELE Sweeney - 12/09/2022 3:15 PM EDT Catheter site care You can remove your bandages the day after the procedure. You may shower 24 to 48 hours after the procedure, if your doctor okays it. Pat the incision dry. Do not soak the catheter site until it is healed. Don't take a bath for 1 week, or until your doctor tells you it is okay. Watch for bleeding from the site. A small amount of blood (up to the size of a quarter) on the bandage can be normal. If you are bleeding, lie down and press on the area for 15 minutes to try to make it stop. If the bleeding does not stop, call your doctor or seek immediate medical care. documented in this encounterKindred Healthcare05-15-2023 Note* Nursing Notes - Tana Sandhu RN - 12/09/2022 12:57 PM EDT 1230am Report of PIV WITH ULTRASOUND GUIDANCE Consultation and Evaluation: Patient seen and evaluated for PIV insertion using ultrasound guidance. ID band present, allergies and limb precautions verified with patient/nurse. Skin integrity within normal limits at time of insertion. No evidence of ecchymosis, infiltration, hematoma, edema, or any condition that would prevent safe insertion of a PIV [X ] ultrasound used [ ] ultrasound not used Procedure explained to patient. Anatomical distortion to interfere with placement: none PROCEDURE DETAILS: PIV Insertion Procedure Using standard aseptic technique access was obtained. Good blood return noted, catheter flushed easily with 10mls 0.9 NS per lumen. Securement device used to secure PIV. Dressing applied. Pt denies pain at insertion site. Peripheral IV Line - Single Lumen 12/09/22 1230 forearm, anterior, right 20 gauge;1 1/4 in length (Active) 12/09/22 1230 Present On Admission : no Guiding Device: ultrasound Lumen 1: Location: forearm, anterior, right Device/Lot Number: [id number] catheter system Gauge/Length: 20 gauge;1 1/4 in length Unsuccessful Insertion Attempts: Unsuccessful Attempt Location/Site: Pain Prevention/Patient Tolerance: Removal: Additional Comments: Lumen 2: Lumen 3: Peripheral IV Present on Admission: (Retired/Read Only) Location: (Retired/Read Only) Device: (Retired/Read Only) Gauge/Length: Sport Internship/Lot Number: Unsuccessful Insertion Attempts: (Retired/Read Only) Unsuccessful Attempt Locations: Pain Prevention: Patient Tolerance: Insertion: Removal Indication: Peripheral IV Location - Orientation: Peripheral IV Location: Insertion Site WDL WDL 12/09/22 1255 Site Preparation/Maintenance site cleansed: chlorhexidine solution 12/09/22 1255 Lumen 1 Patency/Maintenance flushed without difficulty;blood return, able to obtain 12/09/22 1255 Phlebitis 0-->no symptoms 12/09/22 1255 Infiltration 0-->no symptoms 12/09/22 1255 Patient tolerated procedure well without any complications [] Lidocaine 1% used prior insertion [] No Lidocaine used Extra insertion note if applicable: RN notified of procedure completion [x ] Obtained labs. [X] Call light in reach. [X] Bed low and locked. [X] Tray table within reach. Education: Patient/Family informed to notify nurse of any complications including pain, redness, swelling, or leakage post insertion. [facility]02-[facility] Miscellaneous Notes* Telephone Encounter - Catina Mackey RN - 09/10/2022 4:45 PM EST Mother notified and voiced understanding of below as directed by Dr. Carver. Mother will contact [facility] and speak with nursing staff regarding below to see if patient can be seen sooner. She will call back to let us know. If they are unable to accommodate sooner, she will attempt scheduling with [facility] cardiology. Catina Mackey RN * Telephone Encounter - Caleb Carver MD - 09/10/2022 3:55 PM EST I have no difficulty with a referral for [facility] cardiology. Please help the family with their request.A consult order has been included as part of this telephone encounter. I am somewhat confused however. Based on the emergency room note, it appears the outside sales team manager has already assumed care. A 48-hour Holter monitor was placed in the emergency room at Dr. Macias's advice (therefore I assume she is the ordering provider). In addition, according to the emergency room note, Dr. Macias agreed to close outpatient follow-up. Therefore it appears Dr. Macias is currently managing this issue. 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 She was referred to cardiology. Mother states that soonest available appt is 10/23/22. Patient continues with elevated heart rate with any movement and questions if possible to get a referral to cardiology within [facility] to see if could be seen sooner? ER record from [facility] have been printed and placed in bin for review. I personally called [facility] as well, and 10/23 is the soonest that patient can be evaluated. Catina Mackey RN documented in this encounterAultman Hospital02-10-[address] Mason [facility] September 05, 2022 11:46pm Note Date/Time September 05, 2022 1 0:08pm [facility] Medical Records Department [address] [place] [address] Emergency Department Summary 09/05/22 MR#: [id number] Acct: [id number] Name: ARACELIS WHITTINGTON Rep #:[id number] : 2000 22 From: Cosme Mason MD PCP: Dr. Caleb Carver MD Status:RE G ER Location: ED HPI History of Present Illness Chief Complaint: Palpitations Informant: patient Onset/Context/Timing Onset: Weeks (1) Timing: Intermittent Quality: racing, beating hard Current Severity: Mild Maximum Severity: Moderate Worsened by: standing up Relieved by: sitting down Narrative Narrative: Patient states she has been having palpitations off and on for the past week. Mostly when she stands up, she feels her heart racing and beating hard, and her Apple Watch tells her that her heart is fast. It has been worse and more frequent today. When she sits down it seems to feel better. She has had no lightheadedness, near-syncope or syncope. No chest discomfort, no pleuritic discomfort, no dyspnea. No leg pain or swelling. She is healthy. She does notuse drugs. She does not take any prescriptions. She has not taken any iwcl-kok-bsvzcwy medications but she did have a cold last week that is resolved,and prior to that she had strep throat that was treated with antibiotics. PFS PFS Medical History no medical history no medical history Home Medications No Known/Unobtainable [No Known Home Medications] 08/17/16 [History Last Taken Unknown] Allergy/AdvReac Type Severity Reaction Status Date / Time No Known Allergies Allergy Verified 08/17/16 23:22 Social History Smoking Status: Never smoker ROS ROS ED Constitutional Constitutional ED: Denies chills or fever(s) Eyes Eyes: Denies change in vision or diplopia ENT ENT ED: Denies rhinorrhea or sore throat Cardiovascular Cardiovascular: Reports palpitations and racing heartbeat; Denies chest pain Respiratory/Chest Respiratory/Chest: Denies cough or dyspnea Gastrointestinal Gastrointestinal: Denies abdominal pain, diarrhea, nausea or vomiting Genitourinary Genitourinary ED: Denies dysuria or hematuria Musculoskeletal Musculoskeletal: Denies back pain or neck pain Integumentary Denies abscess or rash Neurologic Neurologic: Denies headache(s), paresthesias or weakness Psychiatric Psychiatric: Denies anxiety or suicidal thoughts EXAM Physical Exam Const Vital Signs: 09/05/22 20:04 09/05/22 22:32 09/05/22 22:32 Temperature 96.9 F L Temperature Source Temporal Pulse Rate 95 95 Pulse Rate [Lying] Pulse Rate [Sitting (for 1 minute prior to obtaining)] Pulse Rate [Standing (for 1 minute prior to obtaining)] Respiratory Rate 16 20 H Respiratory Effort Normal Non-Labored Blood Pressure 143/97 H 121/80 H Blood Pressure [Lying] Blood Pressure [Sitting (for 1 minute prior to obtaining)] Blood Pressure [Standing (for 1 minute prior to obtaining)] Blood Pressure Mean 112 93 Blood Pressure Mean [Lying] Blood Pressure Mean [Sitting (for 1 minute prior to obtaining)] Blood Pressure Mean [Standing (for 1 minute prior to obtaining)] Pulse Ox 100 100 Oxygen Delivery Method Room Air Room Air 09/05/22 22:40 Temperature Temperature Source Pulse Rate Pulse Rate [Lying] 88 Pulse Rate [Sitting (for 1 minute prior to obtaining)] 95 Pulse Rate [Standing (for 1 minute prior to obtaining)] 112 H Respiratory Rate Respiratory Effort Blood Pressure Blood Pressure [Lying] 121/73 H Blood Pressure [Sitting (for 1 minute prior to obtaining)] 115/80 Blood Pressure [Standing (for 1 minute prior to obtaining)] 136/74 H Blood Pressure Mean Blood Pressure Mean [Lying] 89 Blood Pressure Mean [Sitting (for 1 minute prior to obtaining)] 91 Blood Pressure Mean [Standing (for 1 minute prior to obtaining)] 94 Pulse Ox Oxygen Delivery Method Positive well nourished and well developed Constitutional Narrative: Well-appearing, conversive in full sentences, no distress General Appearance ED: well developed and NAD HEENT Reports moist mucous membranes normocephalic and atraumatic Throat: posterior oropharynx normal, tonsils normal and uvula midline Eyes PERRL and EOMs intact bilaterally Neck full ROM, no lymphadenopathy, supple and no JVD Chest Wall inspection of chest normal and palpation of chest normal Resp normal respiratory effort and clear to auscultation bilaterally Cardio regular rate, regular rhythm and no murmurs Rate: Negative for tachycardic GI non-tender and non-distended Auscultation: normoactive bowel sounds Palpation: soft Back/Spine no CVA tenderness General Back: other FROM Extremity normal to inspection General Extremety ED: Negative for edema, pulses abnormal or tenderness General Extremity: Negative for edema or pulses abnormal Neuro oriented x3, CN's II-XII intact bilaterally and no sensory deficits noted Sensorium / Orientation: awake and alert Motor Exam: strength 5/5 throughout Psych mental status grossly normal Skin no rashes or lesions noted and no wounds MDM MDM MDM Narrative Medical decision making narrative: Patient's EKG has repolarization abnormalities, and appears to have a delta wave. Her rhythm is normal and has been throughout her ED observation. Her labs including troponin are normal, I did a troponin to rule out myocarditis in context of her abnormal EKG and the fact that she had a cold last week and didnot test for COVID. She said she had rhinorrhea and congestion but no sore throat, headache, fevers or chills, so she probably did not have COVID. 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 She said that at one point her Apple Watch told her that her heart rate was 200. It is possible that she was in transient ventricular tachycardia with that. I discussed all this with cardiology Dr. Macias, and sent him the EKG. He agrees with this assessment, and advises a 48-hour Holter monitor which we are placing here in the ED prior to her discharge, and close outpatient follow-up which she will do. Discussed with her and family they are comfortable with this overall plan. Lab Data Attestation: I reviewed the patient's lab results. Labs: Laboratory Results - last 24 hr 09/05/22 09/05/22 22:21 22:21 WBC 11.2 H RBC 4.25 Hgb 12.0 Hct 36.0 L MCV 84.7 MCH 28.2 MCHC 33.3 RDW Std Deviation 38.3 RDW Coeff of Nathalia 12.5 Plt Count 302 MPV 8.7 Immature Gran % (Auto) 0.400 Neut % (Auto) 79.2 H Lymph % (Auto) 15.3 L Mckenzie % (Auto) 4.2 Eos % (Auto) 0.5 Baso % (Auto) 0.4 Absolute Neuts (auto) 8.9 H Absolute Lymphs (auto) 1.71 Nucleated RBC % 0 Sodium 139 Potassium 3.7 Chloride 106 Carbon Dioxide 25.0 Anion Gap 8 BUN 13 Creatinine 0.89 Estim Creat Clear Calc 78.10 Est GFR (MDRD) Af Amer 102 Est GFR (MDRD) Non-Af 84 BUN/Creatinine Ratio 14.6 Glucose 143 H Calcium 9.4 Troponin I High Sens 4 Rhythm Strip Rhythm Strip: Sinus Rhythm Rate: 95 Ectopy: None EKG Initial EKG: Attestation: I personally reviewed and interpreted this EKG as follows: Interpretation: Sinus Rhythm, No Acute Injury Pattern, Non-Specific ST Changes (Anteroseptal T wave inversions with some mild ST depressions, as well as nonspecific ST-T wave abnormalities inferiorly) and - (Delta wave with short [place] interval) Prior: No Prior Discharge Plan Triage Chief Complaint: Palpitations ED Provider: Cosme Mason Dx/Rx/DC Orders Clinical Impression: Palpitations, WPW (Ntwnw-Wwtefgsdx-Mtxbx syndrome) Instructions: ED Palpitations Prescriptions: No Action No Known Home Medications Primary Care Provider: Caleb Carver Referrals: Clarice Macias MD [Med Staff - Active Staff] - As soon as possible (call for appt to be seen after 48 hrs so that your monitor is finished.) Caleb Carver MD [Primary Care Provider] - Activity Restrictions/Additional Instructions: Return to the ER if you have palpitations that will not resolve, especially if it is very fast like 180-200, or if you pass out or feel like you are going to. Avoid exerting yourself until you follow-up with cardiology. Disposition Disposition: Home, Self Care What to do if you have Problems For any increased pain, shortness of breath, bleeding, nausea or vomiting, chestpain, or any unexpected problems, contact your Primary Care Provider. Call [facility] ([phone]) or report to the closest Emergency Room. Call 911 if necessary. 09/05/22 [id number] <Electronically signed by Cosme Mason MD> Cosigner Signature (if applicable): CC: Dr. Juan Macias MD; Dr. Caleb Carver MD ~ Signed [facility] Work Phone: [phone]) 681-364912-22-2022 History of Present illness Narrative* Sofai Praisler-Wood, GIRMA.TRAVELING [employer]ANT OPERATOR - 07/18/2022 10:28 AM EST Subjective HPI Aracelis Whittington is a 22 year old female who presents with sore throat and low grade fever since yesterday. She was treated for strep throat 2 weeks ago with amoxicillin. She has not taken any medication at home today. Review of Systems Constitutional: Negative for chills and fever. HENT: Positive for congestion and sore throat. Respiratory: Negative for cough. Cardiovascular: Negative. Musculoskeletal: Negative for myalgias. Skin: Negative. BP 124/76 Pulse 96 Temp 37.2 C (98.9 F) (Tympanic) Resp 18 Wt 51.7 kg (114 lb) LMP 06/23/2022 SpO2 99% PAST MEDICAL HISTORY Diagnosis Date ACQ ANKLE-FOOT DEF NOS 08/15/2005 resolved. Concussion 01/05/2014, 09/13/14 NEGATIVE HISTORY OF 08/12/07 normal color vision PAST SURGICAL HISTORY Procedure Laterality Date EXTRACTION, ERUPTED TOOTH OR EXPOSED ROOT (ELEVATION AND/OR FORCEPS REMOVAL) 07/2014 ALLERGIES Patient has no known allergies. MEDICATIONS acetaminophen (TYLENOL) 325 mg cap Take by mouth. amoxicillin-clavulanic acid (AUGMENTIN) 875-125 mg per tablet Take 1 tablet by mouth twice daily for 10 days. FAMILY HISTORY Problem Relation Age of Onset None Mother None Father Heart Maternal Grandfather [place] at age 38 years Diabetes Maternal Grandmother Stroke Maternal Grandmother Social History Tobacco Use Smoking status: Never Smokeless tobacco: Never Substance Use Topics Alcohol use: No Drug use: No Objective Physical Exam Vitals and nursing note reviewed. Constitutional: Appearance: Normal appearance. HENT: Mouth/Throat: Mouth: Mucous membranes are moist. Pharynx: Uvula midline. Posterior oropharyngeal erythema present. No oropharyngeal exudate. Cardiovascular: Rate and Rhythm: Normal rate and regular rhythm. Heart sounds: Normal heart sounds. Pulmonary: Effort: Pulmonary effort is normal. No respiratory distress. Breath sounds: Normal breath sounds. No wheezing or rales. Musculoskeletal: Cervical back: Neck supple. Lymphadenopathy: Cervical: No cervical adenopathy. Skin: General: Skin is warm and dry. Findings: No erythema or rash. Neurological: Mental Status: She is alert. ASSESSMENT/PLAN: 1. Throat pain - ICD9: 784.1, ICD10: R07.0 (primary diagnosis) - STREP A MOLECULAR (POC) 2. Strep throat - ICD9: 034.0, ICD10: J02.0 - Alere Strep Test POSITIVE, no culture pending - antibiotic as written - Discussed supportive care treatment with fluids, rest and analgesia. - The patient may also use warm salt water gargles, throat lozenges and/or OTC throat spray as needed. - Contagious dz precautions discussed- including considered contagious until on antibiotics for 24 hours - Call back if drooling, increased temperature, symptoms of dehydration and/or still sick in one week - AMOXICILLIN 875 MG-POTASSIUM CLAVULANATE 125 MG TABLET- was treated 2 weeks ago for strep with amoxicillin - Follow-up with your PCP in 3-5 days if symptoms have not improved or sooner if symptoms worsen - Discussed red flags and need for immediate medical evaluation if any occur. - Discussed supportive care treatment with fluids, rest and analgesia. - Discussed expected course of illness Sofia Yang APRN.CNP documented [facility]12[facility]22 Instructions* Patient Instructions* Sofia Yang APRN.CNP - 07/18/2022 10:27 AM EST ASSESSMENT/PLAN: 1. Throat pain - ICD9: 784.1, ICD10: R07.0 (primary diagnosis) - STREP A MOLECULAR (POC) 2. Strep throat - ICD9: 034.0, ICD10: J02.0 - Alere Strep Test POSITIVE, no culture pending - antibiotic as written - Discussed supportive care treatment with fluids, rest and analgesia. - The patient may also use warm salt water gargles, throat lozenges and/or OTC throat spray as needed. - Contagious dz precautions discussed- including considered contagious until on antibiotics for 24 hours - Call back if drooling, increased temperature, symptoms of dehydration and/or still sick in one week - AMOXICILLIN 875 MG-POTASSIUM CLAVULANATE 125 MG TABLET- was treated 2 weeks ago for strep with amoxicillin - Follow-up with your PCP in 3-5 days if symptoms have not improved or sooner if symptoms worsen - Discussed red flags and need for immediate medical evaluation if any occur. - Discussed supportive care treatment with fluids, rest and analgesia. - Discussed expected course of illness Sofia Yang APRN.CNP documented in this encounterA[facility]12-[facility]-2022 History of Present illness Narrative* Seun Franks APRN.CNP - 07/04/2022 3:21 PM EST Subjective HPI Nontoxic-appearing female presents to urgent care chief complaint of sore throat. Duration of symptoms 3 days. Associated symptoms sore throat, fever, nausea, and headache. Patient states history of strep throat in the past with similar signs of symptoms. Patient denies any trismus, difficulty handling secretions, decreased range of motion of neck, vomiting, abdominal pain, visual changes, acute headache, cough, pleuritic pain, or change in bowel or bladder habits. Denies chance of . Is not breast-feeding. Past medical history prescription medication use allergies reviewed. .Patient presents with: Sore Throat: X 3 days PAST MEDICAL HISTORY Diagnosis Date ACQ ANKLE-FOOT DEF NOS 08/15/2005 resolved. Concussion 01/05/2014, 09/13/14 NEGATIVE HISTORY OF 08/12/07 normal color vision PAST SURGICAL HISTORY Procedure Laterality Date EXTRACTION, ERUPTED TOOTH OR EXPOSED ROOT (ELEVATION AND/OR FORCEPS REMOVAL) 07/2014 ALLERGIES Patient has no known allergies. MEDICATIONS No prescriptions on file. FAMILY HISTORY Problem Relation Age of Onset None Mother None Father Heart Maternal Grandfather NV at age 38 years Diabetes Maternal Grandmother Stroke Maternal Grandmother Social History Tobacco Use Smoking status: Never Smokeless tobacco: Never Substance Use Topics Alcohol use: No Drug use: No BP 114/80 Pulse 106 Temp (!) 38.9 C (102.1 F) Wt 50.3 kg (111 lb) LMP 10/09/2021 SpO2 97% Review of Systems Constitutional: Positive for fever. Negative for chills and malaise/fatigue. HENT: Positive for sore throat. Negative for congestion, ear discharge, ear pain and sinus pain. Eyes: Negative for blurred vision, pain, discharge and redness. Respiratory: Negative for cough, hemoptysis, sputum production, shortness of breath, wheezing and stridor. Cardiovascular: Negative for chest pain. Gastrointestinal: Negative for abdominal pain, diarrhea, nausea and vomiting. Musculoskeletal: Negative for myalgias. Skin: Negative for itching and rash. Neurological: Negative for dizziness and headaches. Objective Physical Exam Constitutional: General: She is not in acute distress. Appearance: She is not diaphoretic. HENT: Head: Normocephalic. Jaw: No trismus, tenderness or pain on movement. Right Ear: Tympanic membrane, ear canal and external ear normal. Left Ear: Tympanic membrane, ear canal and external ear normal. Nose: Nose normal. Mouth/Throat: Lips: [place]odeo. Mouth: Mucous membranes are moist. Pharynx: Oropharynx is clear. Uvula midline. Posterior oropharyngeal erythema present. No pharyngeal swelling, oropharyngeal exudate or uvula swelling. Tonsils: No tonsillar exudate or tonsillar abscesses. 2+ on the right. 2+ on the left. Eyes: Conjunctiva/sclera: Conjunctivae normal. Pupils: Pupils are equal, round, and reactive to light. Cardiovascular: Rate and Rhythm: Normal rate and regular rhythm. Heart sounds: Normal heart sounds. Pulmonary: Effort: Pulmonary effort is normal. No tachypnea, accessory muscle usage or respiratory distress. Breath sounds: Normal breath sounds. No stridor. No wheezing, rhonchi or rales. Abdominal: General: There is no distension. Palpations: Abdomen is soft. Tenderness: There is no abdominal tenderness. There is no guarding or rebound. Musculoskeletal: Cervical back: Normal range of motion and neck supple. No rigidity or tenderness. Lymphadenopathy: Cervical: No cervical adenopathy. Skin: General: Skin is warm and dry. Neurological: Mental Status: She is alert and oriented to person, place, and time. ASSESSMENT/PLAN: 1. Sore throat - ICD9: 462, ICD10: J02.9 (primary diagnosis) - STREP A MOLECULAR (POC) 2. Strep pharyngitis - ICD9: 034.0, ICD10: J02.0 Strep test positive. Placed on amoxicillin. Patient was educated on supportive therapies. Patient will follow up with primary care provider as needed. Patient was instructed to immediately proceed to emergency room for any new, worsening, or symptoms lasting longer than anticipated. The patient's clinical presentation is otherwise unremarkable at this time. Based on exam and clinical finding, the patient is stable for discharge. Plan of care was discussed with patient. Patient verbalizes understanding and agrees to plan of care. This note was generated using Re.Mu software. It may contain errors in wording, punctuation, or spelling. Seun Franks APRN.PROMISE documented in this encounterA[facility]07-19-2022 History of Present illness Narrative* Adri Doll PA-C - 02/12/2022 11:43 AM EDT PEDIATRIC SICK VISIT SERVICE DATE: 02/12/2022 SUBJECTIVE: Aracelis Whittington is a 21 year old female who presents for evaluation of left ear pain that has been ongoing since around January 09. Denies rhinorrhea, sneezing, congestion, cough, and fever. Denies history of allergies. States pain started after getting water in her ear while swimming. Patient seen in UC on 01/20/22 for ear pain and diagnosed with ETD. Advised to start Loratadine daily and Flonase one spray each nostril daily. Increased Flonase to two sprays each nostril daily last week. Feels the Flonase may have helped slightly. History was obtained from: patient, EMR Sick contacts: No known sick contacts. HISTORY: ACTIVE PROBLEM LIST Concussion Influenza Vaccine Refused PAST MEDICAL HISTORY Diagnosis Date ACQ ANKLE-FOOT DEF NOS 08/15/2005 resolved. Concussion 01/05/2014, 09/13/14 NEGATIVE HISTORY OF 08/12/07 normal color vision PAST SURGICAL HISTORY Procedure Laterality Date EXTRACTION, ERUPTED TOOTH OR EXPOSED ROOT (ELEVATION AND/OR FORCEPS REMOVAL) 07/2014 Allergies: ALLERGIES No Known Allergies Medications: fluticasone (FLONASE) 50 mcg/actuation nasal spray Use 1 [place] in each nostril once daily. Rinse mouth after use. loratadine (CLARITIN) 10 mg tablet Take 1 tablet by mouth once daily. REVIEW OF SYSTEMS: As above, otherwise negative OBJECTIVE: Pulse 76 Temp 36.6 C (97.8 F) (Temporal) Resp 16 Wt 49.5 kg (109 lb 1.6 oz) LMP 10/09/2021 General: alert and active in no apparent distress Eyes: conjunctiva clear Ears: Right TM clear with good light reflex, no bulging, canal non-erythematous, no pain with tragal pressure; Left TM clear with possible non-purulent fluid level present, canal non-erythematous, nopain with tragal pressure Nose: no erythema or exudate OP: moist without lesions, no erythema, no exudates Neck: supple, no adenopathy Lungs: clear to auscultation bilaterally, good air exchange, no retractions CVS: Normal rate, regular rhythm, no murmur Skin: No rashes, lesions or skin changes ASSESSMENT/PLAN: Encounter Diagnosis ICD-10-CM 1. Dysfunction of left eustachian tube H69.82 2. Fluid level behind tympanic membrane of left ear H65.92 - Physical examination findings reviewed with patient - Discussed that there are no signs of infection requiring antibiotic treatment - Continue Flonase 2 sprays each nostril once daily - Referral to ENT. Patient provided with contact information for [facility] - All questions answered - Follow up in office as needed SIGNATURE: Adri Doll PA-C PATIENT NAME: Aracelis Whittington DATE: February 12, 2022 TIME: 11:43 AM documented in this encounterAult[facility]06-26-2022 History of Present illness Narrative* Seun Franks APRN.[employer]AVELING PL[employer] OPERATOR - 01/20/2022 11:57 AM EDT Subjective HPI Nontoxic-appearing female presents urgent care chief complaint muffled sensation left ear. Durationof symptoms 2 weeks. Associated symptoms muffled hearing left ear. Patient states feels like she has water in her ear. Has not used any OTC medications today. Denies any pain. Denies any ear trauma otorrhea. No known sick contacts. Denies any fever body aches chills nausea vomiting abdominal pain chest pain shortness of breath change in bowel or bladder habits past medical history prescription medication use allergies reviewed. Denies chance of is not breast-feeding.. .Patient presents with: Ear Pain: left ear pain-got water in it 2 weeks ago PAST MEDICAL HISTORY Diagnosis Date ACQ ANKLE-FOOT DEF NOS 08/15/2005 resolved. Concussion 01/05/2014, 09/13/14 NEGATIVE HISTORY OF 08/12/07 normal color vision PAST SURGICAL HISTORY Procedure Laterality Date EXTRACTION, ERUPTED TOOTH OR EXPOSED ROOT (ELEVATION AND/OR FORCEPS REMOVAL) 07/2014 ALLERGIES Patient has no known allergies. MEDICATIONS No prescriptions on file. FAMILY HISTORY Problem Relation Age of Onset None Mother None Father Heart Maternal Grandfather NV at age 38 years Diabetes Maternal Grandmother Stroke Maternal Grandmother Social History Tobacco Use Smoking status: Never Smoker Smokeless tobacco: Never Used Substance Use Topics Alcohol use: No Drug use: No BP 102/64 Pulse 75 Temp 36.7 C (98 F) (Tympanic) Resp 18 Wt 50.7 kg (111 lb 12.8 oz) LMP 10/09/2021 SpO2 100% Review of Systems Constitutional: Negative for chills, fever and malaise/fatigue. HENT: Negative for congestion, ear discharge, ear pain, hearing loss, sinus pain, sore throat and tinnitus. Eyes: Negative for blurred vision, pain, discharge and redness. Respiratory: Negative for cough, hemoptysis, sputum production, shortness of breath, wheezing and stridor. Cardiovascular: Negative for chest pain. Gastrointestinal: Negative for abdominal pain, diarrhea, nausea and vomiting. Musculoskeletal: Negative for myalgias. Skin: Negative for itching and rash. Neurological: Negative for dizziness and headaches. Objective Physical Exam Vitals and nursing note reviewed. Constitutional: General: She is not in acute distress. Appearance: She is not diaphoretic. HENT: Head: Normocephalic and atraumatic. Jaw: No trismus, tenderness, swelling or pain on movement. Right Ear: Hearing, tympanic membrane, ear canal and external ear normal. No decreased hearing noted. No drainage, swelling or tenderness. No mastoid tenderness. Tympanic membrane is not perforated, erythematous or bulging. Left Ear: Hearing, tympanic membrane, ear canal and external ear normal. No decreased hearing noted. No drainage, swelling or tenderness. No mastoid tenderness. Tympanic membrane is not perforated, erythematous or bulging. Ears: Comments: Clear fluid noted behind bilateral TMs. Left greater than right. No evidence of infection. TMs intact bilaterally. Mouth/Throat: Lips: Rodeo. Mouth: Mucous membranes are moist. Pharynx: Oropharynx is clear. Uvula midline. No pharyngeal swelling, oropharyngeal exudate, posterior oropharyngeal erythema or uvula swelling. Eyes: General: Right eye: No discharge. Left eye: No discharge. Conjunctiva/sclera: Conjunctivae normal. Pupils: Pupils are equal, round, and reactive to light. Cardiovascular: Rate and Rhythm: Normal rate and regular rhythm. Heart sounds: Normal heart sounds. Pulmonary: Effort: Pulmonary effort is normal. No tachypnea, accessory muscle usage or respiratory distress. Breath sounds: Normal breath sounds. No stridor. No wheezing, rhonchi or rales. Abdominal: Palpations: Abdomen is soft. Tenderness: There is no abdominal tenderness. Musculoskeletal: General: No tenderness. Normal range of motion. Cervical back: Normal range of motion and neck supple. No rigidity or tenderness. Lymphadenopathy: Head: Right side of head: No submental, submandibular, tonsillar, preauricular, posterior auricular or occipital adenopathy. Left side of head: No submental, submandibular, tonsillar, preauricular, posterior auricular or occipital adenopathy. Cervical: No cervical adenopathy. Right cervical: No superficial or posterior cervical adenopathy. Left cervical: No superficial or posterior cervical adenopathy. Skin: General: Skin is warm and dry. Findings: No rash. Neurological: Mental Status: She is alert and oriented to person, place, and time. ASSESSMENT/PLAN: 1. Eustachian tube dysfunction, bilateral - ICD9: 381.81, ICD10: H69.83 Patient diagnosed with eustachian tube dysfunction. Instructed on the use of antihistamines. Patient was educated on supportive therapies. Patient will follow up with primary care provider as needed.Patient was instructed to immediately proceed to emergency room for any new, worsening, or symptomslasting longer than anticipated. The patient's clinical presentation is otherwise unremarkable at this time. Based on exam and clinical finding, the patient is stable for discharge. Plan of care was discussed with patient. Patient verbalizes understanding and agrees to plan of care. This note was generated using Re.Mu software. It may contain errors in wording, punctuation, or spelling. Seun Franks APRN.PROMISE documented in this encounterA[facility]03-22-2022 Instructions* Patient Instructions* Britney Hallman MD - 10/16/2021 8:13 AM EDT You have a reactive/inflammatory lymph node in left posterior cervical chain. It is decreasing and is soft, movable- it is normal to have a palpable lymph node. Need seen if other enlarged lymph nodes or any other concerns arise Please update me later this week as to how it feels. documented in this encounterAult[facility]03-22-2022 History of Present illness Narrative* Britney Hallman MD - 10/16/2021 8:02 AM EDT Chief complaint--lump on the left side of the neck (pt. noticed it on 10/11) HPI- 21 year old here for palpable lump left neck. started 4-5 days ago and was sign of quarter. initially tender but that has improved in past couple days and size has also diminished since then no other lumps felt. Googled neck lumps and was very worried but she thought may be okay since itwas decreasing in size denies, fever, illness sx, sore throat, ear pain, weight loss, cough or URI sx does have seasonal allergies that started recently PMH- has a past medical history of ACQ ANKLE-FOOT DEF NOS (08/15/2005), Concussion, and NEGATIVE HISTORY OF (08/12/07). ALLERGIES No Known Allergies OBJECTIVE: BP 104/54 Pulse 70 Temp 36.6 C (97.9 F) (Temporal) Resp 12 Wt 53.1 kg (117 lb) LMP 10/09/2021 General: alert and active in no apparent distress Eyes: conjunctiva clear Ears: TMs clear: bilaterally Nose: no erythema or exudate OP: moist without lesions, no erythema, no tonsillar hypertrophy Neck: supple Lungs: clear to auscultation bilaterally, good air exchange, no retractions CVS: Normal rate, regular rhythm, no murmur Abdomen: soft, nondistended, nontender, no hepatosplenomegaly or masses Skin: No rashes, lesions or skin changes Lymph Nodes: (1) anterior cervical No (2) posterior cervical Yes- left side of neck has a 1/2 cm nontender, soft, easily moveable node posterior cervical chain (3) supraclavicular No (4) postauricular No (5) suprasternal notch No (6) axillary No (7) inguinal 203 very small nontender soft nodes in right inguinal area (8) popliteal No IMP: Palpable lymph node (primary encounter diagnosis) PLAN reassurance that this is an inflammatory lymph node that is decreasing in size. no other palpable lymph nodes of significance Discussed symptomatic care as needed. See patient instructions if written for further treatment plan Patient to call if worsening symptoms or concerns Britney Hallman MD documented in this encounter[address] History of Past illness Narrative* Problem Noted Date Resolved Date Unspecified deformity of ankle and foot, acquire d 08/15/2005 06/30/2012 documented as of this encounter (statuses as of 10/16/2021) [address] History of Past illness Narrative* Problem Noted Date Resolved Date Unspecified deformity of ankle and foot, acquire d 08/15/2005 06/30/2012 documented as of this encounter (statuses as of 10/22/2021) [address] History of Past illness Narrative* Problem Noted Date Resolved Date Unspecified deformity of ankle and foot, acquire d 08/15/2005 06/30/2012 documented as of this encounter (statuses as of 01/20/2022) [address] History of Past illness Narrative* Problem Noted Date Resolved Date Unspecified deformity of ankle and foot, acquire d 08/15/2005 06/30/2012 documented as of this encounter (statuses as of 02/13/2022) [address] History of Past illness Narrative* Problem Noted Date Resolved Date Unspecified deformity of ankle and foot, acquire d 08/15/2005 06/30/2012 documented as of this encounter (statuses as of 07/04/2022) [address] History of Past illness Narrative* Problem Noted Date Resolved Date Unspecified deformity of ankle and foot, acquire d 08/15/2005 06/30/2012 documented as of this encounter (statuses as of 07/19/2022) [place] [id number] History of Past illness Narrative* Problem Noted Date Resolved Date Unspecified deformity of ankle and foot, acquire d 08/15/2005 06/30/2012 documented as of this encounter (statuses as of 09/13/2022) [place] [id number] History of Past illness Narrative* Problem Noted Date Diagnosed Date Resolved Date Unspecified deformity of ank le and foot, acquired 08/15/2005 06/30/2012 documented as of this encounter (statuses as of 04/15/2023) [address] History of Past illness Narrative* Problem Noted Date Diagnosed Date Resolved Date Unspecified deformity of ank le and foot, acquired 08/15/2005 06/30/2012 documented as of this encounter (statuses as of 05/06/2023) [address] History of Past illness Narrative* Problem Noted Date Diagnosed Date Resolved Date Unspecified deformity of ank le and foot, acquired 08/15/2005 06/30/2012 documented as of this encounter (statuses as of 06/10/2023) [address] History of Past illness Narrative* Problem Noted Date Diagnosed Date Resolved Date Unspecified deformity of ank le and foot, acquired 08/15/2005 06/30/2012 documented as of this encounter (statuses as of 10/09/2023) [facility] Diagnosis Palpable lymph node- Primary Enlargement of lymph nodes [facility] Diagnosis Onset Date Resolution Status Back pain acute Segmental and somatic dysfunction of cervical region acute Segmental and somatic dysfunction of lumbar region acute Segmental and somatic dysfunction of pelvic region acute Segmental and somatic dysfunction of thoracic region acute Spondylolisthesis at L4-L5 level [facility] Work Phone: Evaluation note* Diagnosis Eustachian tube dysfunction, bilateral- Primary [facility] Dysfunction of left eustachian tube- Primary Dysfunction of Eustachian tube Fluid level behind tympanic membrane of left ear documented in this [facility] Sore throat- Primary Acute pharyngitis Strep pharyngitis Streptococcal sore throat [facility] Throat pain- Primary Strep throat Streptococcal sore throat [facility] assessment information [facility] Work Phone: Evaluation note* Diagnosis Onset Date Resolution Status Palpitations acute WPW (Khpby-Xurrlxtib-Bhhqs syndrome) acute [facility] Work Phone: Evaluation note* Diagnosis History of tachycardia- Primary Other specified conditions influencing health status [facility] Diagnosis SVT (supraventricular tachycardia) Other specified cardiac dysrhythmias SVT (supraventricular tachycardia) Other specified cardiac dysrhythmias [facility] Well adult exam- Primary Routine general medical examination at a health care facility History of Qtxxt-Rwoxfcoqx-Iojgy (WPW) syndrome documented [facility] this encounter [facility]* Diagnosis Rhinosinusitis- Primary Unspecified sinusitis (chronic) documented in this encounter [facility] note* Diagnosis Sore throat- Primary Acute pharyngitis Post-nasal drip Postnasal drip documented in this encounter [facility]* Diagnosis Sore throat- Primary Acute pharyngitis documented in this [facility]* Diagnosis Well adult exam- Primary Routine general medical examination at a health care facility Encounter for immunization Need for other specified prophylactic vaccination against single bacterial disease History of Wzodr-Hjhfpjpap-Twjjn (WPW) syndrome [facility]* Diagnosis Sore throat- Primary Acute pharyngitis Strep pharyngitis Streptococcal sore throat documented in this [facility]* Diagnosis Rash- Primary Rash and other nonspecific skin eruption [facility]* Electrophysiology Location: None Selected [facility] Work Phone: Progress note Author Gay Ellis [facility] Note Date/Time December 27, 2024 11:24 am [facility] [address], [address] [place] [address] OFFICE VISIT Date of Service: 12/27/24 MR#: [id number] Acct: [id number] Name: ARACELIS WHITTINGTON Rep #: [id number] : 2000 Provider: AMAN Ellis Age/Sex: 24/F Location: [facility] Status: Signed Intake Vital Signs 11/05/24 14:16 12/03/24 14:51 12/27/24 10:42 Height 5 ft 2 in 5 ft 2 in 5 ft 2 in Weight: 130 lb 2 oz BMI 23.8 BP 119/79 Intake Visit Reasons: 25 wk ob Chief Complaint: 25wk OB Patient Intake Coordinator Required: No Is patient in pain?: No Allergies No Known Allergies Allergy (Verified 12/27/24 10:40) Medications ?Medication ?Instructions ?Recorded ?Confirmed ?Type docosahexaenoic acid 200 mg mg PO 08/20/24 12/27/24 Hi story capsule ( DHA) Last Menstrual Period: 06/07/24 : No Have you fallen in the past year?: No PFSH PFSH Medical History Early stage of Wears contact lenses TMJ arthritis History of Holter monitoring History of echocardiogram Cardiology follow-up encounter Abnormal ultrasound Breast pain, right WPW (Ptvop-Xkqnacfuy-Cgpim syndrome) Palpitations Spondylolisthesis at L4-L5 level Segmental and somatic dysfunction of pelvic region Segmental and somatic dysfunction of lumbar region Segmental and somatic dysfunction of thoracic region Segmental and somatic dysfunction of cervical region Surgical History H/O breast biopsy Hx of wisdom tooth extraction History of cardiac radiofrequency ablation (RFA) (12/09/22) Family History Grandfather Myocardial infarction, Onset Age: 38 Grandmother CVA (cerebral vascular accident) Diabetes Mother Heart disease Social History adopted: No household members: spouse number of children: 0 current occupational status: employed current occupation: [employer] current occupational exposures/hazards: No pets and animals: No history of recent travel: [place] ([place] - June [place]25) out of state: Yes out of country: No sexually active: Yes Smoking Status: Never smoker alcohol intake: never substance use type: does not use well-balanced diet: daily or most days caffeine: No eating out: 1-3 times/week during the past year weight has: remained stable what type of physical activity do you participate in: walking, running and weight training frequency: 3-4 times per week duration: 15-30 minutes/day christin/buddhism: Hoahaoism seatbelt use: always do you feel safe at home: Yes additional 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 OB Visit JAIR Calculator Estimated Delivery Date Method Current WG Current Estimate 04/02/25 Ultrasound #1 26w 2d Other Estimates 03/14/25 LMP (Certain) 29w 0d Expected Delivery Route/Plan Labor Preferences- CB/BF classes: [] labor support person: [] labor intervention preferences: [] pain management options preferred: [] cut cord/dad catch: [] : [] PP control planned: [] discussed possible routes of delivery and associated risks: [] special requests: [] Specific Issue/Plans Covid status: [] Flu vaccine: [] Tdap vaccine: [] Rhogam: [] LARC form signed: [] Problem list reviewed and updated with the most current plan of care details and appropriate orders placed. Relevant counseling for the gestational age provided. Continue routine care and follow up unless otherwise noted in visit notes/problem list details Initial Weight: Not Recorded Date -?-?-?-?-?-?-?-?-?-?-?-?- EGA Weight BP Urine Prot -?-?-?-?-?-?-?-?-?-?-?-?- Glucose FHR FuHt Pres Dilation -?-?-?-?-?-?-?-?-?-?-?-?- Effaced St Visit Note 09/03/24 -?-?-?-?-?-?-?-?-?-?-?-?- 9w 6d 119 lb 127/81 -?-?-?-?-?-?-?-?-?-?-?-?- 181 -?-?-?-?-?-?-?-?-?-?-?-?- 1.71 CRL not con with LMP. con with early first us with care center. LC- 1.71 CRL not con with LM P. con with early first us with [facility]. 10/07/24 -?-?-?-?-?-?-?-?-?-?-?-?- 14w 5d 118 lb 133/83 -?-?-?-?-?-?-?-?-?-?-?-?- 161 -?-?-?-?-?-?-?-?-?-?-?-?- KW- no vb/crampi ng. US ordered today. 11/05/24 -?-?-?-?-?-?-?-?-?-?-?-?- 18w 6d 124 lb 117/72 Negative -?-?-?-?-?-?-?-?-?-?-?-?- Negative 160 -?-?-?-?-?-?-?-?-?-?-?-?- KW- no vb/crampi ng. + flutters. KW- no vb/cramping. + flutte rs. US reviewed. 12/03/24 -?-?-?-?-?-?-?-?-?-?-?-?- 22w 6d 127 lb 4 oz 123/81 Nega tive -?-?-?-?-?-?-?-?-?-?-?-?- Negative 150 23 -?-?-?-?-?-?-?-?-?-?-?-?- Sm- no vb lof go od fm no regular ctx 12/27/24 -?-?-?-?-?-?-?-?-?-?-?-?- 26w 2d 130 lb 2 oz 119/79 Nega tive -?-?-?-?-?-?-?-?-?-?-?-?- Negative 131 26 -?-?-?-?-?-?-?-?-?-?-?-?- KW- no vb/lof/ct x. good fm. glucose today. CBE classes discussed. traveling to [place] friday. travel precautions discussed. ACOG First Trimester First Trimester: Discussed ROS Const Reports system reviewed and no additional complaints, except as documented Eyes Reports system reviewed and no additional complaints, except as documented ENT Reports system reviewed and no additional complaints, except as documented Card Reports system reviewed and no additional complaints, except as documented Resp Reports system reviewed and no additional complaints, except as documented GI Reports system reviewed and no additional complaints, except as documented, Denies nausea and Denies vomiting Reports system reviewed and no additional complaints, except as documented Musc Reports system reviewed and no additional complaints, except as documented Skin/Breast Reports system reviewed and no additional complaints, except as documented Neuro Yes system reviewed and no additional complaints, except as documented Psych Reports system reviewed and no additional complaints, except as documented Endo Reports system reviewed and no additional complaints, except as documented Pola/Lymph Reports system reviewed and no additional complaints, except as documented Aller/Immun Reports system reviewed and no additional complaints, except as documented Exam Const General: cooperative, healthy appearing and no acute distress Orientation: alert, awake and oriented x3 Neck Neck: normal visual inspection and full ROM Resp Effort & Inspection: normal respiratory effort, able to speak in complete sentences and symmetric chest movement GI Inspection: normal to inspection Palpation: soft and other Other: gravid Skin General: no rashes or lesions noted Neuro General: patient alert, patient awake and patient oriented x3 Cognition: normal cognition Speech: speech normal Gait: normal gait Motor: muscle tone normal throughout Extrem General: normal to inspection and full ROM Psych Appearance: grossly normal Mental Status: mental status grossly normal Mood: congruent mood Affect: normal affect Speech and Movement: speech and movement normal Attitude: cooperative Thought Process: normal Thought Content: normal Judgment: judgment good Results POC Urinalysis 2 Dip (Clinic) Office Urine Glucose Negative Last Edit by Sia Felix on 12/27/24 10:50 Office Urine Protein Negative Last Edit by Sia Felix on 12/27/24 10:50 Coding Level of Care Code OB Routine Diagnoses Rubella non-immune status, antepartum O09.899; Z28.39 GBS (group B streptococcus) UTI complicating O23.40; B95.1 Supervision of high-risk O09.90 26 weeks gestation of Z3A.26 Weeks of gestation: 26 weeks Breast lump N63.0 Assessment and Plan Assessment and Plan (1) Rubella non-immune status, antepartum: Status: Acute Comment: offer MMR vaccine pp. (2) GBS (group B streptococcus) UTI complicating : Status: Acute Comment: not high enough to treat in treat with PCN in labor. (3) Supervision of high-risk : Status: Acute Comment: PRR, , JAIR 04/02/25, girl : Vinicio (4) : Status: Acute Qualifiers: Weeks of gestation: 26 weeks Qualified Code(s): Z3A.26 - 26 weeks gestation of Comment: NIPT low risk. Horizon neg. nl anatomy (5) Breast lump: Status: Acute Comment: right, fibroidadenoma Orders: Orders POC Urinalysis 2 Dip (Clinic) Today Plan Details Additional Comments: ACOG trimester education reviewed and updated. see problem list details for updated plan management information and see below for orders placed at this visit. GA appropriate handout given. Goals & Barriers: Goals Decrease spasm Decrease pain Improve ROM Barriers Healed lumbar fx Clinical Quality Measures Falls Risk Screening/Assistive Devices Have you fallen in the past year?: No 12/27/24 1124 <Electronically signed by Gay horn CNM> Date _ Gay Ellis CNM Cosigner Signature: Date (if applicable) CC: ~ [facility] Work Phone: Progress note Author Ava Pinto [facility] Note Date/Time January 25, 2025 10:42 am [facility] [address] [place] [address], [address] [place] [address] OFFICE VISIT Date of Service: 01/25/25 MR#: [id number] Acct: [id number] Name: ARACELIS WHITTINGTON Rep #: [id number] : 2000 Provider: KIKE Pinto Age/Sex: 24/F Location: [facility] Status: Signed with Addenda ADDENDUM by Jen Fontana on 01/25/25 at 1046 Office Procedure Documentation entered by Jen Fontana 01/25/25 10:46: Immunizations Adacel(Tdap Adolesn/Adult)(PF) 2 Lf-(2.5-5-3-5)-5 Lf/0.5 mL IM syringe Performing Provider: KIKE Youssef NP Performing Location: [facility] Administered by: Jen Fontana on 01/25/25 10:45 Dose Route Admin Location Dispensed Lot Number Expiration Date [employer] 0.5 mL IM Left Deltoid 0.5 mL [id number] 01/24/27 53726-613-16 [employer] VIS Given Date VIS Provided VIS Publication Date 01/25/25 Single Vaccine 24 Eligibility Eligibility Date Funding Source Not Applicable Date _ cc: ~* Signed Intake Vital Signs 12/03/24 14:51 12/27/24 10:42 01/25/25 10:20 Height 5 ft 2 in 5 ft 2 in 5 ft 2 in Weight: 136 lb BMI 24.8 BP 116/72 Intake Visit Reasons: 30 wk ob Chief Complaint: 30 Week OB Patient Intake Coordinator Required: No Is patient in pain?: No Allergies No Known Allergies Allergy (Verified 01/25/25 10:22) Medications ?Medication ?Instructions ?Recorded ?Confirmed ?Type docosahexaenoic acid 200 mg mg PO 08/20/24 01/25/25 Hi story capsule ( DHA) Last Menstrual Period: 06/07/24 Zika: Zika virus screening: Negative : Yes PFSH PFSH Medical History Early stage of Wears contact lenses TMJ arthritis History of Holter monitoring History of echocardiogram Cardiology follow-up encounter Abnormal ultrasound Breast pain, right WPW (Mohdj-Dzswrllzs-Xfcvf syndrome) Palpitations Spondylolisthesis at L4-L5 level Segmental and somatic dysfunction of pelvic region Segmental and somatic dysfunction of lumbar region Segmental and somatic dysfunction of thoracic region Segmental and somatic dysfunction of cervical region Surgical History H/O breast biopsy Hx of wisdom tooth extraction History of cardiac radiofrequency ablation (RFA) (12/09/22) Family History Grandfather Myocardial infarction, Onset Age: 38 Grandmother CVA (cerebral vascular accident) Diabetes Mother Heart disease Social History adopted: No household members: spouse number of children: 0 current occupational status: employed current occupation: [employer] current occupational exposures/hazards: No pets and animals: No history of recent travel: Yes ([place] - June 2025) out of state: Yes out of country: No sexually active: Yes Smoking Status: Never smoker alcohol intake: never substance use type: does not use well-balanced diet: daily or most days caffeine: No eating out: 1-3 times/week during the past year weight has: remained stable what type of physical activity do you participate in: walking, running and weight training frequency: 3-4 times per week duration: 15-30 minutes/day christin/buddhism: Hoahaoism seatbelt use: always do you feel safe at home: Yes 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 OB Visit JAIR Calculator Estimated Delivery Date Method Current WG Current Estimate 04/02/25 Ultrasound #1 30w 3d Other Estimates 03/14/25 LMP (Certain) 33w 1d Expected Delivery Route/Plan Labor Preferences- CB/BF classes: encouraged labor support person: Vinicio labor intervention preferences: [] pain management options preferred: epidural cut cord/dad catch: maybe cord : yes PP control planned: discussed discussed possible routes of delivery and associated risks: [] special requests: [] Specific Issue/Plans Covid status: [] Flu vaccine: [] Tdap vaccine: given Rhogam: NA LARC form signed: yes Problem list reviewed and updated with the most current plan of care details and appropriate orders placed. Relevant counseling for the gestational age provided. Continue routine care and follow up unless otherwise noted in visit notes/problem list details Initial Weight: Not Recorded Date -?-?-?-?-?-?-?-?-?-?-?-?- EGA Weight BP Urine Prot -?-?-?-?-?-?-?-?-?-?-?-?- Glucose FHR FuHt Pres Dilation -?-?-?-?-?-?-?-?-?-?-?-?- Effaced St Visit Note 09/03/24 -?-?-?-?-?-?-?-?-?-?-?-?- 9w 6d 119 lb 127/81 -?-?-?-?-?-?-?-?-?-?-?-?- 181 -?-?-?-?-?-?-?-?-?-?-?-?- 1.71 CRL not con with LMP. con with early first us with [facility]. LC- 1.71 CRL not con with LM P. con with early first us with [facility]. 10/07/24 -?-?-?-?-?-?-?-?-?-?-?-?- 14w 5d 118 lb 133/83 -?-?-?-?-?-?-?-?-?-?-?-?- 161 -?-?-?-?-?-?-?-?-?-?-?-?- KW- no vb/crampi ng. US ordered today. 11/05/24 -?-?-?-?-?-?-?-?--?-?-?-?- 18w 6d 124 lb 117/72 Negative -?-?-?-?-?-?-?-?-?-?-?-?- Negative 160 -?-?-?-?-?-?-?-?-?-?-?-?- KW- no vb/crampi ng. + flutters. KW- no vb/cramping. + flutte rs. US reviewed. 12/03/24 -?-?-?-?-?-?-?-?-?-?-?-?- 22w 6d 127 lb 4 oz 123/81 Nega tive -?-?-?-?-?-?-?-?-?-?-?-?- Negative 150 23 -?-?-?-?-?-?-?-?-?-?-?-?- Sm- no vb lof go od fm no regular ctx 12/27/24 -?-?-?-?-?-?-?-?-?-?-?-?- 26w 2d 130 lb 2 oz 119/79 Nega tive -?-?-?-?-?-?-?-?-?-?-?-?- Negative 131 26 -?-?-?-?-?-?-?-?-?-?-?-?- KW- no vb/lof/ct x. good fm. glucose today. CBE classes discussed. traveling [place] friday. travel precautions discussed. 01/25/25 -?-?-?-?-?-?-?-?-?-?-?-?- 30w 3d 136 lb 116/72 Negative -?-?-?-?-?-?-?-?-?-?-?-?- Negative 157 27 -?-?-?-?-?-?-?-?-?-?-?-?- MH-No VB, LOF. G ood FM. Growth US ACOG First Trimester First Trimester: Second Trimester Second Trimester: Signs and Symptoms of Labor, Selecting a care provider, Reproductive Life Planning & Contreception, Care Planning, Depression/Anxiety and Intimate Partner Violence Third Trimester Third Trimester: Pain Management Plans, Labor support person(s), Immediate Larc, Signs and Symptoms of Preeclampsia, Infant Feeding Yes and Family Medical Leave or Disability Forms ROS Const Reports system reviewed and no additional complaints, except as documented GI Denies abdominal pain, Denies nausea and Denies vomiting Exam Const General: cooperative Nutritional Appearance: well nourished GI Palpation: soft, nontender and other (gravid) Results POC Urinalysis 2 Dip (Clinic) Office Urine Glucose Negative Last Edit by Jen Fontana on 01/25/25 10 :30 Office Urine Protein Negative Last Edit by Jen Fontana on 01/25/25 10 :30 Coding Level of Care Code OB Routine Diagnoses Supervision of high risk in third trimester O09.93 Trimester: third trimester 30 weeks gestation of Z3A.30 Weeks of gestation: 30 weeks Group B Streptococcus urinary tract infection affecting in third trimester O23.43; B95.1 Trimester: third trimester Rubella non-immune status, antepartum O09.899; Z28.39 Small for dates fetus Assessment and Plan Assessment and Plan (1) Supervision of high-risk : Status: Acute Qualifiers: Trimester: third trimester Qualified Code(s): O09.93 - Supervision of high risk , unspecified, third trimester Comment: PRR, , JAIR 04/02/25, girl : Vinicio (2) : Status: Acute Qualifiers: Weeks of gestation: 30 weeks Qualified Code(s): Z3A.30 - 30 weeks gestation of Comment: NIPT low risk. Horizon neg. nl anatomy (3) GBS (group B streptococcus) UTI complicating : Status: Acute Qualifiers: Trimester: third trimester Qualified Code(s): O23.43 - Unspecified infection of urinary tract in , third trimester; B95.1 - Streptococcus, group B, as the cause of diseases classified elsewhere Comment: not high enough to treat in treat with PCN in labor. (4) Rubella non-immune status, antepartum: Status: Acute Comment: offer MMR vaccine pp. (5) Small for dates fetus: Status: Acute Comment: growth US Orders: Orders POC Urinalysis 2 Dip (Clinic) Today Plan problem list reviewed and updated for most current plan of care and appropriate orders placed. Relevant counseling for the gestational age appropriate provided and ACOG education checklist updated. Continue routine care and follow up. Plan Details Goals & Barriers: Goals Decrease spasm Decrease pain Improve ROM Barriers Healed lumbar fx 01/25/25 1042 <Electronically signed by Ava horn COLD MOLDING PRESS OPERATOR COLD MOLDING PRESS OPERATOR-C> Date _ Ava Pinto COLD MOLDING PRESS OPERATOR COLD MOLDING PRESS OPERATOR-C Cosigner Signature: Date (if applicable) CC: ~ [facility] Work Phone: Progress note Author Cecile Damon [facility] Note Date/Time February 08, 2025 11:0 2am [facility] [address] [place] [address], [address] [place] [address] OFFICE VISIT Date of Service: 02/08/25 MR#: [id number] Acct: [id number] Name: ARACELIS WHITTINGTON Rep #: [id number] : 2000 Provider: Dr. Blossom Mckeon DO Age/Sex: 24/F Location: [facility] Status: Signed Intake Vital Signs 12/27/24 10:42 01/25/25 10:20 02/08/25 10:17 Height 5 ft 2 in 5 ft 2 in 5 ft 2 in Weight: 137 lb BMI 25.0 BP 118/73 Intake Visit Reasons: 32wk ob Chief Complaint: 32wk OB Patient Intake Coordinator Required: No Is patient in pain?: No Allergies No Known Allergies Allergy (Verified 02/08/25 10:15) Medications ?Medication ?Instructions ?Recorded ?Confirmed ?Type docosahexaenoic acid 200 mg mg PO 08/20/24 02/08/25 Hi story capsule ( DHA) famotidine 20 mg tablet (Pepcid) 20 mg PO BID #60 tabs 02/08/25 02/08/25 Rx Last Menstrual Period: 06/07/24 : No Have you fallen in the past year?: No PFSH PFSH Medical History Early stage of Wears contact lenses TMJ arthritis History of Holter monitoring History of echocardiogram Cardiology follow-up encounter Abnormal ultrasound Breast pain, right WPW (Niefd-Dqbwrodxj-Kqfht syndrome) Palpitations Spondylolisthesis at L4-L5 level Segmental and somatic dysfunction of pelvic region Segmental and somatic dysfunction of lumbar region Segmental and somatic dysfunction of thoracic region Segmental and somatic dysfunction of cervical region Surgical History H/O breast biopsy Hx of wisdom tooth extraction History of cardiac radiofrequency ablation (RFA) (12/09/22) Family History Grandfather Myocardial infarction, Onset Age: 38 Grandmother CVA (cerebral vascular accident) Diabetes Mother Heart disease Social History adopted: No household members: spouse number of children: 0 current occupational status: employed current occupation: [employer] current occupational exposures/hazards: No pets and animals: No history of recent travel: Yes ([place] - June 2025) out of state: Yes out of country: No sexually active: Yes Smoking Status: Never smoker alcohol intake: never substance use type: does not use well-balanced diet: daily or most days caffeine: No eating out: 1-3 times/week during the past year weight has: remained stable what type of physical activity do you participate in: walking, running and weight training frequency: 3-4 times per week duration: 15-30 minutes/day christin/buddhism: Hoahaoism seatbelt use: always do you feel safe at home: Yes additional social history: : 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 OB Visit JAIR Calculator Estimated Delivery Date Method Current WG Current Estimate 04/02/25 Ultrasound #1 32w 3d Other Estimates 03/14/25 LMP (Certain) 35w 1d Expected Delivery Route/Plan Labor Preferences- CB/BF classes: encouraged labor support person: Vinicio labor intervention preferences: [] pain management options preferred: epidural cut cord/dad catch: maybe cord : yes PP control planned: discussed discussed possible routes of delivery and associated risks: [] special requests: [] Specific Issue/Plans Covid status: [] Flu vaccine: [] Tdap vaccine: given Rhogam: NA LARC form signed: yes Problem list reviewed and updated with the most current plan of care details and appropriate orders placed. Relevant counseling for the gestational age provided. Continue routine care and follow up unless otherwise noted in visit notes/problem list details Initial Weight: Not Recorded Date -?-?-?-?-?-?-?-?-?-?-?-?- EGA Weight BP Urine Prot -?-?-?-?-?-?-?-?-?-?-?-?- Glucose FHR FuHt Pres Dilation -?-?-?-?-?-?-?-?-?-?-?-?- Effaced St Visit Note 09/03/24 -?-?-?-?-?-?-?-?-?-?-?-?- 9w 6d 119 lb 127/81 -?-?-?-?-?-?-?-?-?-?-?-?- 181 -?-?-?-?-?-?-?-?-?-?-?-?- 1.71 CRL not con with LMP. con with early first us with [facility]. LC- 1.71 CRL not con with LM P. con with early first us with [facility]. 10/07/24 -?-?-?-?-?-?-?-?-?-?-?-?- 14w 5d 118 lb 133/83 -?-?-?-?-?-?--?-?-?-?-?-?- 161 -?-?-?-?-?-?-?-?-?-?-?-?- KW- no vb/crampi ng. US ordered today. 11/05/24 -?-?-?-?-?-?-?-?-?-?-?-?- 18w 6d 124 lb 117/72 Negative -?-?-?-?-?-?-?-?-?-?-?-?- Negative 160 -?-?-?-?-?-?-?-?-?-?-?-?- KW- no vb/crampi ng. + flutters. KW- no vb/cramping. + flutte rs. US reviewed. 12/03/24 -?-?-?-?-?-?-?-?-?-?-?-?- 22w 6d 127 lb 4 oz 123/81 Nega tive -?-?-?-?-?-?-?-?-?-?-?-?- Negative 150 23 -?-?-?-?-?-?-?-?-?-?-?--?- Sm- no vb lof go od fm no regular ctx 12/27/24 -?-?-?-?-?-?-?-?-?-?-?-?- 26w 2d 130 lb 2 oz 119/79 Nega tive -?-?-?-?-?-?-?-?-?-?-?-?- Negative 131 26 -?-?-?-?-?-?-?-?-?-?-?-?- KW- no vb/lof/ct x. good fm. glucose today. CBE classes discussed. traveling to [place] friday. travel precautions discussed. 01/25/25 -?-?-?-?-?-?-?-?-?-?-?-?- 30w 3d 136 lb 116/72 Negative -?-?-?-?-?-?-?-?-?-?-?-?- Negative 157 27 -?-?-?-?-?-?-?-?-?-?-?-?- MH-No VB, LOF. G ood FM. Growth US 02/08/25 -?-?-?-?-?-?-?-?-?-?-?-?- 32w 3d 137 lb 118/73 Negative -?-?-?-?-?-?-?-?-?-?-?-?- Negative 166 30 -?-?-?-?-?-?-?-?-?-?-?-?- JV- no lof, vagi nal bleeding, or dec fm. growth is 24th% with normal fluid. starting pepcid . ACOG First Trimester First Trimester: Discussed Second Trimester Second Trimester: Signs and Symptoms of Labor, Selecting a care provider, Reproductive Life Planning & Contreception, Care Planning, Depression/Anxiety and Intimate Partner Violence Third Trimester Third Trimester: Pain Management Plans, Labor support person(s), Immediate Larc, Signs and Symptoms of Preeclampsia, Infant Feeding No and Family Medical Leave or Disability Forms Results POC Urinalysis 2 Dip (Clinic) Office Urine Glucose Negative Last Edit by Sia Felix on 02/08/25 10:22 Office Urine Protein Negative Last Edit by Sia Felix on 02/08/25 10:22 Coding Level of Care Code OB Routine Diagnoses Small for dates fetus Rubella non-immune status, antepartum O09.899; Z28.39 Group B Streptococcus urinary tract infection affecting in third trimester O23.43; B95.1 Trimester: third trimester Supervision of high risk in third trimester O09.93 Trimester: third trimester 32 weeks gestation of Z3A.32 Weeks of gestation: 32 weeks Breast lump N63.0 Breast mass location: unspecified quadrant Assessment and Plan Assessment and Plan (1) Small for dates fetus: Status: Acute Comment: growth US (2) Rubella non-immune status, antepartum: Status: Acute Comment: offer MMR vaccine pp. (3) GBS (group B streptococcus) UTI complicating : Status: Acute Qualifiers: Trimester: third trimester Qualified Code(s): O23.43 - Unspecified infection of urinary tract in , third trimester; B95.1 - Streptococcus, group B, as the cause of diseases classified elsewhere Comment: not high enough to treat in treat with PCN in labor. (4) Supervision of high-risk : Status: Acute Qualifiers: Trimester: third trimester Qualified Code(s): O09.93 - Supervision of high risk , unspecified, third trimester Comment: PRR, , JAIR 04/02/25, girl : Vinicio (5) : Status: Acute Qualifiers: Weeks of gestation: 32 weeks Qualified Code(s): Z3A.32 - 32 weeks gestation of Comment: NIPT low risk. Horizon neg. nl anatomy (6) Breast lump: Status: Acute Qualifiers: Breast mass location: unspecified quadrant Comment: right, fibroidadenoma Orders: Orders POC Urinalysis 2 Dip (Clinic) Today Medications: New famotidine (Pepcid) 20 mg PO BID 60 tabs 5RF Plan Details Goals & Barriers: Goals Decrease spasm Decrease pain Improve ROM Barriers Healed lumbar fx Clinical Quality Measures Falls Risk Screening/Assistive Devices Have you fallen in the past year?: No 02/08/25 1102 <Electronically signed by Cecile Callahan DO> Date _ Cecile Mckeon DO Cosigner Signature: Date (if applicable) CC: ~ [facility] Work Phone: Progress note Author Gay Ellis [facility] Note Date/Time March 08, 2025 9: 56am [facility] [address] [place] [address], [address] [place] [address] OFFICE VISIT Date of Service: 03/08/25 MR#: [id number] Acct: [id number] Name: ARACELIS WHITTINGTON SINDI Rep #: [id number] : 2000 Provider: AMAN Ellis Age/Sex: 24/F Location: [facility] Status: Signed Intake Vital Signs 01/25/25 10:20 02/28/25 08:31 03/08/25 09:24 Height 5 ft 2 in 5 ft 2 in 5 ft 2 in Weight: 144 lb 8 oz BMI 26.4 BP 135/79 H Intake Visit Reasons: 36 wk ob Chief Complaint: 36wk OB Patient Intake Coordinator Required: No Is patient in pain?: No Allergies No Known Allergies Allergy (Verified 03/08/25 09:22) Medications ?Medication ?Instructions ?Recorded ?Confirmed ?Type docosahexaenoic acid 200 mg mg PO 08/20/24 03/08/25 Hi story capsule ( DHA) famotidine 20 mg tablet (Pepcid) 20 mg PO BID #60 tabs 02/08/25 03/08/25 Rx Last Menstrual Period: 06/07/24 : No Have you fallen in the past year?: No PFSH PFSH Medical History Early stage of Wears contact lenses TMJ arthritis History of Holter monitoring History of echocardiogram Cardiology follow-up encounter Abnormal ultrasound Breast pain, right WPW (Sbxyy-Khitvljab-Dbpby syndrome) Palpitations Spondylolisthesis at L4-L5 level Segmental and somatic dysfunction of pelvic region Segmental and somatic dysfunction of lumbar region Segmental and somatic dysfunction of thoracic region Segmental and somatic dysfunction of cervical region Surgical History H/O breast biopsy Hx of wisdom tooth extraction History of cardiac radiofrequency ablation (RFA) (12/09/22) Family History Grandfather Myocardial infarction, Onset Age: 38 Grandmother CVA (cerebral vascular accident) Diabetes Mother Heart disease Social History adopted: No household members: spouse number of children: 0 current occupational status: employed 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[employer] current occupational exposures/hazards: No pets and animals: No history of recent travel: Yes ([place] - June 2025) out of state: Yes out of country: No sexually active: Yes Smoking Status: Never smoker alcohol intake: never substance use type: does not use well-balanced diet: daily or most days caffeine: No eating out: 1-3 times/week during the past year weight has: remained stable what type of physical activity do you participate in: walking, running and weight training frequency: 3-4 times per week duration: 15-30 minutes/day christin/buddhism: Hoahaoism seatbelt use: always do you feel safe at home: Yes additional social history: : 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 OB Visit JAIR Calculator Estimated Delivery Date Method Current WG Current Estimate 04/02/25 Ultrasound #1 36w 3d Other Estimates 03/14/25 LMP (Certain) 39w 1d Expected Delivery Route/Plan Labor Preferences- CB/BF classes: encouraged labor support person: Vinicio labor intervention preferences: [] pain management options preferred: epidural cut cord/dad catch: maybe cord : yes PP control planned: discussed discussed possible routes of delivery and associated risks: [] special requests: [] Specific Issue/Plans Covid status: [] Flu vaccine: [] Tdap vaccine: given Rhogam: NA LARC form signed: yes Problem list reviewed and updated with the most current plan of care details and appropriate orders placed. Relevant counseling for the gestational age provided. Continue routine care and follow up unless otherwise noted in visit notes/problem list details Initial Weight: Not Recorded Date -?-?-?-?-?-?-?-?-?-?-?-?- EGA Weight BP Urine Prot -?-?-?-?-?-?-?-?-?-?-?-?- Glucose FHR FuHt Pres Dilation -?-?-?-?-?-?-?-?-?-?-?-?- Effaced St Visit Note 09/03/24 -?-?-?-?-?-?-?-?-?-?-?-?- 9w 6d 119 lb 127/81 -?-?-?-?-?-?-?-?-?-?-?-?- 181 -?-?-?-?-?-?-?-?-?-?-?-?- 1.71 CRL not con with LMP. con with early first us with [facility]. LC- 1.71 CRL not con with LM P. con with early first us with [facility]. 10/07/24 -?-?-?-?-?-?-?-?-?-?-?-?- 14w 5d 118 lb 133/83 -?-?-?-?-?-?--?-?-?-?-?-?- 161 -?-?-?-?-?-?-?-?-?-?-?-?- KW- no vb/crampi ng. US ordered today. 11/05/24 -?-?-?-?-?-?-?-?-?-?-?-?- 18w 6d 124 lb 117/72 Negative -?-?-?-?-?-?-?-?-?-?-?-?- Negative 160 -?-?-?-?-?-?-?-?-?-?-?-?- KW- no vb/crampi ng. + flutters. KW- no vb/cramping. + flutte rs. US reviewed. 12/03/24 -?-?-?-?-?-?-?-?-?-?-?-?- 22w 6d 127 lb 4 oz 123/81 Nega tive -?-?-?-?-?-?-?-?-?-?-?-?- Negative 150 23 -?-?-?-?-?-?-?-?-?-?-?--?- Sm- no vb lof go od fm no regular ctx 12/27/24 -?-?-?-?-?-?-?-?-?-?-?-?- 26w 2d 130 lb 2 oz 119/79 Nega tive -?-?-?-?-?-?-?-?-?-?-?-?- Negative 131 26 -?-?-?-?-?-?-?-?-?-?-?-?- KW- no vb/lof/ct x. good fm. glucose today. CBE classes discussed. traveling to [place] friday. travel precautions discussed. 01/25/25 -?-?-?-?-?-?-?-?-?-?-?-?- 30w 3d 136 lb 116/72 Negative -?-?-?-?-?-?-?-?-?-?-?-?- Negative 157 27 -?-?-?-?-?-?-?-?-?-?-?-?- MH-No VB, LOF. G ood FM. Growth 02/08/25 -?-?-?-?-?-?-?-?-?-?-?-?- 32w 3d 137 lb 118/73 Negative -?-?-?-?-?-?-?-?-?-?-?-?- Negative 166 30 -?-?-?-?-?-?-?-?-?-?-?-?- JV- no lof, vagi nal bleeding, or dec fm. growth is 24th% with normal fluid. starting pepcid . 02/28/25 -?-?-?-?-?-?-?-?-?-?-?-?- 35w 2d 143 lb 9 oz 118/82 Nega tive -?-?-?-?-?-?-?-?-?-?-?-?- Negative 156 33 -?-?-?-?-?-?-?-?-?-?-?-?- MH-No VB, LOF. G ood FM. Denies concerns 03/08/25 -?-?-?-?-?-?-?-?-?-?-?-?- 36w 3d 144 lb 8 oz 135/79 Nega tive -?-?-?-?-?-?-?-?-?-?-?-?- Negative 150 32 Cephalic 0 -?-?-?-?-?-?-?-?-?-?-?-?- KW- no vb/lof/ct x. good fm. GBS positive in urine. Growth US ordered for S<D. bedside us shows laurel of 9 ACOG First Trimester First Trimester: Discussed Second Trimester Second Trimester: Signs and Symptoms of Labor, Selecting a care provider, Reproductive Life Planning & Contreception, Care Planning, Depression/Anxiety and Intimate Partner Violence Third Trimester Third Trimester: Pain Management Plans, Labor support person(s), Immediate Larc, Signs and Symptoms of Preeclampsia, Feeding No and Family Medical Leave or Disability Forms ROS Const Reports system reviewed and no additional complaints, except as documented Eyes Reports system reviewed and no additional complaints, except as documented ENT Reports system reviewed and no additional complaints, except as documented Card Reports system reviewed and no additional complaints, except as documented Resp Reports system reviewed and no additional complaints, except as documented GI Reports system reviewed and no additional complaints, except as documented, Denies nausea and Denies vomiting Reports system reviewed and no additional complaints, except as documented Musc Reports system reviewed and no additional complaints, except as documented Skin/Breast Reports system reviewed and no additional complaints, except as documented Neuro Yes system reviewed and no additional complaints, except as documented Psych Reports system reviewed and no additional complaints, except as documented Endo Reports system reviewed and no additional complaints, except as documented Pola/Lymph Reports system reviewed and no additional complaints, except as documented Aller/Immun Reports system reviewed and no additional complaints, except as documented Exam Const General: cooperative, healthy appearing and no acute distress Orientation: alert, awake and oriented x3 Neck Neck: normal visual inspection and full ROM Resp Effort & Inspection: normal respiratory effort, able to speak in complete sentences and symmetric chest movement GI Inspection: normal to inspection Palpation: soft and other Other: gravid Skin General: no rashes or lesions noted Neuro General: patient alert, patient awake and patient oriented x3 Cognition: normal cognition Speech: speech normal Gait: normal gait Motor: muscle tone normal throughout Extrem General: normal to inspection and full ROM Psych Appearance: grossly normal Mental Status: mental status grossly normal Mood: congruent mood Affect: normal affect Speech and Movement: speech and movement normal Attitude: cooperative Thought Process: normal Thought Content: normal Judgment: judgment good Results POC Urinalysis 2 Dip (Clinic) Office Urine Glucose Negative Last Edit by Sia Felix on 03/08/25 09:29 Office Urine Protein Negative Last Edit by Sia Felix on 03/08/25 09:29 Coding Level of Care Code OB Routine Diagnoses Small for dates fetus Group B Streptococcus urinary tract infection affecting in third trimester O23.43; B95.1 Trimester: third trimester Rubella non-immune status, antepartum O09.899; Z28.39 Supervision of high risk in third trimester O09.93 Trimester: third trimester 36 weeks gestation of Z3A.36 Weeks of gestation: 36 weeks Breast lump N63.0 Breast mass location: unspecified quadrant Assessment and Plan Assessment and Plan (1) Small for dates fetus: Status: Acute Comment: growth US EFW 24%, AC 40% (2) GBS (group B streptococcus) UTI complicating : Status: Acute Qualifiers: Trimester: third trimester Qualified Code(s): O23.43 - Unspecified infection of urinary tract in , third trimester; B95.1 - Streptococcus, group B, as the cause of diseases classified elsewhere Comment: not high enough to treat in treat with PCN in labor. (3) Rubella non-immune status, antepartum: Status: Acute Comment: offer MMR vaccine pp. (4) Supervision of high-risk : Status: Acute Qualifiers: Trimester: third trimester Qualified Code(s): O09.93 - Supervision of high risk , unspecified, third trimester Comment: PRR, , JAIR 04/02/25, girl : Vinicio (5) : Status: Acute Qualifiers: Weeks of gestation: 36 weeks Qualified Code(s): Z3A.36 - 36 weeks gestation of Comment: NIPT low risk. Horizon neg. nl anatomy (6) Breast lump: Status: Acute Qualifiers: Breast mass location: unspecified quadrant Comment: right, fibroidadenoma Orders: Orders POC Urinalysis 2 Dip (Clinic) Today Plan Details Additional Comments: ACOG trimester education reviewed and updated. see problem list details for updated plan management information and see below for orders placed at this visit. GA appropriate handout given. Goals & Barriers: Goals Decrease spasm Decrease pain Improve ROM Barriers Healed lumbar fx Clinical Quality Measures Falls Risk Screening/Assistive Devices Have you fallen in the past year?: No 03/08/25 0956 <Electronically signed by Gay horn CNM> Date _ Gay Ellis CNM Cosigner Signature: Date (if applicable) CC: ~ [facility] Work Phone: Progress note Author Cecile Damon [facility] Note Date/Time March 15, 2025 11 :09am [facility] [address] [place] [address], [address] [place] [address] OFFICE VISIT Date of Service: 03/15/25 MR#: [id number] Acct: [id number] Name: KATEARACELIS RUIZ SINDI Rep #: [id number] : 2000 Provider: Dr. Blossom Mckeon DO Age/Sex: 24/F Location: [facility] Status: Signed Intake Vital Signs 01/25/25 10:20 03/08/25 09:24 03/15/25 10:33 03/15/25 10:33 Height 5 ft 2 in 5 ft 2 in 5 ft 2 in 5 ft 2 in Weight: 148 lb 6 oz BMI 27.1 BP 131/82 H Intake Visit Reasons: 37 wk ob Patient Intake Coordinator Required: No Is patient in pain?: No Allergies No Known Allergies Allergy (Verified 03/15/25 10:33) Medications ?Medication ?Instructions ?Recorded ?Confirmed ?Type docosahexaenoic acid 200 mg mg PO 08/20/24 03/15/25 Hi story capsule ( DHA) famotidine 20 mg tablet (Pepcid) 20 mg PO BID #60 tabs 02/08/25 03/15/25 Rx Last Menstrual Period: 06/07/24 Zika: Zika virus screening: Negative : No PFSH PFSH Medical History Early stage of Wears contact lenses TMJ arthritis History of Holter monitoring History of echocardiogram Cardiology follow-up encounter Abnormal ultrasound Breast pain, right WPW (Mdyup-Ojysbqiba-Fhwpn syndrome) Palpitations Spondylolisthesis at L4-L5 level Segmental and somatic dysfunction of pelvic region Segmental and somatic dysfunction of lumbar region Segmental and somatic dysfunction of thoracic region Segmental and somatic dysfunction of cervical region Surgical History H/O breast biopsy Hx of wisdom tooth extraction History of cardiac radiofrequency ablation (RFA) (12/09/22) Family History Grandfather Myocardial infarction, Onset Age: 38 Grandmother CVA (cerebral vascular accident) Diabetes Mother Heart disease Social History adopted: No household members: spouse number of children: 0 current occupational status: employed current occupation: [employer] current occupational exposures/hazards: No pets and animals: No history of recent travel: Yes ([place] - June 2025) out of state: Yes out of country: No sexually active: Yes Smoking Status: Never smoker alcohol intake: never substance use type: does not use well-balanced diet: daily or most days caffeine: No eating out: 1-3 times/week during the past year weight has: remained stable what type of physical activity do you participate in: walking, running and weight training frequency: 3-4 times per week duration: 15-30 minutes/day christin/buddhism: Hoahaoism seatbelt use: always do you feel safe at home: Yes additional 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 OB Visit JAIR Calculator Estimated Delivery Date Method Current WG Current Estimate 04/02/25 Ultrasound #1 37w 3d Other Estimates 03/14/25 LMP (Certain) 40w 1d Expected Delivery Route/Plan Labor Preferences- CB/BF classes: encouraged labor support person: Vinicio labor intervention preferences: [] pain management options preferred: epidural cut cord/dad catch: maybe cord : yes PP control planned: discussed discussed possible routes of delivery and associated risks: [] special requests: [] Specific Issue/Plans Covid status: [] Flu vaccine: [] Tdap vaccine: given Rhogam: NA LARC form signed: yes Problem list reviewed and updated with the most current plan of care details and appropriate orders placed. Relevant counseling for the gestational age provided. Continue routine care and follow up unless otherwise noted in visit notes/problem list details Initial Weight: Not Recorded Date -?-?-?-?-?-?-?-?-?-?-?-?- EGA Weight BP Urine Prot -?-?-?-?-?-?-?-?-?-?-?-?- Glucose FHR FuHt Pres Dilation -?-?-?-?-?-?-?-?-?-?-?-?- Effaced St Visit Note 09/03/24 -?-?--?-?-?-?-?-?-?-?-?-?- 9w 6d 119 lb 127/81 -?-?-?-?-?-?-?-?-?-?-?-?- 181 -?-?-?-?-?-?-?-?-?-?-?-?- .71 CRL not con with LMP. con with early first us with care center. LC- .71 CRL not con with LM P. con with early first us with care center. 10/07/24 -?-?-?-?-?-?-?-?-?-?-?-?- 14w 5d 118 lb 133/83 -?-?-?-?-?-?-?-?-?-?-?-?- 161 -?-?-?-?-?-?-?-?-?-?-?-?- KW- no vb/crampi ng. US ordered today. 11/05/24 -?-?-?-?-?-?-?-?-?-?-?-?- 18w 6d 124 lb 117/72 Negative -?-?-?-?-?-?-?-?-?-?-?-?- Negative 160 -?-?-?-?-?-?-?-?-?-?-?-?- KW- no vb/crampi ng. + flutters. KW- no vb/cramping. + flutte rs. US reviewed. 12/03/24 -?-?-?-?-?-?-?-?-?-?-?-?- 22w 6d 127 lb 4 oz 123/81 Nega tive -?-?-?-?-?-?-?-?-?-?-?-?- Negative 150 23 -?-?-?-?-?-?-?-?-?-?-?-?- Sm- no vb lof go od fm no regular ctx 12/27/24 -?-?-?-?-?-?-?-?-?-?-?-?- 26w 2d 130 lb 2 oz 119/79 Nega tive -?-?-?-?-?-?--?-?-?-?-?-?- Negative 131 26 -?-?-?-?-?-?-?-?-?-?-?-?- KW- no vb/lof/ct x. good fm. glucose today. CBE classes discussed. traveling to [place] friday. travel precautions discussed. 01/25/25 -?-?-?-?-?-?-?-?-?-?-?-?- 30w 3d 136 lb 116/72 Negative -?-?-?-?-?-?-?-?-?-?-?-?- Negative 157 27 -?-?-?-?-?-?--?-?-?-?-?-?- MH-No VB, LOF. G ood FM. Growth US 02/08/25 -?-?-?-?-?-?-?-?-?-?-?-?- 32w 3d 137 lb 118/73 Negative -?-?-?-?-?-?-?-?-?-?-?-?- Negative 166 30 -?-?-?-?-?-?-?-?-?-?-?-?- JV- no lof, vagi nal bleeding, or dec fm. growth is 24th% with normal fluid. starting pepcid . 02/28/25 -?-?-?-?-?-?-?-?--?-?-?-?- 35w 2d 143 lb 9 oz 118/82 Nega tive -?-?-?-?-?-?-?-?-?-?-?-?- Negative 156 33 -?-?-?-?-?-?-?-?-?-?-?-?- MH-No VB, LOF. G ood FM. Denies concerns 03/08/25 -?-?-?-?-?-?-?-?-?-?-?-?- 36w 3d 144 lb 8 oz 135/79 Nega tive -?-?-?-?-?-?-?-?-?-?-?-?- Negative 150 32 Cephalic 0 -?-?-?-?-?-?-?-?-?-?-?-?- KW- no vb/lof/ct x. good fm. GBS positive in urine. Growth US ordered for S<D. bedside us shows laurel of 9 03/15/25 -?-?-?-?-?-?-?-?-?-?-?-?- 37w 3d 148 lb 6 oz 131/82 Nega tive -?-?-?-?-?-?-?-?-?-?-?-?- Negative 156 33 Cephalic 0 -?-?-?-?-?-?-?-?-?-?-?-?- -1 JV- norm al growth scan. head is low an reason for low FH. ACOG First Trimester First Trimester: Discussed Second Trimester Second Trimester: Signs and Symptoms of Labor, Selecting a care provider, Reproductive Life Planning & Contreception, Care Planning, Depression/Anxiety and Intimate Partner Violence Third Trimester Third Trimester: Pain Management Plans, Labor support person(s), Immediate Larc, Signs and Symptoms of Preeclampsia, Infant Feeding No and Family Medical Leave or Disability Forms Results POC Urinalysis 2 Dip (Clinic) Office Urine Glucose Negative Last Edit by Radha Cox on 03/15/25 11: 04 Office Urine Protein Negative Last Edit by Radha Cox on 03/15/25 11: 04 Coding Level of Care Code OB Routine Diagnoses Small for dates fetus Rubella non-immune status, antepartum O09.899; Z28.39 Group B Streptococcus urinary tract infection affecting in third trimester O23.43; B95.1 Trimester: third trimester Supervision of high risk in third trimester O09.93 Trimester: third trimester 37 weeks gestation of Z3A.37 Weeks of gestation: 37 weeks Breast lump N63.0 Breast mass location: unspecified quadrant Assessment and Plan Assessment and Plan (1) Small for dates fetus: Status: Acute Comment: growth US EFW 24%, AC 40% (2) Rubella non-immune status, antepartum: Status: Acute Comment: offer MMR vaccine pp. (3) GBS (group B streptococcus) UTI complicating : Status: Acute Qualifiers: Trimester: third trimester Qualified Code(s): O23.43 - Unspecified infection of urinary tract in , third trimester; B95.1 - Streptococcus, group B, as the cause of diseases classified elsewhere Comment: not high enough to treat in treat with PCN in labor. (4) Supervision of high-risk : Status: Acute Qualifiers: Trimester: third trimester Qualified Code(s): O09.93 - Supervision of high risk , unspecified, third trimester Comment: PRR, , JAIR 04/02/25, girl : Vinicio (5) : Status: Acute Qualifiers: Weeks of gestation: 37 weeks Qualified Code(s): Z3A.37 - 37 weeks gestation of Comment: NIPT low risk. Horizon neg. nl anatomy (6) Breast lump: Status: Acute Qualifiers: Breast mass location: unspecified quadrant Comment: right, fibroidadenoma Orders: Orders POC Urinalysis 2 Dip (Clinic) Today Plan Details Goals & Barriers: Goals Decrease spasm Decrease pain Improve ROM Barriers Healed lumbar fx 03/15/25 1109 <Electronically signed by Cecile Callahan DO> Date _ Cecile Mckeon DO Cosigner Signature: Date (if applicable) CC: ~ [facility] Work Phone: Reason for referral (narrative)No reason for referral information available[facility] Work Phone: Chief Complaint and Reason for Visit Chief Complaint LBP Reason for Visit Back pain Segmental and somatic dysfunction of cervical region Segmental and somatic dysfunction of lumbar region Segmental and somatic dysfunction of pelvic region Segmental and somatic dysfunction of thoracic region Spondylolisthesis at L4-L5 level Chief Complaint palpitations 48HR H[place]TER Chief Complaint palpitations 48HR [place] PALP/ [facility] ED 2-9 Reason for Visit Palpitations WPW (Vyyef-Sjszxrzdd-Mfdcq syndrome) Chief Complaint palpitations 48HR [place] PALP/ [facility] ED 2-9 PALPATATIONS, WPW SYNDROME Amb Documentation Chief Complaint Admit Date New OB, had quants September 03, 2024 2 :27pm 13wk OB October 07, 2024 3:4 1pm 17 wk ob November 05, 2024 2:1 3pm 21 wk ob December 03, 2024 2:49pm 25 wk ob December 27, 2024 10:37 am INT LABS December 27, 2024 10:50 am Reason for Visit Admit Date Breast lump September 03, 2024 2 :27pm September 03, 2024 2 :27pm Supervision of high-risk Febru tres 2024 2:27pm History of cardiac radiofrequency ablati on (RFA) September 03, 2024 2:27pm WPW (Irypq-Ayvjvjqml-Phtkq syndrome) Feb ruary 2024 2:27pm Breast lump October 07, 2024 3:4 1pm GBS (group B streptococcus) UTI complica ting October 07, 2024 3:41pm October 07, 2024 3:4 1pm Rubella non-immune status, antepartum Ma [facility] 2024 3:41pm Supervision of high-risk October 07, 2024 3:41pm History of cardiac radiofrequency ablati on (RFA) October 07, 2024 3:41pm WPW (Ocqca-Axyilweho-Bgsdc syndrome) Mar 2024 3:41pm Breast lump November 05, 2024 2:1 3pm GBS (group B streptococcus) UTI complica ting November 05, 2024 2:13pm November 05, 2024 2:1 3pm Rubella non-immune status, antepartum Ap ril 2024 2:13pm Supervision of high-risk November 05, 2024 2:13pm History of cardiac radiofrequency ablati on (RFA) November 05, 2024 2:13pm WPW (Zinek-Kysufxsci-Ywpej syndrome) Apr il 2024 2:13pm Breast lump December 03, 2024 2:49pm GBS (group B streptococcus) UTI complica ting December 03, 2024 2:49pm December 03, 2024 2:49pm Rubella non-immune status, antepartum Ma y 2024 2:49pm Supervision of high-risk December 032024 2:49pm Breast lump December 27, 2024 10:37 am GBS (group B streptococcus) UTI complica ting December 27, 2024 10:37am December 27, 2024 10:37 am Rubella non-immune status, antepartum Ju ne 2024 10:37am Supervision of high-risk December 27, 2024 10:37am Chief Complaint Admit Date 13wk OB October 07, 2024 3:4 1pm 17 wk ob November 05, 2024 2:1 3pm 21 wk ob December 03, 2024 2:49pm 25 wk ob December 27, 2024 10:37 am INT LABS December 27, 2024 10:50 am 30 wk ob January 25, 2025 10:17 am Reason for Visit Admit Date Breast lump October 07, 2024 3:4 1pm GBS (group B streptococcus) UTI complica ting October 07, 2024 3:41pm October 07, 2024 3:4 1pm Rubella non-immune status, antepartum Ma [facility] 2024 3:41pm Supervision of high-risk October 07, 2024 3:41pm History of cardiac radiofrequency ablati on (RFA) October 07, 2024 3:41pm WPW (Udcxr-Nsphrayqu-Hdqyr syndrome) [facility] 2024 3:41pm Breast lump November 05, 2024 2:1 3pm GBS (group B streptococcus) UTI complica ting November 05, 2024 2:13pm November 05, 2024 2:1 3pm Rubella non-immune status, antepartum Ap ril 2024 2:13pm Supervision of high-risk November 05, 2024 2:13pm History of cardiac radiofrequency ablati on (RFA) November 05, 2024 2:13pm WPW (Peuyc-Iitlgjqdk-Tytmb syndrome) Apr il 2024 2:13pm Breast lump December 03, 2024 2:49pm GBS (group B streptococcus) UTI complica ting December 03, 2024 2:49pm December 03, 2024 2:49pm Rubella non-immune status, antepartum Ma y 2024 2:49pm Supervision of high-risk December 032024 2:49pm Breast lump December 27, 2024 10:37 am GBS (group B streptococcus) UTI complica ting December 27, 2024 10:37am December 27, 2024 10:37 am Rubella non-immune status, antepartum Ju 2024 10:37am Supervision of high-risk December 27, 2024 10:37am GBS (group B streptococcus) UTI complica ting January 25, 2025 10:17am January 25, 2025 10:17 am Rubella non-immune status, antepartum Ju ly 2024 10:17am Small for dates fetus January 25, 2025 10: 17am Supervision of high-risk January 25, 2025 10:17am Chief Complaint Admit Date 17 wk ob November 05, 2024 2:1 3pm 21 wk ob December 03, 2024 2:49pm 25 wk ob December 27, 2024 10:37 am INT LABS December 27, 2024 10:50 am 30 wk ob January 25, 2025 10:17 am GROWTH - SMALL FOR DATES FETUS Noble y 2024 3:53pm 32wk ob February 08, 2025 10:1 4am Reason for Visit Admit Date Breast lump November 05, 2024 2:1 3pm GBS (group B streptococcus) UTI complica ting November 05, 2024 2:13pm November 05, 2024 2:1 3pm Rubella non-immune status, antepartum Ap ril 2024 2:13pm Supervision of high-risk November 05, 2024 2:13pm History of cardiac radiofrequency ablati on (RFA) November 05, 2024 2:13pm WPW (Bhbix-Qlgkvwzjt-Grlhf syndrome) Apr 2024 2:13pm Breast lump December 03, 2024 2:49pm GBS (group B streptococcus) UTI complica ting December 03, 2024 2:49pm December 03, 2024 2:49pm Rubella non-immune status, antepartum Ma y 2024 2:49pm Supervision of high-risk December 032024 2:49pm Breast lump December 27, 2024 10:37 am GBS (group B streptococcus) UTI complica ting December 27, 2024 10:37am December 27, 2024 10:37 am Rubella non-immune status, antepartum Ju ne 2024 10:37am Supervision of high-risk December 27, 2024 10:37am GBS (group B streptococcus) UTI complica ting January 25, 2025 10:17am January 25, 2025 10:17 am Rubella non-immune status, antepartum Ju ly 2024 10:17am Small for dates fetus January 25, 2025 10: 17am Supervision of high-risk January 25, 2025 10:17am Breast lump February 08, 2025 10:1 4am GBS (group B streptococcus) UTI complica ting February 08, 2025 10:14am February 08, 2025 10:1 4am Rubella non-immune status, antepartum Ju ly 2024 10:14am Small for dates fetus February 08, 2025 10 :14am Supervision of high-risk February 08, 2025 10:14am Chief Complaint Admit Date 17 wk ob November 05, 2024 2:1 3pm 21 wk ob December 03, 2024 2:49pm 25 wk ob December 27, 2024 10:37 am INT LABS December 27, 2024 10:50 am 30 wk ob January 25, 2025 10:17 am GROWTH - SMALL FOR DATES FETUS Noble 2024 3:53pm 32wk ob February 08, 2025 10:1 4am 35 wk ob February 28, 2025 8:2 9am Reason for Visit Admit Date Breast lump November 05, 2024 2:1 3pm GBS (group B streptococcus) UTI complica ting November 05, 2024 2:13pm November 05, 2024 2:1 3pm Rubella non-immune status, antepartum Ap ril 2024 2:13pm Supervision of high-risk November 05, 2024 2:13pm History of cardiac radiofrequency ablati on (RFA) November 05, 2024 2:13pm WPW (Nqjkh-Puomqfxfz-Vfnux syndrome) Apr il 2024 2:13pm Breast lump December 03, 2024 2:49pm GBS (group B streptococcus) UTI complica ting December 03, 2024 2:49pm December 03, 2024 2:49pm Rubella non-immune status, antepartum Ma y 2024 2:49pm Supervision of high-risk December 032024 2:49pm Breast lump December 27, 2024 10:37 am GBS (group B streptococcus) UTI complica ting December 27, 2024 10:37am December 27, 2024 10:37 am Rubella non-immune status, antepartum Ju ne 2024 10:37am Supervision of high-risk December 27, 2024 10:37am GBS (group B streptococcus) UTI complica ting January 25, 2025 10:17am January 25, 2025 10:17 am Rubella non-immune status, antepartum Ju ly 2024 10:17am Small for dates fetus January 25, 2025 10: 17am Supervision of high-risk January 25, 2025 10:17am Breast lump February 08, 2025 10:1 4am GBS (group B streptococcus) UTI complica ting February 08, 2025 10:14am February 08, 2025 10:1 4am Rubella non-immune status, antepartum Ju ly 2024 10:14am Small for dates fetus February 08, 2025 10 :14am Supervision of high-risk February 08, 2025 10:14am Breast lump February 28, 2025 8:2 9am GBS (group B streptococcus) UTI complica ting February 28, 2025 8:29am February 28, 2025 8:2 9am Rubella non-immune status, antepartum Au didi 2024 8:29am Small for dates fetus February 28, 2025 8 :29am Supervision of high-risk Augus t 2024 8:29am Chief Complaint Admit Date 21 wk ob December 03, 2024 2:49pm 25 wk ob December 27, 2024 10:37 am INT LABS December 27, 2024 10:50 am 30 wk ob January 25, 2025 10:17 am GROWTH - SMALL FOR DATES FETUS Noble y 2024 3:53pm 32wk ob February 08, 2025 10:1 4am 35 wk ob February 28, 2025 8:2 9am 36 wk ob March 08, 2025 9: 20am Reason for Visit Admit Date Breast lump December 03, 2024 2:49pm GBS (group B streptococcus) UTI complica ting December 03, 2024 2:49pm December 03, 2024 2:49pm Rubella non-immune status, antepartum Ma y 2024 2:49pm Supervision of high-risk December 032024 2:49pm Breast lump December 27, 2024 10:37 am GBS (group B streptococcus) UTI complica ting December 27, 2024 10:37am December 27, 2024 10:37 am Rubella non-immune status, antepartum Ju ne 2024 10:37am Supervision of high-risk December 27, 2024 10:37am GBS (group B streptococcus) UTI complica ting January 25, 2025 10:17am January 25, 2025 10:17 am Rubella non-immune status, antepartum Ju ly 2024 10:17am Small for dates fetus January 25, 2025 10: 17am Supervision of high-risk January 25, 2025 10:17am Breast lump February 08, 2025 10:1 4am GBS (group B streptococcus) UTI complica ting February 08, 2025 10:14am February 08, 2025 10:1 4am Rubella non-immune status, antepartum Ju ly 2024 10:14am Small for dates fetus February 08, 2025 10 :14am Supervision of high-risk February 08, 2025 10:14am GBS (group B streptococcus) UTI complica ting February 28, 2025 8:29am February 28, 2025 8:2 9am Rubella non-immune status, antepartum Au didi 2024 8:29am Small for dates fetus February 28, 2025 8 :29am Supervision of high-risk Augus t 2024 8:29am Breast lump March 08, 2025 9: 20am GBS (group B streptococcus) UTI complica ting March 08, 2025 9:20am March 08, 2025 9: 20am Rubella non-immune status, antepartum Au didi 2024 9:20am Small for dates fetus March 08, 2025 9:20am Supervision of high-risk Augus t 2024 9:20am Chief Complaint Admit Date 21 wk ob December 03, 2024 2:49pm 25 wk ob December 27, 2024 10:37 am INT LABS December 27, 2024 10:50 am 30 wk ob January 25, 2025 10:17 am GROWTH - SMALL FOR DATES FETUS Jan 3:53pm 32wk ob February 08, 2025 10:1 4am 35 wk ob February 28, 2025 8:2 9am 36 wk ob March 08, 2025 9: 20am small for dates fetus, supervision of hi gh risk pr March 10, 2025 1:22pm 37 wk ob March 15, 2025 10 :18am Reason for Visit Admit Date Breast lump December 03, 2024 2:49pm GBS (group B streptococcus) UTI complica ting December 03, 2024 2:49pm December 03, 2024 2:49pm Rubella non-immune status, antepartum Ma y 2024 2:49pm Supervision of high-risk December 032024 2:49pm Breast lump December 27, 2024 10:37 am GBS (group B streptococcus) UTI complica ting December 27, 2024 10:37am December 27, 2024 10:37 am Rubella non-immune status, antepartum Ju ne 2024 10:37am Supervision of high-risk December 27, 2024 10:37am GBS (group B streptococcus) UTI complica ting January 25, 2025 10:17am January 25, 2025 10:17 am Rubella non-immune status, antepartum Ju ly 2024 10:17am Small for dates fetus January 25, 2025 10: 17am Supervision of high-risk January 25, 2025 10:17am Breast lump February 08, 2025 10:1 4am GBS (group B streptococcus) UTI complica ting February 08, 2025 10:14am February 08, 2025 10:1 4am Rubella non-immune status, antepartum Ju ly 2024 10:14am Small for dates fetus February 08, 2025 10 :14am Supervision of high-risk February 08, 2025 10:14am GBS (group B streptococcus) UTI complica ting February 28, 2025 8:29am February 28, 2025 8:2 9am Rubella non-immune status, antepartum Au didi 2024 8:29am Small for dates fetus February 28, 2025 8 :29am Supervision of high-risk Augus t 2024 8:29am Breast lump March 08, 2025 9: 20am GBS (group B streptococcus) UTI complica ting March 08, 2025 9:20am March 08, 2025 9: 20am Rubella non-immune status, antepartum Au didi 2024 9:20am Small for dates fetus March 08, 2025 9:20am Supervision of high-risk Augus t 2024 9:20am Breast lump March 15, 2025 10 :18am GBS (group B streptococcus) UTI complica ting March 15, 2025 10:18am March 15, 2025 10 :18am Rubella non-immune status, antepartum Au didi 2024 10:18am Small for dates fetus March 15, 2025 10:18am Supervision of high-risk Augus t 2024 10:18am Chief Complaint Admit Date 21 wk ob December 03, 2024 2:49pm 25 wk ob December 27, 2024 10:37 am INT LABS December 27, 2024 10:50 am 30 wk ob January 25, 2025 10:17 am GROWTH - SMALL FOR DATES FETUS Noble 2024 3:53pm 32wk ob February 08, 2025 10:1 4am 35 wk ob February 28, 2025 8:2 9am 36 wk ob March 08, 2025 9: 20am small for dates fetus, supervision of hi gh risk pr March 10, 2025 1:22pm 37 wk ob March 15, 2025 10 :18am 38 wk ob March 22, 2025 3: 32pm Reason for Visit Admit Date Breast lump December 03, 2024 2:49pm GBS (group B streptococcus) UTI complica ting December 03, 2024 2:49pm December 03, 2024 2:49pm Rubella non-immune status, antepartum Ma y 2024 2:49pm Supervision of high-risk December 032024 2:49pm Breast lump December 27, 2024 10:37 am GBS (group B streptococcus) UTI complica ting December 27, 2024 10:37am December 27, 2024 10:37 am Rubella non-immune status, antepartum Ju ne 2024 10:37am Supervision of high-risk December 27, 2024 10:37am GBS (group B streptococcus) UTI complica ting January 25, 2025 10:17am January 25, 2025 10:17 am Rubella non-immune status, antepartum Ju ly 2024 10:17am Small for dates fetus January 25, 2025 10: 17am Supervision of high-risk January 25, 2025 10:17am Breast lump February 08, 2025 10:1 4am GBS (group B streptococcus) UTI complica ting February 08, 2025 10:14am February 08, 2025 10:1 4am Rubella non-immune status, antepartum Ju ly 2024 10:14am Small for dates fetus February 08, 2025 10 :14am Supervision of high-risk February 08, 2025 10:14am GBS (group B streptococcus) UTI complica ting February 28, 2025 8:29am February 28, 2025 8:2 9am Rubella non-immune status, antepartum Au didi 2024 8:29am Small for dates fetus February 28, 2025 8 :29am Supervision of high-risk Augus t 2024 8:29am Breast lump March 08, 2025 9: 20am GBS (group B streptococcus) UTI complica ting March 08, 2025 9:20am March 08, 2025 9: 20am Rubella non-immune status, antepartum Au didi 2024 9:20am Small for dates fetus March 08, 2025 9:20am Supervision of high-risk Augus t 2024 9:20am Breast lump March 15, 2025 10 :18am GBS (group B streptococcus) UTI complica ting March 15, 2025 10:18am March 15, 2025 10 :18am Rubella non-immune status, antepartum Au didi 2024 10:18am Small for dates fetus March 15, 2025 10:18am Supervision of high-risk Augus t 2024 10:18am Breast lump March 22, 2025 3: 32pm GBS (group B streptococcus) UTI complica ting March 22, 2025 3:32pm March 22, 2025 3: 32pm Rubella non-immune status, antepartum Au didi 2024 3:32pm Small for dates fetus March 22, 2025 3:32pm Supervision of high-risk Augus t 2024 3:32pm Advance Directives No Advanced Directives Records Found Advance Directive Response Recorded Date/ Time Living Will No October 15, 2015 12:31pm Power of Pleating Supervisor No October 14 12:31pm Advance Directive Response Recorded Date/ Time Living Will No September 05 10:32pm Power of Pleating Supervisor No September 05, 2022 10:32pm Family History No Family History Records Found Relationship Condition Age at Onset Recorded Date/T carissa grandfather Myocardial infarction 38 grandmother Cerebrovascular accident (CVA) Unknown Diabetes mellitus Unknown Relationship Condition Age at Onset Recorded Date/T carissa grandfather Myocardial infarction 38 grandmother Cerebrovascular accident (CVA) Unknown Diabetes mellitus Unknown mother Cardiac disease Unknown Reason for Referral Specialty Diagnoses / Procedures Referred By Contac t Referred To Contact Cardiology Diagnoses History of tachycardia Procedures CONSULT TO CARDIOLOGY OFFICE/OUTPATIENT NEW HIGH MDM 60-74 MINUTES Caleb Carver MD [address] [place] [address] Referral ID Status Reason Start Date Expiration Date Visits Requested Visits Authorized [id number] Pending Review PCP Requested Referral 09/10/2022 09/10/2023 1 1 Specialty Diagnoses / Procedures Referred By Contac t Referred To Contact Procedures ECG Jose Bassett, LITERARY AGENT-TRAVELING PLANT OPERATOR [address] [place] [address] Referral ID Status Reason Start Date Expiration Date V isits Requested Visits Authorized [id number] New Request 12/09/2022 01/03/2024 1 1 Summary Purpose Additional Source Comments Source Comments (unrecognize d section and content) In the event this informatio n is protected by the Federal Confidentiality of Alcohol and Drug Abuse Patient Records regulations: The Federal rules restrict any use of the information to criminally investigate or prosecute any alcohol or drug abuse patient.[facility] the event this information is protected by the Federal Confidentiality of Alcohol and Drug Abuse Patient Records regulations: The Federal rules restrict any use of the information to criminally investigate or prosecute any alcohol or drug abuse patient.[facility] the event this information is protected by the Federal Confidentiality of Alcohol and Drug Abuse Patient Records regulations: The Federal rules restrict any use of the information to criminally investigate or prosecute any alcohol or drug abuse patient.[facility] the event this information is protected by the Federal Confidentiality of Alcohol and Drug Abuse Patient Records regulations: The Federal rules restrict any use of the information to criminally investigate or prosecute any alcohol or drug abuse patient.[facility] the event this information is protected by the Federal Confidentiality of Alcohol and Drug Abuse Patient Records regulations: The Federal rules restrict any use of the information to criminally investigate or prosecute any alcohol or drug abuse patient.[facility] the event this information is protected by the Federal Confidentiality of Alcohol and Drug Abuse Patient Records regulations: The Federal rules restrict any use of the information to criminally investigate or prosecute any alcohol or drug abuse patient.[facility] the event this information is protected by the Federal Confidentiality of Alcohol and Drug Abuse Patient Records regulations: The Federal rules restrict any use of the information to criminally investigate or prosecute any alcohol or drug abuse patient.[facility] the event this information is protected by the Federal Confidentiality of Alcohol and Drug Abuse Patient Records regulations: The Federal rules restrict any use of the information to criminally investigate or prosecute any alcohol or drug abuse patient.[facility] the event this information is protected by the Federal Confidentiality of Alcohol and Drug Abuse Patient Records regulations: The Federal rules restrict any use of the information to criminally investigate or prosecute any alcohol or drug abuse patient.[facility] the event this information is protected by the Federal Confidentiality of Alcohol and Drug Abuse Patient Records regulations: The Federal rules restrict any use of the information to criminally investigate or prosecute any alcohol or drug abuse patient.[facility] the event this information is protected by the Federal Confidentiality of Alcohol and Drug Abuse Patient Records regulations: The Federal rules restrict any use of the information to criminally investigate or prosecute any alcohol or drug abuse patient.[facility] the event this information is protected by the Federal Confidentiality of Alcohol and Drug Abuse Patient Records regulations: The Federal rules restrict any use of the information to criminally investigate or prosecute any alcohol or drug abuse patient.[facility] the event this information is protected by the Federal Confidentiality of Alcohol and Drug Abuse Patient Records regulations: The Federal rules restrict any use of the information to criminally investigate or prosecute any alcohol or drug abuse patient.[facility] the event this information is protected by the Federal Confidentiality of Alcohol and Drug Abuse Patient Records regulations: The Federal rules restrict any use of the information to criminally investigate or prosecute any alcohol or drug abuse patient.[facility] Reason for Visit (unrecogniz ed section and content) Reason Comments lump on the left side of the neck pt. no ticed it on 10/11 Reason Comments Ear Pain left ear pain-got wa ter in it 2 weeks ago Reason Comments Follow Up still feels like the re's water in left ear Reason Comments Sore Throat X 3 days Reason Comments Pain, Throat Pt reported throat p ain rated 7, x1 day, fever. Reason Comments Appointment Specialty Diagnoses / Procedures Referred By Contac t Referred To Contact Diagnoses SVT (supraventricular tachycardia) SVT (supraventricular tachycardia) [I47.1] Procedures [place] COMPRE EP EVAL ABLTJ 3D MAPG TX SVT ABLATION SCHED INTERCARDIAC SVT W/ OR W/O EP EVAL PACING/HIS/ARRYTHMIA INDUCT ([id number]) Tate Jett MD [address] [place] [id number] [facility] [address] [place] [address] Referral ID Status Reason Start Date Expiration Date Visits Re quested Visits Authorized [id number] 1 1 Reason Comments Establish Care Specialty Diagnoses / Procedures Referred By Eligio t Referred To Contact INTERNAL MEDICINE Diagnoses Well adult health check Procedures ESTABLISH WITH PRIMARY CARE NEW PATIENT OFFICE/OUTPATIENT [facility] 60-74 MINUTES Britney Hallman MD [address] [place] [address] [facility] [address] [address] [place] [address] Referral ID Status Reason Start Date Expiration Date V isits Requested Visits Authorized [id number] Closed PCP Requested Referral 11/08/2022 11/08/2023 1 1 Reason Comments Sinus Problem Sore throat, congest ion, losing voice x 2 weeks Reason Comments Follow Up Throat pain has cont inued since the 05/05/23 visit but reports more sore than initially was. Reason Comments Sore Throat ST, Iqbal and swollen l ymph nodes x 3 days Reason Comments Yearly Exam Reason Comments Sore Throat Nasal congestion, he adache, L ear pain, swollen lymph nodes, fever x 4 days Reason Comments Insect Bite ? 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 Caleb Carver MD Family Provider Active Dr. Caleb Carver MD Primary Care Provider Active Team Status: Inactive Member Role Status Dates Dr. Caleb Carver MD Primary Care Provider Active Dr. Cosme Mason MD Emergency Provider Active Team Status: Active Member Role Status Dates Dr. Caleb Carver MD Primary Care Provider Active Dr. Cosme Mason MD Attending Provider Active Team Status: Inactive Member Role Status Dates Dr. Caleb Carver MD Primary Care Provider, Referr ing Provider Active Dr. Gaston Liu MD Attending Provider Active Team Status: Inactive Member Role Status Dates Dr. Caleb Carver MD Primary Care Provider Active Dr. 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 Caleb Carver MD Primary Care Provider Active Dr. Gaston Liu MD Attending Provider Active Team Status: Active Member Role Status Dates Dr. Caleb Carver MD Primary Care Provider Active Carmine Rios COLD MOLDING PRESS OPERATOR, COLD MOLDING PRESS OPERATOR-C Attending Provider Active Team Status: Inactive Member Role Status Dates Dr. Caleb Carver MD Primary Care Provider Active Dr. Cosme Mason MD Attending Provider, Emergency Provider Active Team Status: Inactive Member Role Status Dates Dr. Caleb Carver MD Primary Care Provider Active Dr. 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 Relationship Specialty Start Date End Date Neymar Ronquillo MD [address] [facility] [place] [address] PCP - General Family Medicine 11/08/22 Katerina Cooper APRN.TRAVELING PLANT OPERATOR [address] [place] [address] [facility] 07/05/24 Giovanna Davies APRN.TRAVELING PLANT OPERATOR [address] [facility] [address] [facility] 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 Relationship Specialty Start Date End Date Neymar Ronquillo MD [address] [place] [address] PCP - General Family Medicine 11/08/22 Katerina Cooper APRN.TRAVELING PLANT OPERATOR [address] [facility] [place] [address] [facility] 07/05/24 Giovanna Davies APRN.TRAVELING PLANT OPERATOR [address] [facility] [place] [address] [facility] 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 Neymar Ronquillo MD Primary Care Provider Active Team Status: Inactive Member Role Status Dates Dr. Neymar Ronquillo MD Primary Care Provider Active Start: September 03, 2024 End: September 03, 2024 Dr. Neymar Ronquillo MD Referring Provider Active Start: September 03, 2024 End: September 03, 2024 Katherine Roberts CNM Attending Provider Active Start: September 03, 2024 End: September 03, 2024 Team Status: Inactive Member Role Status Dates Dr. Neymar Ronquillo MD Primary Care Provider Active Start: September 03, 2024 End: September 03, 2024 Katherine Roberts CNM Attending Provider Active Start: September 03, 2024 End: September 03, 2024 Katherine Roberts CNM Referring Provider Active Start: September 03, 2024 End: September 03, 2024 Team Status: Inactive Member Role Status Dates Dr. Neymar Ronquillo MD Primary Care Provider Active Start: September 13, 2024 End: September 13, 2024 Dr. Farzana Ng MD Attending Provider Active Start: September 13, 2024 End: September 13, 2024 Dr. Farzana Ng MD Referring Provider Active Start: September 13, 2024 End: September 13, 2024 Team Status: Inactive Member Role Status Dates Dr. Neymar Ronquillo MD Primary Care Provider Active Start: October 07, 2024 End: October 07, 2024 Dr. Neymar Ronquillo MD Referring Provider Active Start: October 07, 2024 End: October 07, 2024 Gay Ellis CNM Attending Provider Active S tart: October 07, 2024 End: October 07, 2024 Team Status: Inactive Member Role Status Dates Dr. Neymar Ronquillo MD Primary Care Provider Active Start: November 05, 2024 End: November 05, 2024 Dr. Neymar Ronquillo MD Referring Provider Active Start: November 05, 2024 End: November 05, 2024 Gay Ellis CNM Attending Provider Active S tart: November 05, 2024 End: November 05, 2024 Team Status: Inactive Member Role Status Dates Dr. Neymar Ronquillo MD Primary Care Provider Active Start: December 03, 2024 End: December 03, 2024 Dr. Neymar Ronquillo MD Referring Provider Active Start: December 03, 2024 End: December 03, 2024 Dr. Farzana Ng MD Attending Provider Active Start: December 03, 2024 End: December 03, 2024 Team Status: Inactive Member Role Status Dates Dr. Neymar Ronquillo MD Primary Care Provider Active Start: December 27, 2024 End: December 27, 2024 Dr. Neymar Ronquillo MD Referring Provider Active Start: December 27, 2024 End: December 27, 2024 Gay Ellis CNM Attending Provider Active S tart: December 27, 2024 End: December 27, 2024 Team Status: Active Member Role Status Dates Dr. Neymar Ronquillo MD Primary Care Provider Active Start: December 27, 2024 Dr. Farzana Ng MD Attending Provider Active Start: December 27, 2024 Dr. Farzana Ng MD Referring Provider Active Start: December 27, 2024 Team Status: Inactive Member Role Status Dates Dr. Neymar Ronquillo MD Primary Care Provider Active Start: December 27, 2024 End: December 27, 2024 Dr. Farzana Ng MD Attending Provider Active Start: December 27, 2024 End: December 27, 2024 Dr. Farzana Ng MD Referring Provider Active Start: December 27, 2024 End: December 27, 2024 Team Status: Active Member Role/Relationship Status Dates Dr. Neymar Ronquillo MD Primary Care Provider Active Team Status: Inactive Member Role/Relationship Status Dates Dr. Neymar Ronquillo MD Primary Care Provider Active Start: October 07, 2024 End: October 07, 2024 Dr. Neymar Ronquillo MD Referring Provider Active Start: October 07, 2024 End: October 07, 2024 Gay Ellis CNM Attending Provider Active S tart: October 07, 2024 End: October 07, 2024 Team Status: Inactive Member Role/Relationship Status Dates Dr. Neymar Ronquillo MD Primary Care Provider Active Start: November 05, 2024 End: November 05, 2024 Dr. Neymar Ronquillo MD Referring Provider Active Start: November 05, 2024 End: November 05, 2024 Gay Ellis CNM Attending Provider Active S tart: November 05, 2024 End: November 05, 2024 Team Status: Inactive Member Role/Relationship Status Dates Dr. Neymar Ronquillo MD Primary Care Provider Active Start: December 03, 2024 End: December 03, 2024 Dr. Neymar Ronquillo MD Referring Provider Active Start: December 03, 2024 End: December 03, 2024 Dr. Farzana Ng MD Attending Provider Active Start: December 03, 2024 End: December 03, 2024 Team Status: Inactive Member Role/Relationship Status Dates Dr. Neymar Ronquillo MD Primary Care Provider Active Start: December 27, 2024 End: December 27, 2024 Dr. Neymar Ronquillo MD Referring Provider Active Start: December 27, 2024 End: December 27, 2024 Gay Ellis CNM Attending Provider Active S tart: December 27, 2024 End: December 27, 2024 Team Status: Inactive Member Role/Relationship Status Dates Dr. Neymar Ronquillo MD Primary Care Provider Active Start: December 27, 2024 End: December 27, 2024 Dr. Farzana Ng MD Attending Provider Active Start: December 27, 2024 End: December 27, 2024 Dr. Farzana Ng MD Referring Provider Active Start: December 27, 2024 End: December 27, 2024 Team Status: Inactive Member Role/Relationship Status Dates Dr. Neymar Ronquillo MD Primary Care Provider Active Start: January 25, 2025 End: January 25, 2025 Dr. Neymar Ronquillo MD Referring Provider Active Start: January 25, 2025 End: January 25, 2025 Ava Pinto COLD MOLDING PRESS OPERATOR, COLD MOLDING PRESS OPERATOR-C Attending Provider Active Start: January 25, 2025 End: January 25, 2025 Team Status: Inactive Member Role/Relationship Status Dates Dr. Neymar Ronquillo MD Primary Care Provider Active Start: November 05, 2024 End: November 05, 2024 Dr. Neymar Ronquillo MD Referring Provider Active Start: November 05, 2024 End: November 05, 2024 Gay Ellis CNM Attending Provider Active S tart: November 05, 2024 End: November 05, 2024 Team Status: Inactive Member Role/Relationship Status Dates Dr. Neymar Ronquillo MD Primary Care Provider Active Start: December 03, 2024 End: December 03, 2024 Dr. Neymar Ronquillo MD Referring Provider Active Start: December 03, 2024 End: December 03, 2024 Dr. Farzana Ng MD Attending Provider Active Start: December 03, 2024 End: December 03, 2024 Team Status: Inactive Member Role/Relationship Status Dates Dr. Neymar Ronquillo MD Primary Care Provider Active Start: December 27, 2024 End: December 27, 2024 Dr. Neymar Ronquillo MD Referring Provider Active Start: December 27, 2024 End: December 27, 2024 Gay Ellis CNM Attending Provider Active S tart: December 27, 2024 End: December 27, 2024 Team Status: Inactive Member Role/Relationship Status Dates Dr. Neymar Ronquillo MD Primary Care Provider Active Start: December 27, 2024 End: December 27, 2024 Dr. Farzana Ng MD Attending Provider Active Start: December 27, 2024 End: December 27, 2024 Dr. Farzana gN MD Referring Provider Active Start: December 27, 2024 End: December 27, 2024 Team Status: Inactive Member Role/Relationship Status Dates Dr. Neymar Ronquillo MD Primary Care Provider Active Start: January 25, 2025 End: January 25, 2025 Dr. Neymar Ronquillo MD Referring Provider Active Start: January 25, 2025 End: January 25, 2025 Ava Pinto COLD MOLDING PRESS OPERATOR, COLD MOLDING PRESS OPERATOR-C Attending Provider Active Start: January 25, 2025 End: January 25, 2025 Team Status: Active Member Role/Relationship Status Dates Dr. Neymar Ronquillo MD Primary Care Provider Active Start: February 03, 2025 Ava Pinto COLD MOLDING PRESS OPERATOR, COLD MOLDING PRESS OPERATOR-C Attending Provider Active Start: February 03, 2025 Ava Pinto COLD MOLDING PRESS OPERATOR, COLD MOLDING PRESS OPERATOR-C Referring Provider Active Start: February 03, 2025 Team Status: Inactive Member Role/Relationship Status Dates Dr. Neymar Ronquillo MD Primary Care Provider Active Start: February 08, 2025 End: February 08, 2025 Dr. Neymar Ronquillo MD Referring Provider Active Start: February 08, 2025 End: February 08, 2025 Dr. Cecile Mckeon DO Attending Provider Activ e Start: February 08, 2025 End: February 08, 2025 Team Status: Inactive Member Role/Relationship Status Dates Dr. Neymar Ronquillo MD Primary Care Provider Active Start: February 03, 2025 End: February 03, 2025 Ava Pinto COLD MOLDING PRESS OPERATOR, COLD MOLDING PRESS OPERATOR-C Attending Provider Active Start: February 03, 2025 End: February 03, 2025 Ava Pinto COLD MOLDING PRESS OPERATOR, COLD MOLDING PRESS OPERATOR-C Referring Provider Active Start: February 03, 2025 End: February 03, 2025 Team Status: Inactive Member Role/Relationship Status Dates Dr. Neymar Ronquillo MD Primary Care Provider Active Start: February 28, 2025 End: February 28, 2025 Dr. Neymar Ronquillo MD Referring Provider Active Start: February 28, 2025 End: February 28, 2025 Ava Pinto COLD MOLDING PRESS OPERATOR, COLD MOLDING PRESS OPERATOR-C Attending Provider Active Start: February 28, 2025 End: February 28, 2025 Team Status: Inactive Member Role/Relationship Status Dates Dr. Neymar Ronquillo MD Primary Care Provider Active Start: December 03, 2024 End: December 03, 2024 Dr. Neymar Ronquillo MD Referring Provider Active Start: December 03, 2024 End: December 03, 2024 Dr. Farzana gN MD Attending Provider Active Start: December 03, 2024 End: December 03, 2024 Team Status: Inactive Member Role/Relationship Status Dates Dr. Neymar Ronquillo MD Primary Care Provider Active Start: December 27, 2024 End: December 27, 2024 Dr. Neymar Ronquillo MD Referring Provider Active Start: December 27, 2024 End: December 27, 2024 Gay Ellis CNM Attending Provider Active S tart: December 27, 2024 End: December 27, 2024 Team Status: Inactive Member Role/Relationship Status Dates Dr. Neymar Ronquillo MD Primary Care Provider Active Start: December 27, 2024 End: December 27, 2024 Dr. Farzana Ng MD Attending Provider Active Start: December 27, 2024 End: December 27, 2024 Dr. Farzana Ng MD Referring Provider Active Start: December 27, 2024 End: December 27, 2024 Team Status: Inactive Member Role/Relationship Status Dates Dr. Neymar Ronquillo MD Primary Care Provider Active Start: January 25, 2025 End: January 25, 2025 Dr. Neymar Ronquillo MD Referring Provider Active Start: January 25, 2025 End: January 25, 2025 Ava Pinto COLD MOLDING PRESS OPERATOR, COLD MOLDING PRESS OPERATOR-C Attending Provider Active Start: January 25, 2025 End: January 25, 2025 Team Status: Inactive Member Role/Relationship Status Dates Dr. Neymar Ronquillo MD Primary Care Provider Active Start: February 03, 2025 End: February 03, 2025 Ava Pinto COLD MOLDING PRESS OPERATOR, COLD MOLDING PRESS OPERATOR-C Attending Provider Active Start: February 03, 2025 End: February 03, 2025 Ava Pinto COLD MOLDING PRESS OPERATOR, COLD MOLDING PRESS OPERATOR-C Referring Provider Active Start: February 03, 2025 End: February 03, 2025 Team Status: Inactive Member Role/Relationship Status Dates Dr. Neymar Ronquillo MD Primary Care Provider Active Start: February 08, 2025 End: February 08, 2025 Dr. Neymar Ronquillo MD Referring Provider Active Start: February 08, 2025 End: February 08, 2025 Dr. Cecile Mckeon DO Attending Provider Activ e Start: February 08, 2025 End: February 08, 2025 Team Status: Inactive Member Role/Relationship Status Dates Dr. Neymar Ronquillo MD Primary Care Provider Active Start: February 28, 2025 End: February 28, 2025 Dr. Neymar Ronquillo MD Referring Provider Active Start: February 28, 2025 End: February 28, 2025 Ava Pinto COLD MOLDING PRESS OPERATOR, COLD MOLDING PRESS OPERATOR-C Attending Provider Active Start: February 28, 2025 End: February 28, 2025 Team Status: Inactive Member Role/Relationship Status Dates Dr. Neymar Ronquillo MD Primary Care Provider Active Start: March 08, 2025 End: March 08, 2025 Dr. Neymar Ronquillo MD Referring Provider Active Start: March 08, 2025 End: March 08, 2025 Gay Ellis CNM Attending Provider Active S tart: March 08, 2025 End: March 08, 2025 Team Status: Active Member Role/Relationship Status Dates Dr. Neymar Ronquillo MD Primary Care Provider Active Start: March 10, 2025 Gay Ellis CNM Attending Provider Active S tart: March 10, 2025 Gay Ellis CNM Referring Provider Active S tart: March 10, 2025 Team Status: Inactive Member Role/Relationship Status Dates Dr. Neymar Ronquillo MD Primary Care Provider Active Start: March 15, 2025 End: March 15, 2025 Dr. Neymar Ronquillo MD Referring Provider Active Start: March 15, 2025 End: March 15, 2025 Dr. Cecile Mckeon DO Attending Provider Activ e Start: March 15, 2025 End: March 15, 2025 Team Status: Inactive Member Role/Relationship Status Dates Dr. Neymar Ronquillo MD Primary Care Provider Active Start: March 10, 2025 End: March 10, 2025 Gay Ellis CNM Attending Provider Active S tart: March 10, 2025 End: March 10, 2025 Gay Ellis CNM Referring Provider Active S tart: March 10, 2025 End: March 10, 2025 Team Status: Inactive Member Role/Relationship Status Dates Dr. Neymar Ronquillo MD Primary Care Provider Active Start: March 22, 2025 End: March 22, 2025 Dr. Neymar Ronquillo MD Referring Provider Active Start: March 22, 2025 End: March 22, 2025 Dr. Farzana Ng MD Attending Provider Active Start: March 22, 2025 End: March 22, 2025 INFORMATION SOURCE (unrecogn ized section and content) DATE CREATED AUTHOR 11/20/2022 [facility] DATE CREATED AUTHOR AUTHOR'S ORGANIZ ATION 11/06/2024 [facility] DATE CREATED AUTHOR AUTHOR'S ORGANIZ ATION 12/24/2024 [facility] DATE CREATED AUTHOR AUTHOR'S ORGANIZ ATION 03/27/2025 [facility] Scheduled Active and Recently Administ ered Medications (unrecognized section and content) Medication Order 12/07/2022 12/08/2022 12/09/2022 aspirin chewable tablet 81 mg 81 mg, Oral, DAILY EVERY MORNING, First dose on Fri12/10/22 at 0900, Until Discontinued, Post-op/Post-Proc PRN Medication Order 12/07/2022 12/08/2022 12/09/2022 Acetaminophen (TYLENOL) tablet 325 mg 325 mg, Oral, EVERY 6 HOURS NEEDED, Starting on Fri12/09/22 at 1911, Until Fri12/10/22 at 0238, Mild Pain, Maximum dose of acetaminophen is 4000 mg from all sources in 24 hours., Post-op/Post-Proc Adenosine (ADENOCARD) injection (CANCELED) NEEDED, Starting on Fri12/09/22 at 1904, Until Fri12/09/22 at 1927, Intra-op/Intra-Proc 1903 (Given - Provid er: Carmine Cuellar MD) aspirin chewable tablet (CANCELED) NEEDED, Starting on Fri12/09/22 at 1654, Until Fri12/09/22 at 1927, Intra-op/Intra-Proc 1654 (Given - Provid er: Sheryl Sinclair RN) fentaNYL (SUBLIMAZE) injection (CANCELED) Administer over 2 Minutes, NEEDED, Starting on Fri12/09/22 at 1717, Until Fri12/09/22 at 1927, Intra-op/Intra-Proc 1717 (Given - Provid er: Ashli Richard RN)172 (Given - Provider: Ashli Richard RN)172 (Given - Provider: Ashli Richard RN)175 (Given - Provider: Ashli Richard RN)175 (Given - Provider: Ashli Richard RN)181 (Given - Provider: Ashli Richard RN)190 (Given - Provider: Ashli Richard RN) Heparin injection (CANCELED) NEEDED, Starting on Fri12/09/22 at 1724, Until Fri12/09/22 at 1927, Intra-op/Intra-Proc 1724 (Given - Provid er: Ashli Richard RN)1802 (Given - Provider: Ashli Richard RN)1839 (Given - Provider: Ashli Richard RN) Lidocaine (XYLOCAINE) 10 mg/mL injection (CANCELED) NEEDED, Starting on Fri12/09/22 at 1721, Until Fri12/09/22 at 1927, Intra-op/Intra-Proc 1721 (Given - Provid er: Carmine Cuellar MD)1857 (Given - Provider: Carmine Cuellar MD) midazolam (VERSED) injection (CANCELED) Intravenous, NEEDED, Starting on Fri12/09/22 at 1717, Until Fri12/09/22 at 1927, Intra-op/Intra-Proc 1717 (Given - Provid er: Ashli Richard RN)172 (Given - Provider: Ashli Richard RN)172 (Given - Provider: Ashli Richard RN)175 (Given - Provider: Ashli Richard RN)1755 (Given - Provider: Ashli Richard RN)1813 (Given - Provider: Ashli Richard RN)1903 (Given - Provider: Ashli Richard RN) Ondansetron 4mg/2ml (ZOFRAN) injection (CANCELED) NEEDED, Starting on Fri12/09/22 at 1729, Until Fri12/09/22 at 192, Intra-op/Intra-Proc 1728 (Given - Provid er: Ashli Richard RN) Protamine injection (CANCELED) Administer over 5 Minutes, NEEDED, Starting on Fri12/09/22 at 1907, Until Fri12/09/22 at 1927, Intra-op/Intra-Proc 1906 (Given - Provid er: Ashli Richard RN)1916 (Given - Provider: Ashli Richard RN) Sodium chloride 0.9% IV solution 500 mL Intravenous, at 10 mL/hr, ADMINISTER DIRECTED, Starting on Fri12/09/22 at 1217, Until Tu12/10/22 at 0238, Per treatment plan, Start the morning of procedure., Pre-op/Pre-Proc 1228 ($$New Bag$$ - Provider: Ava Witt RN) Sodium chloride 0.9% IV solution Intravenous, at 1 mL/hr, CONTINUOUS NEEDED, Starting on Fri12/09/22 at 1911, Until Fri12/10/22 at 0238, See administration instructions, Per pressure bag for all transduced lines., Post-op/Post-Proc FOR RECORDS PERTAINING TO PATIENTS WHO ARE OR HAVE BEEN ENROLLED IN A CHEMICAL DEPENDENCY/SUBSTANCEABUSE PROGRAM, SOME INFORMATION MAY BE OMITTED. This clinical summary was aggregated from multiple sources. Caution should be exercised in using it in the provision of clinical care. This summary normalizes information from multiple sources, and as a consequence, information in this document may materially change the coding, format and clinical context of patient data. In addition, data may be omitted in some cases. CLINICAL DECISIONS SHOULD BE BASED ON THE PRIMARY CLINICAL RECORDS. [employer] provides no warranty or guarantee of the accuracy or completeness of information in this document.
[2025-03-27] MEDS: 0.9% Saline Lock 10 ML Syringe IV (21:43)
[2025-03-27 21:55] LABS: Color, Urine Yellow (Yellow); Glucose, Dipstick Normal (Normal); Ketone-Dipstick Negative (Negative); Leukocyte Esterase-Dipstick 25 /ul (Negative); Nitrite-Dipstick Negative (Negative); Occult Blood-Urine Negative /ul (Negative); Protein-Dipstick 15 mg/dl (Negative); Specific Gravity, Urine 1.010 (1.002-1.030); Urine Bilirubin Dipstick Negative (Negative)
[2025-03-27] MEDS: Lactated Ringers 1,000 ML 999 ML IV (21:55)
[2025-03-27 21:57] LABS: Hematocrit 33.4 % (37-47); Hemoglobin 11.8 g/dL (12.0-15.0); Mean Corp Hgb Conc 35.3 g/dL (32-36); Mean Corpuscular Volume 89.3 fL (81-99); Mean Platelet Vol. 11.2 fl (6.2-12.0); Platelet Count 222 K/mm3 (150-450); RBC Distribution Width CV 12.5 % (11.6-14.6); RBC Distribution Width SD 40.6 fl (35.1-43.9); Red Blood Count 3.74 M/mm3 (4.2-5.4); White Blood Count 9.1 K/mm3 (4.4-11.0)
[2025-03-27 22:06] LABS: Prothrombin Time (Protime)PT. 12.3 SECONDS (11.7-14.9)
[2025-03-27 22:07] LABS: Partial Thromboplast Time 26.2 Seconds (24.1-36.2)
[2025-03-27 22:18] LABS: AST(SGOT) 24 U/L (<=31); Alanine Aminotransfer ALT/SGPT 17 U/L (<=34); Estimated Creatinine Clearance 113.90 ml/min (50-250)
[2025-03-27 22:21] LABS: Creatinine, Urine (random) 76.80 mg/dL (28.00-217.00); Protein, Urine (Random) 13.6 mg/dL (0.0-12.0); Protein:Creat Ratio 177 mg/g CRE (0-200)
[2025-03-28 03:13] LABS: LDH 209 U/L (84-246); Uric Acid 4.3 mg/dL (2.6-6.0)
--- NOTE | 2025-03-28 11:32 | OB.TRI.HP_ITS ---
HPI - General HPI Narrative ARCAELIS LOVE, is a 25 F who presents at 39 week c/o intermittent headache not completely resolved by tylenol. presenting to for pre-eclampsia rule out as had borderline blood pressures in office. denies ruq pain or visual changes. Maternal Data Information JAIR Calculator Estimated Delivery Date Method Current WG Current Estimate 04/02/25 Ultrasound #1 39w 2d Other Estimates 03/14/25 LMP (Certain) 42w 0d PFSH PFSH Medical History Early stage of Wears contact lenses TMJ arthritis History of Holter monitoring History of echocardiogram Cardiology follow-up encounter Abnormal ultrasound Breast pain, right WPW (Scmgh-Fzcbcimdx-Dbatd syndrome) Palpitations Spondylolisthesis at L4-L5 level Segmental and somatic dysfunction of pelvic region Segmental and somatic dysfunction of lumbar region Segmental and somatic dysfunction of thoracic region Segmental and somatic dysfunction of cervical region Home Medications ?Medication ?Instructions ?Recorded ?Last Taken ?Type docosahexaenoic acid 200 mg 1 mg PO 08/20/24 03/26/25 21:00 History capsule ( DHA) famotidine 20 mg tablet (Pepcid) 20 mg PO BID #60 tabs 02/08/25 03/27/25 09:00 Rx Allergy/AdvReac Type Severity Reaction Status Date / Time No Known Allergies Allergy Verified 03/27/25 21:25 Family History Grandfather Myocardial infarction, Onset Age: 38 Grandmother CVA (cerebral vascular accident) Diabetes Mother Heart disease Surgical History H/O breast biopsy Hx of wisdom tooth extraction History of cardiac radiofrequency ablation (RFA) (12/09/22) Social History adopted: No household members: spouse number of children: 0 current occupational status: employed 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[employer] current occupational exposures/hazards: No pets and animals: No history of recent travel: [place] ([place] - June 2025) out of state: Yes out of country: No sexually active: Yes Smoking Status: Never smoker alcohol intake: never substance use type: does not use well-balanced diet: daily or most days caffeine: No eating out: 1-3 times/week during the past year weight has: remained stable what type of physical activity do you participate in: walking, running and weight training frequency: 3-4 times per week duration: 15-30 minutes/day chritsin/restorationism: Voodoo seatbelt use: always do you feel safe at home: Yes additional social history: : 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 [employer] History 1 Elective abortions Hx Para 0 Spontaneous abortions Hx # Term Pregnancies Ectopic pregnancies Hx # Pregnancies Multiple births # of living children 0 Visit Details Expected Delivery Route/Plan Labor Preferences- CB/BF classes: encouraged labor support person: Vinicio labor intervention preferences: [] pain management options preferred: epidural cut cord/dad catch: maybe cord : yes PP control planned: discussed discussed possible routes of delivery and associated risks: [] special requests: [] Plans Covid status: [] Flu vaccine: [] Tdap vaccine: given Rhogam: NA LARC form signed: yes Problem list reviewed and updated with the most current plan of care details and appropriate orders placed. Relevant counseling for the gestational age provided. Continue routine care and follow up unless otherwise noted in visit notes/problem list details OB Flowsheet Initial Weight: Not Recorded Date -?-?-?-?-?-?-?-?-?-?-?-?- EGA Weight BP Urine Prot -?-?-?-?-?-?-?-?-?-?-?-?- Glucose FHR FuHt Pres Dilation -?-?-?-?-?-?-?-?-?-?-?-?- Effaced St Visit Note 09/03/24 -?-?-?-?-?-?-?-?-?-?-?-?- 9w 6d 119 lb 127/81 -?-?-?-?-?-?-?-?-?-?-?-?- 181 -?-?-?-?-?-?-?-?-?-?-?-?- CRL not con with LMP. con with early first us with care center. LC- . CRL not con with LM P. con with early first us with care center. 10/07/24 -?-?-?-?-?-?-?-?-?-?-?-?- 14w 5d 118 lb 133/83 -?-?-?-?-?-?-?-?-?-?-?-?- 161 -?-?-?-?-?-?-?-?-?-?-?-?- KW- no vb/crampi ng. US ordered today. 11/05/24 -?-?-?-?-?-?-?-?-?-?-?-?- 18w 6d 124 lb 117/72 Negative -?-?-?-?-?-?-?-?-?-?-?-?- Negative 160 -?-?-?--?-?-?-?-?-?-?-?-?- KW- no vb/crampi ng. + flutters. KW- no vb/cramping. + flutte rs. US reviewed. 12/03/24 -?-?-?-?-?-?-?-?-?-?-?-?- 22w 6d 127 lb 4 oz 123/81 Nega tive -?-?-?-?-?-?-?-?-?-?-?-?- Negative 150 23 -?-?-?-?-?-?-?-?-?-?-?-?- Sm- no vb lof go od fm no regular ctx 12/27/24 -?-?-?-?-?-?-?-?-?-?--?-?- 26w 2d 130 lb 2 oz 119/79 Nega tive -?-?-?-?-?-?-?-?-?-?-?-?- Negative 131 26 -?-?-?-?-?-?-?-?-?-?-?-?- KW- no vb/lof/ct x. good fm. glucose today. CBE classes discussed. traveling to [place] friday. travel precautions discussed. 01/25/25 -?-?-?-?-?-?-?-?-?-?-?-?- 30w 3d 136 lb 116/72 Negative -?-?-?-?-?-?-?-?-?-?-?-?- Negative 157 27 -?-?-?-?-?-?-?-?-?-?-?-?- MH-No VB, LOF. G ood FM. Growth US 02/08/25 -?-?-?-?-?-?-?-?-?-?-?-?- 32w 3d 137 lb 118/73 Negative -?-?-?-?-?-?-?-?-?-?-?-?- Negative 166 30 -?-?-?-?-?-?-?-?-?-?-?-?- JV- no lof, vagi nal bleeding, or dec fm. growth is 24th% with normal fluid. starting pepcid . 02/28/25 -?-?-?-?-?-?-?-?-?-?-?-?- 35w 2d 143 lb 9 oz 118/82 Nega tive -?-?-?-?-?-?-?-?-?-?-?-?- Negative 156 33 -?-?-?-?-?-?-?-?-?-?-?-?- MH-No VB, LOF. G ood FM. Denies concerns 03/08/25 -?-?-?-?-?-?-?-?-?-?-?-?- 36w 3d 144 lb 8 oz 135/79 Nega tive -?-?-?-?-?-?-?-?-?-?-?-?- Negative 150 32 Cephalic 0 -?-?-?-?-?-?-?-?-?-?-?-?- KW- no vb/lof/ct x. good fm. GBS positive in urine. Growth US ordered for S<D. bedside us shows laurel of 9 03/15/25 -?-?-?-?-?-?-?-?-?-?-?-?- 37w 3d 148 lb 6 oz 131/82 Nega tive -?-?-?-?-?-?-?-?-?-?-?-?- Negative 156 33 Cephalic 0 -?-?-?-?-?-?-?-?-?-?-?-?- -1 JV- norm al growth scan. head is low an reason for low FH. 03/22/25 -?-?-?-?-?-?-?-?-?-?-?-?- 38w 3d 155 lb 1 oz 136/87 Trac e -?-?-?-?-?-?-?-?-?-?-?-?- Negative 145 34 Cephalic 1 -?-?-?-?-?-?-?-?-?-?-?-?- 40 Sm- no v b good fm n oregular tx increased swelling reviewed preeclampsia precautions Physical Exam Const alert, oriented x3 and no apparent distress Resp normal respiratory effort, normal air movement, no retractions and no use of accessory muscles Cardio regular rate and regular rhythm GI soft to palpation and non-tender Inspection: Palpation: soft Rectal Exam: deferred no CVA tenderness and external exam normal Bimanual Exam - Vag & Uterus: uterus non-tender and other gravid uterus, normal for gestational age OB / External & Speculum: Negative for herpetic lesions Manual OB Exam: estimated gestational size appropriate and presentation cephalic Amniotic Fluid: no amniotic fluid noted Extremity normal to inspection and full ROM Neuro Motor Exam: strength 5/5 throughout and muscle tone normal throughout Deep Tendon Reflexes: Rt Patellar (L4): 2+ and Lt Patellar (L4): 2+ NST FHR Rate Baby A Baseline: 140 Variability:: Moderate Accelerations:: 15 x 15 Decelerations:: None NST Reactive:: Yes Uterine Activity:: occ Assessment & Plan (1) Headache in : COMMENT: rule out PEC. neg labs, normal bp. improved after lr bolus. safe for d/c home. PLAN: Plan Patient presents for triage evaluation secondary to intermittent headache over the weekend not resolved with tylenol but does improve. negative labs. FHT: Moderate variability reactive no decelerations category I tracing [place]: Contractions Assessment and plan: Reactive NST, reassuring maternal and status patient discharged to home to follow-up in office prn, pec precautions provided. See problem list details for additional plan information. Charges/Coding Procedures Urinary/Genital [id number]: [id number] non-stress test Interp Multi Select Codes Visit Charges Office Visit/Consults: 47980 OP Consult L3
== END 2025-03-27 23:05 | disposition home or self-care (01) ==
LOC: WPOUT 20:58 → WP 20:58
PROVIDERS: PCP Family Medicine; Visit Provider Registered Nurse
DX: O99.891 Other specified diseases and conditions complicating pregnancy (principal); R51.9 Headache, unspecified; Z3A.39 39 weeks gestation of pregnancy
CPT/HCPCS: 96360; 36415; 59025; 59050; 81002; 82565; 82570; 83615; 84156; 84450; 84460; 84550; 85027; 85610; 85730; 86850; 86900; 86901; 99221; A4216; G0378

== ENCOUNTER 2025-03-30 15:50 | Inpatient (IN) | payer OTHER, SELFPAY ==
[2025-03-30] VITALS (13 sets, daily range): BP systolic 127–159; BP diastolic 79–98; PULSE 67–95; RESP 16; TEMP 36.7–37; O2SAT 93–98; BMI 29.2
[2025-03-30 17:03] LABS: Creatinine, Urine (random) 174.00 mg/dL (28.00-217.00); Protein, Urine (Random) 31.9 mg/dL (0.0-12.0); Protein:Creat Ratio 183 mg/g CRE (0-200)
[2025-03-30] MEDS: Lactated Ringers 1,000 ML 50 ML IV (17:05)
[2025-03-30 17:25] LABS: Hematocrit 32.6 % (37-47); Hemoglobin 11.4 g/dL (12.0-15.0); Immature Granulocytes Count 0.080 X10^3/uL (0.0-0.0); Mean Corp Hgb Conc 35.0 g/dL (32-36); Mean Corpuscular Volume 88.8 fL (81-99); Mean Platelet Vol. 10.7 fl (6.2-12.0); NRBC Flagged by Analyzer 0 % (0-5); Platelet Count 196 K/mm3 (150-450); RBC Distribution Width CV 12.6 % (11.6-14.6); RBC Distribution Width SD 41.1 fl (35.1-43.9); Red Blood Count 3.67 M/mm3 (4.2-5.4); White Blood Count 9.4 K/mm3 (4.4-11.0)
[2025-03-30 18:25] LABS: Alanine Aminotransfer ALT/SGPT 23 U/L (<=34); Estimated Creatinine Clearance 125.37 ml/min (50-250); Syphilis Antibodies Nonreactive (Nonreactive)
[2025-03-30 18:39] LABS: AST(SGOT) 28 U/L (<=31); Uric Acid 4.5 mg/dL (2.6-6.0)
--- NOTE | 2025-03-30 19:02 | HP.PCM.OB_ITS ---
HPI - General General Date of Admission: 03/30/25 HPI Narrative ARACELIS SABA, is a 25 y/o @ 39 weeks 4 days who presents to L&D from office with headaches and elevated blood pressures. pIH labs and prot:cr were normal, however due to headache and hypertension, the decision was made to induce labor. She was found to 1 cm/80/-2 by Gay Ellis in the office. The plan is for a noel bulb + pitocin Maternal Data Information JAIR Calculator Estimated Delivery Date Method Current WG Current Estimate 04/02/25 Ultrasound #1 39w 4d Other Estimates 03/14/25 LMP (Certain) 42w 2d PFSH [facility] Medical History (Updated 03/30/25 @ 19:[address] Cecile Mckeon, DO) Pre-eclampsia Early stage of Wears contact lenses TMJ arthritis History of Holter monitoring History of echocardiogram Cardiology follow-up encounter Abnormal ultrasound Breast pain, right WPW (Tzxkm-Wtncefkrh-Txxva syndrome) Palpitations Spondylolisthesis at L4-L5 level Segmental and somatic dysfunction of pelvic region Segmental and somatic dysfunction of lumbar region Segmental and somatic dysfunction of thoracic region Segmental and somatic dysfunction of cervical region Home Medications ?Medication ?Instructions ?Recorded ?Last Taken ?Type docosahexaenoic acid 200 mg 1 mg PO 08/20/24 03/29/25 History capsule ( DHA) famotidine 20 mg tablet (Pepcid) 20 mg PO BID pregnanc y #60 tabs 02/08/25 03/29/25 Rx Allergy/AdvReac Type Severity Reaction Status Date / Time No Known Allergies Allergy Verified 03/30/25 15:56 Family History Grandfather Myocardial infarction, Onset Age: 38 Grandmother CVA (cerebral vascular accident) Diabetes Mother Heart disease Surgical History H/O breast biopsy Hx of wisdom tooth extraction History of cardiac radiofrequency ablation (RFA) (12/09/22) Social History adopted: No household members: spouse number of children: 0 current occupational status: employed 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[email or web address] current occupational exposures/hazards: No pets and animals: No history of recent travel: Yes ([place] - June 2025) out of state: Yes out of country: No sexually active: Yes Smoking Status: Never smoker alcohol intake: never substance use type: does not use well-balanced diet: daily or most days caffeine: No eating out: 1-3 times/week during the past year weight has: remained stable what type of physical activity do you participate in: walking, running and weight training frequency: 3-4 times per week duration: 15-30 minutes/day christin/congregational: Hindu seatbelt use: always do you feel safe at home: Yes additional social history: : 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 [email or web address] History 1 Elective abortions Hx Para 0 Spontaneous abortions Hx # Term Pregnancies Ectopic pregnancies Hx # Pregnancies Multiple births # of living children 0 Visit Details Expected Delivery Route/Plan Labor Preferences- CB/BF classes: encouraged labor support person: Vinicio labor intervention preferences: [] pain management options preferred: epidural cut cord/dad catch: maybe cord : yes PP control planned: discussed discussed possible routes of delivery and associated risks: [] special requests: [] Plans Covid status: [] Flu vaccine: [] Tdap vaccine: given Rhogam: NA LARC form signed: yes Problem list reviewed and updated with the most current plan of care details and appropriate orders placed. Relevant counseling for the gestational age provided. Continue routine care and follow up unless otherwise noted in visit no janice/problem list details OB Flowsheet Initial Weight: Not Recorded Date -?-?-?-?-?-?-?-?-?-?-?--?- EGA Weight BP Urine Prot -?-?-?-?-?-?-?-?-?-?-?-?- Glucose FHR FuHt Pres Dilation -?-?-?-?-?-?-?-?-?-?-?-?- Effaced St Visit Note 09/03/24 -?-?-?-?-?-?-?-?-?-?-?-?- 9w 6d 119 lb 127/81 -?-?-?-?-?-?-?-?-?-?-?-?- 181 -?-?-?-?-?-?-?-?-?-?-?-?- 1.71 CRL not con with LMP. con with early first us with care center. LC- 1.71 CRL not con with LM P. con with early first us with [facility]. 10/07/24 -?-?-?-?-?-?-?-?-?-?-?-?- 14w 5d 118 lb 133/83 -?-?-?-?-?-?-?-?-?-?-?-?- 161 -?-?-?-?-?-?-?-?-?-?-?-?- KW- no vb/crampi ng. US ordered today. 11/05/24 -?-?-?-?-?-?-?-?-?-?-?-?- 18w 6d 124 lb 117/72 Negative -?-?-?-?-?-?-?-?-?-?-?-?- Negative 160 -?-?-?-?-?-?-?-?-?-?-?-?- KW- no vb/crampi ng. + flutters. KW- no vb/cramping. + flutte rs. US reviewed. 12/03/24 -?-?-?-?-?-?-?-?-?-?-?-?- 22w 6d 127 lb 4 oz 123/81 Nega tive -?-?-?-?-?-?-?-?-?-?-?-?- Negative 150 23 -?-?-?-?-?-?-?-?-?-?-?-?- Sm- no vb lof go od fm no regular ctx 12/27/24 -?-?-?-?-?-?-?-?-?-?-?-?- 26w 2d 130 lb 2 oz 119/79 Nega tive -?-?-?-?-?-?-?-?-?-?-?-?- Negative 131 26 -?-?-?-?-?-?-?-?-?-?-?-?- KW- no vb/lof/ct x. good fm. glucose today. CBE classes discussed. traveling to [place] friday. travel precautions discussed. 01/25/25 -?-?-?-?-?-?-?-?-?-?-?-?- 30w 3d 136 lb 116/72 Negative -?-?-?-?-?-?-?-?-?-?-?-?- Negative 157 27 -?-?-?-?-?-?-?-?-?-?-?-?- -No VB, LOF. G ood FM. Growth US 02/08/25 -?-?-?-?-?-?-?-?-?--?-?-?- 32w 3d 137 lb 118/73 Negative -?-?-?-?-?-?-?-?-?-?-?-?- Negative 166 30 -?-?-?-?-?-?-?-?-?-?-?-?- JV- no lof, vagi nal bleeding, or dec fm. growth is 24th% with normal fluid. starting pepcid . 02/28/25 -?-?-?-?-?-?-?-?-?-?-?-?- 35w 2d 143 lb 9 oz 118/82 Nega tive -?-?-?-?-?-?-?-?-?-?-?-?- Negative 156 33 -?-?-?-?-?-?-?-?-?-?-?-?- -No VB, LOF. G ood FM. Denies concerns 03/08/25 -?-?-?-?-?-?-?-?-?-?-?-?- 36w 3d 144 lb 8 oz 135/79 Nega tive -?-?-?-?-?-?-?-?-?-?-?-?- Negative 150 32 Cephalic 0 -?-?-?-?-?-?-?-?-?-?-?-?- KW- no vb/lof/ct x. good fm. GBS positive in urine. Growth US ordered for S<D. bedside us shows laurel of 9 03/15/25 -?-?-?-?-?-?-?-?-?-?-?-?- 37w 3d 148 lb 6 oz 131/82 Nega tive -?-?-?-?-?-?-?-?-?-?-?-?- Negative 156 33 Cephalic 0 -?-?-?-?-?-?-?-?-?-?-?-?- -1 JV- norm al growth scan. head is low an reason for low FH. 03/22/25 -?-?-?-?-?-?-?-?-?-?-?-?- 38w 3d 155 lb 1 oz 136/87 Trac e -?-?-?-?-?-?-?-?-?-?-?-?- Negative 145 34 Cephalic 1 -?-?-?-?-?-?-?-?-?-?-?-?- 40 Sm- no v b good fm n oregular tx increased swelling reviewed preeclampsia precautions 03/30/25 -?-?-?-?-?-?-?-?-?-?-?-?- 39w 4d 159 lb 3 oz 153/90 1+ -?-?-?-?-?-?-?-?-?-?-?-?- Negative 145 36 Cephalic 1 .5 -?-?-?-?-?-?-?-?-?-?-?-?- 70 -1 KW- no vb/ lof/ctx. elevated BP and swelling. to for labs and eval. ROS Constitutional Constitutional: Denies change in weight, fatigue, fever(s), headache(s), poor appetite or weakness Eyes Eyes: Denies blurry vision, change in vision, seeing flashes or spots in vision ENT HEENT: Denies dizziness, headache(s), loss taste/smell or sore throat Cardiovascular Cardiovascular: Denies chest pain, dizziness, dyspnea, irregular heart rhythm, leg edema, palpitations, rapid heart rate or vomiting Respiratory/Chest Respiratory/Chest: Denies chest tightness, cough, dyspnea or breast pain Gastrointestinal Gastrointestinal: Denies abdominal pain, anorexia, constipation, cramping, diarrhea, hemorrhoids, vomiting or weight changes Genitourinary Genitourinary: Denies dysuria, flank pain, genital lesions, genital pain, urinary frequency or urinary urgency Musculoskeletal Musculoskeletal: Denies back pain, difficulty walking, joint pain, limited range of motion, muscle cramps or numbness Integumentary Integumentary: Denies lesions or unusual bruising Neurologic Neurologic: Denies abnormal movements, abnormal speech, dizziness, numbness, seizure-like activity or syncope Psychiatric Psychiatric: Denies anxiety, behavioral changes, change in appetite, change in libido, cognitive impairment, confusion, depression, difficulty concentrating, hallucinations or suicidal thoughts Endocrine Endocrinology: Denies excessive sweating, polydipsia or polyuria Hematologic/Lymphatic Hematologic/Lymphatic: Denies easy bleeding, easy bruising or lymphadenopathy Allergic/Immunologic Allergic/Immunologic: Denies itchy eyes, lip swelling, seasonal rhinorrhea, rhinitis, throat swelling, tongue swelling, eczemia, wheezing or asthma Vital Signs Vital Signs Vital Signs: 03/30/25 15:54 03/30/25 15:54 03/30/25 15:54 Temperature 98.1 F Temperature Source Temporal Pulse Rate Respiratory Rate 16 Blood Pressure BP Systolic BP Diastolic Pulse Ox 03/30/25 15:55 03/30/25 15:55 03/30/25 16:10 Temperature Temperature Source Pulse Rate 75 Respiratory Rate Blood Pressure 159/92 H 150/98 H BP Systolic 159 150 BP Diastolic 92 98 Pulse Ox 03/30/25 16:10 03/30/25 16:25 03/30/25 16:25 Temperature Temperature Source Pulse Rate 72 68 Respiratory Rate Blood Pressure 143/93 H BP Systolic 143 BP Diastolic 93 Pulse Ox 03/30/25 17:51 03/30/25 17:51 03/30/25 17:51 Temperature Temperature Source Pulse Rate 73 Respiratory Rate Blood Pressure 149/86 H BP Systolic 149 BP Diastolic 86 Pulse Ox 93 Weight Weight: 160 lb 0.889 oz Body Mass Index (BMI) 29.2 Physical Exam Const alert, oriented x3, no apparent distress and healthy appearing General Appearance: cooperative; Negative for anxious HEENT normocephalic Face and Sinus: normal facial exam Eyes EOMs intact bilaterally and no scleral icterus General Eye: normal appearance of both eyes Neck full ROM and supple Lymph Lymphatic: no lymphadenopathy noted Resp normal respiratory effort Effort and Inspection: able to speak in complete sentences Cardio regular rate GI soft to palpation and non-tender Inspection: gravid Palpation: soft; Negative for tender Rectal Exam: other Other Details: a 22 fr catheter was inserted into the cervix and inflated with 30cc ns. external exam normal Back/Spine no CVA tenderness Extremity normal to inspection, full ROM and no clubbing, cyanosis or edema General Extremity: Negative for calf tenderness or edema Skin Lesions: no lesions Rashes: no rashes Psych mental status grossly normal Labs Labs Labs: Blood Type O POSITIVE Antibody Screen NEGATIVE Hct 32.6 % (37-47) L Hgb 11.4 g/dL (12.0-15.0) L Obstetrics Ultrasound Syphilis Total Ab Nonreactive (Nonreactive) Rubella IgG Antibody Equiv (Nonreactive) Hep Bs Antigen Non-Reactive (Nonreactive) Hepatitis C Antibody Non-Reactive (Nonreactive) Chlamydia DNA (ARIANA) Negative (Negative) N.gonorrhoeae DNA (ARIANA) Negative (Negative) HIV 1&2 Antibody Nonreactive (Nonreactive) Glucose 1 Hr 50 gm 70 mg/dL (70-140) Assessment & Plan (1) Gestational hypertension: (2) Headache in : COMMENT: rule out PEC. neg labs, normal bp. improved after lr bolus. safe for d/c home. (3) Small for dates fetus: COMMENT: growth US EFW 24%, AC 40% (4) Rubella non-immune status, antepartum: COMMENT: offer MMR vaccine pp. (5) GBS (group B streptococcus) UTI complicating : QUALIFIERS: Trimester: third trimester Qualified Code(s): O23.43 - Unspecified infection of urinary tract in , third trimester; B95.1 - Streptococcus, group B, as the cause of diseases classified elsewhere COMMENT: not high enough to treat in treat with PCN in labor. (6) Supervision of high-risk : QUALIFIERS: Trimester: third trimester Qualified Code(s): O09.93 - Supervision of high risk , unspecified, third trimester COMMENT: PRR, , JAIR 04/02/25, girl : Vinicio (7) : QUALIFIERS: Weeks of gestation: 39 weeks Qualified Code(s): Z 3A.39 - 39 weeks gestation of COMMENT: NIPT low risk. Horizon neg. nl anatomy (8) Breast lump: QUALIFIERS: Breast mass location: unspecified quadrant COMMENT: right, fibroidadenoma PLAN: Plan Patient presents IOL, plan management for with noel +pitocin/AROM in the am or sooner as needed. Pain management: plans epidural. GBS positive- start pcn when noel is out.. Management of any complications: as above I have reviewed the [facility] and made any clinically relevant updates.
[2025-03-30] MEDS: Oxytocin 15 Units/NS 250ml 15 UNITS/250 ML IV.SOLN 2 UNITS IV (20:35)
[2025-03-30] MEDS: 0.9% Normal Saline Single 100 ML IV.SOLN. INTRA-UTER (20:37)
[2025-03-30] MEDS: Penicillin G Pot 5,000,000 UNITS in 0.9% Normal Saline (100mL MB+) 100 ML 150 UNITS IV (22:49)
[2025-03-31] VITALS (51 sets, daily range): BP systolic 115–153; BP diastolic 65–98; PULSE 57–88; RESP 15–18; TEMP 36.2–37.4; O2SAT 92–100
[2025-03-31] MEDS: Lactated Ringers 1,000 ML 999 ML IV (01:23)
[2025-03-31] MEDS: fentaNYL-bupivacaine (epidural) 100 ML BAG EPIDURAL ×4 (02:10→15:23)
[2025-03-31] MEDS: Lactated Ringers 1,000 ML 200 ML IV ×3 (02:24→13:51)
[2025-03-31] MEDS: Penicillin G 3,000,000 Units 50 ML 100 UNITS IV ×4 (02:54→15:35)
--- NOTE | 2025-03-31 08:25 | NURSING ---
straight cath three times now will proceed with indwellling next time
--- NOTE | 2025-03-31 08:32 | PN_ITS ---
Progress Note patient is sitting up in captain's position. She just vomited and nurse is pushing zofran. She admits to having heart burn. She Is comfortable with e pidural and current tracing: FHT: [] Moderate variability reactive no decelerations category I tracing [place]: [] Contractions reviewed tracing abnormalities since last note: [ ] A/P: [ ]
--- NOTE | 2025-03-31 08:32 | PCM.PN.BLA ---
Progress Note patient is sitting up in captain's position. She just vomited and nurse is pushing zofran. She admits to having heart burn. She Is comfortable with epidural and antibiotics running current tracing: FHT: 130-140 Moderate variability reactive no decelerations category I tracing [place]: q 2 min Contractions cx; 4/80/0 clear fluid upon arom A/P: gestational hypertension- IOL at 39 weeks continue pitocin pepcid 20 mg IV now membranes ruptured with clear fluid. Patient understands I will be handing off to Dr. Ng for delivery management and is very comfortable with the plan.
[2025-03-31] MEDS: Famotidine 200 MG/20 ML MDV 20 MG in 0.9% Normal Saline (Pres. free 8 ML 300 MG IV (09:07)
[2025-03-31] MEDS: Oxytocin 15 Units/NS 250ml 15 UNITS/250 ML IV.SOLN 334 UNITS IV (17:11)
[2025-03-31] MEDS: Oxytocin 15 Units/NS 250ml 15 UNITS/250 ML IV.SOLN 83 UNITS IV (17:42)
--- NOTE | 2025-03-31 18:34 | OB.VAGDELI_ITS ---
Assessment & Plan (1) Gestational hypertension: (2) Headache in : COMMENT: rule out PEC. neg labs, normal bp. improved after lr bolus. safe for d/c home. (3) Small for dates fetus: COMMENT: growth US EFW 24%, AC 40% (4) Rubella non-immune status, antepartum: COMMENT: offer MMR vaccine pp. (5) GBS (group B streptococcus) UTI complicating : QUALIFIERS: Trimester: third trimester Qualified Code(s): O23.43 - Unspecified infection of urinary tract in , third trimester; B95.1 - Streptococcus, group B, as the cause of diseases classified elsewhere COMMENT: not high enough to treat in treat with PCN in labor. (6) Supervision of high-risk : QUALIFIERS: Trimester: third trimester Qualified Code(s): O09.93 - Supervision of high risk , unspecified, third trimester COMMENT: INGRID, , JAIR 04/02/25, girl : Vinicio (7) : QUALIFIERS: Weeks of gestation: 39 weeks Qualified Code(s): Z3A.39 - 39 weeks gestation of COMMENT: NIPT low risk. Horizon neg. nl anatomy (8) Breast lump: QUALIFIERS: Breast mass location: unspecified quadrant COMMENT: right, fibroidadenoma (9) Vaginal delivery: COMMENT: sm 39 IOL ghtn girl Tami Maternal Data Information JAIR Calculator Estimated Delivery Date Method Current WG Current Estimate 04/02/25 Ultrasound #1 39w 5d Other Estimates 03/14/25 LMP (Certain) 42w 3d Vaginal Delivery Maternal Presentation Maternal Presentation: see assessment and plan Vaginal Delivery Information Procedure Performed: Spontaneous Vaginal Delivery Surgeon/Practitioner: Farzana Ng Date of Procedure: 03/31/25 Pre-Procedure Diagnosis: see assessment and plan Post-Procedure Diagnosis: same Type of anesthesia: Epidural Estimated Blood Loss: 200 Findings Description of procedure: Patient began pushing and delivered the head in the LUISA presentation. The head was delivered atraumatically . The anterior and posterior shoulders delivered without complication followed by the rest of the and the was placed on the maternal abdomen. Delayed cord clamping was employed for approximately 60 seconds. Cord was clamped and cut and gentle traction was applied to the cord and the placenta delivered spontaneously immediately following it was noted to be intact with three-vessel cord. The perineum and vagina were inspected and was noted to have a second -degree laceration that was repaired in the usual fashion with 3-0 vicryl rapide . EBL was 200. Patient and infant tolerated delivery well. Presentation: Vertex Placental Delivery Description: Spontaneous Specimen collected: Yes Description of specimen(s) removed: placenta Hospice Massage Therapist senior cost accountant: No Post Vaginal Deli Medications given after delivery: Other (pitocin) Complication Complications: No Multi Select Codes Urinary/Genital Urinary/Genital CPT Codes: 19661 Vaginal Delivery [facility]
--- NOTE | 2025-03-31 18:39 | DCINST_ITS ---
Discharge Instructions DC O2, CPAP, BIPAP needs Home O2 Discharge instructions: No Dressing / Incision Discharge Activity: Return to Normal Activity, May Not Drive (while taking narcotic pain medications.) and May Shower May resume sexual activity in: 4-6 weeks Dressing / Incision Call your doctor if your incision/area has: Continuous Slow Oozing, Sudden Increased Bleeding, Increased Pain/ Swelling, Increased Redness and Foul Smelling Discharge Follow Up Care Please Follow Up With: Farzana Ng MD When: Call [phone] to make an appointment with your doctor in 6 weeks. If you had elevated blood pressure or 4th degree laceration, you will need to be seen in 2 weeks. Test Results: Test results from this visit will be discussed in further detail at your follow- up appointment, if applicable. Discharge Plan Admission Admit Date/Time: 03/30/25 15:50 Attending Provider: Farzana Ng Primary Care Provider: Neymar Peña Discharge Orders/Prescriptions Prescriptions: No Action DHA 200 mg capsule 1 mg PO famotidine [Pepcid] 20 mg tablet 20 mg PO BID Qty: 60 5RF Referrals / Follow Up: Neymar Peña MD [Primary Care Provider] -
[2025-04-01] VITALS (13 sets, daily range): BP systolic 106–138; BP diastolic 66–98; PULSE 74–100; RESP 14–18; TEMP 36.1–36.8; O2SAT 94–98
--- NOTE | 2025-04-01 10:58 | NURSING ---
pt passed golf ball sized clot, will continue to monitor. This rn calls about elevated blood pressures and Hernandez states to continue monitoring at this time.
--- NOTE | 2025-04-06 17:27 | NURSING ---
Follow up phone call made, doing well denies any pain. States her bleeding is minimal, no headaches or visual disturbances. States she has not been able to always control her bladder, encouraged her to reach out to her COMPANY [employer]NAGER regarding bladder control. Exclusively pumping and states it is going well.
== END 2025-04-01 18:50 | disposition home or self-care (01) | DRG 806 ==
PROVIDERS: Obstetrics & Gynecology; Admitting Provider Obstetrics & Gynecology; PCP Family Medicine; Referring Provider Obstetrics & Gynecology; Visit Provider Obstetrics & Gynecology
DX: O13.4 Gestational [pregnancy-induced] hypertension without significant proteinuria, complicating childbirth (principal); Z37.0 Single live birth; O98.82 Other maternal infectious and parasitic diseases complicating childbirth; O23.43 Unspecified infection of urinary tract in pregnancy, third trimester; O36.5930 Maternal care for other known or suspected poor fetal growth, third trimester, not applicable or unspecified; B95.1 Streptococcus, group B, as the cause of diseases classified elsewhere; Z3A.39 39 weeks gestation of pregnancy; D24.1 Benign neoplasm of right breast; O99.893 Other specified diseases and conditions complicating puerperium; O70.1 Second degree perineal laceration during delivery
CPT/HCPCS: 59025; 59050; 82565; 82570; 84156; 84450; 84460; 84550; 85025; 86780; 86850; 86900; 86901; 99221; G0378; J2405